=== PATIENT | female | born 2000 | race Caucasian/White ===

== ENCOUNTER → 2018-04-04 13:26 | Outpatient (CLI) | payer OTHER, SELFPAY ==
[2018-04-04 14:40] LABS: HCG,Quantitative 0 mIU/mL
== END ==
PROVIDERS: Family Provider Family Medicine; Visit Provider Obstetrics & Gynecology
DX: Z32.00 Encounter for pregnancy test, result unknown (principal)
CPT/HCPCS: 36415; 84702

== ENCOUNTER → 2018-06-04 09:20 | Outpatient (CLI) | payer OTHER, SELFPAY ==
[2018-06-04 10:01] LABS: Basophils % 0.2 % (0.1-2.0); Eosinophils # 0.1 K/mm3 (0.0-0.4); Eosinophils % 1.8 % (0.1-12.0); Hematocrit 38.8 % (37.0-47.0); Hemoglobin 13.6 g/dL (12.2-16.2); Lymphocytes # 1.8 K/mm3 (0.7-4.5); Lymphocytes % 23.4 K/mm3 (10-50); Mean Corpuscular HGB Conc 35.1 g/dL (31.8-35.4); Mean Corpuscular Hemoglobin 30.3 pg (27.0-31.2); Mean Corpuscular Volume 86.4 fl (81-99); Mean Platelet Volume 8.1 fl (7.4-10.4); Monocytes # 0.4 K/mm3 (0.1-1.0); Monocytes % 5.1 % (1.7-9.3); Neutrophils # 5.5 K/mm3 (1.8-7.8); Neutrophils % 69.5 % (37.0-80.0); Platelet Count 171 K/mm3 (142-424); Red Blood Count 4.49 M/mm3 (4.20-5.40); Red Cell Distribution Width 14.1 % (11.5-17.5); White Blood Count 7.9 K/mm3 (4.5-13.0)
[2018-06-04 10:35] LABS: Hemoglobin A1C 9.5 % (0.0-7.0)
[2018-06-04 13:37] LABS: Free Thyroxine Index 3.1 ug/dL (5.93-13.13); HCG,Quantitative 55763 mIU/mL; T4 (Thyroxine) 9.6 ug/dl (5.4-10.6); Thyroid Stimulating Hormone 3.16 uIU/ml (0.516-4.13); Triiodothryronine (T3) Uptake 32 % (31-39)
[2018-06-06 06:50] LABS: HIV Screen 4th Generation wRfx Non Reactive (Non Reactive); Hepatitis B Surface Antigen Negative (Negative); Hepatitis C Antibody <0.1 s/co ratio (0.0-0.9); Rapid Plasma Reagin Ab Titer Non Reactive (NonRea<1:1)
[2018-06-06 06:51] LABS: Rubella Antibodies, IgG 1.34 index (Immune >0.99)
[2018-06-07 15:21] LABS: Neisseria gonorrhoeae, NAA Negative (Negative)
== END ==
PROVIDERS: Family Provider Family Medicine; PCP Pediatrics; Visit Provider Nurse Practitioner Obstetrics & Gynecology
DX: Z34.90 Encounter for supervision of normal pregnancy, unspecified, unspecified trimester (principal)
CPT/HCPCS: 36415; 83036; 84436; 84443; 84479; 84702; 85025; 86592; 86703; 86762; 86850; 87340; 87380; 87491; 87591; G0432

== ENCOUNTER → 2018-06-12 14:52 | Outpatient (CLI) | payer OTHER, SELFPAY ==
--- NOTE | 2018-06-12 14:52 | US_ITS ---
US OB transvaginal HISTORY: OB- Dates ITS.REASON: US OB- Dates ORDERING PHYSICIAN: Steve Ware MD PATIENT AGE: 18 years COMPARISON: None FINDINGS: An intrauterine gestational sac is present with a pole with a crown-rump length of 1.98cm correlating to gestational age of 8w0d . heart tones are present with an FHR of 164 bpm's. Yolk sac is noted. The amnion and chorion have not yet fused. Adnexa: There is a 1.57 m left ovarian corpus luteum cyst. There is minimal cul-de-sac fluid. IMPRESSION: Live intrauterine gestation at 8 weeks 0 days as described above. Estimated due date by ultrasound is 01/22/2019.
== END ==
PROVIDERS: Family Provider Family Medicine; PCP Pediatrics; Visit Provider Nurse Practitioner Obstetrics & Gynecology
DX: O26.841 Uterine size-date discrepancy, first trimester (principal)
CPT/HCPCS: 76817; 76830

== ENCOUNTER → 2019-07-04 12:17 | Outpatient (CLI) | payer OTHER, SELFPAY ==
[2019-07-04 14:14] LABS: HCG,Quantitative 0 mIU/mL
== END ==
PROVIDERS: Visit Provider Nurse Practitioner Obstetrics & Gynecology
DX: Z32.00 Encounter for pregnancy test, result unknown (principal)
CPT/HCPCS: 36415; 84702

== ENCOUNTER → 2019-11-12 15:01 | Outpatient (CLI) | payer OTHER, SELFPAY ==
[2019-11-12 16:33] LABS: HCG,Quantitative 0 mIU/mL
== END ==
PROVIDERS: Visit Provider Nurse Practitioner Obstetrics & Gynecology
DX: Z32.00 Encounter for pregnancy test, result unknown (principal)
CPT/HCPCS: 36415; 84702

== ENCOUNTER → 2019-11-19 13:53 | Outpatient (CLI) | payer OTHER, SELFPAY ==
[2019-11-19 14:27] LABS: Basophils % 0.2 % (0.1-2.0); Eosinophils # 0.1 K/mm3 (0.0-0.4); Eosinophils % 0.9 % (0.1-12.0); Hematocrit 44.2 % (37.0-47.0); Hemoglobin 15.2 g/dL (12.2-16.2); Lymphocytes # 1.6 K/mm3 (0.7-4.5); Lymphocytes % 26.9 % (10-50); Mean Corpuscular HGB Conc 34.4 g/dL (31.8-35.4); Mean Corpuscular Hemoglobin 29.9 pg (27.0-31.2); Mean Corpuscular Volume 86.7 fl (81-99); Monocytes # 0.3 K/mm3 (0.1-1.0); Monocytes % 4.4 % (1.7-9.3); Neutrophils % 67.6 % (37.0-80.0); Platelet Count 261 K/mm3 (142-424); Red Cell Distribution Width 12.8 % (11.5-17.5); White Blood Count 5.9 K/mm3 (4.8-10.8)
[2019-11-19 15:06] LABS: Alanine Aminotransferase 14 U/L (12-78); Albumin Level 3.4 gm/dL (3.4-5.0); Albumin/Globulin Ratio 1.1 (1.1-1.8); Alkaline Phosphatase 97 U/L (46-116); Anion Gap 18.9 mEq/L (5-15); Aspartate Amino Transferase 10 U/L (15-37); Bilirubin,Total 0.2 mg/dL (0.2-1.0); Blood Urea Nitrogen 0 mg/dL (7-18); Calcium 8.7 mg/dL (8.5-10.1); Carbon Dioxide 21 mmol/L (21.0-32.0); Chloride 105 mmol/L (98-107); Chol/HDL Ratio 6.7 (1-3.5); Cholesterol 194 mg/dL (140-200); Creatinine,Serum 0.81 mg/dL (0.55-1.02); Estimated Glomerular Filt Rate 89 ml/min (>60); Free T4 (Free Thyroxine) 1.08 ng/dl (0.76-1.46); GFR (African American) 108 ML/MIN (>60); Glucose 279 mg/dL (74-106); HDL Cholesterol 29 mg/dL (29-89); LDL Cholesterol 116 mg/dL (0-130); Potassium 3.9 mmoL/L (3.5-5.1); Sodium 141 mmol/L (136-145); Thyroid Stimulating Hormone 0.86 uIU/ml (0.358-3.740); Total Protein,Serum 6.4 gm/dL (6.4-8.2); Triglycerides 245 mg/dL (30-200); VLDL Cholesterol 49 mg/dL (0-40)
[2019-11-19 15:15] LABS: Hemoglobin A1C 10.3 % (0.0-7.0)
[2019-11-20 12:34] LABS: Vitamin D 25 Hydroxy 14.9 ng/mL (30.0-100.0)
[2019-11-20 12:35] LABS: Microalbumin, Urine 4.3 ug/mL (Not Estab.)
== END ==
PROVIDERS: Visit Provider Emergency Medicine
DX: E03.9 Hypothyroidism, unspecified (principal); E11.9 Type 2 diabetes mellitus without complications; E55.9 Vitamin D deficiency, unspecified; Z79.4 Long term (current) use of insulin
CPT/HCPCS: 80053; 80061; 82043; 82652; 83036; 84439; 84443; 85025

== ENCOUNTER → 2020-05-04 14:11 | Outpatient (CLI) | payer OTHER, SELFPAY ==
[2020-05-04 15:44] LABS: HCG,Quantitative < 2 mIU/ml (0-5.42)
== END ==
PROVIDERS: Visit Provider Nurse Practitioner Obstetrics & Gynecology
DX: Z32.00 Encounter for pregnancy test, result unknown (principal)
CPT/HCPCS: 36415; 84702

== ENCOUNTER 2020-06-18 16:41 | Emergency (ER) | payer OTHER, SELFPAY ==
[2020-06-18 17:09] VITALS: BP 141/88; PULSE 101; RESP 18; TEMP 36.9; O2SAT 99; BMI 36.3
--- NOTE | 2020-06-18 17:21 | HMH.EDUTC ---
[facility] [place] [facility] [place] Clinical Impression: Viral syndrome Disposition: Home, Self-Care Condition on Discharge: Good Instructions: Diarrhea, DI for Viral Syndrome, DI for Fever (Symptom) -- Adult, Preventing the Spread of Coronavirus Discharge Instructions Additional Instructions: ? Drink extra fluids with and between meals. If you have difficulty drinking, try very small amounts of water or suck on ice chips. ? Avoid fruit juices, as these do not replace minerals and can actually increase diarrhea. ? Children and adults can use sports drinks to replenish electrolytes. Younger children and infants should use products formulated for children, like oral rehydration solutions. ? Eat food in small amounts and let your stomach recover. ? Get lots of rest. You may feel tired or weak. ? No greasy or fried foods for the next 24-48 hours BRAT diet Bananas Rice Apples and [place] ? Make sure to drink plenty of liquids ? Return if needed ? Straight to ER if any life threatening symptoms ? Zofran as prescribed ? You was given an outpatient order for diarrhea panel, please collect specimen and bring back to outpatient lab then call back to the [facility] or follow up with family doctor for results ? Follow up with family doctor in the next 48-72 hours if no improvement or any worsening of symptoms *Monitor Temp, Over the counter Motrin or Tylenol as directed/as needed Tylenol every 4 hours and Motrin every 6 hours (as long as your family doctor has told you that you can take it) for fever or pain. and straight to ER if unable to lower temp less than 101.0 after medication given *Warm salt water gargles may help to soothe the throat *Throat Lozenges *Warm fluids like tea with honey may help to soothe the throat *Sleep elevated *Humidifier/Vaporizer Follow up IMMEDIATELY for new or worsening symptoms or no Noticeable improvement over the next 48-72 hours. 911 for difficulty breathing or swallowing Call back to the [facility] in the next 48-72 hours to see if your results are back, You was given handout with instructions for Self Quarantine and Self isolation if your result was positive make sure to follow instructions Return if needed Referrals: Isak Calle [Primary Care Provider] - As needed Forms: Work/School Release Time of Disposition: 17:35 Medical Decision Making - Jasson Inquiry Pt receiving controlled substance: No Jasson was queried for this patient: No Vital Signs: 06/18/20 17:09 Temperature 98.4 F Temperature Source Oral Pulse Rate [Right Brachial] 101 H Respiratory Rate 18 Blood Pressure [Right Arm] 141/88 H Blood Pressure Mean [Right Arm] 105 Blood Pressure Source [Right Arm] Automatic Cuff Blood Pressure Position [Right Arm] Sitting 02 Sat by Pulse Oximetry 99 Oxygen Delivery Method Room Air Orders (Tests/Meds): ORDERS Category Date Time Status COVID [SARS-CoV-2, EBONI ([place])] Stat Lab 06/18/20 17:04 Ordered [facility] [place] [facility] [place] - General Stated complaint: headaches muscle aches diarrhea fatigue nausea Time Seen by Provider: 06/18/20 17:21 Mode of Arrival: Ambulatory Source of Information: Patient Limitations: No Limitations Description of Symptoms (Recalled from Triage Doc. by RN): PATIENT C/O HEADACHE, BODY ACHES, FATIGUE, LOW-GRADE FEVER, COUGH, AND DIARRHEA X 3 DAYS. HAS BEEN EXPOSED TO COVID YESTERDAY AND 1 WEEK AGO HEENT Symptoms (Recalled from RN notes): Yes Resp Symptoms (Recalled from RN notes): No Skin Symptoms (Recalled from RN notes): No MS Symptoms (Recalled from RN notes): Yes Functional Status (Recalled from RN notes): WNL - History of Present Illness Provider Complaint: Patient states that she was around a friend that tested positive for COVID19 yesterday States that she was around her about a week ago and yesterday States that also her rides to work with male that tested positive also States that for the last several days she has been having sore throat, nausea, diarrhea body aches and low grade fever. States kailey
[2020-06-18 17:49] VITALS: BP 141/88; PULSE 101; RESP 18; TEMP 36.9; O2SAT 99
[2020-06-18 17:50] LABS: UTC Pregnancy Test, Urine Negative (Negative)
[2020-06-20 09:42] LABS: Covid-19 Nasal PCR Sendout UK Not Detected
== END 2020-06-18 17:58 | disposition home or self-care (01) ==
PROVIDERS: Emergency Provider Nurse Practitioner; PCP Pediatrics
DX: B34.9 Viral infection, unspecified (principal); Z20.828 Contact with and (suspected) exposure to other viral communicable diseases; F41.9 Anxiety disorder, unspecified; Z79.899 Other long term (current) drug therapy; Z88.5 Allergy status to narcotic agent
CPT/HCPCS: 81025; 99202; U0003

== ENCOUNTER 2020-09-07 10:49 | Emergency (ER) | payer OTHER, SELFPAY ==
[2020-09-07 12:06] VITALS: BP 126/76; PULSE 75; RESP 19; TEMP 36.6; O2SAT 99; BMI 35.1
--- NOTE | 2020-09-07 12:14 | HMH.EDUTC ---
[facility] – [place] Disposition Clinical Impression: Exposure to COVID-19 virus, Viral syndrome Disposition: Home, Self-Care Condition on Discharge: Good Instructions: Preventing the Spread of Coronavirus Discharge Instructions, DI for Nausea -- Adult, Nausea and Vomiting-Adult, Sore Throat, Common Cold, DI for Viral Upper Respiratory Infection -- Adult Additional Instructions: *Monitor Temp, Over the counter Motrin or Tylenol as directed/as needed Tylenol every 4 hours and Motrin every 6 hours (as long as your family doctor has told you that you can take it) for fever or pain. and straight to ER if unable to lower temp less than 101.0 after medication given *Warm salt water gargles may help to soothe the throat *Throat Lozenges *Warm fluids like tea with honey may help to soothe the throat *Sleep elevated *Humidifier/Vaporizer Follow up IMMEDIATELY for new or worsening symptoms or no Noticeable improvement over the next 48-72 hours. 911 for difficulty breathing or swallowing You was tested for today for COVID19 your test result should be back in the next 24-48 hours, you may call to the [facility] tomorrow to see if your test results are back and the result [phone] You was given a handout with instructions for Self Quarantine and Self isolation for while you wait on test results and what to do if they are positive If you are positive the Health Dept will be contacting you also Prescriptions: Ondansetron [Zofran 4mg ODT] 4 mg PO TIDP PRN #6 tab PRN Reason: Nausea Prescription Printed Referrals: Isak Calle [Primary Care Provider] - As needed Time of Disposition: 12:21 Medical Decision Making - Jasson Inquiry Pt receiving controlled substance: No Jasson was queried for this patient: No Vital Signs: 09/07/20 12:06 Temperature 97.8 F Temperature Source Oral Pulse Rate [Left] 75 Respiratory Rate 19 Blood Pressure [Right Arm] 126/76 Blood Pressure Mean [Right Arm] 92 Blood Pressure Source [Right Arm] Automatic Cuff Blood Pressure Position [Right Arm] Sitting 02 Sat by Pulse Oximetry 99 Oxygen Delivery Method Room Air Orders (Tests/Meds): ORDERS Category Date Time Status Covid-19 Nasal PCR ([facility]) Routine Lab 09/07/20 12:04 Ordered Medical Decision Narrative: Patient states that she has taken zofran before without complications or reactions [facility] [place] HPI - General Stated complaint: covid test Time Seen by Provider: 09/07/20 12:14 Mode of Arrival: Ambulatory Source of Information: Patient Limitations: No Limitations Description of Symptoms (Recalled from Triage Doc. by RN): Cough, vomiting, SOB, migraines x 5 days HEENT Symptoms (Recalled from RN notes): No Resp Symptoms (Recalled from RN notes): Yes Skin Symptoms (Recalled from RN notes): No MS Symptoms (Recalled from RN notes): No Functional Status (Recalled from RN notes): stable - History of Present Illness Provider Complaint: Patient state that she has been exposed to COVID by who tested positive for COVID yesterday States that she has been having some nausea/Vomiting, body aches, nasal congestion and cough States that she is concerned she may have it now too - Related Data Home Medications Medication Instructions Recorded Confirmed blood-glucose meter See Rx Instructions .ROUTE 11/19/19 11/19/19 .MEDSUPPLY #1 each Previous Rx's Medication Instructions Recorded blood sugar diagnostic See Rx Instructions .ROUTE 11/19/19 .MEDSUPPLY #100 each insulin glargine 100 unit/mL (3 41 unit SQ DAILY #15 ml 11/19/19 mL) subcutaneous pen insulin syringe-needle U-100 0.3 See Dose Instructions .ROUTE 11/19/19 mL 31 gauge x 16 .MEDSUPPLY 25 Days #100 each cholecalciferol (vitamin D3) 25 1,000 unit PO DAILY #90 cap 11/24/19 mcg (1,000 unit) capsule ergocalciferol (vitamin D2) 1,250 50,000 unit PO QWEEK 90 Days #12 11/24/19 mcg (50,000 unit) capsule cap insulin lispro 100 unit/mL 40 unit SQ TID #15 ml 11/27/19 subcutaneous pen
[2020-09-07 12:28] VITALS: BP 126/76; PULSE 75; RESP 19; TEMP 36.6; O2SAT 99
[2020-09-08 21:20] LABS: Covid-19 Nasal PCR Sendout Lex Not Detected
== END 2020-09-07 12:29 | disposition home or self-care (01) ==
PROVIDERS: Emergency Provider Nurse Practitioner; PCP Pediatrics
DX: Z20.828 Contact with and (suspected) exposure to other viral communicable diseases (principal); B34.9 Viral infection, unspecified; F41.9 Anxiety disorder, unspecified; Z88.5 Allergy status to narcotic agent; Z79.899 Other long term (current) drug therapy; E11.9 Type 2 diabetes mellitus without complications
CPT/HCPCS: 99201; U0004

== ENCOUNTER 2021-01-09 20:56 | Emergency (ER) | payer OTHER, SELFPAY ==
[2021-01-09 20:57] VITALS: BMI 35.6
[2021-01-09 21:05] VITALS: BP 152/100; PULSE 110; RESP 18; TEMP 36.7; O2SAT 98; BMI 35.6
[2021-01-09 21:09] LABS: Microscopic, Urine URINE MICROSCOPIC (MICROSCOPIC)
[2021-01-09 21:23] LABS: Appearance,Urine CLEAR (Clear); Bilirubin,Urine Negative (Negative); Blood, Urine 3+ (Negative); Color,Urine YELLOW (Yellow); Glucose,Urine (UA) 3+ (Negative); Ketones,Urine Negative (Negative); Leukocyte Esterase,Urine Negative (Negative); Nitrate,Urine Negative (Negative); Protein,Urine Negative (Negative); Specific Gravity, Urine 1.015 (1.005-1.030); Urobilinogen,Urine 0.2 EU/dl (0.2)
[2021-01-09 21:24] LABS: Urine Pregnancy, HCG Qual. Negative (Negative)
[2021-01-09 21:25] LABS: RBC,Urine 50-100 #/hpf (0-3)
--- NOTE | 2021-01-09 21:25 | HMH.EDUROGF ---
ED Disposition Clinical Impression: Vaginal bleeding Disposition: Home, Self-Care Condition on Discharge: Good Instructions: DI for Vaginal Bleeding Additional Instructions: please follow up with dr ware Referrals: Isak Calle [Primary Care Provider] - Steve Ware MD [Staff Physician] - - Critical Care Critical Care Time: No Attestation: On 01/09/21, the high probability of a clinically significant, sudden or life threatening deterioration of the following system(s) required my full and direct attention, intervention and personal management. The time I documented below is in addition to time spent performing reported procedures but includes the following listed in this critical care notation. Medical Decision Making - Medical Records Medical records reviewed: Yes: I reviewed the patient's medical records. - Jasson Inquiry Pt receiving controlled substance: No Vital Signs: 01/09/21 21:05 01/09/21 21:28 Temperature 98.1 F 98.1 F Temperature Source Oral Oral Pulse Rate 99 H Pulse Rate [Right Brachial] 110 H Respiratory Rate 18 18 Blood Pressure 148/79 H Blood Pressure [Right Arm] 152/100 H Blood Pressure Mean [Right Arm] 117 Blood Pressure Source Automatic Cuff Blood Pressure Source [Right Arm] Automatic Cuff Blood Pressure Position Supine Blood Pressure Position [Right Arm] Sitting 02 Sat by Pulse Oximetry 98 Oxygen Delivery Method Room Air Room Air - Lab Data Lab results reviewed: Yes: I reviewed the patient's lab results. Lab Results 01/09/21 21:00: Urine Color Yellow, Urine Appearance Clear, Urine pH 7.0, Ur Specific [place] 1.015, Urine Protein Negative, Urine Glucose (UA) 3+, Urine Ketones Negative, Urine Blood 3+, Urine Nitrate Negative, Urine Bilirubin Negative, Urine Urobilinogen 0.2, Ur Leukocyte Esterase Negative, Urine RBC 50-100 01/09/21 21:00: Urine HCG, Qual Negative Female Urogenital HPI - General Chief complaint: Vaginal Bleeding Stated complaint: 5 wk preg bleeding Time Seen by Provider: 01/09/21 21:25 Mode of Arrival: Family Vehicle Source of Information: Patient, Medical Record Limitations: No Limitations Description of Symptoms (Recalled from ER Triage Doc. by RN): pt states she took three home preg tests and they were positive a few days ago. then she stated she started bleeding last night, enough blood that she has to wear a pad to protect her clothing. Her regular menses was due to begin two days ago and is always regular ; - History of Present Illness HPI Narrative: had home preg test but then dev vag bleeding - pt is o+ Complaint: vaginal bleeding Onset (ago): day(s) Severity: moderate : Unknown - Related Data Home Medications Medication Instructions Recorded Confirmed blood-glucose meter See Rx Instructions .ROUTE 11/19/19 11/19/19 .MEDSUPPLY #1 each Previous Rx's Medication Instructions Recorded blood sugar diagnostic See Rx Instructions .ROUTE 11/19/19 .MEDSUPPLY #100 each insulin glargine 100 unit/mL (3 41 unit SQ DAILY #15 ml 11/19/19 mL) subcutaneous pen insulin syringe-needle U-100 0.3 See Dose Instructions .ROUTE 11/19/19 mL 31 gauge x 5/16 .MEDSUPPLY 25 Days #100 each cholecalciferol (vitamin D3) 25 1,000 unit PO DAILY #90 cap 11/24/19 mcg (1,000 unit) capsule ergocalciferol (vitamin D2) 1,250 50,000 unit PO QWEEK 90 Days #12 11/24/19 mcg (50,000 unit) capsule cap insulin lispro 100 unit/mL 40 unit SQ TID #15 ml 11/27/19 subcutaneous pen prenat.vits,yue,eue-elrk-ggnuf 1 tab PO DAILY #30 tab 05/04/20 Ondansetron [Zofran 4mg ODT] 4 mg PO TIDP PRN #6 tab 09/07/20 Allergies Allergy/AdvReac Type Severity Reaction Status Date / Time codeine [CODEINE] Allergy Mild Verified 09/07/20 12:27 Influenza Virus Vaccines AdvReac Unknown Verified 09/07/20 12:27 [facility] [place] History - Hepatitis A Screen Drug use history?: No High risk sexual behaviors?: No History of sexually transmitted infec
[2021-01-09 21:28] VITALS: BP 148/79; PULSE 99; RESP 18; TEMP 36.7; O2SAT 98
== END 2021-01-09 21:38 | disposition home or self-care (01) ==
PROVIDERS: Emergency Provider Emergency Medicine; PCP Pediatrics
DX: N93.9 Abnormal uterine and vaginal bleeding, unspecified (principal); Z32.02 Encounter for pregnancy test, result negative; E10.9 Type 1 diabetes mellitus without complications; Z79.4 Long term (current) use of insulin; F41.9 Anxiety disorder, unspecified; E03.9 Hypothyroidism, unspecified
CPT/HCPCS: 81001; 81025; 99282

== ENCOUNTER 2021-07-11 17:42 | Emergency (ER) | payer OTHER, SELFPAY ==
[2021-07-11 17:43] VITALS: BP 149/89; PULSE 111; RESP 21; TEMP 36.8; O2SAT 98; BMI 41.1
--- NOTE | 2021-07-11 19:12 | US_ITS ---
PROCEDURE INFORMATION: Exam: US , Transvaginal Exam date and time: 07/11/2021 7:12 PM Age: 21 years old Clinical indication: Other: Abdomen pain and nausea; Gestational age or lmp: 6 weeks 2 days; ; Additional info: Abdominal pain nausea TECHNIQUE: Imaging protocol: Real-time transvaginal obstetrical ultrasound of the maternal pelvis with image documentation. Transvaginal imaging was used for better evaluation of the fetus, adnexa, and/or cervix. COMPARISON: OBTV US OB transvaginal 06/12/2018 3:27 PM FINDINGS: Gestation: Intrauterine gestational sac with yolk sac. heart rate: Heart rate was not definitively recorded. BIOMETRY: Gestational age (AUA): Gestational age based on crown-rump length is 5 weeks and 6 days. Estimated due date (AUA): RENATE of 03/07/2022 MATERNAL: Cervix: Cervix appears within normal limits. Right adnexa: Right ovary is normal. Left adnexa: Left ovary is normal. IMPRESSION: Single intrauterine gestation as described above. Follow-up ultrasound is recommended in 7-10 days to confirm viability.
[2021-07-11 19:15] LABS: Microscopic, Urine URINE MICROSCOPIC (MICROSCOPIC)
[2021-07-11 19:18] LABS: Appearance,Urine CLEAR (Clear); Bilirubin,Urine Negative (Negative); Blood, Urine Negative (Negative); Color,Urine YELLOW (Yellow); Glucose,Urine (UA) Negative (Negative); Ketones,Urine Negative (Negative); Leukocyte Esterase,Urine TRACE (Negative); Nitrate,Urine Negative (Negative); Protein,Urine Negative (Negative); Specific Gravity, Urine 1.025 (1.005-1.030); Urine Pregnancy, HCG Qual. Positive (Negative); Urobilinogen,Urine 0.2 EU/dl (0.2)
[2021-07-11 19:29] LABS: WBC,Urine Occasional #/hpf (0-3)
[2021-07-11 19:32] LABS: Basophils % 0.2 % (0.1-2.0); Eosinophils # 0.1 K/mm3 (0.0-0.4); Eosinophils % 0.8 % (0.1-12.0); Hematocrit 34.7 % (37.0-47.0); Hemoglobin 12.2 g/dL (12.2-16.2); Lymphocytes # 1.6 K/mm3 (0.7-4.5); Lymphocytes % 23.6 % (10-50); Mean Corpuscular HGB Conc 35.2 g/dL (31.8-35.4); Mean Corpuscular Hemoglobin 30.1 pg (27.0-31.2); Mean Corpuscular Volume 85.6 fl (81-99); Mean Platelet Volume 6.8 fl (7.4-10.4); Monocytes # 0.4 K/mm3 (0.1-1.0); Monocytes % 6.2 % (1.7-9.3); Neutrophils # 4.7 K/mm3 (1.8-7.8); Neutrophils % 69.1 % (37.0-80.0); Platelet Count 192 K/mm3 (142-424); Red Blood Count 4.05 M/mm3 (4.20-5.40); Red Cell Distribution Width 13.8 % (11.5-17.5); White Blood Count 6.8 K/mm3 (4.8-10.8)
--- NOTE | 2021-07-11 19:33 | HMH.EDGENADL ---
ED Disposition Clinical Impression: Vaginal bleeding before 22 weeks gestation Disposition: Home, Self-Care Condition on Discharge: Good Instructions: DI for Acute Abdominal Pain Additional Instructions: Follow-up waste minimization technician tomorrow morning by phone. Return to emergency department for worsening bleeding, fever, severe pain. Referrals: Isak Calle [Primary Care Provider] - 3 days Time of Disposition: 20:20 - Critical Care Critical Care Time: No Attestation: On 07/11/21, the high probability of a clinically significant, sudden or life threatening deterioration of the following system(s) required my full and direct attention, intervention and personal management. The time I documented below is in addition to time spent performing reported procedures but includes the following listed in this critical care notation. Medical Decision Making - Medical Records Medical records reviewed: Yes: I reviewed the patient's medical records. - Jasson Inquiry Pt receiving controlled substance: No Vital Signs: 07/11/21 17:43 Temperature 98.3 F Temperature Source Oral Pulse Rate [Right Radial] 111 H Respiratory Rate 21 Blood Pressure [Right Arm] 149/89 H Blood Pressure Mean [Right Arm] 109 Blood Pressure Source [Right Arm] Automatic Cuff Blood Pressure Position [Right Arm] Sitting 02 Sat by Pulse Oximetry 98 Oxygen Delivery Method Room Air - Lab Data Lab Results 07/11/21 18:56: Urine Color Yellow, Urine Appearance Clear, Urine pH 7.0, Ur Specific [place] 1.025, Urine Protein Negative, Urine Glucose (UA) Negative, Urine Ketones Negative, Urine Blood Negative, Urine Nitrate Negative, Urine Bilirubin Negative, Urine Urobilinogen 0.2, Ur Leukocyte Esterase Trace, Urine RBC None, Urine WBC Occasional, Ur Squamous Epith Cells None, Urine Bacteria None 07/11/21 18:56: Urine HCG, Qual Positive 07/11/21 19:12: HCG, Quant [id number] H 07/11/21 19:17: WBC 6.8, RBC 4.05 L, Hgb 12.2, Hct 34.7 L, MCV 85.6, MCH 30.1, MCHC 35.2, RDW 13.8, Plt Count 192, MPV 6.8 L, Neut % (Auto) 69.1, Lymph % (Auto) 23.6, [place] % (Auto) 6.2, Eos % (Auto) 0.8, Baso % (Auto) 0.2, Neut # (Auto) 4.7, Lymph # (Auto) 1.6, [place] # (Auto) 0.4, Eos # (Auto) 0.1, Baso # (Auto) 0.0, ESR 18 07/11/21 19:17: Sodium 138, Potassium 3.6, Chloride 103, Carbon Dioxide 24, Anion Gap 14.6, BUN 9, Creatinine 0.50 L, Estimated Creat Clear 282, Estimated GFR 153, Est GFR ( Amer) 185, Glucose 84, Calcium 9.0, Total Bilirubin 0.2, AST 22, ALT 21, Alkaline Phosphatase 73, C-Reactive Protein 13.4 H, Total Protein 7.3, Albumin 3.9, Globulin 3.4 H, Albumin/Globulin Ratio 1.1, Procalcitonin 0.062 07/11/21 19:37: SARS-CoV-2 (PCR) Not detected, Influenza A Untype (PCR) Not detected, Influenza Type B (PCR) Not detected Result diagrams: 07/11/21 19:17 07/11/21 19:17 Orders (Tests/Meds): ED MEDICATIONS Generic Name Dose Route Start Last Admin Trade Name Freq PRN Reason Stop Dose Admin Sodium Chloride 1,000 mls @ 999 mls/hr 07/11/21 19:30 Sod Chlor 0.9% 1000ml Bag IV 07/11/21 20:30 .Q1H1M [facility] ORDERS Category Date Time Status US OB transvaginal Stat Ultrasound 07/11/21 19:12 Ordered Medical Decision Narrative: 21oy F evaluated for uterine cramping and spotting at 6 weeks gestation. Patient in no acute distress on initial evaluation. Routine laboratory studies have been collected. Ultrasound has been called in for further evaluation. Laboratory studies are unremarkable. Patient's ultrasound shows a gestational sac in the uterus. There is no signs of ectopic . Too early to calculate heart rate off of ultrasound per tech at this time. Patient encouraged to follow-up with her waste minimization technician tomorrow via phone. General Adult HPI - General Chief complaint: Abdominal Pain Stated complaint: 6 Wks Preg. Spotting and vomiting Time Seen by Provider: 07/11/21 19:33 Mode of Arrival: Ambulatory Limitations: No Limitations Description of Symptoms (Recalled
[2021-07-11 19:43] LABS: Coronavirus 19, PCR Not Detected (NotDetected); Influenza A, PCR Not Detected (NotDetected); Influenza B, PCR Not Detected (NotDetected)
[2021-07-11 19:53] LABS: Alanine Aminotransferase 21 U/L (12-78); Albumin Level 3.9 g/dl (3.5-5.0); Albumin/Globulin Ratio 1.1 (1.1-1.8); Alkaline Phosphatase 73 U/L (38-126); Anion Gap 14.6 mEq/L (5-15); Aspartate Amino Transferase 22 U/L (14-36); Bilirubin,Total 0.2 mg/dl (0.2-1.3); Blood Urea Nitrogen 9 mg/dl (7-17); Carbon Dioxide 24 mmol/L (22.0-30.0); Chloride 103 mmol/L (98-107); Creatinine Clearance Estimated 282 mL/min (50-200); Estimated Glomerular Filt Rate 153 ml/min (>60); GFR (African American) 185 ML/MIN (>60); Globulin 3.4 g/dL (1.3-3.2); Glucose 84 mg/dl (74-100); Potassium 3.6 mmoL/L (3.5-5.1); Sodium 138 mmol/L (136-145); Total Protein,Serum 7.3 g/dl (6.3-8.2)
[2021-07-11 19:58] LABS: C-Reactive Protein 13.4 mg/L (0-4)
[2021-07-11 20:06] LABS: Erythrocyte Sedimentation Rate 18 mm/hr (0-20)
[2021-07-11 20:11] LABS: Procalcitonin 0.062 ng/mL (0.0-2.0)
[2021-07-11 20:12] LABS: HCG,Quantitative 11583 mIU/ml (0-5.42)
[2021-07-11 20:44] VITALS: BP 140/80; PULSE 100; RESP 18; TEMP 36.9; O2SAT 95
== END 2021-07-11 20:46 | disposition home or self-care (01) ==
PROVIDERS: Emergency Medicine; Emergency Provider Family Medicine; PCP Pediatrics
DX: Z20.822 Contact with and (suspected) exposure to COVID-19 (principal); O20.9 Hemorrhage in early pregnancy, unspecified; Z3A.01 Less than 8 weeks gestation of pregnancy; F41.9 Anxiety disorder, unspecified
CPT/HCPCS: 76817; 80053; 81001; 81025; 84145; 84702; 85025; 85651; 86140; 96365; 99283; C9803; U0003; U0005

== ENCOUNTER 2022-06-25 18:07 | Emergency (ER) | payer OTHER, SELFPAY ==
[2022-06-25 18:08] VITALS: BP 157/65; PULSE 108; RESP 20; TEMP 38.4; O2SAT 100; BMI 41.1
[2022-06-25 19:09] VITALS: BP 148/72; PULSE 100; RESP 18; TEMP 37.9; O2SAT 100; BMI 41.1
--- NOTE | 2022-06-25 19:39 | EXP.UTC ---
Discharge Plan Disposition Patient Disposition: Still a Patient Condition: Fair Prescriptions Prescriptions: No Action (DME) blood-glucose meter Misc See Rx Instructions .ROUTE .MEDSUPPLY Qty: 1 Label Comments: USE DIRECTED DX E 10.65 Rx Instructions: As directed Basaglar KwikPen U-100 Insulin 100 unit/mL (3 mL) insulin pen 41 unit SQ DAILY Qty: 15 2RF (DME) insulin syringe-needle U-100 0.3 mL 31 gauge x 5/16 syringe See Dose Instructions .ROUTE .MEDSUPPLY 25 Days Qty: 100 2RF Rx Instructions: As directed (DME) blood sugar diagnostic Strip See Rx Instructions .ROUTE .MEDSUPPLY Qty: 100 2RF Rx Instructions: As directed ergocalciferol (vitamin D2) 1,250 mcg (50,000 unit) capsule 50,000 unit PO QWEEK 90 Days Qty: 12 0RF cholecalciferol (vitamin D3) 25 mcg (1,000 unit) capsule 1,000 unit PO DAILY Qty: 90 1RF insulin lispro [Admelog SoloStar U-100 Insulin] 100 unit/mL insulin pen 40 unit SQ TID Qty: 15 3RF prenat.vits,yue,low-xkqk-ozqwc Tablet 1 tab PO DAILY Qty: 30 6RF ondansetron 4 MG tablet,disintegrating 4 mg PO TIDP PRN (Reason: Nausea) Qty: 6 0RF Referrals Follow up/Referrals: Isak Calle [Primary Care Provider] - See instructions Discharge ED Provider: Luis North [facility] [place] HPI General Stated complaint: exposed,Home test+,Weakness,Dizzy,Blood sugar hig Mode of Arrival: Ambulatory Source of Information: Patient Limitations: No Limitations Time Seen by Provider: 06/25/22 19:46 Description of Symptoms (Recalled from Triage Doc. by RN): pt here with c/o izziness, body aches, cough, high blood sugar, cough, vomitting, nasal drainage. pt had an at home positive covid test was positive. HEENT Symptoms (Recalled from RN notes): Yes Resp Symptoms (Recalled from RN notes): Yes Skin Symptoms (Recalled from RN notes): No MS Symptoms (Recalled from RN notes): No Functional Status (Recalled from RN notes): n/a History of Present Illness Provider Complaint: She is a type 1 diabetic that tested positive for covid-19 on a home test yesterday. She is here today because she feels very bad, having shortness of air, feeling very dizzy and her blood sugars are running in the 300's despite everything she can do to lower them. She has an insulin pump. She has been in DKA in the past. Related Data Home Medications Medication Instructions Recorded Confirmed blood-glucose meter #1 ea 11/19/19 11/19/19 Previous Rx's Medication Instructions Recorded blood sugar diagnostic #100 ea 11/19/19 insulin glargine 100 unit/mL (3 41 unit (0.41 mL) SQ DAILY 11/19/19 mL) subcutaneous pen (Basaglar Diabetes #15 mL KwikPen U-100 Insulin) insulin syringe-needle U-100 0.3 #100 ea 11/19/19 mL 31 gauge x 5/16 cholecalciferol (vitamin D3) 25 1,000 unit PO DAILY #90 caps 11/24/19 mcg (1,000 unit) capsule ergocalciferol (vitamin D2) 1,250 50,000 unit PO QWEEK 90 days #12 11/24/19 mcg (50,000 unit) capsule caps insulin lispro 100 unit/mL 40 unit (0.4 mL) SQ TID #15 mL 11/27/19 subcutaneous pen (Admelog SoloStar U-100 Insulin lispro) prenat.vits,yue,slb-acpc-svtjh 1 tab PO DAILY #30 tabs 05/04/20 ondansetron 4 mg disintegrating 4 mg PO TIDP PRN Nausea #6 tabs 09/07/20 tablet Allergies Allergy/AdvReac Type Severity Reaction Status Date / Time codeine [CODEINE] Allergy Mild Verified 06/25/22 19:15 Influenza Virus Vaccines AdvReac Unknown Verified 06/25/22 19:15 Worker's Comp Is this a Worker's Comp case?: No PFSH PFSH Medical History Diabetes mellitus Type 1 diabetes mellitus Type 1 diabetes mellitus affecting in first trimester, antepartum Family History Other Diabetes Type 1 diabetes mellitus Social History Smoking Status: Never smoker second hand exposure: No alcohol i
--- NOTE | 2022-06-25 19:52 | XR_ITS ---
PROCEDURE INFORMATION: Exam: XR Chest Exam date and time: 06/25/2022 8:10 PM Age: 22 years old Clinical indication: Fever TECHNIQUE: Imaging protocol: Radiologic exam of the chest. Views: 2 views. COMPARISON: No relevant prior studies available. FINDINGS: Lungs: Asymmetric density left lung base. Otherwise clear. Pleural spaces: Unremarkable. No pleural effusion. No pneumothorax. Heart/Mediastinum: Unremarkable. No cardiomegaly. Bones/joints: Unremarkable. IMPRESSION: Asymmetric density left lung base may reflect developing infiltrate or atelectasis. Follow-up recommended.
[2022-06-25 19:55] LABS: POC Glucose,Bedside 224 (70-110)
[2022-06-25 19:56] LABS: Influenza A, PCR Not Detected (NotDetected); Influenza B, PCR Not Detected (NotDetected)
[2022-06-25 20:00] LABS: Microscopic, Urine URINE MICROSCOPIC (MICROSCOPIC)
[2022-06-25 20:02] LABS: Appearance,Urine CLOUDY (Clear); Bilirubin,Urine Negative (Negative); Blood, Urine 3+ (Negative); Color,Urine RED (Yellow); Glucose,Urine (UA) 2+ (Negative); Ketones,Urine 1+ (Negative); Leukocyte Esterase,Urine 1+ (Negative); Nitrate,Urine POSITIVE (Negative); PH,Urine 7.5 (5.0-8.5); Protein,Urine 3+ (Negative)
[2022-06-25 20:05] LABS: Urine Pregnancy, HCG Qual. Negative (Negative)
[2022-06-25 20:07] LABS: Basophils % 0.9 % (0.1-2.0); Hematocrit 39.9 % (37.0-47.0); Hemoglobin 13.2 g/dL (12.2-16.2); Lymphocytes # 0.5 K/mm3 (0.7-4.5); Mean Corpuscular HGB Conc 33.1 g/dL (31.8-35.4); Mean Corpuscular Hemoglobin 26.6 pg (27.0-31.2); Mean Corpuscular Volume 80.4 fl (81-99); Monocytes # 0.4 K/mm3 (0.1-1.0); Monocytes % 9.2 % (1.7-9.3); Neutrophils # 3.2 K/mm3 (1.8-7.8); Neutrophils % 77.8 % (37.0-80.0); Platelet Count 204 K/mm3 (142-424); Red Blood Count 4.97 M/mm3 (4.20-5.40); Red Cell Distribution Width 15.7 % (11.5-17.5); White Blood Count 4.2 K/mm3 (4.8-10.8)
[2022-06-25 20:15] LABS: Alanine Aminotransferase 28 U/L (12-78); Albumin Level 4.2 g/dl (3.5-5.0); Albumin/Globulin Ratio 1.3 (1.1-1.8); Alkaline Phosphatase 115 U/L (38-126); Aspartate Amino Transferase 26 U/L (14-36); Blood Urea Nitrogen 10 mg/dl (7-17); Calcium 9.1 mg/dl (8.4-10.2); Carbon Dioxide 25 mmol/L (22.0-30.0); Chloride 103 mmol/L (98-107); Creatinine Clearance Estimated 175 mL/min (50-200); Estimated Glomerular Filt Rate 88 ml/min (>60); GFR (African American) 107 ML/MIN (>60); Globulin 3.3 g/dL (1.3-3.2); Glucose 225 mg/dl (74-100); Potassium 3.8 mmoL/L (3.5-5.1); Total Protein,Serum 7.5 g/dl (6.3-8.2)
[2022-06-25 20:16] LABS: Bacteria,Urine 1+ /lpf; RBC,Urine TNTC #/hpf (0-3)
[2022-06-25 20:17] LABS: Coronavirus 19, PCR Detected (NotDetected)
[2022-06-25 20:18] LABS: Anion Gap 11.8 mEq/L (5-15); Bilirubin,Total < 0.1 mg/dl (0.2-1.3); Sodium 136 mmol/L (136-145)
[2022-06-25 20:20] LABS: C-Reactive Protein 24.9 mg/L (0-4)
[2022-06-25 20:21] LABS: Acetone, Serum (Rapid) None Detected (None Detect)
[2022-06-25 20:31] LABS: Erythrocyte Sedimentation Rate 12 mm/hr (0-20)
--- NOTE | 2022-06-25 20:44 | HMH.EDURI ---
Discharge Plan Disposition Patient Disposition: Still a Patient Condition: Fair Chief Complaint: Upper Respiratory Infection Prescriptions Prescriptions: No Action (DME) blood-glucose meter Misc See Rx Instructions .ROUTE .MEDSUPPLY Qty: 1 Label Comments: USE DIRECTED DX E 10.65 Rx Instructions: As directed Basaglar KwikPen U-100 Insulin 100 unit/mL (3 mL) insulin pen 41 unit SQ DAILY Qty: 15 2RF (DME) insulin syringe-needle U-100 0.3 mL 31 gauge x 5/16 syringe See Dose Instructions .ROUTE .MEDSUPPLY 25 Days Qty: 100 2RF Rx Instructions: As directed (DME) blood sugar diagnostic Strip See Rx Instructions .ROUTE .MEDSUPPLY Qty: 100 2RF Rx Instructions: As directed ergocalciferol (vitamin D2) 1,250 mcg (50,000 unit) capsule 50,000 unit PO QWEEK 90 Days Qty: 12 0RF cholecalciferol (vitamin D3) 25 mcg (1,000 unit) capsule 1,000 unit PO DAILY Qty: 90 1RF insulin lispro [Admelog SoloStar U-100 Insulin] 100 unit/mL insulin pen 40 unit SQ TID Qty: 15 3RF prenat.vits,yue,xza-zdtt-trsma Tablet 1 tab PO DAILY Qty: 30 6RF ondansetron 4 MG tablet,disintegrating 4 mg PO TIDP PRN (Reason: Nausea) Qty: 6 0RF Referrals Follow up/Referrals: Isak Calle [Primary Care Provider] - See instructions Clinical Impressions Clinical Impression: COVID-19, Type 1 diabetes mellitus Instructions Patient Instructions: DI for COVID-19 (Suspected or Confirmed ) Discharge ED Provider: Samson Bueno URI/Sore Throat HPI General Chief Complaint: Upper Respiratory Infection Stated Complaint: exposed,Home test+,Weakness,Dizzy,Blood sugar hig Time Seen by Provider: 06/25/22 19:46 Mode of Arrival: Ambulatory Source of Information: Patient Limitations: No Limitations Description of Symptoms (Recalled from ER Triage Doc. by RN): pt here with c/o izziness, body aches, cough, high blood sugar, cough, vomitting, nasal drainage. pt had an at home positive covid test was positive. History of Present Illness HPI Narrative: has positive exposure to covid-19 abd has uri sx - is diabetic and is bottle feeding 4 month old - roger fluids and meds Complaint: fever, cough and nasal congestion Onset (ago): day(s) Duration: intermittent Severity: moderate Relieving factors: OTC cold medicine Able to tolerate fluids by mouth: Yes Context: sick contacts Associated symptoms: denies other symptoms Related Data Home Medications Medication Instructions Recorded Confirmed blood-glucose meter #1 ea 11/19/19 11/19/19 Previous Rx's Medication Instructions Recorded blood sugar diagnostic #100 ea 11/19/19 insulin glargine 100 unit/mL (3 41 unit (0.41 mL) SQ DAILY 11/19/19 mL) subcutaneous pen (Basaglar Diabetes #15 mL KwikPen U-100 Insulin) insulin syringe-needle U-100 0.3 #100 ea 11/19/19 mL 31 gauge x 5/16 cholecalciferol (vitamin D3) 25 1,000 unit PO DAILY #90 caps 11/24/19 mcg (1,000 unit) capsule ergocalciferol (vitamin D2) 1,250 50,000 unit PO QWEEK 90 days #12 11/24/19 mcg (50,000 unit) capsule caps insulin lispro 100 unit/mL 40 unit (0.4 mL) SQ TID #15 mL 11/27/19 subcutaneous pen (Admelog SoloStar U-100 Insulin lispro) prenat.vits,yue,txs-vhbi-closz 1 tab PO DAILY #30 tabs 05/04/20 ondansetron 4 mg disintegrating 4 mg PO TIDP PRN Nausea #6 tabs 09/07/20 tablet Allergies Allergy/AdvReac Type Severity Reaction Status Date / Time codeine [CODEINE] Allergy Mild Verified 06/25/22 19:15 Influenza Virus Vaccines AdvReac Unknown Verified 06/25/22 19:15 [facility] Medical History Diabetes mellitus Type 1 diabetes mellitus Type 1 diabetes mellitus affecting in first trimester, antepartum Family History Other Diabetes Type 1 diabetes mellitus Social History (Updated 06/25/22 @ 19:47 by Emeterio Parisi APRN) Smoking Status: Nev
[2022-06-25 21:03] VITALS: BP 134/74; PULSE 100; RESP 18; TEMP 37.6; O2SAT 100
--- NOTE | 2022-06-25 21:05 | PC.NURSE ---
UPON DISCHARGE, PT REPORTS THAT HER DEXCOM IS NOT WORKING. PT REPORTS THAT SHE DOES HAVE BLOOD GLUCOSE METER AND INSULIN AT HOME TO MONITOR AND TREAT HER BLOOD SUGARS.
== END 2022-06-25 21:05 | disposition home or self-care (01) ==
LOC: ER 18:44 → UTC 18:44 → ER 19:40
PROVIDERS: Emergency Medicine; Emergency Provider Emergency Medicine; PCP Pediatrics
DX: U07.1 COVID-19 (principal); R06.9 Unspecified abnormalities of breathing; R42 Dizziness and giddiness; R53.1 Weakness; E10.9 Type 1 diabetes mellitus without complications; M79.10 Myalgia, unspecified site; Z79.4 Long term (current) use of insulin; Z79.899 Other long term (current) drug therapy; Z88.5 Allergy status to narcotic agent; Z88.8 Allergy status to other drugs, medicaments and biological substances; Z96.41 Presence of insulin pump (external) (internal)
CPT/HCPCS: 71046; 80053; 81001; 81025; 82009; 82962; 85025; 85651; 86140; 87086; 96361; 96374; 99284; C9803; U0003; U0005

== ENCOUNTER 2022-07-20 17:11 | Emergency (ER) | payer OTHER, SELFPAY ==
[2022-07-20 17:49] VITALS: BP 135/84; PULSE 82; RESP 16; TEMP 37.1; O2SAT 98; BMI 41.1
[2022-07-20 18:15] VITALS: BP 135/84; PULSE 82; RESP 16; TEMP 37.1; O2SAT 98; BMI 41.3
--- NOTE | 2022-07-20 18:25 | EXP.UTC ---
Discharge Plan Disposition Patient Disposition: Home, Self-Care Condition: Good Prescriptions Prescriptions: New cephalexin 500 mg capsule 500 mg PO Q8H 7 Days Qty: 21 0RF nystatin 100,000 unit/gram powder 1 applic topical TID Qty: 30 0RF Rx Instructions: apply under abdominal fold as directed No Action (DME) blood-glucose meter Misc See Rx Instructions .ROUTE .MEDSUPPLY Qty: 1 Label Comments: USE DIRECTED DX E 10.65 Rx Instructions: As directed Basaglar KwikPen U-100 Insulin 100 unit/mL (3 mL) insulin pen 41 unit SQ DAILY Qty: 15 2RF (DME) insulin syringe-needle U-100 0.3 mL 31 gauge x 5/16 syringe See Dose Instructions .ROUTE .MEDSUPPLY 25 Days Qty: 100 2RF Rx Instructions: As directed (DME) blood sugar diagnostic Strip See Rx Instructions .ROUTE .MEDSUPPLY Qty: 100 2RF Rx Instructions: As directed ergocalciferol (vitamin D2) 1,250 mcg (50,000 unit) capsule 50,000 unit PO QWEEK 90 Days Qty: 12 0RF cholecalciferol (vitamin D3) 25 mcg (1,000 unit) capsule 1,000 unit PO DAILY Qty: 90 1RF insulin lispro [Admelog SoloStar U-100 Insulin] 100 unit/mL insulin pen 40 unit SQ TID Qty: 15 3RF prenat.vits,yue,lyl-qsfk-ejzxf Tablet 1 tab PO DAILY Qty: 30 6RF ondansetron 4 MG tablet,disintegrating 4 mg PO TIDP PRN (Reason: Nausea) Qty: 6 0RF Referrals Follow up/Referrals: Isak Calle [Primary Care Provider] - See instructions Activity Restrictions/Add. Instructions Additional Instructions/Restrictions: Call OB and make appointment for follow up and re-evaluation Follow up with your Family Doctor Apply powder to area under abdomen and may apply pillow case to help keep skin from touching skin to help with sweating and yeast Return if needed Straight to ER if any drainage, fever or life threatening symptoms Keep area clean and dry Clinical Impressions Clinical Impression: Skin yeast infection Instructions Patient Instructions: DI for Yeast Infection-Skin, Nystatin Topical Discharge ED Provider: Olinda Lopez [facility] [place] HPI General Stated complaint: 5months postpartumn poss c section busted Mode of Arrival: Ambulatory Source of Information: Patient Limitations: No Limitations Time Seen by Provider: 07/20/22 18:26 Description of Symptoms (Recalled from Triage Doc. by RN): pt states she was moving 4-5 days ago when her c section incision popped open, she is 5 months post , denies fever, incision is inflammed and warm to touch, no drainage noted, pt states she doesn't have any pain, hx of DM type 1 History of Present Illness Provider Complaint: Patient states she is 5mths post that she is a type 1 diabetic States that she was moving boxes about a 4 days ago when she noticed a small opening in her csection scar State that she noticed also that she thinks she may have yeast infection under her abdominal fold States that she has been watching it and it is a little red but no drainage States that she called her OB and they told her to go to Urgent Care Related Data Home Medications Medication Instructions Recorded Confirmed blood-glucose meter #1 ea 11/19/19 11/19/19 Previous Rx's Medication Instructions Recorded blood sugar diagnostic #100 ea 11/19/19 insulin glargine 100 unit/mL (3 41 unit (0.41 mL) SQ DAILY 11/19/19 mL) subcutaneous pen (Basaglar Diabetes #15 mL KwikPen U-100 Insulin) insulin syringe-needle U-100 0.3 #100 ea 11/19/19 mL 31 gauge x 5/16 cholecalciferol (vitamin D3) 25 1,000 unit PO DAILY #90 caps 11/24/19 mcg (1,000 unit) capsule ergocalciferol (vitamin D2) 1,250 50,000 unit PO QWEEK 90 days #12 11/24/19 mcg (50,000 unit) capsule caps insulin lispro 100 unit/mL 40 unit (0.4 mL) SQ TID #15 mL 11/27/19 subcutaneous pen (Admelog SoloStar U-100 Insulin lispro) prenat.vits,yue,xnq-srjo-eyzza 1 tab PO DAILY #30 tabs 05/04/20 ondansetron 4 mg disintegrating 4 mg PO TIDP PRN Nausea
[2022-07-20 18:50] VITALS: BP 135/84; PULSE 82; RESP 16; TEMP 37.1; O2SAT 98
== END 2022-07-20 18:52 | disposition home or self-care (01) ==
PROVIDERS: Emergency Provider Nurse Practitioner; PCP Pediatrics
DX: B37.2 Candidiasis of skin and nail (principal)
CPT/HCPCS: 99212; G0463

== ENCOUNTER 2023-01-30 19:57 | Emergency (ER) | payer OTHER, SELFPAY ==
[2023-01-30 19:59] VITALS: BP 141/96; PULSE 109; RESP 16; TEMP 36.9; O2SAT 100; BMI 41.1
[2023-01-30 20:29] VITALS: BMI 41.1
[2023-01-30 20:30] VITALS: BP 140/94; PULSE 107; O2SAT 99
[2023-01-30 20:34] LABS: Microscopic, Urine URINE MICROSCOPIC (MICROSCOPIC)
--- NOTE | 2023-01-30 20:36 | HMH.EDUROGF ---
Discharge Plan Disposition Patient Disposition: Home, Self-Care Chief Complaint: Vaginal Bleeding Prescriptions Prescriptions: No Action (DME) blood-glucose meter Misc See Rx Instructions .ROUTE .MEDSUPPLY Qty: 1 Label Comments: USE DIRECTED DX E 10.65 Rx Instructions: As directed Basaglar KwikPen U-100 Insulin 100 unit/mL (3 mL) insulin pen 41 unit SQ DAILY Qty: 15 2RF (DME) insulin syringe-needle U-100 0.3 mL 31 gauge x 5/16 syringe See Dose Instructions .ROUTE .MEDSUPPLY 25 Days Qty: 100 2RF Rx Instructions: As directed (DME) blood sugar diagnostic Strip See Rx Instructions .ROUTE .MEDSUPPLY Qty: 100 2RF Rx Instructions: As directed ergocalciferol (vitamin D2) 1,250 mcg (50,000 unit) capsule 50,000 unit PO QWEEK 90 Days Qty: 12 0RF cholecalciferol (vitamin D3) 25 mcg (1,000 unit) capsule 1,000 unit PO DAILY Qty: 90 1RF insulin lispro [Admelog SoloStar U-100 Insulin] 100 unit/mL insulin pen 40 unit SQ TID Qty: 15 3RF prenat.vits,yue,ttp-jqod-ukkxy Tablet 1 tab PO DAILY Qty: 30 6RF cephalexin 500 mg capsule 500 mg PO Q8H 7 Days Qty: 21 0RF nystatin 100,000 unit/gram powder 1 applic topical TID Qty: 30 0RF Rx Instructions: apply under abdominal fold as directed ondansetron 4 MG tablet,disintegrating 4 mg PO TIDP PRN (Reason: Nausea) Qty: 6 0RF Referrals Follow up/Referrals: Isak Calle [Primary Care Provider] - See instructions Clinical Impressions Clinical Impression: Dysfunctional uterine bleeding Instructions Patient Instructions: DI for Vaginal Bleeding Discharge ED Provider: Ximena (ED)Samson Female Urogenital HPI General Chief complaint: Vaginal Bleeding Stated complaint: 5 wk Preg with bleeding Time Seen by Provider: 01/30/23 20:36 Mode of Arrival: Ambulatory Source of Information: Patient and Medical Record Limitations: No Limitations Description of Symptoms (Recalled from ER Triage Doc. by RN): Pt advbises she has been having lower abd cramping with some light bleeding that started this am. Advises she took a test at home and it came back positive. PT has had a miscarriage in Nov and has a hx of chemical pregnancies. History of Present Illness HPI Narrative: pt with lower abd pain with cramping and light vag bleedin with hx of home preg test - MD Complaint: vaginal bleeding Onset (ago): day(s) Severity: mild : Unknown Associated symptoms: denies other symptoms Related Data Home Medications Medication Instructions Recorded Confirmed blood-glucose meter #1 ea 11/19/19 11/19/19 Previous Rx's Medication Instructions Recorded blood sugar diagnostic #100 ea 11/19/19 insulin glargine 100 unit/mL (3 41 unit (0.41 mL) SQ DAILY 11/19/19 mL) subcutaneous pen (Basaglar Diabetes #15 mL KwikPen U-100 Insulin) insulin syringe-needle U-100 0.3 #100 ea 11/19/19 mL 31 gauge x 5/16 cholecalciferol (vitamin D3) 25 1,000 unit PO DAILY #90 caps 11/24/19 mcg (1,000 unit) capsule ergocalciferol (vitamin D2) 1,250 50,000 unit PO QWEEK 90 days #12 11/24/19 mcg (50,000 unit) capsule caps insulin lispro 100 unit/mL 40 unit (0.4 mL) SQ TID #15 mL 11/27/19 subcutaneous pen (Admelog SoloStar U-100 Insulin lispro) prenat.vits,yue,qqj-comw-ipccr 1 tab PO DAILY #30 tabs 05/04/20 ondansetron 4 mg disintegrating 4 mg PO TIDP PRN Nausea #6 tabs 09/07/20 tablet cephalexin 500 mg capsule 500 mg PO Q8H 7 days #21 caps 07/20/22 nystatin 100,000 unit/gram topical 1 applic topical TID #30 grams 07/20/22 powder Allergies Allergy/AdvReac Type Severity Reaction Status Date / Time codeine [CODEINE] Allergy Mild Verified 01/30/23 20:34 Influenza Virus Vaccines AdvReac Unknown Verified 01/30/23 20:34 [facility] Disclaimer: The information contained in this section may have been updated after the patient was seen, as this information can be updated by other users. Medical H
[2023-01-30 20:41] LABS: Basophils # 0.1 K/mm3 (0-0.2); Basophils % 0.7 % (0.1-2.0); Eosinophils # 0.1 K/mm3 (0.0-0.4); Hematocrit 42.2 % (37.0-47.0); Hemoglobin 14.4 g/dL (12.2-16.2); Lymphocytes % 27.3 % (10-50); Mean Corpuscular HGB Conc 34.1 g/dL (31.8-35.4); Mean Corpuscular Hemoglobin 28.6 pg (27.0-31.2); Mean Corpuscular Volume 83.8 fl (81-99); Mean Platelet Volume 8.2 fl (7.4-10.4); Monocytes # 0.4 K/mm3 (0.1-1.0); Monocytes % 5.7 % (1.7-9.3); Neutrophils # 4.6 K/mm3 (1.8-7.8); Neutrophils % 64.2 % (37.0-80.0); Platelet Count 257 K/mm3 (142-424); Red Blood Count 5.03 M/mm3 (4.20-5.40); Red Cell Distribution Width 14.8 % (11.5-17.5); White Blood Count 7.1 K/mm3 (4.8-10.8)
[2023-01-30 20:43] LABS: Appearance,Urine CLEAR (Clear); Bilirubin,Urine Negative (Negative); Blood, Urine 3+ (Negative); Color,Urine YELLOW (Yellow); Glucose,Urine (UA) 2+ (Negative); Ketones,Urine Negative (Negative); Leukocyte Esterase,Urine Negative (Negative); Nitrate,Urine Negative (Negative); Protein,Urine TRACE (Negative); Specific Gravity, Urine >= 1.030 (1.005-1.030); Urobilinogen,Urine 0.2 EU/dl (0.2)
[2023-01-30 20:45] VITALS: BP 155/100; PULSE 113; O2SAT 98
[2023-01-30 20:45] LABS: Alanine Aminotransferase 32 U/L (12-78); Albumin Level 4.3 g/dl (3.5-5.0); Albumin/Globulin Ratio 1.3 (1.1-1.8); Alkaline Phosphatase 101 U/L (38-126); Anion Gap 14.6 mEq/L (5-15); Aspartate Amino Transferase 34 U/L (14-36); Bilirubin,Total 0.3 mg/dl (0.2-1.3); Blood Urea Nitrogen 14 mg/dl (7-17); Calcium 8.7 mg/dl (8.4-10.2); Carbon Dioxide 23 mmol/L (22.0-30.0); Chloride 103 mmol/L (98-107); Creatinine Clearance Estimated 231 mL/min (50-200); Estimated Glomerular Filt Rate 122 ml/min (>60); GFR (African American) 147 ML/MIN (>60); Globulin 3.4 g/dL (1.3-3.2); Glucose 134 mg/dl (74-100); Potassium 3.6 mmoL/L (3.5-5.1); Sodium 137 mmol/L (136-145); Total Protein,Serum 7.7 g/dl (6.3-8.2)
[2023-01-30 20:54] LABS: Urine Pregnancy, HCG Qual. Negative (Negative)
[2023-01-30 20:55] LABS: WBC,Urine Occasional #/hpf (0-3)
[2023-01-30 20:56] LABS: Bacteria,Urine Trace /lpf
--- NOTE | 2023-01-30 20:57 | PC.NURSE ---
Rounded on pt at this time. No new needs, updated on POC
--- NOTE | 2023-01-30 21:22 | PC.NURSE ---
Rounded on patient, patient voiced no concerns at this time.
[2023-01-30 21:30] VITALS: BP 147/99; PULSE 100; O2SAT 99
[2023-01-30 21:45] LABS: HCG,Quantitative 4 mIU/ml (0-5.42)
[2023-01-30 21:54] VITALS: BP 130/90; PULSE 90; RESP 18; TEMP 36.9; O2SAT 98
== END 2023-01-30 22:22 | disposition home or self-care (01) ==
PROVIDERS: Emergency Provider Emergency Medicine; PCP Pediatrics
DX: O20.9 Hemorrhage in early pregnancy, unspecified (principal); Z3A.01 Less than 8 weeks gestation of pregnancy; O24.011 Pre-existing type 1 diabetes mellitus, in pregnancy, first trimester
CPT/HCPCS: 80053; 81001; 81025; 84702; 85025; 99284; 99285

== ENCOUNTER 2024-05-19 18:42 | Emergency (ER) | payer OTHER, SELFPAY ==
[2024-05-19 18:44] VITALS: BP 139/88; PULSE 112; RESP 20; TEMP 36.9; O2SAT 98; BMI 44.9
--- NOTE | 2024-05-19 19:39 | ED_ITS ---
<Statement entered by Edwin Melendez MD - 05/19/24 23:21> I was consulted by the MITZY, and we discussed the complexity of the problems being addressed. I approved the treatment and management plan for this patient's care in the emergency department, thus performing a substantive portion of the medical decision making. Edwin Melendez MD, KIMMIE, FACEP Discharge Plan Disposition Patient Disposition: Home, Self-Care Condition: Good Prescriptions Prescriptions: New jlbedqelwnmkfiy-zrrisilhr-HD [Bromfed DM] 2-30-10 mg/5 mL syrup 5 ml PO Q4H PRN (Reason: allergy symptoms) Qty: 118 0RF No Action (DME) blood-glucose meter Misc See Rx Instructions .ROUTE .MEDSUPPLY Qty: 1 Patient Comments: USE DIRECTED DX E 10.65 Rx Instructions: As directed Basaglar KwikPen U-100 Insulin 100 unit/mL (3 mL) insulin pen 41 unit SQ DAILY Qty: 15 2RF (DME) insulin syringe-needle U-100 0.3 mL 31 gauge x 5/16 syringe See Dose Instructions .ROUTE .MEDSUPPLY 25 Days Qty: 100 2RF Rx Instructions: As directed (DME) blood sugar diagnostic Strip See Rx Instructions .ROUTE .MEDSUPPLY Qty: 100 2RF Rx Instructions: As directed ergocalciferol (vitamin D2) 1,250 mcg (50,000 unit) capsule 50,000 unit PO QWEEK 90 Days Qty: 12 0RF cholecalciferol (vitamin D3) 25 mcg (1,000 unit) capsule 1,000 unit PO DAILY Qty: 90 1RF insulin lispro [Admelog SoloStar U-100 Insulin] 100 unit/mL insulin pen 40 unit SQ TID Qty: 15 3RF prenat.vits,yue,wyt-qezc-kvpef Tablet 1 tab PO DAILY Qty: 30 6RF cephalexin 500 mg capsule 500 mg PO Q8H 7 Days Qty: 21 0RF nystatin 100,000 unit/gram powder 1 applic topical TID Qty: 30 0RF Rx Instructions: apply under abdominal fold as directed ondansetron 4 MG tablet,disintegrating 4 mg PO TIDP PRN (Reason: Nausea) Qty: 6 0RF Referrals Follow up/Referrals: Isak Calle [Primary Care Provider] - See instructions Activity Restrictions/Add. Instructions Additional Instructions/Restrictions: Please take Tylenol alternating every 4 hours with Motrin as needed for symptoms. Return to the ER for worsening shortness of breath low oxygen or any other worsening symptoms Clinical Impressions Clinical Impression: Acute COVID-19 Instructions Patient Instructions: DI for COVID-19 (Suspected or Confirmed ) Discharge ED Provider: Edwin Melendez General Adult HPI General Chief complaint: Upper Respiratory Infection Stated complaint: Cough,fever,stuffy nose,body aches Time Seen by Provider: 05/19/24 19:29 History of Present Illness HPI narrative: Patient presents for evaluation of upper respiratory infection possible COVID. Patient states that they have been feeling poorly for the several days including her 2 children that accompany her. There were exposed to the grandmother who recently tested positive for COVID. Currently patient has no shortness of breath but does have subjective fever cough and congestion. Patient has no hemoptysis hematochezia melena hematemesis hematuria dysgeusia Related Data Home Medications Medication Instructions Recorded Confirmed blood-glucose meter #1 ea 11/19/19 11/19/19 Previous Rx's Medication Instructions Recorded blood sugar diagnostic #100 ea 11/19/19 insulin glargine 100 unit/mL (3 41 unit (0.41 mL) SQ DAILY 11/19/19 mL) subcutaneous pen (Basaglar Diabetes #15 mL KwikPen U-100 Insulin) insulin syringe-needle U-100 0.3 #100 ea 11/19/19 mL 31 gauge x 5/16 cholecalciferol (vitamin D3) 25 1,000 unit PO DAILY #90 caps 11/24/19 mcg (1,000 unit) capsule ergocalciferol (vitamin D2) 1,250 50,000 unit PO QWEEK 90 days #12 11/24/19 mcg (50,000 unit) capsule caps insulin lispro 100 unit/mL 40 unit (0.4 mL) SQ TID #15 mL 11/27/19 subcutaneous pen (Admelog SoloStar U-100 Insulin lispro) prenat.vits,yue,jgo-szyp-lhwzh 1 tab PO DAILY #30 tabs 05/04/20 ondansetron 4 mg disintegrating 4 mg PO TIDP PRN Nausea #6 tabs 09/07/20 tablet cephalexin 500 mg capsule 500 mg PO Q8H 7 days #21 caps 07/20/22 nystatin 100,000 unit/gram topical 1 applic topical TID #30 grams 07/20/22 powder exagsyrhvlekooj-fgopxorkfxpdumg-LZ 5 ml PO Q4H PRN allergy symptoms 05/19/24 2 mg-30 mg-10 mg/5 mL oral syrup #118 mL (Bromfed DM) Allergies Allergy/AdvReac Type Severity Reaction Status Date / Time codeine [CODEINE] Allergy Mild Verified 01/30/23 20:34 Influenza Virus Vaccines AdvReac Unknown Ver[facility] 01/30/23 20:34 [facility] Disclaimer[facility] The information contained in this section may have been updated after the patient was seen, as this information can be updated by other users. Medical History (Updated 05/19/24 @ 21:15 by ALENA Odell) Thyroid disease Type 1 diabetes mellitus Diabetes mellitus Type 1 diabetes mellitus affecting in first trimester, antepartum Surgical History (Updated 07/20/22 @ 18:33 by Carlee Bullock RN) History of section Family History Other Diabetes Type 1 diabetes mellitus Social History Smoking Status: Never smoker second hand exposure: No alcohol intake: never current occupational status: employed Travel in the last 8 weeks: None household members: family housing: house current occupational exposures/hazards: No caffeine: Yes ROS Obtained: Yes Systems reviewed as appropriate & no additional complaints except as documented Physical Exam General General appearance: alert and in no apparent distress Eye Eye exam: Present normal appearance and EOMI ENT ENT exam: Present normal exam, normal oropharynx, mucous membranes moist and other (Congested nasal mucosa) Neck Neck exam: Present normal inspection Chest Chest inspection: Present normal inspection and symmetric chest wall rise Respiratory Respiratory exam: Present normal lung sounds bilaterally Cardiovascular Cardiovascular exam: Present regular rate, normal rhythm and normal heart sounds Neurological Exam Neurological exam: Present alert, oriented X3 and CN II-XII intact Skin Skin exam: Present warm, dry and normal color Medical Decision Making Medical Records Medical records reviewed: Yes I reviewed the patient's medical records. Jasson Inquiry Pt receiving controlled substance: No Vital Signs: 05/19/24 18:44 05/19/24 21:30 Temperature 98.5 F 98.5 F Temperature Source Oral Oral Pulse Rate 100 H Pulse Rate [Right] 112 H Respiratory Rate 20 20 Blood Pressure 139/88 Blood Pressure [Right Arm] 139/88 Blood Pressure Mean [Right Arm] 105 Blood Pressure Source Automatic Cuff Blood Pressure Source [Right Arm] Automatic Cuff Blood Pressure Position Sitting 02 Sat by Pulse Oximetry 98 Oxygen Delivery Method Room Air Room Air Lab Data Lab results reviewed: Yes I reviewed the patient's lab results. Lab Results 05/19/24 19:20: SARS-CoV-2 (PCR) Detected A, Influenza A Untype (PCR) Not detected, Influenza Type B (PCR) Not detected Orders (Tests/Meds): ORDERS Category Date Time Status Rapid PCR Covid and Flu A/B Stat Lab 05/19/24 19:20 Completed Medical Decision Narrative: In summary patient is a 24-year-old female who presents to the emergency department for evaluation of upper respiratory tract symptoms and exposure to COVID. Patient is initially normotensive slightly tachycardic heart rate of 112 upon arrival, but afebrile. Physical exam is remarkable for nasal congestion but clear breath sounds with no increased work of breathing. Patient does have tachycardia on the bedside monitor with rate of 100 currently at the time my exam. Differential diagnosis includes COVID-19 versus viral upper respiratory tract infection versus bacterial respiratory tract infection. Initial workup will be conducted with COVID and flu swabs.. Initial interventions were considered but patient is afebrile nontoxic thus deferred for now. Initial workup reviewed by me and her swab is COVID-positive. Upon repeat evaluation remains afebrile and her heart rate has come down. Given this patient is appropriate for discharge with symptomatic care with a prescription of Bromfed Critical Care Critical Care Time Critical Care Time: No
[2024-05-19 20:13] LABS: Influenza A, PCR Not Detected (NotDetected); Influenza B, PCR Not Detected (NotDetected)
--- NOTE | 2024-05-19 20:42 | PC.NURSE ---
rounded on patient, updated that we are still waiting on lab results
[2024-05-19 20:52] LABS: Coronavirus 19, PCR Detected (NotDetected)
[2024-05-19 21:30] VITALS: BP 139/88; PULSE 100; RESP 20; TEMP 36.9; O2SAT 98
== END 2024-05-19 21:31 | disposition home or self-care (01) ==
PROVIDERS: Physician Assistant; Emergency Provider Student in an Organized Health Care Education/Training Program; PCP Pediatrics
DX: U07.1 COVID-19 (principal); R50.9 Fever, unspecified; R05.9 Cough, unspecified; R09.81 Nasal congestion
CPT/HCPCS: 87636; 99283

== ENCOUNTER 2024-07-24 07:37 | Outpatient (CLI) | payer OTHER, SELFPAY ==
--- NOTE | 2024-07-24 07:37 | US_ITS ---
PROCEDURE: US TRANSVAGINAL CLINICAL INDICATION: Heavy Irregular Periods/Bleeding COMPARISON: US US OB TRANSVAGINAL from 07/11/2021 FINDINGS: Transvaginal sonographic images of the pelvis were obtained. UTERUS: 10.7 x 6.8 cmx 4.9 retroflexed with a combined endometrial thickness of 12.6mm. There is a scar. There is a small amount of fluid within the cervical canal. LEFT OVARY: 2.9 cmx2.0 cmx1.7cm with a volume of 5.4ml. There are multiple small peripheral follicles. RIGHT OVARY: 5.3cmx 2.6 cmx2.4cm with a volume of 17.9ml. There are multiple small peripheral follicles. Both ovaries are seen and appear polycystic. Doppler flow to both ovaries are seen. There is no fluid in the cul-de-sac. IMPRESSION: 1. Retroflexed uterus enlarged and bulky. The endometrium is thickened at 12.6 mm. 2. Both ovaries are seen and appear polycystic. 3. No fluid in the cul-de-sac. Dictated by: Steve Ware MD 07/24/2024 11:03 Steve Ware MD in OV 07/24/2024 11:03
== END 2024-07-24 23:59 | disposition home or self-care (01) ==
LOC: RAD 07:37
PROVIDERS: PCP Pediatrics; Visit Provider Nurse Practitioner Obstetrics & Gynecology
DX: N92.0 Excessive and frequent menstruation with regular cycle (principal); N93.8 Other specified abnormal uterine and vaginal bleeding
CPT/HCPCS: 76830

== ENCOUNTER 2024-07-29 17:13 | Outpatient (CLI) | payer OTHER, SELFPAY ==
[2024-07-29 17:39] LABS: Basophils # 0.1 K/mm3 (0-0.2); Basophils % 0.9 % (0.1-2.0); Eosinophils # 0.1 K/mm3 (0.0-0.4); Hematocrit 43.5 % (37.0-47.0); Hemoglobin 14.9 g/dL (12.2-16.2); Lymphocytes # 2.2 K/mm3 (0.7-4.5); Lymphocytes % 30.8 % (10-50); Mean Corpuscular HGB Conc 34.1 g/dL (31.8-35.4); Mean Corpuscular Hemoglobin 29.7 pg (27.0-31.2); Mean Platelet Volume 7.9 fl (7.4-10.4); Monocytes # 0.4 K/mm3 (0.1-1.0); Neutrophils # 4.5 K/mm3 (1.8-7.8); Neutrophils % 62.4 % (37.0-80.0); Platelet Count 216 K/mm3 (142-424); Red Cell Distribution Width 15.3 % (11.5-17.5); White Blood Count 7.2 K/mm3 (4.8-10.8)
[2024-07-29 17:47] LABS: Chloride 102 mmol/L (98-107)
[2024-07-29 17:48] LABS: Albumin Level 4.5 g/dl (3.5-5.0); Sodium 135 mmol/L (136-145)
[2024-07-29 17:50] LABS: Alanine Aminotransferase 35 U/L (12-78); Aspartate Amino Transferase 37 U/L (14-36); Blood Urea Nitrogen 15 mg/dl (7-17); Carbon Dioxide 21 mmol/L (22.0-30.0); Estimated Glomerular Filt Rate 87 ml/min (>60); GFR (African American) 105 ML/MIN (>60)
[2024-07-29 17:51] LABS: Albumin/Globulin Ratio 1.3 (1.1-1.8); Alkaline Phosphatase 106 U/L (38-126); Bilirubin,Total 0.5 mg/dl (0.2-1.3); Calcium 9.6 mg/dl (8.4-10.2); Globulin 3.4 g/dL (1.3-3.2); Glucose 252 mg/dl (74-100); Total Protein,Serum 7.9 g/dl (6.3-8.2)
[2024-07-29 18:22] LABS: HCG,Quantitative < 2 mIU/ml (0-5.42)
== END 2024-07-29 23:59 | disposition home or self-care (01) ==
LOC: LAB 17:14
PROVIDERS: PCP Pediatrics; Visit Provider Nurse Practitioner Obstetrics & Gynecology
DX: N92.1 Excessive and frequent menstruation with irregular cycle (principal)
CPT/HCPCS: 80053; 84702; 85025

== ENCOUNTER 2024-08-04 07:09 | Day surgery (SDC) | payer OTHER, SELFPAY ==
[2024-07-31 14:42] VITALS: BMI 46.4
[2024-08-04] VITALS (11 sets, daily range): BP systolic 132–151; BP diastolic 79–95; PULSE 64–88; RESP 17–18; TEMP 36.2–36.9; O2SAT 94–100
[2024-08-04] MEDS: 0.9 % SODIUM CHLORIDE 1000ML 1,000 ML 25 ML IV (08:28)
[2024-08-04 08:31] LABS: POC Glucose,Bedside 146 (70-110)
[2024-08-04] MEDS: CEFAZOLIN SODIUM 2 GM in 0.9 % SODIUM CHLORIDE 100 ML IV (10:15)
[2024-08-04] MEDS: ROPIVACAINE 0.5% 30ML VIAL 300 MG (10:26)
--- NOTE | 2024-08-04 11:06 | P.OP_ITS ---
Date of procedure: 08/04/24 Pre-op Diagnosis:: Desire for sterilization Post-op Diagnosis:: Desire for sterilization, extensive adhesions from the uterus to the anterior wall. Endometriosis on the uterus and bladder flap Procedure performed:: Laparoscopic bilateral soft inject me Surgeon:: Steve Ware MD PRINCIPAL EXAMINER:: Emeterio Iqbal Anesthesia: GETA Estimated blood loss (mL): 25 Clinical Note:: She is a a 24-year-old lady who expressed desire for sterilization. The risks and benefits of surgery as well as its irreversibility were discussed with the patient prior to surgery. Operative findings:: She had an anteverted bulky uterus with thick adhesions from the anterior uterus to the anterior abdominal wall. There were powder huizar on the posterior uterus as well as small powder huizar all along the bladder flap. The ovaries and tubes otherwise appeared normal. The deep pelvis appeared normal. There was a Masters Peng defect on the right side above the round ligament. Operative note:: She was taken to the operating room where general anesthesia was found be adequate. She was prepped and draped in normal sterile fashion in the semilithotomy position. A weighted speculum was placed in the vagina and the anterior lip of the cervix was grasped with a tenaculum. I then inserted a Marisela uterine manipulator into the cervical os. The balloon was then insufflated. I changed gloves and injected 10 cc of 0.5% ropivacaine around her umbilicus and made a small incision within the umbilicus. I inserted a Veress needle into the abdominal cavity. The peritoneal cavity was then insufflated with carbon dioxide gas to a pressure of 20 mmHg. I then inserted a 5 millimeter trocar under direct vision. I injected through and through the pubic hairline, made a small incision here and inserted an 8 mm trocar under direct vision. I identified the inferior epigastric artery on the left side, went lateral to these and injected through and through. I then placed a 5 mm trocar here under direct vision. The pelvis and upper abdomen were then inspected and the findings were as previously dictated. I grasped the right tube at the cornua and using harmonic scalpel on coagulation mode I cut through the tube. I then grasped the distal tube and using harmonic scalpel cut along the mesosalpinx. The tube was removed through 8 mm trocar site. This was similarly performed on the patient's left side. I then injected 30 cc of 0.5% ropivacaine into the pelvis. After assuring hemostasis the gas was let out of the abdomen and hemostasis was once again assured. The abdomen was then reinsufflated. The secondary trochars were removed under direct vision. The gas was let out her abdomen. The primary trocar was then removed. The 8 mm trocar site was closed deeply with 2-0 Vicryl suture followed by subcuticular 4-0 Monocryl suture. The 5 mm trocar sites were closed with subcuticular 4-0 Monocryl. Sterile dressings were applied. The patient tolerated the procedure well and was taken to the recovery room in excellent condition. All sponge instrument and needle counts were correct. The estimated blood loss was less than 25 cc. Condition: stable Disposition: PACU Specimens:: Bilateral fallopian tubes Complications:: None
--- NOTE | 2024-08-04 11:09 | EXP.ANES.CKL ---
[facility] Disclaimer: The information contained in this section may have been updated after the patient was seen, as this information can be updated by other users. Medical History PCOS (polycystic ovarian syndrome) Seizure disorder History of anemia Thyroid disease Type 1 diabetes mellitus Surgical History History of section Family History Other Diabetes Type 1 diabetes mellitus Social History Smoking Status: Never smoker second hand exposure: No alcohol intake: never substance use type: denies use current occupational status: unemployed Travel in the last 8 weeks: None household members: family housing: house current occupational exposures/hazards: No caffeine: Yes [facility] Anesthesia Checklist Patient Identification Patient Identification: Arm Band and Family Structural Data Admitted From: Home Planned Operative Procedure/s: Bilateral Laproscopic Salpingectomy Consent for Planned Operative Procedure(s) Verified: Yes Verified Documents: Surgical Consent and History and Physical NPO Status Verified Time NPO: 00:00 Additional verifications Patient : No Anesthesia Reactions: No Hx Blood Transfusions: No Blood Transfusion Reaction: No Cephalosporin Allergy: No Previous Colonoscopy: No Airway Assessment Mallampati Score:: Class III C-Spine Mobility Assessed: Yes TMJ Mobility Assessed: Yes Dentition: Good Dentition Neurological Assessment Level of Consciousness: Awake, Alert, Appropriate and Follows Commands Hx Seizures: No Numbness or tingling in extremities: No Anesthesia Plan Anesthesia Type: General Preoperative Comments Pre-Operative Comments: IDDM GLUCOSE 145,
[2024-08-04 11:11] LABS: POC Glucose,Bedside 116 (70-110)
[2024-08-04] MEDS: KETOROLAC 30MG/ML VIAL 30 MG IV (11:30)
--- NOTE | 2024-08-04 14:30 | EXP.ANES.II ---
[facility] [place] Anesthesia Record Part II Anesthesia Record Part II Discharge Time: 11:43 Destination: Surgical Day Care (OP Surgery) PACU nurse assessment reviewed?: Yes Patient Condition:: Good Anesthesia Complications:: None Swallowing reflex intact?: Yes Airway Patency: Patent Cyanosis?: No Blood Pressure: 142/95 SaO2: 100 Respiratory Rate: 18 Pulse Rate: 79 Temperature: 97.2 F Mental Status: Alert & Oriented Pain level:: 0 Nausea and/or vomitting:: None Intake, IV Amount: 0 Hydration: Adequate
== END 2024-08-04 12:30 | disposition home or self-care (01) ==
PROVIDERS: PCP Pediatrics; Visit Provider Nurse Practitioner Obstetrics & Gynecology
PROC: (CPT 58661; principal; 2024-08-04 09:30)
DX: Z30.2 Encounter for sterilization (principal); N73.6 Female pelvic peritoneal adhesions (postinfective); N80.A0 Endometriosis of bladder, unspecified depth; N80.00 Endometriosis of the uterus, unspecified
CPT/HCPCS: 58661; 82962; 96374; J3490; J0690; J1100; J1885; J2250; J2405; J3010; J7030

== ENCOUNTER 2024-09-03 13:11 | Outpatient (CLI) | payer OTHER, SELFPAY ==
[2024-09-03 13:56] LABS: Albumin Level 4.5 g/dl (3.5-5.0); Chloride 106 mmol/L (98-107); Potassium 4.2 mmoL/L (3.5-5.1); Sodium 139 mmol/L (136-145)
[2024-09-03 13:59] LABS: Alanine Aminotransferase 27 U/L (12-78); Albumin/Globulin Ratio 1.5 (1.1-1.8); Alkaline Phosphatase 88 U/L (38-126); Anion Gap 14.2 mEq/L (5-15); Aspartate Amino Transferase 25 U/L (14-36); Bilirubin,Total 0.5 mg/dl (0.2-1.3); Blood Urea Nitrogen 8 mg/dl (7-17); Calcium 9.5 mg/dl (8.4-10.2); Carbon Dioxide 23 mmol/L (22.0-30.0); Estimated Glomerular Filt Rate 101 ml/min (>60); GFR (African American) 122 ML/MIN (>60); Glucose 123 mg/dl (74-100); Total Protein,Serum 7.5 g/dl (6.3-8.2)
[2024-09-03 14:01] LABS: Basophils % 0.4 % (0.1-2.0); Eosinophils % 0.8 % (0.1-12.0); Hematocrit 40.7 % (37.0-47.0); Hemoglobin 14.6 g/dL (12.2-16.2); Lymphocytes # 1.9 K/mm3 (0.7-4.5); Lymphocytes % 35.7 % (10-50); Mean Corpuscular HGB Conc 35.7 g/dL (31.8-35.4); Mean Corpuscular Volume 81.2 fl (81-99); Mean Platelet Volume 7.7 fl (7.4-10.4); Monocytes # 0.4 K/mm3 (0.1-1.0); Monocytes % 6.8 % (1.7-9.3); Neutrophils % 56.3 % (37.0-80.0); Platelet Count 214 K/mm3 (142-424); Red Blood Count 5.01 M/mm3 (4.20-5.40); Red Cell Distribution Width 14.4 % (11.5-17.5); White Blood Count 5.2 K/mm3 (4.8-10.8)
[2024-09-03 14:21] LABS: HCG,Quantitative < 2 mIU/ml (0-5.42)
== END 2024-09-03 23:59 | disposition home or self-care (01) ==
PROVIDERS: PCP Student in an Organized Health Care Education/Training Program; Visit Provider Nurse Practitioner Obstetrics & Gynecology
DX: N92.1 Excessive and frequent menstruation with irregular cycle (principal)
CPT/HCPCS: 36415; 80053; 84702; 85025

== ENCOUNTER 2024-09-09 07:13 | Day surgery (SDC) | payer OTHER, SELFPAY ==
[2024-09-03 13:58] VITALS: BMI 44.9
[2024-09-09] VITALS (9 sets, daily range): BP systolic 113–135; BP diastolic 56–90; PULSE 76–105; RESP 16–22; TEMP 36.1–36.7; O2SAT 92–100
[2024-09-09] MEDS: 0.9 % SODIUM CHLORIDE 1000ML 1,000 ML 25 ML IV (07:38)
--- NOTE | 2024-09-09 07:45 | EXP.ANES.CKL ---
[facility] Disclaimer: The information contained in this section may have been updated after the patient was seen, as this information can be updated by other users. Medical History HLD (hyperlipidemia) PCOS (polycystic ovarian syndrome) Seizure disorder History of anemia Thyroid disease Type 1 diabetes mellitus Surgical History Hx of bilateral salpingectomy History of section Family History Other Diabetes Type 1 diabetes mellitus Social History Smoking Status: Never smoker second hand exposure: No alcohol intake: never substance use type: denies use current occupational status: unemployed Travel in the last 8 weeks: None household members: family housing: house current occupational exposures/hazards: No caffeine: Yes [facility] Anesthesia Checklist Patient Identification Patient Identification: Arm Band and Verbal (Name & ) Structural Data Admitted From: Home Planned Operative Procedure/s: Hyst/D&C/Movasure ablation Consent for Planned Operative Procedure(s) Verified: Yes Verified Documents: Surgical Consent and History and Physical NPO Status Verified Time NPO: 20:00 Chart Verification Results Verified: CBC, BMP, Chest Xray and HCG Additional verifications Patient : No Anesthesia Reactions: No Hx Blood Transfusions: No Blood Transfusion Reaction: No Cardiovascular Assessment Heart Sounds: S1 & S2 Pulse Rhythm: Irregular Peripheral Edema: No Airway Assessment Mallampati Score:: Class II C-Spine Mobility Assessed: Yes (FROM) TMJ Mobility Assessed: Yes Dentition: Good Dentition (Nothing loose per pt.) Neurological Assessment Level of Consciousness: Awake, Alert, Appropriate and Follows Commands Hx Seizures: Yes (x1 @ 12 y/o d/t low BS. None since.) Numbness or tingling in extremities: No Anesthesia Plan Anesthesia Risk discussed: Yes Anesthesia Plan: Verified ASA Class: III Anesthesia Type: General
[2024-09-09 07:55] LABS: POC Glucose,Bedside 180 (70-110)
[2024-09-09] MEDS: CEFAZOLIN SODIUM 2 GM in 0.9 % SODIUM CHLORIDE 100 ML IV (08:40)
[2024-09-09] MEDS: ROPIVACAINE 0.5% 30ML VIAL 150 MG (09:08)
--- NOTE | 2024-09-09 09:21 | EXP.ANES.I ---
[facility] Anesthesia Record Part I Anesthesia Record I Intake, IV Amount: 200 Hydration: Adequate Estimated blood loss (mL): 5 Urine output (mL): 0 Blood Pressure: 113/56 SaO2: 92 Pulse Rate: 91 Airway Patency: Patent Respiratory Rate: 22 Temperature: 98.1 F Patient is:: Drowsy Stable to PACU at:: 09:18
[2024-09-09 09:30] LABS: POC Glucose,Bedside 143 (70-110)
[2024-09-09] MEDS: MORPHINE 2MG/ML SYRINGE 2 MG IV (09:39)
[2024-09-09 10:11] LABS: POC Glucose,Bedside 154 (70-110)
--- NOTE | 2024-09-09 11:09 | P.OP_ITS ---
Date of procedure: 09/09/24 Pre-op Diagnosis:: Menorrhagia Post-op Diagnosis:: Menorrhagia Procedure performed:: Hysteroscopy, dilation and curettage, NovaSure ablation Surgeon:: Steve Ware MD ELECTRICAL INSTALLATION INSPECTOR:: Janeth Lee Anesthesia: LMA Estimated blood loss (mL): 25 Clinical Note:: She is a 24-year-old lady who complains of very heavy periods. She has tried various forms of control have not helped with her periods. After having discussed the risks and benefits she elected to have a hysteroscopy, D&C and NovaSure ablation. Operative findings:: She had a long uterus that sounded to 11 cm. The width was 4.5 cm and the length was 6.5 cm. Operative note:: She was taken to the operating room where LMA anesthesia was found be adequate. She was prepped and draped in the normal sterile fashion in the lithotomy position. A weighted speculum was placed in the vagina and the anterior lip of the cervix was grasped with a tenaculum. The cervix was then dilated to approximately 6 mm. I then inserted a hysteroscope into the uterine cavity and the findings were as previously dictated. I then performed a gentle curettage with a medium curette. I then sounded the uterus and determine the length of the uterus. I then inserted the NovaSure device and determine the width of the endometrial cavity. The length of the cavity was 6.5 cm and the width was 4.4 cm. This was placed into the NovaSure device. I then ran the device through its program. I further inspected the endometrial cavity and was found to be completely charred on the right side but there was a small area, approximately 25% of the endometrial cavity that was not charted.. I then injected 30 cc of 0.5% ropivacaine at the 3:00, 5:00, 7:00, and 9:00 positions of the cervix. She tolerated procedure well and was taken to the recovery room in excellent condition. All sponge and instrument counts were correct. The estimated blood loss was less than 50 cc. Condition: stable Disposition: PACU Specimens:: Endometrial curettings Complications:: None
--- NOTE | 2024-09-10 09:54 | EXP.ANES.II ---
[facility] Anesthesia Record Part II Anesthesia Record Part II Discharge Time: 09:48 Destination: Surgical Day Care (OP Surgery) PACU nurse assessment reviewed?: Yes Patient Condition:: Good Anesthesia Complications:: None Swallowing reflex intact?: Yes Airway Patency: Patent Cyanosis?: No Blood Pressure: 117/66 SaO2: 100 Respiratory Rate: 22 Pulse Rate: 97 Temperature: 97 F Mental Status: Alert & Oriented Pain level:: 3 Nausea and/or vomitting:: None Intake, IV Amount: 0 Hydration: Adequate
[2024-09-10 09:55] VITALS: BP 117/66; PULSE 97; RESP 22; TEMP 36.1; O2SAT 100
== END 2024-09-09 10:36 | disposition home or self-care (01) ==
PROVIDERS: PCP Student in an Organized Health Care Education/Training Program; Visit Provider Nurse Practitioner Obstetrics & Gynecology
PROC: 0U5B8ZZ Destruction of Endometrium, Via Natural or Artificial Opening Endoscopic (ICD-10-PCS; CPT 58563; principal; 2024-09-09 08:45)
DX: N92.4 Excessive bleeding in the premenopausal period (principal)
CPT/HCPCS: 58563; 82962; 96374; J0690; J1100; J1885; J2250; J2270; J2405; J3010; J7030

== ENCOUNTER 2025-01-21 16:37 | Outpatient (CLI) | payer OTHER, SELFPAY ==
[2025-01-21 21:19] LABS: Coronavirus 19, PCR Not Detected (NotDetected); Human Rhinovirus Not Detected (NotDetected); Influenza A, PCR Not Detected (NotDetected); Influenza B, PCR Not Detected (NotDetected); Respiratory Syncytial Virus Not Detected (NotDetected)
== END 2025-01-21 23:59 | disposition home or self-care (01) ==
LOC: LAB.DROPOF 01-22 12:33
PROVIDERS: PCP Student in an Organized Health Care Education/Training Program; Visit Provider Student in an Organized Health Care Education/Training Program
DX: R52 Pain, unspecified (principal); J02.9 Acute pharyngitis, unspecified
CPT/HCPCS: 87631

== ENCOUNTER 2025-01-23 09:13 | Emergency (ER) | payer OTHER, SELFPAY ==
--- NOTE | 2025-01-23 09:15 | ECG_ITS ---
APPROVED REPORT Exam: Resting ECG HR:105 bpm ECG Measurements Heart Rate 105 AXES LA 143 P 55 QRSd 98 QRS 33 QT 333 T 30 QTc 394 Conclusion SINUS TACHYCARDIA ABNORMAL RHYTHM ECG No STEMI Electronically signed by : CANDIE FONTAINE, 01/25/2025 00:25:53
[2025-01-23 09:16] VITALS: BP 128/78; PULSE 98; RESP 18; TEMP 36.9; O2SAT 97; BMI 45.7
--- NOTE | 2025-01-23 09:22 | ED_ITS ---
Discharge Plan Disposition Patient Disposition: Home, Self-Care Condition: Fair Prescriptions Prescriptions: New ondansetron 4 mg tablet,disintegrating 4 mg PO Q8H 4 Days Qty: 12 0RF No Action (DME) blood-glucose meter Misc See Rx Instructions .ROUTE .MEDSUPPLY Qty: 1 Patient Comments: USE DIRECTED DX E 10.65 Rx Instructions: As directed (DME) insulin syringe-needle U-100 0.3 mL 31 gauge x 5/16 syringe See Dose Instructions .ROUTE .MEDSUPPLY 25 Days Qty: 100 2RF Rx Instructions: As directed (DME) blood sugar diagnostic Strip See Rx Instructions .ROUTE .MEDSUPPLY Qty: 100 2RF Rx Instructions: As directed Humalog KwikPen Insulin 200 unit/mL (3 mL) insulin pen 1 sliding scale dose SQ TID Patient Comments: USE IN INSULIN PUMP DIRECTED. DO NOT EXCEED 400 UNITS PER 24 HOURS (DME) Dexcom G7 Sensor Device See Rx Instructions .ROUTE .MEDSUPPLY Qty: 1 Patient Comments: CHANGE EVERY 10 DAYS Rx Instructions: As directed (DME) lancets [OneTouch Delica Plus Lancet] 33 gauge misc See Rx Instructions .ROUTE .MEDSUPPLY Qty: 100 Patient Comments: USE TO CHECK BLOOD GLUCOSE 4 TIMES DAILY (FASTING AND 2 HOUR POST-PRANDIAL) Rx Instructions: As directed levothyroxine 50 mcg tablet 50 mcg PO DAILY Patient Comments: TAKE 1 TABLET BY MOUTH EVERY DAY BEFORE BREAKFAST Baqsimi 3 mg/actuation spray,non-aerosol 3 mg intranasal NEEDED PRN (Reason: diabetes) Patient Comments: PLACE 1 SPRAY INTO ONE NOSTRIL ONCE DAILY NEEDED FOR SEVERE HYPOGLYCEMIA sertraline 100 mg tablet 100 mg PO DAILY Patient Comments: TAKE 1 TABLET BY MOUTH DAILY. insulin glargine [Lantus Solostar U-100 Insulin] 100 unit/mL (3 mL) insulin pen 70 unit SQ HS Patient Comments: USE UP TO 80 UNITS DAILY INSTRUCTED. *DISCARD OPEN PEN AFTER 28 DAYS* (DME) TRUEplus Ketone Strip See Rx Instructions .ROUTE .MEDSUPPLY Qty: 25 Patient Comments: USE 1 STRIP IF NEEDED FOR HIGH BLOOD SUGAR Rx Instructions: As directed (DME) Dexcom G6 Transmitter Device See Rx Instructions .ROUTE .MEDSUPPLY Qty: 1 Patient Comments: USE INSTRUCTED AND CHANGE EVERY 90 DAYS. DX E11.9 Rx Instructions: As directed atorvastatin 20 mg Tablet 20 mg PO DAILY Referrals Follow up/Referrals: Provider,Referral, MD [Referring] - See instructions Activity Restrictions/Add. Instructions Additional Instructions/Restrictions: Check urine for ketones with your home test. Return to emergency department if you develop worsening nausea vomiting inability to keep fluids down. Clinical Impressions Clinical Impression: Influenza Print Language Print Language: [place] Discharge ED Provider: Marcia Stover HPI General Chief Complaint: Chest Pain Stated Complaint: Chest Pain Time Seen by Provider: 01/23/25 09:21 History of Present Illness HPI narrative: Patient is a 24-year-old with past medical history significant for type 1 diabetes, hypothyroidism presents to the emergency department with hemoptysis chest pain cough congestion nausea vomiting. Symptoms started 2 days ago. Patient's daughter has the flu. Blood sugar has been running high over the last few days. Has been urinating 6-7 times per day. No abdominal pain. 4 episodes of vomiting in the last 24 hours. Scant blood streaks in sputum. Chest pain is constant 7 out of 10. No hormone use no recent travel no swelling of the lower extremities. Related Data Home Medications ?Medication ?Instructions ?Recorded ?Confirmed blood-glucose meter #1 ea 11/19/19 09/09/24 blood-glucose sensor (Dexcom G7 #1 ea 07/03/24 09/09/24 Sensor device) insulin lispro 200 unit/mL (3 mL) 1 sliding scale dose SQ TID 07/03/24 01/23/25 subcutaneous pen (Humalog KwikPen Diabetes U-200 Insulin) lancets 33 gauge (OneTouch Delica #100 ea 07/03/24 08/19/24 Plus Lancet) levothyroxine 50 mcg tablet 50 mcg PO DAILY thyroid 07/03/24 01/23/25 acetone (urine) test (TRUEplus #25 ea 07/22/24 09/09/24 Ketone strips) blood-glucose transmitter (Dexcom #1 ea 07/22/24 08/19/24 G6 Transmitter device) glucagon 3 mg/actuation nasal 3 mg intranasal NEEDED PRN 08/19/24 01/23/25 spray (Baqsimi) diabetes atorvastatin 20 mg tablet 20 mg PO DAILY 09/03/24 01/23/25 insulin glargine 100 unit/mL (3 70 unit SQ HS 01/21/25 01/23/25 mL) subcutaneous pen (Lantus Solostar U-100 Insulin) sertraline 100 mg tablet 100 mg PO DAILY 01/21/25 01/23/25 Previous Rx's ?Medication ?Instructions ?Recorded blood sugar diagnostic #100 ea 11/19/19 insulin syringe-needle U-100 0.3 #100 ea 11/19/19 mL 31 gauge x 5/16 ondansetron 4 mg disintegrating 4 mg PO Q8H 4 days #12 tabs 01/23/25 tablet Allergies Allergy/AdvReac Type Severity Reaction Status Date / Time codeine (CODEINE) Allergy Mild Hives Verified 01/21/25 16:44 Influenza Virus Vaccines AdvReac Unknown Other Verified 01/21/25 16:[address] [facility] Disclaimer: The information contained in this section may have been updated after the patient was seen, as this information can be updated by other users. Medical History HLD (hyperlipidemia) PCOS (polycystic ovarian syndrome) Seizure disorder History of anemia Thyroid disease Type 1 diabetes mellitus Surgical History Hx of bilateral salpingectomy History of section x2 Family History Other Diabetes Type 1 diabetes mellitus Social History Smoking Status: Never smoker second hand exposure: No alcohol intake: never substance use type: denies use current occupational status: unemployed Travel in the last 8 weeks: None household members: family housing: house current occupational exposures/hazards: No caffeine: Yes Have you lived/traveled outside [place] in past 30 days?: No Contact w/someone who lives/traveled outside US past 30 days?: No Exposure to someone with infectious disease in past 14 days?: No Do you have a fever (greater than 100.4 F or 38 C)?: No Have you tested positive for COVID-19: No Exposed to someone with COVID-19 in past 14 days?: No Do you have a sore throat?: No Do you have a cough?: No Do you have any weakness?: No Do you have any diarrhea?: No Are you experiencing any unusual bleeding?: No Do you have any muscle aches/pain?: No Do you have any abdominal pain?: No Are you experiencing loss of taste or smell?: No Other Medical History Have you received the Flu Vaccine for this season: No Have you received the Pneumonia Vaccine: No ROS Obtained: Yes All systems reviewed & no additional complaints except as documented Physical Exam General General appearance: alert and in no apparent distress ENT ENT exam: Present mucous membranes dry and other (congestion) Respiratory Respiratory exam: Present normal lung sounds bilaterally; Absent respiratory distress Cardiovascular Cardiovascular exam: Present normal rhythm and tachycardia Abdominal Exam Abdominal exam: Present soft; Absent distention or tenderness Neurological Exam Neurological exam: Present alert and oriented X3 HEART Score HEART Score HEART Score assessment performed?: Yes History (anamnesis): Slightly suspicious ECG: Normal Age: <45 years Risk factors: No known risk factors Troponin: </= normal limit HEART Score: 0 Critical Care Critical Care Time Critical Care Time: No Medical Decision Making Jasson Inquiry Pt receiving controlled substance: No Vital Signs Vital Signs: 01/23/25 09:16 01/23/25 09:31 01/23/25 09:42 Temperature 98.4 F Temperature Source Oral Pulse Rate 102 H 98 H Pulse Rate [Left Radial] 98 H Respiratory Rate 18 18 Blood Pressure 101/71 L Blood Pressure [Right Arm] 128/78 Blood Pressure Mean [Right Arm] 94 Blood Pressure Source [Right Arm] Automatic Cuff Blood Pressure Position [Right Arm] Sitting 02 Sat by Pulse Oximetry 97 95 Oxygen Delivery Method Room Air 01/23/25 10:01 01/23/25 10:31 Temperature Temperature Source Pulse Rate 92 H 73 Pulse Rate [Left Radial] Respiratory Rate 19 18 Blood Pressure 129/76 116/61 Blood Pressure [Right Arm] Blood Pressure Mean [Right Arm] Blood Pressure Source [Right Arm] Blood Pressure Position [Right Arm] 02 Sat by Pulse Oximetry 96 96 Oxygen Delivery Method Lab Data Labs: Lab Results 01/23/25 09:21: SARS-CoV-2 (PCR) Not detected, Influenza A Untype (PCR) Detected A, Influenza Type B (PCR) Not detected 01/23/25 09:23: WBC 4.7 L, RBC 4.73, Hgb 13.6, Hct 38.8, MCV 82.0, MCH 28.8, MCHC 35.1, RDW 14.1, Plt Count 138 L, MPV 9.7, Neut % (Auto) 65.6, Lymph % (Auto) 21.4, Gonzales % (Auto) 11.3 H, Eos % (Auto) 1.3, Baso % (Auto) 0.2, Neut # (Auto) 3.1, Lymph # (Auto) 1.0, Gonzales # (Auto) 0.5, Eos # (Auto) 0.1, Baso # (Auto) 0.0, D-Dimer 0.46, VBG pH 7.42 H, VBG pCO2 32.9 L, VBG pO2 87.4 H, VBG HCO3 20.9 L, VBG Total CO2 21.9 L, VBG O2 Saturation 96.2 H, VBG Base Excess - 3.6 L, VBG Lactic Acid 1.3, Sodium 133 L, Potassium 4.2, Chloride 103, Carbon Dioxide 20 L, Anion Gap 14.2, BUN 11, Creatinine 0.70, Estimated Creat Clear 96, Estimated GFR 101, Est GFR ( Amer) 122, Glucose 249 H, Calcium 9.1, Total Bilirubin 0.6, AST 30, ALT 31, Alkaline Phosphatase 75, Troponin I < 0.01, Total Protein 7.1, Albumin 4.3, Globulin 2.8, Albumin/Globulin Ratio 1.5, Lipase 21 L, Serum HCG, Qual Negative 01/23/25 09:23 01/23/25 09:23 Response Orders (Tests/Meds): ED MEDICATIONS Discontinued Medications Generic Name Dose Route Start Last Admin Trade Name Иванq PRN Reason Stop Dose Admin Acetaminophen 1,000 mg 01/23/25 09:23 01/23/25 09:33 Acetaminophen 500mg Tab PO 01/23/25 09:24 1,000 mg ONCE ONE Administration Lactated Ringer's 1,000 mls @ 999 mls/hr 01/23/25 09:23 01/23/25 09:33 Lactated Ringer's 1000 Ml Bag IV 01/23/25 10:23 999 mls/hr .Q1H1M ONE Administration Ketorolac Tromethamine 15 mg 01/23/25 09:23 01/23/25 09:34 Ketorolac 30mg/Ml Vial IV 01/23/25 09:24 15 mg ONCE ONE Administration Ondansetron HCl 4 mg 01/23/25 09:23 01/23/25 09:33 Ondansetron 4mg/2ml Vial IV 01/23/25 09:24 4 mg ONCE ONE Administration ORDERS Category Date Time Status XR chest 2V Stat Exams 01/23/25 09:23 Completed B-Hydroxybutyrate Stat Lab 01/23/25 09:23 Received Beta HCG, Qual [HCG Qualitative, Serum] Stat Lab 01/23/25 09:23 Completed CBC w/Auto Diff [Complete Blood Count Auto Diff] Stat Lab 01/23/25 09:23 Completed CMP [Comprehensive Metabolic Panel] Stat Lab 01/23/25 09:23 Completed D-Dimer Stat Lab 01/23/25 09:23 Completed Lipase Stat Lab 01/23/25 09:23 Completed Rapid PCR Covid and Flu A/B Stat Lab 01/23/25 09:21 Completed Troponin I Q3H Lab 01/23/25 12:30 Ordered Troponin I Q3H Lab 01/23/25 15:30 Ordered Troponin I Stat Lab 01/23/25 09:23 Completed Venous Blood Gas Stat RT 01/23/25 09:23 Completed MDM Narrative Medical Decision Narrative: In summary, this 24-year-old female presents to the emergency department today with chest pain cough hemoptysis. On initial evaluation patient is tachycardic normotensive saturating appropriately on room air afebrile in no acute distress. Differential diagnosis includes but is not limited to pneumonia viral syndrome myocarditis pericarditis PE ACS pancreatitis DKA. Based on these concerns, I ordered CBC CMP lipase VBG chest x-ray EKG troponin beta Hydroxybutyric acid, qualitative . ECG personally interpreted demonstrates sinus tachycardia normal axis no ST elevation ST depression or T wave inversion concerning for ischemia. Patient received lactated Ringer's Toradol Tylenol Zofran for treatment. Labs personally reviewed demonstrate mild leukopenia, hyperglycemia, bicarb of 20 anion gap of 14 normal lipase, flu A+, negative troponin, negative D-dimer, normal ph. Beta hydroxybutyrate acid ordered. Per lab this is now a send out test. As patient has normal pH low suspicion for DKA. XR personally interpreted demonstrates no focal consolidation. On reassessment patient has improvement of symptoms, able to tolerate p.o. Symptoms and workup are most consistent with viral syndrome. Patient structured to emergency department for inability to tolerate p.o. or development of ketones in her urine on her home test strips.
--- NOTE | 2025-01-23 09:23 | XR_ITS ---
FINAL REPORT TECHNIQUE: Chest PA & Lateral CLINICAL HISTORY: shortness of breath recently exposed to flu cough , soa when coughing and pt also stated chest pain in center of chest COMPARISON: none FINDINGS: 2 views of the chest were performed. The heart size is normal. The mediastinum is within normal limits. There is no acute cardiopulmonary process. There are no pleural effusions. There is no pneumothorax. The bony thorax appears intact. IMPRESSION: No acute cardiopulmonary process. Reviewed, Interpreted and Dictated by Erickson Ramírez MD Transcribed by Marilee Mustafa Authenticated and [facility]
[2025-01-23 09:31] VITALS: BP 101/71; PULSE 102; RESP 18; O2SAT 95
[2025-01-23 09:32] LABS: Coronavirus 19, PCR Not Detected (NotDetected); Influenza B, PCR Not Detected (NotDetected)
[2025-01-23 09:33] LABS: Basophils % 0.2 % (0.1-2.0); Eosinophils # 0.1 K/mm3 (0.0-0.4); Eosinophils % 1.3 % (0.1-12.0); Hematocrit 38.8 % (37.0-47.0); Hemoglobin 13.6 g/dL (12.2-16.2); Lymphocytes % 21.4 % (10-50); Mean Corpuscular HGB Conc 35.1 g/dL (31.8-35.4); Mean Corpuscular Hemoglobin 28.8 pg (27.0-31.2); Mean Platelet Volume 9.7 fl (7.4-10.4); Monocytes # 0.5 K/mm3 (0.1-1.0); Monocytes % 11.3 % (1.7-9.3); Neutrophils # 3.1 K/mm3 (1.8-7.8); Neutrophils % 65.6 % (37.0-80.0); Platelet Count 138 K/mm3 (142-424); Red Blood Count 4.73 M/mm3 (4.20-5.40); Red Cell Distribution Width 14.1 % (11.5-17.5); White Blood Count 4.7 K/mm3 (4.8-10.8)
[2025-01-23] MEDS: LACTATED RINGERS 1000ML 1,000 ML 999 ML IV (09:33)
[2025-01-23] MEDS: ACETAMINOPHEN 500MG TAB 1000 MG PO (09:33)
[2025-01-23] MEDS: ONDANSETRON 4MG/2ML VIAL 4 MG IV (09:33)
[2025-01-23 09:34] LABS: Lactate Venous 1.3 mmol/L (0.4-2.0); VBG Base Excess -3.6 mmol/L (-2.4-2.3); VBG HCO3 20.9 mmol/L (23-30); VBG Oxygen Saturation 96.2 % (50-70); VBG PCO2 32.9 mmol/L (35-51); VBG PH 7.42 mmol/L (7.31-7.41); VBG PO2 87.4 mmol/L (28-40); VBG Total CO2 21.9 mmol/L (23-27)
[2025-01-23] MEDS: KETOROLAC 30MG/ML VIAL 15 MG IV (09:34)
[2025-01-23 09:42] VITALS: PULSE 98
[2025-01-23 09:42] LABS: Alanine Aminotransferase 31 U/L (12-78); Albumin Level 4.3 g/dl (3.5-5.0); Albumin/Globulin Ratio 1.5 (1.1-1.8); Alkaline Phosphatase 75 U/L (38-126); Anion Gap 14.2 mEq/L (5-15); Aspartate Amino Transferase 30 U/L (14-36); Bilirubin,Total 0.6 mg/dl (0.2-1.3); Blood Urea Nitrogen 11 mg/dl (7-17); Calcium 9.1 mg/dl (8.4-10.2); Carbon Dioxide 20 mmol/L (22.0-30.0); Chloride 103 mmol/L (98-107); Creatinine Clearance Estimated 96 mL/min (50-200); Estimated Glomerular Filt Rate 101 ml/min (>60); GFR (African American) 122 ML/MIN (>60); Globulin 2.8 g/dL (1.3-3.2); Glucose 249 mg/dl (74-100); Lipase 21 U/L (23-300); Potassium 4.2 mmoL/L (3.5-5.1); Sodium 133 mmol/L (136-145); Total Protein,Serum 7.1 g/dl (6.3-8.2)
[2025-01-23 09:46] LABS: D-Dimer 0.46 ug/mL (0.0-0.5); HCG Qualitative, Serum Negative (Negative)
[2025-01-23 09:56] LABS: Troponin I < 0.01 ng/ml (0.00-0.034)
[2025-01-23 10:01] VITALS: BP 129/76; PULSE 92; RESP 19; O2SAT 96
[2025-01-23 10:02] LABS: Influenza A, PCR Detected (NotDetected)
[2025-01-23 10:31] VITALS: BP 116/61; PULSE 73; RESP 18; O2SAT 96
[2025-01-23 11:36] VITALS: BP 122/57; PULSE 81; RESP 20; TEMP 36.9; O2SAT 97
[2025-01-26 13:28] LABS: B-Hydroxybutyrate 6.3 mg/dL (.)
== END 2025-01-23 11:41 | disposition home or self-care (01) ==
PROVIDERS: Emergency Provider Student in an Organized Health Care Education/Training Program; PCP Student in an Organized Health Care Education/Training Program
DX: J11.1 Influenza due to unidentified influenza virus with other respiratory manifestations (principal); R04.2 Hemoptysis; R07.9 Chest pain, unspecified; R05.9 Cough, unspecified; R09.81 Nasal congestion; R11.2 Nausea with vomiting, unspecified; Z20.828 Contact with and (suspected) exposure to other viral communicable diseases
CPT/HCPCS: 71046; 80053; 82010; 82803; 83690; 84484; 84703; 85025; 85378; 87636; 93005; 96365; 96374; 96375; 99284; J1885; J2405; J7120

== ENCOUNTER 2025-06-23 19:11 | Emergency (ER) | payer OTHER, SELFPAY ==
--- OUTSIDE RECORDS SUMMARY | 2025-05-11 14:30 | XMS_ITS | Encounter Summary ---
Author Organization [place] [address] Care Team Providers Care Small Products Ii Assembler Name Role Phone SotoDot Primary Care Provider [phone] Encounter Details Date Type Department Care Team (Latest Contact Info) Description 05/11/2025 2:30 PM EDT Telemedicine [facility] [address] [place] [address] Juliet Salmon, [employer]CHO[employer]PA[employer] TE[employer]ER [address] [place] [address] Rheumatoid arthritis involving multiple sites with positive rheumatoid factor (HCC) (Primary Dx); Chronic pain of both knees; Vitamin D deficiency; Diabetic polyneuropathy associated with type 1 diabetes mellitus (HCC); Therapeutic drug monitoring; Immunosuppression Social History Tobacco Use Types Packs/Day Years Used Date Smoking Tobacco: Never Smokeless Tobacco: Never Alcohol Use Standard Drinks/Week Comments Never 0 (1 standard drink = 0.6 oz pur e alcohol) PHQ-2 Answer Date Recorded PHQ-2 Total Score 6 08/11/2024 Sexually Active Control Partners Comments Yes Surgical Male Tubal Comments No Sex and Gender Information Value Date Recorded Sex Assigned at Not on file Legal Sex Female 12:11 PM EST Gender Identity Not on file Sexual Orientation Not on file documented as of this encounter Patient Instructions * Attachments The following attachments cannot be sent through Care Everywhere. * Adalimumab (Surinamese) documented in this encounter Ordered Prescriptions Prescription Sig Dispense Quantity Refills Last Filled Start Date End Date adalimumab (HUMIRA,CF, PEN) 40 mg/0.4 mL SubQ Pen Injector KitIndications:Rhe umatoid arthritis involving multiple sites with positive rheumatoid factor (HCC) Inject 0.4 mL under the skin every 14 days. 1 Kit 2 05/14/2025 4:30 PM EDT 05/11/2025 06/05/2025 documented in this encounter Progress Notes * Juliet Salmon, [employer]IGH [employer]CHO[employer] REPA[employer] TE[employer]ER - 05/11/2025 2:30 PM EDT Images from the original note were not included. Rheumatology Assessment and Plan Sera was seen for follow up, + RF, joint pain and stiffness Diagnoses and all orders for this visit: Rheumatoid arthritis involving multiple sites with positive rheumatoid factor (HCC) (Chronic) Active 03/06/25 Mild synovitis MCP# 1 R hand, # 2 of the left hand, eqsuiste tenderness w/ palpation to the wrists, MCPs, PIPs 1-5 bilateral XR hands: 11/03/24: normal XR hands, knees, chest: 02/2025 unremarkable Discussed DMARD therapy HCQ deferred d/t retinopathy Started Methotrexate 5 tabs once weekly 03/12/25 - pt stopped after about month d/t nausea and vomiting. Start TNF marilee. Humira or biosim pending insurance: 40 mg SQ q 2 wks Risks of therapy discussed with the patient including injection site reactions, susceptibility to infections, reactivation of Tuberculosis and Histoplasmosis, bone marrow toxicity, possible risk of cancers, mainly skin cancers including melanoma and lymphomas. Written information provided. TB gold negative. Hepatitis panel negative.02/2025 Patient should hold therapy while being treated for infections. Patient should not receive live vaccines while on therapy. CxR obtained prior to initiation of therapy. - adalimumab (HUMIRA,CF, PEN) 40 mg/0.4 mL SubQ Pen Injector Kit; Inject 0.4 mL under the skin every 14 days. Dispense: 1 Kit; Refill: 2 Chronic pain of both knees Intermittent Topical gel, brace, regular low impact, quadricept strengthing exercises. Return demo- home knee exercises provided last visit. Consider possible joint injection if no improvement Mobic 7.5 mg daily prn Vitamin D deficiency 50,000 IU once weekly- continue Diabetic polyneuropathy associated with type 1 diabetes mellitus (HCC) (Chronic) Avoiding steroids Therapeutic drug monitoring CBC, CMP, ESR, CRP q 6 mos Immunosuppression (Chronic) Hold TNFi if treated for infx, avoid live vax (-) hep panel, TB gold (02/2025) [facility] Chief Complaint No chief complaint on file. F/u HPI Patient presented today for routine care follow-up through a video visit. Patient has reviewed the terms and conditions of service as part of the registration for today's visit. Patient is aware thata video visit does not replace a [id number] exam and further services may be necessary. I advisedthe patient that we are conducting his video visit through our office in a private space on our secure network and this video visit is being conducted in accordance with [facility] telehealth/video visit regulations. Patient had no questions prior to initiation of the visit. The patient presents today for follow up regarding joint pain PMHx: DM type 1 dx age 4 w/ neuropathy, glaucoma, HLD, hypothyroid, sz, tic disorder, tubal ligation fall 2023 Review of data: RF 33 (-) CCP 08/11/24 CRP 13.58 11/12/24 (-) SSA/B 02/2025 XR feet: Normal 02/2025 XR knees: normal 02/2025 XR hands 10/2024: unremarkable Hx of symptoms: Ms. Sera Dietrich is a pleasant 25 y.o following for RA Presented to [facility] 02/2025 -pt c/o knuckle pain b/l hands, wrists b/l. - progressively worsening2 yrs -Swelling of the hands and tenderness to the MCPs, PIPs on initial exam, mildly elevated CRP 9.66, positive RF. XR Feet, knees - unremarkable (02/2025) - Knee pain b/l - generalized diffuse body pain as well. - tylenol - ineffective Today: 06/19/25 - missed 8 wk f/u. 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 Eyes: Negative for pain. Respiratory: Negative for shortness of breath. Gastrointestinal: Negative for blood in stool. Genitourinary: Negative for hematuria. Musculoskeletal: Positive for joint pain and myalgias. Skin: Negative for rash. Neurological: Negative for weakness. Psychiatric/Behavioral: PMHx: Past Medical History: Diagnosis Date ADHD (attention deficit hyperactivity disorder) Anxiety Diabetes mellitus type 1 (HCC) Diabetic neuropathy (HCC) Diabetic retinopathy (HCC) Glaucoma High cholesterol Hyperemesis gravidarum 08/11/2024 Hyperopia 04/03/2008 Hypothyroid IDDM (insulin dependent diabetes mellitus) Injury, lower leg Irregular menses Other emotional disturbance of childhood or adolescence Seizure (HCC) 10/29/2010 due to hypoglycemia Tic disorder since seizure Patient Active Problem List Diagnosis Acquired hypothyroidism Diabetic polyneuropathy associated with type 1 diabetes mellitus (HCC) Tic disorder Vitamin B deficiency Type 1 diabetes mellitus with hyperglycemia (HCC) Vitamin D deficiency Iron deficiency Mixed hyperlipidemia Anxiety and depression At high risk for breast cancer H/O abnormal cervical Papanicolaou smear Insulin pump in place PCOS (polycystic ovarian syndrome) Regular astigmatism Uterine hypertrophy Class 3 severe obesity due to excess calories with serious comorbidity and body mass index (BMI) of40.0 to 44.9 in adult Past Surgical History: Procedure Laterality Date SECTION SECTION DENTAL SURGERY ENDOMETRIAL ABLATION 08/2024 TUBAL LIGATION 08/04/2024 Current Outpatient Medications on File Prior to Visit Medication Sig Dispense Refill Acetone, Urine, Test (KETONE URINE TEST) Misc Strip Test if blood sugar >250 and/or ill. E10.65 50 Each 3 Alcohol Swabs (ALCOHOL PADS) Top Pads, Medicated Apply 1 Each topically 4 times daily. 100 Each 11 Alcohol Swabs (ALCOHOL PREP SWABS) Top Pads, Medicated Use to check blood sugar once daily Dx 250 100 Each 11 atorvastatin (LIPITOR) 40 mg Oral Tablet Take 1 Tablet by mouth daily for 360 days. 90 Tablet 3 BAQSIMI 3 mg/actuation [place]l [place], Non-Aerosol 3 mg by INTRANASAL route as needed (for severe hypoglycemia). 1 Each 11 Blood Sugar Diagnostic (ONETOUCH ULTRA TEST) [facility] Strip USE TO TEST BLOOD SUGAR 8 TIMES DAILY DIRECTED 300 Strip 4 Blood-Glucose Meter (ONETOUCH ULTRAMINI) [facility] Kit Use to check blood sugars 8 times daily as directed 1 Kit 0 DEXCOM G7 SENSOR [facility] Device CHANGE EVERY 10 DAYS dextromethorphan-guaiFENesin (ROBITUSSIN DM) 10-100 mg/5 mL Oral Syrup Take 5 mL by mouth 3 times daily as needed for Cough. 118 mL 0 ergocalciferol (VITAMIN D) 1,250 mcg (50,000 unit) Oral Capsule Take 1 Capsule by mouth once a week. 12 Capsule 0 folic acid (FOLVITE) 1 mg Oral Tablet Take 1 Tablet by mouth daily. 90 Tablet 1 insulin lispro (HUMALOG) 100 unit/mL SubQ Insulin Pen Use up to 100 units daily in divided doses asinstructed. 99 mL 0 insulin lispro (HUMALOG) 100 unit/mL SubQ Solution Inject as instructed, up to a maximum total daily dose of 200 units 60 mL 2 Insulin Nisula, Disposable, (JOSUÉ PEN NEEDLE) 32 gauge x 5/32 Misc Needle Subcutaneous (Inject under the skin) 1 Each 4 times daily (before meals and nightly). 100 Each 11 Insulin Syringe-Needle U-100 (BD INSULIN SYRINGE ULTRA-FINE) 1 mL 30 gauge x 1/2 Misc Syringe Subcutaneous (Inject under the skin) 1 Each 4 times daily (before meals and nightly). 200 Each 7 Insulin Syringe-Needle U-100 (BD INSULIN SYRINGE ULTRA-FINE) 1/2 mL 30 x 1/2 Misc Syringe 1 Stick by [facility].(Non-Drug; Combo Route) route 5 times dialy as needed. 150 Syringe 1 Lancets [facility] Use to check blood sugars up to 8 times daily 200 Each 11 LANTUS SOLOSTAR U-100 INSULIN 100 unit/mL (3 mL) SubQ Insulin Pen Use up to 80 units daily as instructed. *DISCARD OPEN PEN AFTER 28 DAYS* 78 mL 0 leucovorin (WELLCOVORIN) 5 mg Oral Tablet One tablet ONCE weekly 24 hours after methotrexate dose 32 Tablet 1 levothyroxine (SYNTHROID) 50 mcg Oral Tablet TAKE 1 TAB BY MOUTH DAILY. 30 Tab 3 meloxicam (MOBIC) 7.5 mg Oral Tablet Take 1 Tablet by mouth daily. 30 Tablet 2 methotrexate 2.5 mg Oral Tablet Take 5 tablets on the same day ONCE per week. 20 Tablet 1 ondansetron (ZOFRAN-ODT) 4 mg Oral Tablet, Rapid Dissolve as needed. sertraline (ZOLOFT) 100 mg Oral Tablet Take 1 Tablet by mouth daily. 30 Tablet 3 No current facility-administered medications on file prior to visit. All: Allergies Allergen Reactions Codeine Hives Influenza Virus Vaccines Other (See Comments) Really sick when younger Family History Problem Relation Age of Onset High Blood Pressure Mother Thyroid Disease Mother Rheum Arthritis Mother High Blood Pressure Father Diabetes Father Anxiety Disorder Father Bipolar Disorder Father Depression Father Other Brother bladder issues High Blood Pressure Maternal Grandmother High Blood Pressure Paternal Grandfather High Cholesterol Paternal Grandfather Social History Tobacco Use Smoking status: Never Smokeless tobacco: Never Substance Use Topics Alcohol use: Never Physical Examination There were no vitals filed for this visit. Physical Exam Vitals reviewed. Constitutional: Appearance: Normal appearance. HENT: Head: Normocephalic. Pulmonary: Effort: Pulmonary effort is normal. Musculoskeletal: General: Tenderness present. Comments: Exam per video Previous in office exam revealed: Mild synovitis MCP# 1 R hand, # 2 of the left hand, eqsuiste tenderness w/ palpation to the wrists,MCPs, PIPs 1-5 bilaterally. Knees: no effusion or swelling No tenderness in cervical, thoracic, or lumbar spine MTPs: Positive squeeze test b/l Lymphadenopathy: Cervical: No cervical adenopathy. Skin: Findings: No rash. Neurological: Mental Status: She is alert and oriented to person, place, and time. Motor: No weakness. Psychiatric: Mood and Affect: Mood normal. Labs: Lab Results Component Value Date WBC 5.3 03/06/2025 HGB 13.8 03/06/2025 HCT 38.9 03/06/2025 MCV 82.4 03/06/2025 PLT 176 03/06/2025 Lab Results Component Value Date GLU 245 (H) 01/14/2025 CALCIUM 9.1 01/14/2025 ALBUMIN 4.1 03/06/2025 PROT 7.2 03/06/2025 NA 139 01/14/2025 K 3.9 01/14/2025 CO2 21 (L) 01/14/2025 CL 102 01/14/2025 BUN 7 01/14/2025 CREATININE 0.57 01/14/2025 ALKPHOS 93 03/06/2025 ALT 21 03/06/2025 AST 16 03/06/2025 LABBILI 0.3 03/06/2025 Lab Results Component Value Date CRP 9.66 (H) 03/06/2025 Lab Results Component Value Date SEDRATE 4 03/06/2025 documented in this encounter Miscellaneous Notes * Patient Instructions - Juliet Salmon APRN - 05/11/2025 2:30 PM EDT Methotrexate and folic acid have been discontinued due to reported side effects Plan to start Humira injection every 14 days - hold if sick or for surgery - contact office for assistance w/ holding parameters documented in this encounter Plan of Treatment Upcoming Encounters Date Type Department Care Team (Late st Contact Info) Description 08/18/2025 10:30 AM EDT Office Visit [facility] [address] [place] [address] Juliet Salmon APRN [address] [place] [address] documented as of this encounter Goals Goal Patient Goal Type Associated Problems Recent Progress Patient-Stated? Author Blood Pressure < 140/90 Blood Pressure 129/79(2024 11:17 AM EDT) No Dot Soto, DO BMI (Calculated) < 30 General 45.1(03/06/20 11:17 AM EDT) No Dot Soto DO Maintain a healthy diet, exercise regularly and maintain an ideal body weight General No Dot Soto DO HEMOGLOBIN A1C < 7.0 Result Component 7.3( 1:16 PM EDT) No Dot Soto DO documented as of this encounter Visit Diagnoses Diagnosis Rheumatoid arthritis involving multiple sites with positive rheumatoid factor (HCC)- Primary Chronic pain of both knees Vitamin D deficiency Unspecified vitamin D deficiency Diabetic polyneuropathy associated with type 1 diabetes mellitus (HCC) Therapeutic drug monitoring Encounter for therapeutic drug monitoring Immunosuppression Unspecified disorder of immune mechanism documented in this encounter Discontinued Medications Medication Sig Discontinue Reason Start Date End Da te folic acid (FOLVITE) 1 mg Oral TabletIndications:Rheu matoid arthritis involving multiple sites with positive rheumatoid factor (HCC) Take 1 Tablet by mouth daily. DELETE-Therapy completed 03/12/2025 05/11/2025 methotrexate 2.5 mg Oral TabletIndications:Rheu matoid arthritis involving multiple sites with positive rheumatoid factor (HCC) Take 5 tablets on the same day ONCE per week. Side effects 03/12/2025 05/11/2025 documented as of this encounter Additional Health Concerns Assessment Noted Time PHQ-9 Depression Total Score: 11 024 2:18 PM EDT PHQ-2 Depression Total Score: 6 08/11/20 24 2:18 PM EDT documented as of this encounter Care Teams Small Products Ii Assembler Relationship Specialty Start Date End Date Dot Soto DO [place] [id number] PCP - General Family Medicine 08/11/24 documented as of this encounter
--- OUTSIDE RECORDS SUMMARY | 2025-05-15 08:04 | XMS_ITS | Encounter Summary ---
Author Organization [facility] ([place], [place], [place], [place]) Address [address] [place] [address] Care Team Providers Care Industrial Relations Manager Name Role Phone Unavailable Primary Care Provider Unavailabl e Encounter Details Date Type Department Care Team (Latest Contact Info) Description 05/15/2025 8:04 AM EDT - 05/15/2025 11:59 PM EDT Hospital Encounter [facility] Preadmission Testing [address] [facility] [address] [place] [phone] Preop examination (Primary Dx); Mood disorder (HCC) Discharge Disposition: Home or Self Care Social History Tobacco Use Types Packs/Day Years Used Date Smoking Tobacco: Never Smokeless Tobacco: Never Tobacco Cessation:Counseling Given: Not Answered Alcohol Use Standard Drinks/Week Comments Never 0 (1 standard drink = 0.6 oz pur e alcohol) Comments Unknown Sex and Gender Information Value Date Recorded Sex Assigned at Not on file Legal Sex Female 1:51 PM CDT Gender Identity Not on file Sexual Orientation Not on file documented as of this encounter Last Filed Vital Signs Vital Sign Reading Time Taken Comments Blood Pressure 133/85 05/15/2025 8:24 AM EDT Pulse 81 05/15/2025 8:24 AM EDT Temperature 37.2 C (98.9 F) 05/15/2025 8:24 AM EDT Respiratory Rate 20 05/15/2025 8:24 AM EDT Oxygen Saturation 96% 05/15/2025 8:24 AM EDT Inhaled Oxygen Concentration - - Weight 112 kg (247 lb) 05/15/2025 8:24 AM EDT Height 157.5 cm (5' 2 ) 05/15/2025 8:24 AM EDT Body Mass Index 45.18 05/15/2025 8:24 AM EDT documented in this encounter Medications at Time of Discharge adalimumab (HUMIRA) 40 mg/0.4 mL pnkt Inject 0.4 mLs (40 mg total) under the skin every 14 (fourteen) days. 05/11/2025 atorvastatin (LIPITOR) 40 MG tablet Take 1 tablet (40 mg total) by mouth daily. ergocalciferol (DRISDOL) 1,250 mcg (50,000 unit) capsule Take 1 capsule (50,000 Units total) by mouth once a week. folic acid (FOLVITE) 1 MG tablet Take 1 tablet (1,000 mcg total) by mouth daily. 04/27/2025 insulin lispro (HumaLOG) 100 unit/mL inpn USE UP TO 100 UNITS DAILY IN DIVIDED DOSES INSTRUCTED. Lantus Solostar U-100 Insulin 100 unit/mL (3 mL) inpn Use up to 80 units daily as instructed. *DISCARD OPEN PEN AFTER 28 DAYS* 05/06/2025 levothyroxine (SYNTHROID) 50 MCG tablet Take 1 tablet (50 mcg total) by mouth Daily (0600). Linzess 72 mcg cap Take 1 capsule (72 mcg total) by mouth daily. 04/24/2025 meloxicam (MOBIC) 7.5 MG tablet Take 1 tablet (7.5 mg total) by mouth daily. sertraline (ZOLOFT) 100 MG tablet Take 1 tablet (100 mg total) by mouth daily. oxyCODONE-acetami nophen (PERCOCET) 5-325 mg per tablet Take 1 tablet by mouth every 4 (four) hours as needed for up to 3 days . Max Daily Amount: 6 tablets 18 tablet 05/22/2025 05/25/2025 documented as of this encounter H&P Notes * Brianna Mas PA-C - 05/15/2025 8:30 AM EDT History & Physical Name: Sera Dietrich : 2000 Age: 25 y.o. SUBJECTIVE: Chief Complaint / Reason for Visit: preop exam HPI: Sera Dietrich is a 25 y.o. female who presents prior to Procedure Laterality Anesthesia LAPAROSCOPY WITH ROBOTIC ASSISTANCE SUPRACERIVAL HYSTERECTOMY N/A General Due to Diagnosis Hypertrophy of uterus Endometriosis of myometrium Deep dyspareunia Secondary dysmenorrhea Metrorrhagia Per surgeon Pt states she has had heavy, irregular and painful bleeding for years. She had ablation which failed ROS +pelvic pain +heavy menses +irregular bleeding HISTORY: Patient Active Problem List Diagnosis Date Noted Preop examination 05/15/2025 DM (diabetes mellitus), type 1 (HCC) 05/15/2025 Mood disorder (HCC) 05/15/2025 RA (rheumatoid arthritis) (HCC) 05/15/2025 Hyperlipidemia 05/15/2025 Hypothyroid 05/15/2025 IBS (irritable bowel syndrome) 05/15/2025 Past Surgical History: Procedure Laterality Date LASER ABLATION uterus SALPINGECTOMY Bilateral WISDOM TOOTH EXTRACTION ALLERGIES: Codeine and Influenza Virus Vaccines Social History Tobacco Use Smoking status: Never Smokeless tobacco: Never Substance Use Topics Alcohol use: Never FH Mom alive with RA Dad alive, multiple comorbidities, recently diagnosed with schizophrenia Current Outpatient Medications on File Prior to Encounter Medication Sig Dispense Refill adalimumab (HUMIRA) 40 mg/0.4 mL pnkt Inject 0.4 mLs (40 mg total) under the skin every 14 (fourteen) days. atorvastatin (LIPITOR) 40 MG tablet Take 1 tablet (40 mg total) by mouth daily. ergocalciferol (DRISDOL) 1,250 mcg (50,000 unit) capsule Take 1 capsule (50,000 Units total) by mouth once a week. folic acid (FOLVITE) 1 MG tablet Take 1 tablet (1,000 mcg total) by mouth daily. insulin lispro (HumaLOG) 100 unit/mL inpn USE UP TO 100 UNITS DAILY IN DIVIDED DOSES INSTRUCTED. Lantus Solostar U-100 Insulin 100 unit/mL (3 mL) inpn Use up to 80 units daily as instructed. *DISCARD OPEN PEN AFTER 28 DAYS* levothyroxine (SYNTHROID) 50 MCG tablet Take 1 tablet (50 mcg total) by mouth Daily (0600). Linzess 72 mcg cap Take 1 capsule (72 mcg total) by mouth daily. meloxicam (MOBIC) 7.5 MG tablet Take 1 tablet (7.5 mg total) by mouth daily. sertraline (ZOLOFT) 100 MG tablet Take 1 tablet (100 mg total) by mouth daily. No current facility-administered medications on file prior to encounter. OBJECTIVE: Blood pressure 133/85, pulse 81, temperature 98.9 ??F (37.2 ??C), temperature source Temporal Artery, resp. rate 20, height 1.575 m (5' 2 ), weight 112 kg (247 lb), SpO2 96%. Physical Exam Vitals and nursing note reviewed. Constitutional: Appearance: Normal appearance. She is obese. HENT: Head: Normocephalic. Nose: Nose normal. Mouth/Throat: Mouth: Mucous membranes are moist. Eyes: Conjunctiva/sclera: Conjunctivae normal. Cardiovascular: Rate and Rhythm: Normal rate and regular rhythm. Heart sounds: No murmur heard. Pulmonary: Effort: Pulmonary effort is normal. Breath sounds: Normal breath sounds. Musculoskeletal: General: Normal range of motion. Neurological: General: No focal deficit present. Mental Status: She is alert and oriented to person, place, and time. Psychiatric: Mood and Affect: Mood normal. LABORATORY Results for orders placed or performed during the hospital encounter of 05/15/25 Hemoglobin A1c Result Value Ref Range Hemoglobin A1C 6.6 (H) 4.2 - 6.3 % eAVG Glucose 142.72 mg/dL Basic Metabolic Panel Result Value Ref Range Sodium 141 136 - 146 meq/L Potassium 3.9 3.5 - 5.1 meq/L Chloride 108 102 - 112 meq/L CO2 26 21 - 32 meq/L Anion Gap 11 9 - 20 BUN 10 7 - 22 mg/dL Creatinine 0.78 0.55 - 1.02 mg/dL BUN/Creatinine 13 8 - 20 Glucose 153 (H) 74 - 100 mg/dL Calcium 8.8 8.5 - 10.1 mg/dL Osmolality Calc 283.3 mOsm/kg eGFR (mL/min/1.73m2) >60 >=60 mL/min/1.73m2 CBC - Hemogram (SJ-BKR) Result Value Ref Range WBC 6.6 3.9 - 10.0 K/??L RBC 4.54 3.93 - 6.08 M/??L Hemoglobin 13.4 11.2 - 15.7 GM/DL Hematocrit 38.3 34.1 - 44.9 % MCV 84 79 - 95 fL MCH 29.5 25.6 - 32.2 pg MCHC 35.0 32.2 - 36.5 GM/DL RDW 14.0 11.6 - 14.4 % Platelets 156 (L) 163 - 369 K/CU MM MPV 9.8 9.4 - 12.4 fL nRBC 0 (L) 1 - 5 /100 WBC ECG 12 lead Result Value Ref Range VENTRICULAR RATE EKG/MIN 75 BPM ATRIAL RATE (MCT) 75 BPM DC Interval 144 ms QRS-INTERVAL (MSEC) 94 ms QT Interval 374 ms QTC Interval 417 ms P [place] 58 degrees R AXIS (MCT) 44 degrees T Wave [place] 29 degrees Salters Diagnosis Normal sinus rhythm with sinus arrhythmia Cannot rule out Anterior infarct , age undetermined Abnormal ECG Echo 01/12/22 Narrative Left Ventricle: The left ventricle is normal size. The left ventricular systolic function is normal.The LVEF is visually estimated at 60 - 65%. Right Ventricle: Right ventricle size is normal. The right ventricular systolic function is normal. Pericardium: No pericardial effusion. Doppler velocities / gradients are elevated throughout the chambers, suggesting increased cardiac output. All cardiac valves were reasonably well visualized with 2D and/or color flow Doppler and there was no significant valve regurgitation or stenosis seen. Compared to the most recently available prior echocardiogram, and allowing for differences in image quality and technique, there is no significant interval change noted. Left Ventricle The left ventricle is not well visualized.The left ventricle is normal size. There is normal left ventricular myocardial thickness and mass. The left ventricular systolic function is normal.The LVEF is visually estimated at 60 - 65%. No regional wall motion abnormalities are seen. Unable to assess diastolic function due to tachycardia. Right Ventricle Right ventricle size is normal. The right ventricular systolic function is normal. Unable to estimate RVSP due to inadequate TR signal. Although the spectral Doppler envelope of TR was not adequate for calculating the PAP, the estimated PAP based upon other 2D and Doppler features suggests that thePAP is probably normal or at most mildly elevated. Left Atrium The left atrial size is normal. Right Atrium The right atrial size is normal. IVC/SVC The IVC was not well visualized, and an assumed pressure of 8mmHg was used for calculations. Mitral Valve The mitral valve is normal in appearance with no evidence of mitral valve prolapse. There is no mitral regurgitation. There is no mitral stenosis. Tricuspid Valve The tricuspid valve is grossly normal in appearance. There is mild tricuspid regurgitation. There is no tricuspid stenosis. Aortic Valve The aortic valve appears to be trileaflet. There is no valvular regurgitation. There is no hemodynamically significant valvular aortic stenosis. Pulmonic Valve The pulmonic valve is grossly normal. There is no pulmonic regurgitation. There is no pulmonic stenosis. Pericardium No pericardial effusion. Great Vessels The aortic root is normal in size. The main pulmonary artery is normal in size. Study Details A complete transthoracic echocardiogram using two-dimensional (2D), m-mode, color and spectral flowDoppler imaging was performed. The study was technically difficult. The study was technically difficult due to patient's body habitus. BP: 124/81 mmHg. Study Recommendation Doppler velocities / gradients are elevated throughout the chambers, suggesting increased cardiac output. All cardiac valves were reasonably well visualized with 2D and/or color flow Doppler and there was no significant valve regurgitation or stenosis seen. Compared to the most recently available prior echocardiogram, and allowing for differences in imagequality and technique, there is no significant interval change noted. ASSESSMENT & PLAN: Active Problems: Preop examination DM (diabetes mellitus), type 1 (HCC) Mood disorder (HCC) RA (rheumatoid arthritis) (HCC) Hyperlipidemia Hypothyroid IBS (irritable bowel syndrome) Preop exam Abnormal uterine bleeding Diabetes mellitus, 1 - Insulin pump intact - Check A1c History of RA - Set to start Humira post healing from hysterectomy - Hold meloxicam Hyperlipidemia - Continue Lipitor Vitamin D deficiency - On supplementation Hypothyroidism - Continue levothyroxine IBS - Continue Linzess Mood disorder - Continue sertraline Thrombocytopenia, platelets 156. Will send copy to PCP STOP-BANG 3 RCRI 2 EKG sinus rhythm, with arrhythmia. Cannot rule out anterior infarct. Patient denies chest pain shortness of breath. She had a normal echo as above in 2021. This was routine for with diabetes. Proceed Intermediate risk. Electronically signed by: Brianna Mas PA-C, 05/15/2025 at 9:04 AM Cosigned by Je Resendiz MD at 05/15/2025 3:36 PM EDT documented in this encounter Procedure Notes * Amairani Olmstead, YARITZA - 05/15/2025 8:30 AM EDT Medication List ASK your doctor about these medications adalimumab 40 mg/0.4 mL Pnkt Commonly known as: HUMIRA Medication Adjustments for Surgery: Other (Comment) Notes to patient: Patient has not started this medication yet, Per patient will start after surgery atorvastatin 40 MG tablet Commonly known as: LIPITOR Medication Adjustments for Surgery: Continue until night before surgery ergocalciferol 1,250 mcg (50,000 unit) capsule Commonly known as: DRISDOL Medication Adjustments for Surgery: Continue until night before surgery folic acid 1 MG tablet Commonly known as: FOLVITE Medication Adjustments for Surgery: Continue until night before surgery insulin lispro 100 unit/mL Inpn Commonly known as: HumaLOG Medication Adjustments for Surgery: Other (Comment) Notes to patient: Insulin pump Lantus Solostar U-100 Insulin 100 unit/mL (3 mL) Inpn Generic drug: insulin glargine Medication Adjustments for Surgery: Other (Comment) Notes to patient: Marked for removal levothyroxine 50 MCG tablet Commonly known as: SYNTHROID Medication Adjustments for Surgery: Take morning of surgery with sip of water, no other fluids Linzess 72 mcg Cap Generic drug: linaCLOtide Medication Adjustments for Surgery: Continue until night before surgery meloxicam 7.5 MG tablet Commonly known as: MOBIC Medication Adjustments for Surgery: Other (Comment) Notes to patient: Stop 05/15/25 and continue to hold until after surgery sertraline 100 MG tablet Commonly known as: ZOLOFT Medication Adjustments for Surgery: Continue until night before surgery Tylenol is okay to take if needed, unless allergic or contraindicated by your surgeon. PLEASE STOP 10 DAYS PRIOR TO SURGERY All NSAIDS such as Advil, Aleve, Bufferin, Diclofenac, Diclofenac Cream,(Voltaren, Voltaren Cream )Ibuprofen, Naproxyn, Meloxicam, Motrin, and (BC) Goody Powders All non-essential vitamins and supplements especially; Vitamin E, Multivitamins, Fish Oil, Garlic supplements PRE-OPERATIVE BATHING INSTRUCTIONS Put clean sheets on your bed the night before surgery. Wear clean pajamas the night before surgery. Follow bathing instructions given to you. If you have a medication you are in question about that has not been mentioned, please call us @ [phone] documented in this encounter Plan of Treatment Not on file documented as of this encounter Procedures Procedure Name Priority Date/Time Associated Diagnosis Comments CBC HEMOGRAM (SJ-BKR) Routine 05/15/2025 8:22 AM EDT Preop examination HEMOGLOBIN A1C Routine 05/15/2025 8:22 AM EDT Preop examination BASIC METABOLIC PANEL Routine 05/15/2025 8:22 AM EDT Preop examination [id number] 12-LEAD Routine 05/15/2025 7:23 AM EDT Preop examination documented in this encounter Results * (ABNORMAL) CBC - Hemogram (SJ-BKR) (05/15/2025 8:22 AM EDT) WBC 6.6 3.9 - 10.0 K/ L 05/15/2025 8:56 AM EDT [facility] RBC 4.54 3.93 - 6.08 M/ L 05/15/2025 8:56 AM EDT [facility] Hemoglobin 13.4 11.2 - 15.7 GM/DL 05/15/2025 8:56 AM EDT [facility] Hematocrit 38.3 34.1 - 44.9 % 05/15/2025 8:56 AM EDT [facility] MCV 84 79 - 95 fL 05/15/2025 8:56 AM EDT [facility] MCH 29.5 25.6 - 32.2 pg 05/15/2025 8:56 AM EDT [facility] MCHC 35.0 32.2 - 36.5 GM/DL 05/15/2025 8:56 AM EDT [facility] RDW 14.0 11.6 - 14.4 % 05/15/2025 8:56 AM EDT [facility] Platelets 156(L) 163 - 369 K/CU MM 05/15/2025 8:56 AM EDT [facility] MPV 9.8 9.4 - 12.4 fL 05/15/2025 8:56 AM EDT [facility] nRBC 0(L) 1 - 5 /100 WBC 05/15/2025 8:56 AM EDT [facility] Blood Venipuncture / Unknown 05/15/2025 8:22 AM EDT 05/15/2025 8:52 AM EDT us Alan Muse MD LAB BLOOD ORDERABLES [place] l Result [facility] [address] [employer] [address] [phone] * (ABNORMAL) Basic Metabolic Panel (05/15/2025 8:22 AM EDT) Sodium 141 136 - 146 meq/L 05/15/2025 9:14 AM EDT [facility] Potassium 3.9 3.5 - 5.1 meq/L 05/15/2025 9:14 AM EDT [facility] Chloride 108 102 - 112 meq/L 05/15/2025 9:14 AM EDT [facility] CO2 26 21 - 32 meq/L 05/15/2025 9:14 AM EDT [facility] Anion Gap 11 9 - 20 05/15/2025 9:14 AM EDT [facility] BUN 10 7 - 22 mg/dL 05/15/2025 9:14 AM EDT [facility] Creatinine 0.78 0.55 - 1.02 mg/dL 05/15/2025 9:14 AM EDT [facility] BUN/Creatinine 13 8 - 20 05/15/2025 9:14 AM EDT [facility] Glucose 153(H) 74 - 100 mg/dL 05/15/2025 9:14 AM EDT [facility] Calcium 8.8 8.5 - 10.1 mg/dL 05/15/2025 9:14 AM EDT [facility] Osmolality Calc 283.3 mOsm/kg 9:14 AM EDT [facility] eGFR (mL/min/1.73m2) >60 >=60 mL/min/1.7 3m2 05/15/2025 9:14 AM EDT [facility] Comment:eGFR of <60 suggests chronic kidney disease if found over a 3 month period of time. eGFR <15 indicates renal failure. Blood Venipuncture / Unknown 05/15/2025 8:22 AM EDT 05/15/2025 8:52 AM EDT Alan Muse MD LAB BLOOD ORDERABLES [place] l Result Performing Organization Address [facility] Co de Phone Number [facility] [address] [phone] * (ABNORMAL) Hemoglobin A1c (05/15/2025 8:22 AM EDT) Hemoglobin A1C 6.6(H) 4.2 - 6.3 % 05/15/2025 9:18 AM EDT [facility] Comment: Hemoglobin A1C levels are related to mean glucose during the preceding 2-3 months. Less than 7% demonstrates glycemic control in diabetic patients. Hemoglobin AlC % Suggested Diagnosis > or = 6.5 Diabetic 5.7 - 6.4 Prediabetic <5.7 Non-diabetic eAVG Glucose 142.72 mg/dL 05/15/2025 9:18 AM EDT [facility] Blood Venipuncture / Unknown 05/15/2025 8:22 AM EDT 05/15/2025 8:52 AM EDT Alan Muse MD LAB BLOOD ORDERABLES [place] l Result Performing Organization Address [facility] Co de Phone Number [facility] [address] [phone] * ECG 12 lead (05/15/2025 7:23 AM EDT) VENTRICULAR RATE EKG/MIN 75 BPM GE MUSE ATRIAL RATE (MCT) 75 BPM GE MUSE DC Interval 144 ms GE MUSE QRS-INTERVAL (MSEC) 94 ms GE MUSE QT Interval 374 ms GE MUSE QTC Interval 417 ms GE MUSE P [place] 58 degrees GE MUSE R AXIS (MCT) 44 degrees GE MUSE T Wave [place] 29 degrees GE MUSE Salters Diagnosis Normal sinus rhythm with sinus arrhythmia Normal ECG Confirmed by Lotus PERALTA SUZANNE ([id number]) on 05/18/2025 1:14:46 PM GE MUSE 05/15/2025 7:23 AM EDT 05/18/2025 1:14 PM EDT us Alan Muse MD ECG ORDERABLES Final Res ult GE MUSE documented in this encounter Visit Diagnoses Diagnosis Preop examination- Primary Unspecified pre-operative examination Preop examination Unspecified pre-operative examination Mood disorder (HCC) Unspecified episodic mood disorder DM (diabetes mellitus), type 1 (HCC) Type I (juvenile type) diabetes mellitus without mention of complication, not stated as uncontrolled Mood disorder (HCC) Unspecified episodic mood disorder RA (rheumatoid arthritis) (HCC) Rheumatoid arthritis Hyperlipidemia Other and unspecified hyperlipidemia Hypothyroid Unspecified hypothyroidism IBS (irritable bowel syndrome) Irritable bowel syndrome documented in this encounter
--- OUTSIDE RECORDS SUMMARY | 2025-05-22 10:28 | XMS_ITS | Encounter Summary ---
Author Organization [employer] ([place], [place], [place], [place]) Address [address] [place] [address] Care Team Providers Care Supervisor [employer] Name Role Phone Dot Soto DO Primary Care Provider [phone] Reason for Referral * Hospital - Inpatient (Routine) - New Request Specialty Diagnoses / Procedures Referred By Delbert maradiaga Referred To Contact Procedures Remove dressing after (specify) Jasmina Lal MD [address] [place] [address] Phone: tel: fax: Referral ID Status Reason Start Date Expiration Date V isits Requested Visits Authorized [id number] New Request 05/22/2025 05/22/2026 1 1 Reason for Visit * Auth/Cert (Routine) Specialty Diagnoses / Procedures Referred By Delbert maradiaga Referred To Contact Diagnoses Hypertrophy of uterus Endometriosis of myometrium Deep dyspareunia Secondary dysmenorrhea Metrorrhagia SEE PRIMARY DX Procedures MS LAPAROSCOPY SUPRACERVICAL HYSTERECTOMY 250 GM/< ROBOTIC LAPAROSCOPY,SUPRACERVICAL HYSTERECTOMY Jasmina Lal MD [address] [place] [address] Phone: tel: fax: Referral ID Status Reason Start Date Expiration Date Visits Re quested Visits Authorized [id number] 05/12/2025 1 1 Encounter Details Date Type Department Care Team (Latest Contact Info) Description 05/22/2025 10:28 AM EDT - 05/22/2025 4:42 PM EDT Hospital Encounter [facility] Surgery Department [address] [place] [address] Jasmina Lal MD [address] [place] [address] Hypertrophy of uterus; Endometriosis of myometrium; Deep dyspareunia; Secondary dysmenorrhea; Metrorrhagia Discharge Disposition: Home or Self Care Social History Tobacco Use Types Packs/Day Years Used Date Smoking Tobacco: Never Smokeless Tobacco: Never Alcohol Use Standard Drinks/Week Comments Never 0 (1 standard drink = 0.6 oz pur e alcohol) Comments No Sex and Gender Information Value Date Recorded Sex Assigned at Not on file Legal Sex Female 1:51 PM CDT Gender Identity Not on file Sexual Orientation Not on file documented as of this encounter Last Filed Vital Signs Vital Sign Reading Time Taken Comments Blood Pressure 108/59 05/22/2025 4:30 PM EDT Pulse 92 05/22/2025 4:30 PM EDT Temperature 36.3 C (97.4 F) 05/22/2025 3:35 PM EDT Respiratory Rate 16 05/22/2025 4:30 PM EDT Oxygen Saturation 99% 05/22/2025 4:30 PM EDT Inhaled Oxygen Concentration - - Weight 112.9 kg (249 lb) 05/22/2025 11:06 AM EDT Height - - Body Mass Index 45.54 05/15/2025 8:24 AM EDT documented in this encounter Discharge Instructions * Discharge Instructions* Nola Srinivasan RN - 05/22/2025 3:06 PM EDT Jasmina Lal MD, FACOG [address] [place], [place] [address] ?? POST-OP LAPAROSCOPY INSTRUCTIONS PHYSICIAN: JASMINA LAL MD After your outpatient robotic laparoscopy, the recovery room nurse will discharge you home and giveyou instructions, as well as, explain certain principles to either a family member or friend that is taking you home, since you will not be allowed to drive. These instructions are to remind you about some basics, since you may not clearly remember everything after anesthesia ACTIVITY: When you first get home, you should rest and sleep if you are still groggy from the anesthetic or post-op pain medications. Later that day, if you are not nauseated, you may resume eating, starting with liquids and avoiding things such as spicy foods, carbonated drinks, or dairy products,which may contribute to gassiness or abdominal distention. We do not recommend laxatives, since they may contribute to abdominal pain, however, water is recommended for hydration. The following day, we encourage you to get up and move around, though not performing strenuous activities or exercise. Excessive pressure on the abdomen should be avoided, such as very tight-fitting clothing. Moving and walking around is encouraged. You may resume driving after 24 hours if you do not feel affected by the pain medications. Most patients are able to resume their usual activities and go back to work, provided it is not physically strenuous, in 48 hours. WOUND CARE: You will usually have two incisions on the abdomen, one inside the umbilicus, and one on each side of umbilicus, which have a suture that is placed and hidden under the skin, and this will not require any removal (subcutaneous suture). Dr. Lal usually dresses her incisions with a steri-strip and a clear dressing, unless she tells you otherwise. (It is not really a band-aid.) You may shower over that dressing. After 24 hours and before 48 hours, we recommended that you gently remove the dressing and clean the area with a Q-tip and plain hydrogen peroxide. You can expect a small amount of blood collection, especially in the umbilical area, and there may be a bit of oozing or drainage from the incision. You can put dry gauze over this, which does not have to be sterile, and does not have to be taped. It can be kept in place by your undergarments. You do not have to be afraid of putting the Q-tip inside the umbilicus, and you can expect some fizzing from the hydrogen peroxide. We recommend you do this twice a day for 5-7 days. We do not, however, recommend rubbing soap in this area, but you may let soap run over this area with water. OTHER EXPECTED EVENTS: There may be light vaginal bleeding or spotting from a few days up to a weekpost-op. During this time, we do not recommend tampons, but rather wear pads. The next menses should come on schedule if you are regular, since laparoscopy should not change the schedule of your menses unless they are not regular to begin with: Straughn may generally be resumed after 2-3 days astolerated, and most of the time should be fine one-week post-op. Dr. Lal typically tries to express all of the gas that is placed during the laparoscopy. However, sometimes a gas bubble can get trapped under the diaphragm and cause secondary phantom shoulder pain. This does not mean there is anything wrong with your shoulder, it is simply referred pain from the air in the abdomen. MEDICATIONS: You will be given a prescription medication for post-operative pain control - now electronic, sent to your chosen pharmacy. Very commonly we prescribe Percocet or a generic for it, and you will generally need it during the first 24 hours, but you are recommended to use it as needed. You can also use Ibuprofen with this. Typically, the Ibuprofen will help more with menstrual type cramping and since the pain medication will make you slightly sleepy, you may transition to this after48 hours. If you do have gas pains , over the counter Mylicon or other similar products may be used as needed. Tap block by anesthesia is a nice addition to post-op pain control and minimizes other medications normally given. If you are taking other medications, you should resume the dose within 24 hours and get on the usual prescription schedule. If tubal litigation is done at time of laparoscopy and you are on control pills, you should finish your package of control pills then stop. However, keep in mind that it takes a month for the fallopian tubes to heal and the sterilization to be effective. VIDEO AND PICTURES: For diagnostic and operative laparoscopy, Dr. Lal usually likes to record a video tape and take Polaroid pictures for documentation and future reference. You may take the video home with you and view it later, and keep it for your records, since the hospital does not store thevideo tapes in Medical Records. POST-OPERATIVE OFFICE VISIT: Before you leave the hospital, an appointment will be made for you with our office. Typically, we see you in the office in one month unless otherwise instructed. If you wish to make an appointment yourself, you may call us at [phone] during office hours which are: Sunday, Sunday, 9am-5pm Wed, Sunday 9am-4pm. If you are having problems after hours and feel that you need to talk to Dr. Lal, you may call the same number and ask the [employer] ([phone]) to page her. The following problems would be of concern and we would like you to call us: 1. Fever greater than 101 (we usually give you a prophylactic antibiotic during surgery through your IV). 2. Severe abdominal pain not controlled by medications given to you. 3. Bright red bleeding which is heavier than your regular period. 4. Redness with swelling around the incisions (you may expect some bruising around the incisions, and this will resolve in 2-3 weeks). We wish you a good recovery! * Attachments The following attachments cannot be sent through Care Everywhere. * General Anesthesia Adult Care After (Yi) documented in this encounter Medications at Time [...] 05/22/2025 05/25/2025 documented as of this encounter Progress Notes * Riley Garcia - 05/22/2025 12:00 PM EDT Spiritual Care Progress Note [employer] responded to a request for SC. Firer [employer]n provided a supportive presence and space for PT toshare her medical journey. PT welcomed prayer and electrolytic de scaler provided prayer. Riley Garcia 05/22/2025 12:00 PM documented in this encounter H&P Notes * Jasmina Lal MD - 05/22/2025 4:42 PM EDT H&P reviewed. The patient was examined and there are no changes to the H&P. Source Note - Brianna Mas PA-C - 05/15/2025 8:30 AM [...] 75 BPM ATRIAL RATE (MCT) 75 BPM MS Interval 144 ms QRS-INTERVAL (MSEC) 94 ms QT Interval 374 ms QTC Interval 417 ms P [place] 58 degrees R AXIS (MCT) 44 degrees T Wave [place] 29 degrees [place] Diagnosis Normal sinus rhythm with sinus arrhythmia [...] Resendiz MD at 05/15/2025 3:36 PM EDT * Jasmina Lal MD - 05/22/2025 4:42 PM EDT H&P reviewed. The patient was examined and there are no changes to the H&P. Source Note - Jasmina Lal MD - 05/20/2025 5:54 PM EDT History of Present Illness History Of Present Illness Sera Dietrich is a 25 y.o. female presenting with severe dysmenorrhea, menorrhagia, deep dyspareunia. Patient has h Past Medical History She has a past medical history of ADHD, Anxiety, Chronic pain of both knees, Chronic rheumatic arthritis (HCC), Class 3 obesity, Depression, Diabetic polyneuropathy associated with type 1 diabetes mellitus (HCC), Diabetic retinopathy (HCC), High cholesterol, Insulin pump in place, Iron deficiency, P COS (polycystic ovarian syndrome), Seizure (HCC), Thyroid disease, Tic, Type 1 diabetes (HCC), Vitamin B deficiency, and Vitamin D deficiency. Surgical History She has a past surgical history that includes Salpingectomy (Bilateral); Laser ablation; and Wisdomtooth extraction. Social History She reports that she has never smoked. She has never used smokeless tobacco. She reports that she does not drink alcohol and does not use drugs. Family History Her family history is not on file. Allergies Codeine and Influenza Virus Vaccines Medications Current Outpatient Medications Medication Instructions adalimumab (HUMIRA) 40 mg, Every 14 days atorvastatin (LIPITOR) 40 mg, Daily ergocalciferol (DRISDOL) 1,250 mcg (50,000 unit) capsule 1 capsule, Weekly folic acid (FOLVITE) 1,000 mcg, Daily insulin lispro (HumaLOG) 100 unit/mL inpn USE UP TO 100 UNITS DAILY IN DIVIDED DOSES INSTRUCTED. Lantus Solostar U-100 Insulin 100 unit/mL (3 mL) inpn Use up to 80 units daily as instructed. *DISCARD OPEN PEN AFTER 28 DAYS* levothyroxine (SYNTHROID) 50 mcg, Daily (0600) Linzess 72 mcg, Daily meloxicam (MOBIC) 7.5 mg, Daily sertraline (ZOLOFT) 100 mg, Daily Review of Systems Review of Systems Last Recorded Vitals There were no vitals taken for this visit. Physical Exam Diagnostic Results No visits with results within 1 Day(s) from this visit. Latest known visit with results is: Hospital Outpatient Visit on 05/15/2025 Component Date Value Ref Range Status Hemoglobin A1C 05/15/2025 6.6 (H) 4.2 - 6.3 % Final eAVG Glucose 05/15/2025 142.72 mg/dL Final Sodium 05/15/2025 141 136 - 146 meq/L Final Potassium 05/15/2025 3.9 3.5 - 5.1 meq/L Final Chloride 05/15/2025 108 102 - 112 meq/L Final CO2 05/15/2025 26 21 - 32 meq/L Final Anion Gap 05/15/2025 11 9 - 20 Final BUN 05/15/2025 10 7 - 22 mg/dL Final Creatinine 05/15/2025 0.78 0.55 - 1.02 mg/dL Final BUN/Creatinine 05/15/2025 13 8 - 20 Final Glucose 05/15/2025 153 (H) 74 - 100 mg/dL Final Calcium 05/15/2025 8.8 8.5 - 10.1 mg/dL Final Osmolality Calc 05/15/2025 283.3 mOsm/kg Final eGFR (mL/min/1.73m2) 05/15/2025 >60 >=60 mL/min/1.73m2 Final WBC 05/15/2025 6.6 3.9 - 10.0 K/??L Final RBC 05/15/2025 4.54 3.93 - 6.08 M/??L Final Hemoglobin 05/15/2025 13.4 11.2 - 15.7 GM/DL Final Hematocrit 05/15/2025 38.3 34.1 - 44.9 % Final MCV 05/15/2025 84 79 - 95 fL Final MCH 05/15/2025 29.5 25.6 - 32.2 pg Final MCHC 05/15/2025 35.0 32.2 - 36.5 GM/DL Final RDW 05/15/2025 14.0 11.6 - 14.4 % Final Platelets 05/15/2025 156 (L) 163 - 369 K/CU MM Final MPV 05/15/2025 9.8 9.4 - 12.4 fL Final nRBC 05/15/2025 0 (L) 1 - 5 /100 WBC Final VENTRICULAR RATE EKG/MIN 05/15/2025 75 BPM Final ATRIAL RATE (MCT) 05/15/2025 75 BPM Final MS Interval 05/15/2025 144 ms Final QRS-INTERVAL (MSEC) 05/15/2025 94 ms Final QT Interval 05/15/2025 374 ms Final QTC Interval 05/15/2025 417 ms Final P [place] 05/15/2025 58 degrees Final R AXIS (MCT) 05/15/2025 44 degrees Final T Wave [place] 05/15/2025 29 degrees Final [place] Diagnosis 05/15/2025 Final Value:Normal sinus rhythm with sinus arrhythmia Normal ECG Confirmed by Lotus PERALTA SUZANNE ([id number]) on 05/18/2025 1:14:46 PM No image results found. Assessment & Plan Active Problems: Adenomyosis Hypertrophy of uterus Menorrhagia PLAN: Conservative measures have been tried and failed. Laparoscopy with robotic assistance, Supracervical hysterectomy and bilateral salpingectomy will beperformed. Electronically signed by: Jasmina Lal MD, 05/20/2025 at 5:54 PM * Jasmina Lal MD - 05/20/2025 5:54 PM EDT History of Present Illness History Of Present Illness Sera Dietrich is a 25 y.o. female presenting with severe dysmenorrhea, menorrhagia, deep dyspareunia. Patient has h Past Medical History She has a past medical history of ADHD, Anxiety, Chronic pain of both knees, Chronic rheumatic arthritis (HCC), Class 3 obesity, Depression, Diabetic polyneuropathy associated with type 1 diabetes mellitus (HCC), Diabetic retinopathy (HCC), High cholesterol, Insulin pump in place, Iron deficiency, P COS (polycystic ovarian syndrome), Seizure (HCC), Thyroid disease, Tic, Type 1 diabetes (HCC), Vitamin B deficiency, and Vitamin D deficiency. Surgical History She has a past surgical history that includes Salpingectomy (Bilateral); Laser ablation; and Wisdomtooth extraction. Social History She reports that she has never smoked. She has never used smokeless tobacco. She reports that she does not drink alcohol and does not use drugs. Family History Her family history is not on file. Allergies Codeine and Influenza Virus Vaccines Medications Current Outpatient Medications Medication Instructions adalimumab (HUMIRA) 40 mg, Every 14 days atorvastatin (LIPITOR) 40 mg, Daily ergocalciferol (DRISDOL) 1,250 mcg (50,000 unit) capsule 1 capsule, Weekly folic acid (FOLVITE) 1,000 mcg, Daily insulin lispro (HumaLOG) 100 unit/mL inpn USE UP TO 100 UNITS DAILY IN DIVIDED DOSES INSTRUCTED. Lantus Solostar U-100 Insulin 100 unit/mL (3 mL) inpn Use up to 80 units daily as instructed. *DISCARD OPEN PEN AFTER 28 DAYS* levothyroxine (SYNTHROID) 50 mcg, Daily (0600) Linzess 72 mcg, Daily meloxicam (MOBIC) 7.5 mg, Daily sertraline (ZOLOFT) 100 mg, Daily Review of Systems Review of Systems Last Recorded Vitals There were no vitals taken for this visit. Physical Exam Diagnostic Results No visits with results within 1 Day(s) from this visit. Latest known visit with results is: Hospital Outpatient Visit on 05/15/2025 Component Date Value Ref Range Status Hemoglobin A1C 05/15/2025 6.6 (H) 4.2 - 6.3 % Final eAVG Glucose 05/15/2025 142.72 mg/dL Final Sodium 05/15/2025 141 136 - 146 meq/L Final Potassium 05/15/2025 3.9 3.5 - 5.1 meq/L Final Chloride 05/15/2025 108 102 - 112 meq/L Final CO2 05/15/2025 26 21 - 32 meq/L Final Anion Gap 05/15/2025 11 9 - 20 Final BUN 05/15/2025 10 7 - 22 mg/dL Final Creatinine 05/15/2025 0.78 0.55 - 1.02 mg/dL Final BUN/Creatinine 05/15/2025 13 8 - 20 Final Glucose 05/15/2025 153 (H) 74 - 100 mg/dL Final Calcium 05/15/2025 8.8 8.5 - 10.1 mg/dL Final Osmolality Calc 05/15/2025 283.3 mOsm/kg Final eGFR (mL/min/1.73m2) 05/15/2025 >60 >=60 mL/min/1.73m2 Final WBC 05/15/2025 6.6 3.9 - 10.0 K/??L Final RBC 05/15/2025 4.54 3.93 - 6.08 M/??L Final Hemoglobin 05/15/2025 13.4 11.2 - 15.7 GM/DL Final Hematocrit 05/15/2025 38.3 34.1 - 44.9 % Final MCV 05/15/2025 84 79 - 95 fL Final MCH 05/15/2025 29.5 25.6 - 32.2 pg Final MCHC 05/15/2025 35.0 32.2 - 36.5 GM/DL Final RDW 05/15/2025 14.0 11.6 - 14.4 % Final Platelets 05/15/2025 156 (L) 163 - 369 K/CU MM Final MPV 05/15/2025 9.8 9.4 - 12.4 fL Final nRBC 05/15/2025 0 (L) 1 - 5 /100 WBC Final VENTRICULAR RATE EKG/MIN 05/15/2025 75 BPM Final ATRIAL RATE (MCT) 05/15/2025 75 BPM Final MS Interval 05/15/2025 144 ms Final QRS-INTERVAL (MSEC) 05/15/2025 94 ms Final QT Interval 05/15/2025 374 ms Final QTC Interval 05/15/2025 417 ms Final P [place] 05/15/2025 58 degrees Final R AXIS (MCT) 05/15/2025 44 degrees Final T Wave [place] 05/15/2025 29 degrees Final [place] Diagnosis 05/15/2025 Final Value:Normal sinus rhythm with sinus arrhythmia Normal ECG Confirmed by Lotus PERALTA SUZANNE ([id number]) on 05/18/2025 1:14:46 PM No image results found. Assessment & Plan Active Problems: Adenomyosis Hypertrophy of uterus Menorrhagia PLAN: Conservative measures have been tried and failed. Laparoscopy with robotic assistance, Supracervical hysterectomy and bilateral salpingectomy will beperformed. Electronically signed by: Jasmina Lal MD, 05/20/2025 at 5:54 PM documented in this encounter OR Notes * Op Note - Jasmina Lal MD - 05/22/2025 4:42 PM EDT DATE OF PROCEDURE: 05/22/2025 PREOPERATIVE DIAGNOSES: Adenomyosis, endometriosis of the uterus, secondary severe dysmenorrhea, deep dyspareunia, and menorrhagia. POSTOPERATIVE DIAGNOSES: Adenomyosis, endometriosis of the uterus, secondary severe dysmenorrhea, deep dyspareunia, menorrhagia, and pelvic adhesions. PROCEDURES: Laparoscopic supracervical hysterectomy uterus > 250 gm ESTIMATED BLOOD LOSS: 10 mL. FINDINGS: The patient had a boggy enlarged uterus consistent with adenomyosis. There were dense adhesions to the anterior abdominal wall in front of the uterus extending down to the bladder post previous C-sections. The tubes were surgically absent. Both ovaries were polycystic. The right ovary was showing evidence of normal ovulation and the appendix was normal. Deep implant was located in the pelvic peritoneum, which was removed. DESCRIPTION OF PROCEDURE: Under general anesthesia, patient was placed in dorsal lithotomy position. The perineum was prepped and draped in sterile manner and so was the abdomen. Carey was placed. Speculum was placed. Cervix was grasped with tenaculum, then slightly dilated. It was very stenotic, it was difficult to place intrauterine catheter. The attention was then turned towards the abdomen. A midline incision was made inside the umbilicus through which Veress needle was inserted and the abdomen was insufflated with CO2. Veress needle was removed and trocars introduced. Next, 10 cm away from the umbilicus to the left and to the right, size 8 trocars were placed and a size 12 in right lower lateral area. These were all done under direct visualization. Prior to making skin incision, local Marcaine with epinephrine was infiltrated. The patient also had a TAP block placed by Anesthesia preoperatively. Next, the robot was docked and the rest of procedure was done through the console. First, the adhesions in front of the uterus had to be . Vessel sealer was used to perform this, dissecting it down all the way to the bladder area. Bladder was filled with contrast in order to delineate the edges of it. This was successfully achieved. The pedicles on each side of the uterus were then coagulated with the vessel sealer as well down to the uterine vessels. Uterine vessels were carefully coagulated. The cervix was small and thin due to previous C-sections with some scar tissue in front. Peritoneum was dissected in front and the back of the lower uterine segment, and then the cervix was from the uterus leaving about 2 cm of cervix in place. Endocervical canal was cauterized and the uterus was placed inside the Endobag. Hemostasis was achieved around the cervix, and then the round ligaments were incorporated into the cervix on each side to provide the lateral support for the pelvic suspension. Peritoneum was closed with a quilted Monocryl suture such that now the cervix was in the retroperitoneal space. The polycystic cysts were decompressed from both ovaries. The normal ovulation site was not disturbed. Pelvis was irrigated and then the uterus was removed through the umbilical incision which was extended slightly up and down. The gas was then deflated. Incisions were closed with 4-0 Monocryl subcuticular closure. Deeper suture was placed in the umbilical fascia with 0 Vicryl. Sponge and instrument count was correct. The patient tolerated procedure well and was taken to recovery room in good condition. /[id number] MD FEDEIRCO Schmidt/AQ / FEDERICO / AQS /[id number] documented in this encounter Plan of Treatment Scheduled Orders Name Type Priority Associated Diagnoses Orde r Schedule Tissue Exam Pathology and Cytology AP Routine Hypertrophy of uterus Endometriosis of myometrium Deep dyspareunia Secondary dysmenorrhea Metrorrhagia Release Upon Ordering for 1 Occurrences starting 05/22/2025 documented as of this encounter Procedures Procedure Name Priority Date/Time Associated Diagnosis Comments NOVA GLUCOSE POC Routine 05/22/2025 2:54 PM EDT MS LAPAROSCOPY SUPRACERVICAL HYSTERECTOMY 250 GM/< 05/22/2025 12:34 PM EDT Hypertrophy of uterus Endometriosis of myometrium Deep dyspareunia Secondary dysmenorrhea Metrorrhagia FS_MODEL_IP POCT , URINE Routine 05/22/2025 11:30 AM EDT HEMOGLOBIN A1C STAT 05/22/2025 10:57 AM EDT LIPID PANEL STAT 05/22/2025 10:57 AM EDT URINE DRUG SCREEN Routine 05/22/2025 10: 52 AM EDT NOVA GLUCOSE POC Routine 05/22/2025 10:4 6 AM EDT EKG-SCANNED 05/22/2025 documented in this encounter Results * (ABNORMAL) Glucose, Nova Meter (05/22/2025 2:54 PM EDT) POC-GLUCOSE 204(H) 70 - 110 mg/dL 05/22/2025 2:56 PM EDT [facility] Comment:In the event of poor peripheral blood flow, venous or arterial blood should be used due to the potential of erroneous results. Process Chemist [id number] 05/22/2025 2:56 PM EDT [facility] Blood WHOLE BLOOD / Unknown 05/22/2025 2:54 PM EDT 05/22/2025 2:56 PM EDT Narrative [facility] - 05/22/2025 2:56 PM EDT Process Chemist ID is - [id number] us Jasmina Lal MD POINT OF CARE TEST ORDERABLES Final Result Performing Organization Address City/State/[facility] Co de Phone Number [facility] [address] [place] [address] * POCT , urine (05/22/2025 11:30 AM EDT) POC, URINE HCG Negative Negative INTERNAL QC (VALID/INVALID ) Valid Kit Lot Number [id number] 2025 Expiration Date 2025 05/22/2025 11:3 0 AM EDT us Cal Ramos MD FS_MODEL_IP_POINT OF CARE TEST ENTER/EDIT ORDERABLES Final Result * (ABNORMAL) Lipid panel (05/22/2025 10:57 AM EDT) Triglycerides 186 0 - 249 mg/dL 05/22/2025 11:38 AM EDT [facility] Cholesterol 207(H) 0 - 199 mg/dL 05/22/2025 11:38 AM EDT [facility] Comment: 200 to 239 mg/dL = Moderate (borderline) >239 mg/dL = High HDL Cholesterol 38(L) >=40 mg/dL 05/22/2025 11:38 AM EDT [facility] Comment: >=60 mg/dL = Desirable <40 mg/dL = Increased Risk All other components are listed individually or are calculations VLDL Cholesterol 37.2 5 - 40 mg/dL 05/22/2025 11:38 AM EDT [facility] Cholesterol/HDL ratio 5.4(H) 0.0 - 3.2 mg/dL 05/22/2025 11:38 AM EDT [facility] LDl/HDL Ratio 3 0 - 4 05/22/2025 11:38 AM EDT [facility] LDL Cholesterol, Calculated 132(H) 0 - 99 mg/dL 05/22/2025 11:38 AM EDT [facility] Blood Venipuncture / Unknown 05/22/2025 10:57 AM EDT 05/22/2025 11:12 AM EDT Jasmina Lal MD LAB BLOOD ORDERABLES Final Re sult [facility] [address] [phone] * (ABNORMAL) Hemoglobin A1c (05/22/2025 10:57 AM EDT) Hemoglobin A1C 6.4(H) 4.2 - 6.3 % 05/22/2025 11:38 AM EDT [facility] Comment: Hemoglobin A1C levels are related to mean glucose during the preceding 2-3 months. Less than 7% demonstrates glycemic control in diabetic patients. Hemoglobin AlC % Suggested Diagnosis > or = 6.5 Diabetic 5.7 - 6.4 Prediabetic <5.7 Non-diabetic eAVG Glucose 136.98 mg/dL 05/22/2025 11:38 AM EDT [facility] Blood Venipuncture / Unknown 05/22/2025 10:57 AM EDT 05/22/2025 11:12 AM EDT us Jasmina Lal MD LAB BLOOD ORDERABLES Final Re sult [facility] [address] [employer] [employer] [address] [phone] * Urine Drug Screen (05/22/2025 10:52 AM EDT) Amphetamine Urine Negative Negative 025 11:58 AM EDT [facility] Barbiturate Screen Negative Negative 2024 11:58 AM EDT [facility] Benzodiazepine Screen Negative Negative 11:58 AM EDT [facility] Cocaine (Metab.) Screen Negative Negative 0 05/22/2025 11:58 AM EDT [facility] Methadone Screen Negative Negative 05/22/20 11:58 AM EDT [facility] Opiate Screen Negative Negative 05/22/2025 11:58 AM EDT [facility] Phencyclidine Screen Negative Negative 04/29 11:58 AM EDT [facility] Tetrahydrocannabinol Negative Negative 04/29 11:58 AM EDT [facility] Oxycodone Screen Negative Negative 05/22/20 11:58 AM EDT [facility] Buprenorphine Ur Negative Negative 05/22/20 11:58 AM EDT [facility] Propoxyphene Ur Negative Negative 11:58 AM EDT [facility] Heroin Ur Negative Negative 05/22/2025 11:58 AM EDT [facility] Fentanyl Negative Negative 05/22/2025 11:58 AM EDT [facility] Creatinine, Ur 152.00 mg/dL 05/22/2025 11:58 AM EDT [facility] Urine 05/22/2025 10:5 2 AM EDT 05/22/2025 11:33 AM EDT [facility] - 05/22/2025 11:58 AM EDT Clinical consideration and professional judgement should be applied to any [id number] test result, particularly when preliminary positive results are used. Positive results should be confirmed if used for clinical or legal purposes. Cutoff Values: UDS PCP = 25 ng/mL UDS Heroin = 10 ng/mL UDS Fentanyl = 1000 ng/mL UDS Barbituate = 200 ng/mL UDS Benzodiazepan = 200 ng/mL UDS Cocaine = 300 ng/mL UDS Methadone = 300 ng/mL UDS THC = 50 ng/mL UDS Buprenorphine = 5 ng/mL UDS Propoxyphene = 300 ng/mL UDS Amphetamine = 1000 ng/mL UDS Opiate = 300 ng/mL UDS TCA = 1000 ng/mL UDS Oxycodone = 100 ng/mL Jasmina Lal MD URINE ORDERABLES Final Result Performing Organization Address City/State/[facility] Co de Phone Number [facility] [address] [place] [address] * (ABNORMAL) Glucose, Nova Meter (05/22/2025 10:46 AM EDT) [facility] POC-GLUCOSE 138(H) 70 - 110 mg/dL 05/22/2025 10:48 AM EDT [facility] Comment:In the event of poor peripheral blood flow, venous or arterial blood should be used due to the potential of erroneous results. Process Chemist [id number] 05/22/2025 10:48 AM EDT [facility] Blood WHOLE BLOOD / Unknown 05/22/2025 10:46 AM EDT 05/22/2025 10:48 AM EDT [facility] - 05/22/2025 10:48 AM EDT Process Chemist ID is - [id number] Jasmina Lal MD POINT OF CARE TEST ORDERABLES Final Result [facility] [address] [place] [address], [facility] [phone] * EKG-SCANNED (05/22/2025) Narrative 05/22/2025 Ordered by an unspecified provider. us Default Scanning Provider SCAN ORDERS Final Result documented in this encounter Visit Diagnoses Diagnosis Hypertrophy of uterus Endometriosis of myometrium Endometriosis of uterus Deep dyspareunia Secondary dysmenorrhea Dysmenorrhea Metrorrhagia Adenomyosis Endometriosis of uterus Menorrhagia Excessive or frequent menstruation BMI 45.0-49.9, adult ([facility]) documented in this encounter Admitting Diagnoses Diagnosis Endometriosis of myometrium Endometriosis of uterus Hypertrophy of uterus documented in this encounter Administered Medications Inactive Administered Medications - up to 3 most recent administrations Medication Order MAR Action Action Date Dose Rate Site acetaminophen (TYLENOL) tablet 1,000 mg 1,000 mg Every 6 hours PRN, oral, mild pain (1-3), and severe pain, Starting on Sun05/22/25 at 1231, Recommended maximum dose of acetaminophen is 4000 mg from all sources in 24 hours, Phase II/On Unit Given 05/22/2025 3:15 PM EDT 1,000 mg electrolyte-R (NORMOSOL-R) infusion at 100 mL/hr, intravenous, Continuous, Starting on Sun05/22/25 at 1130, Pre-op New Bag 05/22/2025 2:29 PM EDT 150 mL/hr 150 mL/hr Continued by Anesthesia 05/22/2025 12:35 PM EDT 150 mL/hr 150 mL/hr New Bag 05/22/2025 11:16 AM EDT 100 mL/hr famotidine (PEPCID) tablet 20 mg 20 mg Once, oral, On Sun05/22/25 at 1130, For 1 dose, Pharmacist to renally dose if CrCl is less than 50 mL/min or on CRRT., Pre-op Given 05/22/2025 11:16 AM EDT 20 mg fentaNYL PF (SUBLIMAZE) injection 100 mcg 100 mcg Once, intravenous, On Sun05/22/25 at 1100, For 1 dose Given 05/22/2025 11:38 AM EDT 100 mcg fentaNYL PF (SUBLIMAZE) injection 25 mcg 25 mcg Every 5 min PRN, intravenous, moderate pain (4-6), Starting on Sun05/22/25 at 1436, For 4 doses, Maximum cumulative dose 100 mcg, PACU HYDROmorphone (DILAUDID) injection 0.5 mg 0.5 mg Every 10 min PRN, intravenous, severe pain (7-10), 2nd Line agent after max dose Fentanyl given if ordered., Starting on Sun05/22/25 at 1436, For 4 doses, Maximum cumulative dose 2 mg, PACU midazolam (PF) (VERSED) injection 2 mg 2 mg Once, intravenous, On Sun05/22/25 at 1100, For 1 dose, Look-alike/Sound-alike medication Given 05/22/2025 11:38 AM EDT 2 mg ondansetron (ZOFRAN) injection 4 mg 4 mg Once as needed, intravenous, nausea, Starting on Sun05/22/25 at 1436, For 1 dose, 1st line for nausea For IV push, give over 2 - 5 minutes., PACU Given 05/22/2025 3:15 PM EDT 4 mg ondansetron (ZOFRAN) injection 4 mg 4 mg Every 8 hours PRN, intravenous, nausea, vomiting, Starting on Sun05/22/25 at 1231, Give IV if patient is unable to take orally. 1st line If inadequate response within 60 minutes, proceed to next-line agent for same PRN reason or contact provider if no further options ordered. For IV push, give over 2 - 5 minutes. ondansetron (ZOFRAN-ODT) disintegrating tablet 4 mg 4 mg Every 8 hours PRN, oral, nausea, vomiting, Starting on Sun05/22/25 at 1231, 1st line. If inadequate response within 60 minutes, proceed to next-line agent for same PRN reason or contact provider if no further options ordered. oxyCODONE (ROXICODONE) immediate release tablet 5 mg 5 mg Once as needed, oral, moderate pain (4-6), Starting on Sun05/22/25 at 1436, For 1 dose, Look-alike/Sound-alike medication, PACU Given 05/22/2025 3:15 PM EDT 5 mg oxyCODONE (ROXICODONE) immediate release tablet 5 mg 5 mg Every 4 hours PRN, oral, moderate pain (4-6), Starting on Sun05/22/25 at 1231, 2nd line analgesic. Give only if inadequate response (less than 50% reduction in pain score) 60 minutes after administration of 1st line analgesics + adjuvants (if ordered). Look-alike/Sound-alike medication, Phase II/On Unit sodium chloride flush 10 mL 10 mL As needed, intravenous, line care, Starting on Sun05/22/25 at 1052, Every 8 hours and PRN to flush, Pre-op documented in this encounter Active and Recently Administered Medications Times are shown in EDT. Scheduled Medication Order 05/20/2025 05/21/2025 05/22/2025 cefOXitin (MEFOXIN) IVPB 2 g in dextrose 5 % 50 mL (premix) (COMPLETED) 2 g Once, intravenous, at 100 mL/hr, On Sun05/22/25 at 1130, For 1 dose, Please choose an indication: Surgical Prophylaxis 1116 (Handoff - Prov ider: Driss Amaya RN)1240 (Given - Provider: Ricky Lewis CRNA) famotidine (PEPCID) tablet 20 mg (COMPLETED) 20 mg Once, oral, On Sun05/22/25 at 1130, For 1 dose, Pharmacist to renally dose if CrCl is less than 50 mL/min or on CRRT., Pre-op 1116 (Given - Provid er: Driss Amaya RN) fentaNYL PF (SUBLIMAZE) injection 100 mcg (COMPLETED) 100 mcg Once, intravenous, On Sun05/22/25 at 1100, For 1 dose 1138 (Given - Provid er: Rose Tuttle RN) ipratropium-albuteroL (DUO-NEB) 0.5 mg-3 mg(2.5 mg base)/3 mL nebulizer solution 3 mL 3 mL Once, nebulization, On Sun05/22/25 at 1500, For 1 dose, RESPIRATORY THERAPY TREATMENT Protect from Light, PACU, What is the respiratory therapy Modality? Small volume Nebulization 1500 (Due) lactated ringers (LR) bolus 1,000 mL 1,000 mL Once, intravenous, Administer over 1 Hours, On Sun05/22/25 at 1130, For 1 dose, Pre-op 1130 (Due) midazolam (PF) (VERSED) injection 2 mg (COMPLETED) 2 mg Once, intravenous, On Sun05/22/25 at 1100, For 1 dose, Look-alike/Sound-alike medication 1138 (Given - Provid er: Rose Tuttle RN) ropivacaine PF (NAROPIN) 0.5 % (5 mg/mL) injection 30 mL 30 mL Once, injection, On Sun05/22/25 at 1100, For 1 dose 1100 (Due) Continuous Medication Order 05/20/2025 05/21/2025 05/22/2025 electrolyte-R (NORMOSOL-R) infusion at 100 mL/hr, intravenous, Continuous, Starting on Sun05/22/25 at 1130, Pre-op 1116 (New Bag - Prov ider: Driss Amaya RN)1235 (Continued by Anesthesia - Provider: Ricky Lewis CRNA)1429 (New Bag - Provider: Ricky Lewis CRNA) PRN Medication Order 05/20/2025 05/21/2025 05/22/2025 acetaminophen (TYLENOL) tablet 1,000 mg 1,000 mg Every 6 hours PRN, oral, mild pain (1-3), and severe pain, Starting on Sun05/22/25 at 1231, Recommended maximum dose of acetaminophen is 4000 mg from all sources in 24 hours, Phase II/On Unit 1515 (Given - Provid er: Nola Srinivasan RN) bacitracin topical ointment 500 units/g (CANCELED) As needed, Starting on Sun05/22/25 at 1307, Intra-op 1307 (Given - Provid er: Jasmina Lal MD) bupivacaine-EPINEPHrine (PF) (MARCAINE w/EPI) 0.5%-1:200,000 injection (CANCELED) As needed, Starting on Sun05/22/25 at 1307, Intra-op 1307 (Given - Provid er: Jasmina Lal MD) fentaNYL PF (SUBLIMAZE) injection 25 mcg 25 mcg Every 5 min PRN, intravenous, moderate pain (4-6), Starting on Sun05/22/25 at 1436, For 4 doses, Maximum cumulative dose 100 mcg, PACU HYDROmorphone (DILAUDID) injection 0.5 mg 0.5 mg Every 10 min PRN, intravenous, severe pain (7-10), 2nd Line agent after max dose Fentanyl given if ordered., Starting on Sun05/22/25 at 1436, For 4 doses, Maximum cumulative dose 2 mg, PACU lidocaine (XYLOCAINE) jelly 2% (CANCELED) As needed, Starting on Sun05/22/25 at 1307, Intra-op 1307 (Given - Provid er: Jasmina Lal MD) methylene blue 1 % (10 mg/mL) injection (CANCELED) As needed, Starting on Sun05/22/25 at 1346, Intra-op 1346 (Given - Provid er: Jasmina Lal MD) ondansetron (ZOFRAN) injection 4 mg (COMPLETED) 4 mg Once as needed, intravenous, nausea, Starting on Sun05/22/25 at 1436, For 1 dose, 1st line for nausea For IV push, give over 2 - 5 minutes., PACU 1515 (Given - Provid er: Nola Srinivasan RN) ondansetron (ZOFRAN) injection 4 mg(Linked Group 1) 4 mg Every 8 hours PRN, intravenous, nausea, vomiting, Starting on Sun05/22/25 at 1231, Give IV if patient is unable to take orally. 1st line If inadequate response within 60 minutes, proceed to next-line agent for same PRN reason or contact provider if no further options ordered. For IV push, give over 2 - 5 minutes. ondansetron (ZOFRAN-ODT) disintegrating tablet 4 mg(Linked Group 1) 4 mg Every 8 hours PRN, oral, nausea, vomiting, Starting on Sun05/22/25 at 1231, 1st line. If inadequate response within 60 minutes, proceed to next-line agent for same PRN reason or contact provider if no further options ordered. oxyCODONE (ROXICODONE) immediate release tablet 5 mg (COMPLETED) 5 mg Once as needed, oral, moderate pain (4-6), Starting on Sun05/22/25 at 1436, For 1 dose, Look-alike/Sound-alike medication, PACU 1515 (Given - Provid er: Nola Srinivasan RN) oxyCODONE (ROXICODONE) immediate release tablet 5 mg 5 mg Every 4 hours PRN, oral, moderate pain (4-6), Starting on Sun05/22/25 at 1231, 2nd line analgesic. Give only if inadequate response (less than 50% reduction in pain score) 60 minutes after administration of 1st line analgesics + adjuvants (if ordered). Look-alike/Sound-alike medication, Phase II/On Unit sodium chloride (NS) 0.9 % irrigation solution (CANCELED) As needed, Starting on Sun05/22/25 at 1307, Intra-op 1307 (Given - Provid er: Jasmina Lal MD) sodium chloride flush 10 mL(Linked Group 2) 10 mL As needed, intravenous, line care, Starting on Sun05/22/25 at 1052, Every 8 hours and PRN to flush, Pre-op Linked Groups Order Group 1: ondansetron (ZOFRAN-ODT) disintegrating tablet 4 mgJump to med 4 mg Every 8 hours PRN, oral, nausea, vomiting, Starting on Sun05/22/25 at 1231, 1st line. If inadequate response within 60 minutes, proceed to next-line agent for same PRN reason or contact provider if no further options ordered. Or ondansetron (ZOFRAN) injection 4 mgJump to med 4 mg Every 8 hours PRN, intravenous, nausea, vomiting, Starting on Sun05/22/25 at 1231, Give IV if patient is unable to take orally. 1st line If inadequate response within 60 minutes, proceed to next-line agent for same PRN reason or contact provider if no further options ordered. For IV push, give over 2 - 5 minutes. 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
--- OUTSIDE RECORDS SUMMARY | 2025-05-22 12:35 | XMS_ITS | Encounter Summary ---
Author Organization [facility] [employer] ([place], [place], [place], [place]) Address [address] [place] [address] Care Team Providers Care Paint Dipper Name Role Phone Brittany Dot Elisabeth WATKINS Primary Care Provider [phone] Reason for Visit * Auth/Cert (Routine) Specialty Diagnoses / Procedures Referred By Delbert t Referred To Contact Diagnoses Hypertrophy of uterus Endometriosis of myometrium Deep dyspareunia Secondary dysmenorrhea Metrorrhagia SEE PRIMARY DX Procedures CO LAPAROSCOPY SUPRACERVICAL HYSTERECTOMY 250 GM/< ROBOTIC LAPAROSCOPY,SUPRACERVICAL HYSTERECTOMY Jasmina Lal MD [address] [facility] [address] [place] [address] Phone: tel: fax: Referral ID Status Reason Start Date Expiration Date Visits Re quested Visits Authorized [id number] 05/12/2025 1 1 Encounter Details Date Type Department Care Team (Late st Contact Info) Description 05/22/2025 12:35 PM EDT Anesthesia Event [facility] [address] [place] [address] Tiffany Carson CRNA [address] [place] [address] Cal Ramos MD [address] [place], [place] [id number] Anesthesia Record Procedure Summary Procedure Name Responsible Anesthesiologist Anesthesia Start Time Anesthesia Stop Time LAPAROSCOPY WITH ROBOTIC ASSISTANCE SUPRACERIVAL HYSTERECTOMY Tiffany Carson CRNA 05/22/25 1235 05/22/25 1456 Events Date Time Event Comment 05/22/2025 1146 1235 An Start Patient identif ied and chart reviewed. 1235 An Start Data Anesthesia mac sandra and monitors checked. 1235 Pre-Induction Eval FDA anest hesia machine pre-use checkout completed. Patient status reassessed prior to start of anesthesia care. 1240 An Induction 1243 An Intubation 1244 Anesthesia Ready 1447 An Extubation 1447 an stop data 1455 Handoff to Receiving I compl eted my handoff to the receiving clinician during which we: 1. Identified the patient. 2. Identified the responsible provider. 3. Reviewed the pertinent medical history. 4. Discussed the surgical course. 5. Reviewed intra-op anesthesia management and issues during anesthesia. 6. Set expectations for post-procedure period. 7. Allowed opportunity for questions and acknowledgement of understanding. 1456 An Stop Meds Name Total dexamethasone (DECADRON) injection 4 mg/ mL 4 mg fentaNYL (SUBLIMAZE) injection 100 mcg glycopyrrolate (ROBINUL) injection 0.6 m g lidocaine (XYLOCAINE) injection 2% 100 m g midazolam (VERSED) injection 1 mg/ mL 2 mg neostigmine (PROSTIGMINE) 1 mg/mL inject ion 4 mg ondansetron (ZOFRAN) injection vial 4 mg propofol (DIPRIVAN) injection 10 mg/mL b olus 150 mg rocuronium (ZEMURON) 100 mg/10 mL inject ion 50 mg ropivacaine PF (NAROPIN) injection 0.5 % 30 mL cefOXitin (MEFOXIN) IVPB 2 g in dextrose 5 % 50 mL (premix) 2 g electrolyte-R (NORMOSOL-R) infusion 352. 5 mL * Agents Name O2 N2O Air SEVOFLURANE * Blood No blood administrations on file. Lines, Drains, and Airways Type Details Placement Removal Wound 05/22/25; 1314; Inci kisha; Abdomen; Not applicable; incision sites x4 05/22/25 1314 by Rafael Barajas RN Peripheral IV Placement Date: 04/29 03/22; Placement Time: 1110; Size: 22 G; Orientation: Posterior, Right; Location: Wrist; Site Prep: Chlorhexidine ; Local Anesthetic: None; Insertion attempts: 1; Securement Method: Taped; Removal Date: 05/22/25; Removal Time: 1630; Removal Reason: Therapy Completed 05/22/25 1110 by Rose Tuttle RN 05/22/25 1630 by Nubia Benton RN ETT Placement Date 05/22; Placement Time 1243 (created via procedure documentation); Airway Size 7.5; Airway Cuffed Yes; Removal Date 05/22/25; Removal Time 1447 05/22/25 1243 by Ricky Lewis CRNA 05/22/25 1447 by Ricky Lewis CRNA Urethral Catheter Placement Date: 04/29 03/22; Placement Time: 1254; Inserted by: Ledy Stroud CST; Type: Non-latex; Size: 16 Fr.; Balloon Size: 10 mL; Urine Returned: Yes; Removal Date: 05/22/25; Removal Time: 1542; Removal Reason: Per protocol 05/22/25 1254 by Rafael Barajas RN 05/22/25 1542 by Nubia Benton RN documented in this encounter Social History Tobacco Use Types Packs/Day Years [...] on file documented as of this encounter OR Notes * Anesthesia Postprocedure Evaluation - Ricky Lewis CRNA - 05/22/2025 2:55 PM EDT Patient: Sera Dietrich Procedure Summary Date: 05/22/25 Room / Location: [facility] Anesthesia Start: 1235 Anesthesia Stop: Procedure: LAPAROSCOPY WITH ROBOTIC ASSISTANCE SUPRACERIVAL HYSTERECTOMY Diagnosis: Hypertrophy of uterus Endometriosis of myometrium Deep dyspareunia Secondary dysmenorrhea Metrorrhagia (SEE PRIMARY DX) Surgeons: Jasmina Lal MD Responsible Provider: Tiffany Carson CRNA Anesthesia Type: general, regional ASA Status: 3 Anesthesia Type: general, regional Vitals Value Taken Time BP 113/55 05/22/25 1453 Temp 97 05/22/25 1455 Pulse 74 05/22/25 1455 Resp 21 05/22/25 1455 SpO2 100 % 05/22/25 1455 Vitals shown include unfiled device data. Wt 112.9 kg (249 lb) BMI 45.54 kg/m?? Anesthesia Post Evaluation Patient location during evaluation: PACU Patient participation: complete - patient participated Level of consciousness: lethargic Pain management: adequate Multimodal analgesia pain management approach Airway patency: patent Cardiovascular status: acceptable Respiratory status: acceptable Hydration status: acceptable No notable events documented. Ricky Lewis CRNA 05/22/2025 2:55 PM EDT * Anesthesia Procedure Notes - Ricky Lewis CRNA - 05/22/2025 12:52 PM EDT Associated Order(s): Intubation Intubation Authorized by: Ricky Lewis CRNA Performed by: Ricky Lewis CRNA Date/Time: 05/22/2025 12:43 PM Urgency: elective Indications and Patient Condition Indications for airway management: anesthesia and airway protection Spontaneous Ventilation: absent Sedation level: general anesthesia Preoxygenated: yes Patient position: sniffing no Mask difficulty assessment: 2 - vent by mask + OA or adjuvant +/- NMBA no Final Airway Details Final airway type: endotracheal airway Endotracheal tube type: ETT Cuffed: yes Successful intubation technique: direct laryngoscopy Endotracheal tube insertion site: oral Blade: Watts Blade size: #2 ETT size (mm): 7.5 Cormack-Lehane Classification: grade IIa - partial view of glottis Placement verified by: chest auscultation and capnometry Measured from: lips ETT to lips (cm): 21 Number of attempts at approach: 1 Ventilation between attempts: none Number of other approaches attempted: 0 * Anesthesia Procedure Notes - Cal Paulino MD - 05/22/2025 11:46 AM EDT Associated Order(s): Peripheral Nerve Block Peripheral Nerve Block Authorized by: Cla Paulino MD Performed by: Cal Paulino MD Patient location during procedure: pre-op Start time: 05/22/2025 11:42 AM End time: 05/22/2025 11:45 AM Reason for block: at surgeon's request and post-op pain management Preanesthetic Checklist Completed: patient identified, IV checked, site marked, risks and benefits discussed, surgical consent, monitors and equipment checked, pre-op evaluation and timeout performed Peripheral Block Patient position: supine Prep: ChloraPrep Patient monitoring: heart rate, director of cardiac cath lab and continuous pulse ox Block type: TAP Laterality: bilateral Injection technique: single-shot Guidance: ultrasound guided Needle Needle type: short-bevel Needle gauge: 20 G Needle length: 10 cm Needle localization: ultrasound guidance Test dose: negative Medications Administered ropivacaine PF (NAROPIN) injection 0.5 % - perineural 30 mL - 05/22/2025 11:42:00 AM Assessment Injection assessment: negative aspiration for heme, no paresthesia on injection, incremental injection and local visualized surrounding nerve on ultrasound Paresthesia pain: none Heart rate change: no Slow fractionated injection: yes Additional Notes Mixed with 20cc sterile saline, 25cc injectate per side * Anesthesia Preprocedure Evaluation - Cal Paulino MD - 05/22/2025 11:25 AM EDT Anesthesia Pre Evaluation Ms. Sera Dietrich is a 25 y.o. female being evaluated for the following: Date/Time: 05/22/25 1308 Procedure: LAPAROSCOPY WITH ROBOTIC ASSISTANCE SUPRACERIVAL HYSTERECTOMY Location: [facility] Surgeons: Jasmina Lal MD Relevant Problems ENDOCRINE (+) DM (diabetes mellitus), type 1 (HCC) (+) Hypothyroid Other (+) BMI 45.0-49.9, adult (HCC) (+) Hyperlipidemia (+) Mood disorder (HCC) (+) RA (rheumatoid arthritis) (HCC) Allergies Allergen Reactions Codeine Hives Influenza Virus Vaccines Other (See Comments) Made really sick when younger Clinical information reviewed: Latest Reference Range & Units 05/15/25 08:22 WBC 3.9 - 10.0 K/??L 6.6 RBC 3.93 - 6.08 M/??L 4.54 nRBC 1 - 5 /100 WBC 0 (L) Hemoglobin 11.2 - 15.7 GM/DL 13.4 Hematocrit 34.1 - 44.9 % 38.3 MCV 79 - 95 fL 84 MCH 25.6 - 32.2 pg 29.5 MCHC 32.2 - 36.5 GM/DL 35.0 RDW 11.6 - 14.4 % 14.0 Platelets 163 - 369 K/CU MM 156 (L) (L): Data is abnormally low Latest Reference Range & Units 05/15/25 08:22 Sodium 136 - 146 meq/L 141 Potassium 3.5 - 5.1 meq/L 3.9 Chloride 102 - 112 meq/L 108 CO2 21 - 32 meq/L 26 Anion Gap 9 - 20 11 BUN 7 - 22 mg/dL 10 Creatinine 0.55 - 1.02 mg/dL 0.78 EGFR >=60 mL/min/1.73m2 >60 Glucose 74 - 100 mg/dL 153 (H) Calcium 8.5 - 10.1 mg/dL 8.8 (H): Data is abnormally high Latest Reference Range & Units 05/22/25 10:46 Glucose 70 - 110 mg/dL 138 (H) (H): Data is abnormally high EKG- NSR, rate 75 NPO Status Date of last liquid: 05/22/25 Time of last liquid: 629 Date of last solid: 05/21/25 Time of last solid: 1999 Physical Exam Airway Mallampati: II TM distance: >3 FB Cardiovascular - normal exam Dental - normal exam Pulmonary - normal exam Abdominal (+) obese Anesthesia Plan ASA 3 Planned anesthetic: general and regional Induction: intravenous Postoperative Plan- Postoperative administration of opioids is intended. Trial extubation is planned. Informed Consent- Anesthetic plan and risks discussed with patient. Plan discussed with SYSTEM ARCHIVE ANALYST. documented in this encounter Plan of Treatment Not on file documented as of this encounter Procedures Procedure Name Priority Date/Time Associated Diagnosis Comments ANESTHESIA INTUBATION Routine 05/22/2025 12:43 PM EDT HC TAP BLOCK BILATERAL (BLK RM) Routine 05/22/2025 11:42 AM EDT documented in this encounter Results * AN SINGLE LUMEN INTUBATION (05/22/2025 12:43 PM EDT) Ricky Dan CRNA - 05/22/2025 12:43 PM EDT Ricky Lewis CRNA 05/22/2025 12:52 PM Intubation Authorized by: Ricky Lewis CRNA Performed by: Ricky Lewis CRNA Date/Time: 05/22/2025 12:43 PM Urgency: elective Indications and Patient Condition Indications for airway management: anesthesia and airway protection Spontaneous Ventilation: absent Sedation level: general anesthesia Preoxygenated: yes Patient position: sniffing no Mask difficulty assessment: 2 - vent by mask + OA or adjuvant +/- NMBA no Final Airway Details Final airway type: endotracheal airway Endotracheal tube type: ETT Cuffed: yes Successful intubation technique: direct laryngoscopy Endotracheal tube insertion site: oral Blade: Watts Blade size: #2 ETT size (mm): 7.5 Cormack-Lehane Classification: grade IIa - partial view of glottis Placement verified by: chest auscultation and capnometry Measured from: lips ETT to lips (cm): 21 Number of attempts at approach: 1 Ventilation between attempts: none Number of other approaches attempted: 0 us Ricky Lewis CRNA ANESTHESIA ORDERABLES Fin al Result * HC TAP BLOCK BILATERAL (BLK RM) (05/22/2025 11:42 AM EDT) Cal Olguin MD - 05/22/2025 11:42 AM EDT Cal Paulino MD 05/22/2025 11:47 AM Peripheral Nerve Block Authorized by: Cal Paulino MD Performed by: Cal Paulino MD Patient location during procedure: pre-op Start time: 05/22/2025 11:42 AM End time: 05/22/2025 11:45 AM Reason for block: at surgeon's request and post-op pain management Preanesthetic Checklist Completed: patient identified, IV checked, site marked, risks and benefits discussed, surgical consent, monitors and equipment checked, pre-op evaluation and timeout performed Peripheral Block Patient position: supine Prep: ChloraPrep Patient monitoring: heart rate, director of cardiac cath lab and continuous pulse ox Block type: TAP Laterality: bilateral Injection technique: single-shot Guidance: ultrasound guided Needle Needle type: short-bevel Needle gauge: 20 G Needle length: 10 cm Needle localization: ultrasound guidance Test dose: negative Medications Administered ropivacaine PF (NAROPIN) injection 0.5 % - perineural 30 mL - 05/22/2025 11:42:00 AM Assessment Injection assessment: negative aspiration for heme, no paresthesia on injection, incremental injection and local visualized surrounding nerve on ultrasound Paresthesia pain: none Heart rate change: no Slow fractionated injection: yes Additional Notes Mixed with 20cc sterile saline, 25cc injectate per side us Cal Paulino MD ANESTHESIA ORDERABLES Fin al Result documented in this encounter Visit Diagnoses Not on filedocumented in this encounter Administered Medications Inactive Administered Medications - up to 3 most recent administrations Medication Order MAR Action Action Date Dose Rate Site cefOXitin (MEFOXIN) IVPB 2 g in dextrose 5 % 50 mL (premix) 2 g Once, intravenous, at 100 mL/hr, On Sun05/22/25 at 1130, For 1 dose, Please choose an indication: Surgical Prophylaxis Given 05/22/2025 12:40 PM EDT 2 g dexAMETHasone (DECADRON) injection As needed, intravenous, Starting on Sun05/22/25 at 1235, Anesthesia Intra-op Given 05/22/2025 12:35 PM EDT 4 mg electrolyte-R (NORMOSOL-R) infusion at 100 mL/hr, intravenous, Continuous, Starting on Sun05/22/25 at 1130, Pre-op New Bag 05/22/2025 2:29 PM EDT 150 mL/hr 150 mL/ hr Continued by Anesthesia 05/22/2025 12:35 PM EDT 150 mL/hr 150 mL/hr New Bag 05/22/2025 11:16 AM EDT 100 mL/hr fentaNYL PF (SUBLIMAZE) injection As needed, intravenous, Starting on Sun05/22/25 at 1235, Anesthesia Intra-op Given 05/22/2025 1:06 PM EDT 50 mcg Given 05/22/2025 12:35 PM EDT 50 mcg glycopyrrolate (ROBINUL) injection As needed, intravenous, Starting on Sun05/22/25 at 1415, Anesthesia Intra-op Given 05/22/2025 2:15 PM EDT 0.6 mg lidocaine (XYLOCAINE) injection 2% As needed, intravenous, Starting on Sun05/22/25 at 1240, Anesthesia Intra-op Given 05/22/2025 12:40 PM EDT 100 mg midazolam (VERSED) injection As needed, intravenous, Starting on Sun05/22/25 at 1235, Anesthesia Intra-op Given 05/22/2025 12:35 PM EDT 2 mg neostigmine methylsulfate (PROSTIGMINE) injection As needed, intravenous, Starting on Sun05/22/25 at 1415, Anesthesia Intra-op Given 05/22/2025 2:15 PM EDT 4 mg ondansetron (ZOFRAN) injection As needed, intravenous, Starting on Sun05/22/25 at 1414, Anesthesia Intra-op Given 05/22/2025 2:14 PM EDT 4 mg propofol (DIPRIVAN) injection 10 mg/mL bolus As needed, intravenous, Starting on Sun05/22/25 at 1240, Anesthesia Intra-op Given 05/22/2025 12:40 PM EDT 150 mg rocuronium (ZEMURON) injection As needed, intravenous, Starting on Sun05/22/25 at 1240, Anesthesia Intra-op Given 05/22/2025 1:20 PM EDT 10 mg Given 05/22/2025 12:40 PM EDT 40 mg ropivacaine PF (NAROPIN) 0.5 % (5 mg/mL) injection perineural, Starting on Sun05/22/25 at 1142, Anesthesia Intra-op Given 05/22/2025 11:42 AM EDT 30 mLs documented in this encounter Care Teams Paint Dipper Relationship Specialty Start Date End Date Dot Soto, DO [address] [place] [address] PCP - General Family Medicine 05/22/25 documented as of this encounter
--- OUTSIDE RECORDS SUMMARY | 2025-05-22 13:08 | XMS_ITS | Encounter Summary ---
Author Organization [employer] ([place], [place], [place], [place]) Address [address] [place] [address] Care Team Providers Care Web Software Engineer Name Role Phone Brittany Dot Elisabeth WATKINS Primary Care Provider [phone] Reason for Visit * Auth/Cert (Routine) Specialty Diagnoses / Procedures Referred By Delbert t Referred To Contact Diagnoses Hypertrophy of uterus Endometriosis of myometrium Deep dyspareunia Secondary dysmenorrhea Metrorrhagia SEE PRIMARY DX Procedures MO LAPAROSCOPY SUPRACERVICAL HYSTERECTOMY 250 GM/< ROBOTIC LAPAROSCOPY,SUPRACERVICAL HYSTERECTOMY Jasmina Lal MD [address] [place] [address] Phone: tel: fax: Referral ID Status Reason Start Date Expiration Date Visits Re quested Visits Authorized [id number] 05/12/2025 1 1 Encounter Details Date Type Department Care Team (Late st Contact Info) Description 05/22/2025 1:08 PM EDT - 05/22/2025 4:24 PM EDT Surgery [facility] Surgery Department [address] [place] [address] Jasmina Lal MD [address] [place] [address] LAPAROSCOPY WITH ROBOTIC ASSISTANCE SUPRACERIVAL HYSTERECTOMY Social History Tobacco Use Types Packs/Day Years [...] Sign Reading Time Taken Comments Blood Pressure 112/61 05/22/2025 3:35 PM EDT Pulse 99 05/22/2025 3:35 PM EDT Temperature 36.3 C (97.4 F) 05/22/2025 3:35 PM EDT Respiratory Rate 16 05/22/2025 3:35 PM EDT Oxygen Saturation 100% 05/22/2025 3:35 PM EDT Inhaled Oxygen Concentration - - Weight 112.9 kg (249 lb) 05/22/2025 11:06 AM EDT Height - - Body Mass Index 45.54 05/15/2025 8:24 AM EDT documented in this encounter Discharge Instructions * Discharge Instructions* Nola Srinivasan RN - 05/22/2025 3:06 PM EDT Jasmina Lal MD, FACOG [address] [place], [place] [address] ?? POST-OP LAPAROSCOPY INSTRUCTIONS PHYSICIAN: JASMINA LAL [...] they are not regular to begin with: [place] may generally be resumed after 2-3 days [...] appointment yourself, you may call us at [phone] during office hours which are: Sunday, Sunday, 9am-5pm Sunday, Sunday 9am-4pm. If you are having problems after hours and feel that you need to talk to Dr. Lal, you may call the same number and ask the [employer] ([phone]) to page her. The following problems would [...] Everywhere. * General Anesthesia Adult Care After (French) documented in this encounter Medications at Time [...] 12:00 PM EDT Spiritual Care Progress Note Esthetics Instructor responded to a request for SC. provided a supportive presence and space for PT toshare her medical journey. PT welcomed prayer and provided prayer. Riley Garcia 05/22/2025 12:00 PM [...] (mL/min/1.73m2) >60 >=60 mL/min/1.73m2 CBC - Hemogram (-BKR) Result Value Ref Range WBC 6.6 3.9 [...] 75 BPM ATRIAL RATE (MCT) 75 BPM MO Interval 144 ms QRS-INTERVAL (MSEC) 94 ms QT Interval 374 ms QTC Interval 417 ms P [place] 58 degrees R AXIS (MCT) 44 degrees T Wave [place] 29 degrees [place] Diagnosis Normal sinus rhythm with sinus arrhythmia [...] ATRIAL RATE (MCT) 05/15/2025 75 BPM Final MO Interval 05/15/2025 144 ms Final QRS-INTERVAL (MSEC) 05/15/2025 94 ms Final QT Interval 05/15/2025 374 ms Final QTC Interval 05/15/2025 417 ms Final P [place] 05/15/2025 58 degrees Final R AXIS (MCT) 05/15/2025 44 degrees Final T Wave [place] 05/15/2025 29 degrees Final [place] Diagnosis 05/15/2025 Final Value:Normal sinus rhythm with [...] ATRIAL RATE (MCT) 05/15/2025 75 BPM Final MO Interval 05/15/2025 144 ms Final QRS-INTERVAL (MSEC) 05/15/2025 94 ms Final QT Interval 05/15/2025 374 ms Final QTC Interval 05/15/2025 417 ms Final P [place] 05/15/2025 58 degrees Final R AXIS (MCT) 05/15/2025 44 degrees Final T Wave [place] 05/15/2025 29 degrees Final [place] Diagnosis 05/15/2025 Final Value:Normal sinus rhythm with [...] taken to recovery room in good condition. /[id number] MD FEDERICO Schmidt/AQ / MBGhassan / AQS /[id number] documented in this encounter Plan of Treatment [...] GLUCOSE POC Routine 05/22/2025 2:54 PM EDT MO LAPAROSCOPY SUPRACERVICAL HYSTERECTOMY 250 GM/< 05/22/2025 12:34 [...] Glucose, Nova Meter (05/22/2025 2:54 PM EDT) [facility] POC-GLUCOSE 204(H) 70 - 110 mg/dL 05/22/2025 2:56 PM EDT [facility] Comment:In the event of poor peripheral blood flow, venous or arterial blood should be used due to the potential of erroneous results. Vacuum Drum Drier Operator [id number] 05/22/2025 2:56 PM EDT [facility] Blood WHOLE BLOOD / Unknown 05/22/2025 2:54 PM EDT 05/22/2025 2:56 PM EDT Narrative [facility] - 05/22/2025 2:56 PM EDT Vacuum Drum Drier Operator ID is - [id number] us Jasmina Lal MD POINT OF CARE TEST ORDERABLES Final Result [facility] [address] [place] [address] * POCT , urine (05/22/2025 11:30 AM EDT) [facility] POC, URINE HCG Negative Negative INTERNAL QC (VALID/INVALID ) Valid Kit Lot Number [id number] 2025 Expiration Date 2025 05/22/2025 11:3 0 AM EDT us Cal Ramos MD FS_MODEL_IP_POINT OF CARE TEST ENTER/EDIT ORDERABLES Final Result * (ABNORMAL) Lipid panel (05/22/2025 10:57 AM EDT) [facility] Triglycerides 186 0 - 249 mg/dL 05/22/2025 11:38 AM EDT [facility] Cholesterol 207(H) 0 - 199 mg/dL 05/22/2025 11:38 AM EDT [facility] Comment: 200 to 239 mg/dL = Moderate (borderline) >239 mg/dL = High HDL Cholesterol 38(L) >=40 mg/dL 05/22/2025 11:38 AM EDT [facility] Comment: >=60 mg/dL = Desirable <40 mg/dL = Increased Risk All other components are listed individually or are calculations VLDL Cholesterol 37.2 5 - 40 mg/dL 05/22/2025 11:38 AM EDT [facility] Cholesterol/HDL ratio 5.4(H) 0.0 - 3.2 mg/dL 05/22/2025 11:38 AM EDT [facility] LDl/HDL Ratio 3 0 - 4 05/22/2025 11:38 AM EDT [facility] LDL Cholesterol, Calculated 132(H) 0 - 99 mg/dL 05/22/2025 11:38 AM EDT [facility] Blood Venipuncture / Unknown 05/22/2025 10:57 AM EDT 05/22/2025 11:12 AM EDT Jasmina Lal MD LAB BLOOD ORDERABLES Final Re sult Performing Organization Address [facility]/ZIP Co de Phone Number [facility] [address] [phone] * (ABNORMAL) Hemoglobin A1c (05/22/2025 10:57 AM EDT) Hemoglobin A1C 6.4(H) 4.2 - 6.3 % 05/22/2025 11:38 AM EDT [facility] Comment: Hemoglobin A1C levels are related to mean glucose during the preceding 2-3 months. Less than 7% demonstrates glycemic control in diabetic patients. Hemoglobin AlC % Suggested Diagnosis > or = 6.5 Diabetic 5.7 - 6.4 Prediabetic <5.7 Non-diabetic eAVG Glucose 136.98 mg/dL 05/22/2025 11:38 AM EDT [facility] Blood Venipuncture / Unknown 05/22/2025 10:57 AM EDT 05/22/2025 11:12 AM EDT Jasmina Lal MD LAB BLOOD ORDERABLES Final Re sult [facility] [address] [phone] * Urine Drug Screen (05/22/2025 10:52 AM EDT) Amphetamine Urine Negative Negative 025 11:58 AM EDT [facility] Barbiturate Screen Negative Negative 2024 11:58 AM EDT [facility] Benzodiazepine Screen Negative Negative 11:58 AM EDT [facility] Cocaine (Metab.) Screen Negative Negative 0 05/22/2025 11:58 AM EDT [facility] Methadone Screen Negative Negative 05/22/20 11:58 AM EDT [facility] Opiate Screen Negative Negative 05/22/2025 11:58 AM EDT [facility] Phencyclidine Screen Negative Negative 04/29 11:58 AM EDT [facility] Tetrahydrocannabinol Negative Negative 04/29 11:58 AM EDT [facility] Oxycodone Screen Negative Negative 05/22/20 11:58 AM EDT [facility] Buprenorphine Ur Negative Negative 05/22/20 11:58 AM EDT [facility] Propoxyphene Ur Negative Negative 11:58 AM EDT [facility] Heroin Ur Negative Negative 05/22/2025 11:58 AM EDT [facility] Fentanyl Negative Negative 05/22/2025 11:58 AM EDT [facility] Creatinine, Ur 152.00 mg/dL 05/22/2025 11:58 AM EDT [facility] Urine 05/22/2025 10:5 2 AM EDT 05/22/2025 11:33 AM EDT Narrative [facility] - 05/22/2025 11:58 AM EDT Clinical consideration and professional judgement should be applied to any gcel-yb-urvtj test result, particularly when preliminary positive results [...] 1000 ng/mL UDS Oxycodone = 100 ng/mL us Jasmina Lal MD URINE ORDERABLES Final Result Performing Organization Address [facility] Co de Phone Number [facility] [address] [phone] * (ABNORMAL) Glucose, Nova Meter (05/22/2025 10:46 AM EDT) POC-GLUCOSE 138(H) 70 - 110 mg/dL 05/22/2025 10:48 AM EDT [facility] Comment:In the event of poor peripheral blood flow, venous or arterial blood should be used due to the potential of erroneous results. Vacuum Drum Drier Operator [id number] 05/22/2025 10:48 AM EDT [facility] Blood WHOLE BLOOD / Unknown 05/22/2025 10:46 AM EDT 05/22/2025 10:48 AM EDT Narrative [facility] - 05/22/2025 10:48 AM EDT Vacuum Drum Drier Operator ID is - [id number] us Jasmina Lal MD POINT OF CARE TEST ORDERABLES Final Result Performing Organization Address [facility] Co de Phone Number [facility] [address] [phone] * EKG-SCANNED (05/22/2025) Narrative 05/22/2025 Ordered by an unspecified provider. us Default Scanning Provider SCAN ORDERS Final Result documented in this encounter Visit Diagnoses Diagnosis Hypertrophy of uterus Endometriosis of myometrium Endometriosis of uterus Deep dyspareunia Secondary dysmenorrhea Dysmenorrhea Metrorrhagia Adenomyosis Endometriosis of uterus Menorrhagia Excessive or frequent menstruation BMI 45.0-49.9, adult (HCC) Hypertrophy of uterus Endometriosis of myometrium Endometriosis of uterus Deep dyspareunia Secondary dysmenorrhea Dysmenorrhea Metrorrhagia documented in this encounter Admitting Diagnoses Diagnosis [...] Given 05/22/2025 3:15 PM EDT 1,000 mg bacitracin topical ointment 500 units/g As needed, Starting on Sun05/22/25 at 1307, Intra-op Given 05/22/2025 1:07 PM EDT 1 application. bupivacaine-EPINEPHri ne (PF) (MARCAINE w/EPI) 0.5%-1:200,000 injection As needed, Starting on Sun05/22/25 at 1307, Intra-op Given 05/22/2025 1:07 PM EDT 10 mLs Abdominal Tissue electrolyte-R (NORMOSOL-R) infusion at 100 mL/hr, intravenous, [...] 2 mg, PACU lidocaine (XYLOCAINE) jelly 2% As needed, Starting on Sun05/22/25 at 1307, Intra-op Given 05/22/2025 1:07 PM EDT 1 Application methylene blue 1 % (10 mg/mL) injection As needed, Starting on Sun05/22/25 at 1346, Intra-op Given 05/22/2025 1:46 PM EDT 10 mLs midazolam (PF) (VERSED) injection 2 mg 2 [...] sodium chloride (NS) 0.9 % irrigation solution As needed, Starting on Sun05/22/25 at 1307, Intra-op Given 05/22/2025 1:07 PM EDT 2,000 mLs sodium chloride flush 10 mL 10 mL [...] Pre-op documented in this encounter Care Teams Web Software Engineer Relationship Specialty Start Date End Date Dot Soto, DO [address] [place] [id number] PCP - General Family Medicine 05/22/25 documented as of this encounter
--- OUTSIDE RECORDS SUMMARY | 2025-05-26 09:40 | XMS_ITS | Encounter Summary ---
Author Organization [place] [address] Care Team Providers Care Fermenter Wine Name Role Phone Dot Soto DO Primary Care Provider [phone] Reason for Referral * Medication Prior Authorization - Denied Specialty Diagnoses / Procedures Referred By Delbert t Referred To Contact Diagnoses Obesity, Class III, BMI 40-49.9 (morbid obesity) Eloina [facility] MD [address] [place] [address] Phone: tel: fax: Referral ID Status Reason Start Date Expiration Date Visits Re quested Visits Authorized [id number] Denied 1 1 Reason for Visit * Reason Comments Diabetes Encounter Details Date Type Department Care Team (Latest Contact Info) Description 05/26/2025 9:40 AM EDT Telemedicine [facility] [address] [place] [id number] Eloina [facility] MD [address] [place] [id number] Type 1 diabetes mellitus with hyperglycemia (HCC) (Primary Dx); Obesity, Class III, BMI 40-49.9 (morbid obesity) Social History Tobacco Use Types Packs/Day Years [...] Sign Reading Time Taken Comments Blood Pressure - - Pulse - - Temperature - - Respiratory Rate - - Oxygen Saturation - - Inhaled Oxygen Concentration - - Weight 111.1 kg (245 lb) 05/26/2025 9:31 AM EDT per patient Height - - Body Mass Index 44.45 03/06/2025 11:17 AM EDT documented in this encounter Ordered Prescriptions Prescription Sig Dispense Quantity Refills Last Filled Start Date End Date tirzepatide, weight loss, (ZEPBOUND) 2.5 mg/0.5 mL SubQ Pen InjectorIndications :Obesity, Class III, BMI 40-49.9 (morbid obesity) Inject 2.5 mg under the skin once a week. 2 mL 2 05/26/2025 documented in this encounter Progress Notes * Eloina [facility] MD - 05/26/2025 9:40 AM EDTAssociated Problem(s): Type 1 diabetes mellitus with hyperglycemia (HCC) Diagnosed at 4 years old. Reports being diagnosed at [facility] but unable to view documents from that time. Currently controlled. Hgb A1c of 6.4 on 05/22/2025. Last eye exam 03/2025 pt with diabetic retinopathy bilaterally right is undergoing laser treatment. Last foot exam unknown. Last microalbumin on 01/14/25 wnl. Last lipid panel on unknown patient reports obtaining it at an outside facility will try and obtain those labs atorvastatin 40mg. Blood pressure today video visit not obtained. Patient with a BMI of 44.81 weight 245lbs 05/26/25. Patient actively drinking 64 ounces of water a day walking 45 minutes to an hour daily living reaching a target of morning when 150 minutes of moderate activity weekly. Patient reports actively tracking calories not interested in referral tomedical nutrition therapy at this time. Patient reports noting improvement in blood sugars when sheis not overriding the pump and allowing for bolusing prior to eating. - Will order Zepbound 2.5 mg weekly discussed side effects such as nausea, vomiting, constipation, diarrhea and risk of pancreatitis - Continue pump settings as below - Continue atorvastatin to 40 mg patient reports not consistently taking medicine for last lipid panel we will recheck lipid panel before next visit patient with a hysterectomy no concern for - Check lipid panel and A1c prior to next visit 05/26/2025 9:45 AM Insulin Pump Time Blocks Insulin Pump Type Tandem Model Number t:slim X2 with CIQ Month/Year restarted 01/2025; has had 4 years Sensor Dexcom G7 Infusion Set AutoSoft XC, 6 mm Duration of Insulin (Hrs) 3 Insulin Type Humalog Time 1 0000 Basal Rate 3 Correction Factor Sensitivity 1u:30 Bolus: Carb Ratio 1:4U Target Glucose 110 Time 2 0800 Basal Rate 3 Correction Factor Sensitivity 1u:30 Bolus: Carb Ratio 1u:4g Target Glucose 110 Time 3 2100 Basal Rate 3 Correction Factor Sensitivity 1u:30 Bolus: Carb Ratio 1u:4g Target Glucose 110 Orders: RI CONTINUOUS GLUCOSE MONITORING ANALYSIS I&R tirzepatide, weight loss, (ZEPBOUND) 2.5 mg/0.5 mL SubQ Pen Injector; Inject 2.5 mg under the skin once a week. LIPID PANEL REFLEX; Future HEMOGLOBIN A1C; Future * Eloina [facility] MD - 05/26/2025 9:40 AM EDT Images from the original note were not included. [facility] Patient presented today for routine care follow-up through a video visit. Patient has reviewed the terms and conditions of service as part of the registration for today's visit. A video visit does not replace a canm-sg-yqry exam and further services may be necessary. We are conducting her video visit in a private space and this video visit is being conducted in accordance with state telehealth/video visit regulations Subjective: Chief Complaint Patient presents with Diabetes HPI Patient ID: Sera Dietrich is a 25 y.o. female PCOS, Vit d deficiency, anxiety, presenting as a follow up patient for type 1 diabetes. Patient underwent hysterectomy for which she is recovering from. Reports that she has been better about bolusing in the last week and not overriding her insulin pump and that she has noted improved blood sugars. Patient reports she had not been consistently taking atorvastatin prior to her blood work. States that Wegovy was denied. Still interested in medical management for weight. Water intake: Reports drinking 64 to 86 ounces of water daily Exercise: Patient active on a farm and walks daily 45 minutes to 1 hour Diet: Patient currently not seeing medical nutrition therapy but reports tracking her calories CGM Interpretation Dates:05/13/25-05/26/25 CGM average: 191 Standard deviation: 73 Hyperglycemia: total high51% (very high 23%) In target (80-180):48% Hypoglycemia: <1% Trends: Hyperglycemia when patient not bolusing Initial HPI 11/13/24 Patient currently on a tandem pump she is very frustrated with her pump and would like to switch back to basal bolus regimen as she felt that she had better glucose control when she was on a basal bolus regimen. Her pump settings compared to the insulin she was getting are incongruence patient alsoreporting that she is not inputting carbs for bolus as she reported that it would not accurately cover her carbohydrates. Discussed possibly using other pump options and making adjustments to pump settings currently however patient would like to go back to basal bolus regimen at least for now. Pump programmed for approximately 30 units daily however the patient was receiving 58 units of basal daily and over 100 units of bolus with a 1:8 carb ratio listed. She states she is giving herself 25 units of bolus for meals for around 65-70 carbs. We also had a discussion regarding initiation of GLP-1 for assistance with weight management which I think is a reasonable option but I would like to get better blood glucose control with a better ratio between basal and bolus insulin prior to initiating to make appropriate adjustments. Diagnosis Date: ~4 y/o , reports being diagnosed at [facility] Glucose Meter: One Touch Diabetes Tech (CGM or pump): tandem tslim started 3 years ago Eye Exam: 07/2024 Foot Exam: unknown Hx of pancreatitis: No Hx of medullary thyroid cancer: No Retinopathy: No Nephropathy: No Neuropathy: Yes Last episode of DKA or hyperosmolar coma: Social History Tobacco Use Smoking status: Never Smokeless tobacco: Never Vaping Use Vaping status: Never Used Substance Use Topics Alcohol use: Never Drug use: Never Family History Problem Relation Age of Onset High Blood Pressure Mother Thyroid Disease Mother Rheum Arthritis Mother Arthritis Mother 40 - 49 High Blood Pressure Father Diabetes Father Anxiety Disorder Father Bipolar Disorder Father Depression Father Other Brother bladder issues High Blood Pressure Maternal Grandmother Celiac Disease Paternal Grandmother 60 - 69 High Blood Pressure Paternal Grandfather High Cholesterol Paternal Grandfather Review of Systems Gastrointestinal: Negative for nausea and vomiting. Endocrine: Negative for polydipsia and polyuria. Objective: Vitals: 05/26/25 0931 Weight: 245 lb (111.1 kg) Body mass index is 44.45 kg/m??. Video visit physical exam Physical Exam Constitutional: Appearance: Normal appearance. Pulmonary: Effort: Pulmonary effort is normal. Comments: Completing full sentences without difficulty breathing Neurological: General: No focal deficit present. Mental Status: She is alert and oriented to person, place, and time. Comments: Moving extremities spontaneously Psychiatric: Mood and Affect: Mood normal. Behavior: Behavior normal. Laboratory Results: Lab Results Component Value Date HGBA1C 7.3 (H) 01/14/2025 Lab Results Component Value Date CHOLESTEROL 220 (H) 01/14/2025 HDL 33 (L) 01/14/2025 LDLCALC 142 (H) 01/14/2025 TRIG 247 (H) 01/14/2025 Lab Results Component Value Date URINEMICROAL <12.0 01/14/2025 Lab Results Component Value Date MICROALBCR 01/14/2025 Comment: Because the albumin level is below the level of detection in this urine specimen, the laboratory isunable to calculate a reliable albumin/creatinine ratio. Microalbuminuria is unlikely if the urine albumin concentration is less than 20- 30 mg/L in a randomspecimen. Triglycerides 0 - 249 mg/dL 186 Cholesterol 0 - 199 mg/dL 207 High Comment: 200 to 239 mg/dL = Moderate (borderline) >239 mg/dL = High HDL Cholesterol >=40 mg/dL 38 Low Comment: >=60 mg/dL = Desirable <40 mg/dL = Increased Risk All other components are listed individually or are calculations VLDL Cholesterol 5 - 40 mg/dL 37.2 Cholesterol/HDL ratio 0.0 - 3.2 mg/dL 5.4 High LDl/HDL Ratio 0 - 4 3 LDL Cholesterol, Calculated 0 - 99 mg/dL 132 High Resulting Agency [facility] Specimen Collected: 05/22/25 10:57 Performed by: [facility] Last Resulted: 05/22/25 11:38 Hemoglobin A1C 4.2 - 6.3 % 6.4 High Comment: Hemoglobin A1C levels are related to mean glucose during the preceding 2-3 months. Less than 7% demonstrates glycemic control in diabetic patients. Hemoglobin AlC % Suggested Diagnosis > or = 6.5 Diabetic 5.7 - 6.4 Prediabetic <5.7 Non-diabetic eAVG Glucose mg/dL 136.98 Resulting Agency [facility] Specimen Collected: 05/22/25 10:57 Performed by: [facility] Last Resulted: 05/22/25 11:38 Imaging: Assessment and Plan: Assessment & Plan Type 1 diabetes mellitus with hyperglycemia (HCC) Obesity, Class III, BMI 40-49.9 (morbid obesity) Diagnosed at 4 years old. Reports being diagnosed at [facility] but unable to view documents from that time. Currently controlled. Hgb A1c of 6.4 on 05/22/2025. Last eye exam 03/2025 pt with diabetic retinopathy bilaterally right is undergoing laser treatment. Last foot exam unknown. Last microalbumin on 01/14/25 wnl. Last lipid panel on unknown patient reports obtaining it at an outside facility will try and obtain those labs atorvastatin 40mg. Blood pressure today video visit not obtained. Patient with a BMI of 44.81 weight 245lbs 05/26/25. Patient actively drinking 64 ounces of water a day walking 45 minutes to an hour daily living reaching a target of morning when 150 minutes of moderate activity weekly. Patient reports actively tracking calories not interested in referral tomedical nutrition therapy at this time. Patient reports noting improvement in blood sugars when sheis not overriding the pump and allowing for bolusing prior to eating. - Will order Zepbound 2.5 mg weekly discussed side effects such as nausea, vomiting, constipation, diarrhea and risk of pancreatitis - Continue pump settings as below - Continue atorvastatin to 40 mg patient reports not consistently taking medicine for last lipid panel we will recheck lipid panel before next visit patient with a hysterectomy no concern for - Check lipid panel and A1c prior to next visit 05/26/2025 9:45 AM Insulin Pump Time Blocks Insulin Pump Type Tandem Model Number t:slim X2 with CIQ Month/Year restarted 01/2025; has had 4 years Sensor Dexcom G7 Infusion Set AutoSoft XC, 6 mm Duration of Insulin (Hrs) 3 Insulin Type Humalog Time 1 0000 Basal Rate 3 Correction Factor Sensitivity 1u:30 Bolus: Carb Ratio 1:4U Target Glucose 110 Time 2 0800 Basal Rate 3 Correction Factor Sensitivity 1u:30 Bolus: Carb Ratio 1u:4g Target Glucose 110 Time 3 2100 Basal Rate 3 Correction Factor Sensitivity 1u:30 Bolus: Carb Ratio 1u:4g Target Glucose 110 Orders: RI CONTINUOUS GLUCOSE MONITORING ANALYSIS I&R tirzepatide, weight loss, (ZEPBOUND) 2.5 mg/0.5 mL SubQ Pen Injector; Inject 2.5 mg under the skin once a week. LIPID PANEL REFLEX; Future HEMOGLOBIN A1C; Future Return in about 3 months (around 08/26/2025) for Follow UP, Type 1 Diabetes. Eloina [facility] MD 05/26/25 * Divya Cassidy MA - 05/26/2025 9:40 AM EDT Pt checks BS using Dexcom. documented in this encounter Miscellaneous Notes * Patient Instructions - Eloina [facility] MD - 05/26/2025 9:40 AM EDT Continue current setting in pump documented in this encounter Plan of Treatment Upcoming Encounters Date Type Department Care Team (Late st Contact Info) Description 08/18/2025 10:30 AM EDT Office Visit [facility] [address] [place] [id number] Juliet Salmon, PERSONAL TRAINER [address] [place] [place] [address] Scheduled Orders Name Type Priority Associated Diagnoses Orde r Schedule RI CONTINUOUS GLUCOSE MONITORING ANALYSIS I&R RI Charge Routine Type 1 diabetes mellitus with hyperglycemia (HCC) Ordered: 05/26/2025 LIPID PANEL REFLEX Lab Routine Type 1 diabetes mellitus with hyperglycemia (HCC) 1 Occurrences starting 05/26/2025 until 05/26/2026 HEMOGLOBIN A1C Lab Routine Type 1 diabetes mellitus with hyperglycemia (HCC) 1 Occurrences starting 05/26/2025 until 05/26/2026 documented as of this encounter Goals Goal Patient Goal Type Associated Problems Recent Progress Patient-Stated? Author Blood Pressure < 140/90 Blood Pressure 129/79(2024 11:17 AM EDT) No Dot Soto DO BMI (Calculated) < 30 General 45.1(03/06/20 11:17 AM EDT) No Dot Soto DO Maintain a healthy diet, exercise regularly and maintain an ideal body weight General No Dot Soto DO HEMOGLOBIN A1C < 7.0 Result Component 7.3( 1:16 PM EDT) No Dot Soto DO documented as of this encounter Visit Diagnoses Diagnosis Type 1 diabetes mellitus with hyperglycemia (HCC)- Primary Type I (juvenile type) diabetes mellitus without mention of complication, not stated as uncontrolled Obesity, Class III, BMI 40-49.9 (morbid obesity) Morbid obesity documented in this encounter Discontinued Medications Medication Sig Discontinue Reason Start Date End Da te ondansetron (ZOFRAN-ODT) 4 mg Oral Tablet, Rapid Dissolve as needed. 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 Patient Reported not taking medication 03/06/2025 05/26/2025 leucovorin (WELLCOVORIN) 5 mg Oral TabletIndications:Metho trexate, prison, current use One tablet ONCE weekly 24 hours after methotrexate dose Patient Reported not taking medication 04/28/2025 05/26/2025 insulin lispro (HUMALOG) 100 unit/mL SubQ Insulin PenIndications:Type 1 diabetes mellitus with diabetic polyneuropathy (HCC) Use up to 100 units daily in divided doses as instructed. Cancelled by MD 03/03/2025 05/26/2025 dextromethorphan-guaiFE Nesin (ROBITUSSIN DM) 10-100 mg/5 mL Oral SyrupIndications:Acute bacterial sinusitis Take 5 mL by mouth 3 times daily as needed for Cough. Patient Reported not taking medication 03/10/2025 05/26/2025 Alcohol Swabs (ALCOHOL PREP SWABS) Top Pads, MedicatedIndications:Di abetes mellitus type 1 with manifestations (HCC),Diabetes mellitus type 1 with neurological manifestations (HCC) Use to check blood sugar once daily Dx 250 Patient Reported not taking medication 10/13/2014 05/26/2025 documented as of this encounter Historical Medications * This list may reflect changes made after this encounter. oxyCODONE-acetamin ophen (PERCOCET) 5-325 mg Oral Tablet 05/22/2025 LINZESS 72 mcg Oral Capsule Take 72 mcg by mouth daily. 04/24/2025 folic acid (FOLVITE) 1 mg Oral Tablet Take 1,000 mcg by mouth daily. 04/27/2025 added in this encounter Additional Health Concerns Assessment Noted Time PHQ-9 Depression Total Score: 11 024 2:18 PM EDT PHQ-2 Depression Total Score: 6 08/11/20 24 2:18 PM EDT documented as of this encounter Care Teams Fermenter Wine Relationship Specialty Start Date End Date Dot Soto [place] [address] PCP - General Family Medicine 08/11/24 documented as of this encounter
--- NOTE | 2025-06-23 19:20 | HMH.EDGENADL ---
Discharge Plan Disposition Patient Disposition: Home, Self-Care Condition: Good Prescriptions Prescriptions: No Action (DME) blood-glucose meter Misc See Rx Instructions .ROUTE .MEDSUPPLY Qty: 1 Patient Comments: USE DIRECTED DX E 10.65 Rx Instructions: As directed (DME) insulin syringe-needle U-100 0.3 mL 31 gauge x 5/16 syringe See Dose Instructions .ROUTE .MEDSUPPLY 25 Days Qty: 100 2RF Rx Instructions: As directed (DME) blood sugar diagnostic Strip See Rx Instructions .ROUTE .MEDSUPPLY Qty: 100 2RF Rx Instructions: As directed Humalog KwikPen Insulin 200 unit/mL (3 mL) insulin pen 1 sliding scale dose SQ TID Patient Comments: USE IN INSULIN PUMP DIRECTED. DO NOT EXCEED 400 UNITS PER 24 HOURS (DME) Dexcom G7 Sensor Device See Rx Instructions .ROUTE .MEDSUPPLY Qty: 1 Patient Comments: CHANGE EVERY 10 DAYS Rx Instructions: As directed (DME) lancets [OneTouch Delica Plus Lancet] 33 gauge misc See Rx Instructions .ROUTE .MEDSUPPLY Qty: 100 Patient Comments: USE TO CHECK BLOOD GLUCOSE 4 TIMES DAILY (FASTING AND 2 HOUR POST-PRANDIAL) Rx Instructions: As directed levothyroxine 50 mcg tablet 50 mcg PO DAILY Patient Comments: TAKE 1 TABLET BY MOUTH EVERY DAY BEFORE BREAKFAST Baqsimi 3 mg/actuation spray,non-aerosol 3 mg intranasal NEEDED PRN (Reason: diabetes) Patient Comments: PLACE 1 SPRAY INTO ONE NOSTRIL ONCE DAILY NEEDED FOR SEVERE HYPOGLYCEMIA sertraline 100 mg tablet 100 mg PO DAILY Patient Comments: TAKE 1 TABLET BY MOUTH DAILY. (DME) TRUEplus Ketone Strip See Rx Instructions .ROUTE .MEDSUPPLY Qty: 25 Patient Comments: USE 1 STRIP IF NEEDED FOR HIGH BLOOD SUGAR Rx Instructions: As directed (DME) Dexcom G6 Transmitter Device See Rx Instructions .ROUTE .MEDSUPPLY Qty: 1 Patient Comments: USE INSTRUCTED AND CHANGE EVERY 90 DAYS. DX E11.9 Rx Instructions: As directed atorvastatin 40 mg tablet 40 mg PO DAILY Patient Comments: TAKE 1 TABLET BY MOUTH ONCE DAILY. (DME) pen needle, diabetic 32 gauge x 5/32 needle See Rx Instructions .ROUTE .MEDSUPPLY Qty: 1200 Patient Comments: USE TO INJECT INSULIN PENS 4 TIMES DAILY BEFORE MEALS AND NIGHTLY. Rx Instructions: As directed ibuprofen 600 mg tablet 600 mg PO PRN Patient Comments: TAKE 1 TABLET BY MOUTH EVERY 8 HOURS. (DME) insulin syringe-needle U-100 1 mL 30 gauge x 1/2 syringe See Rx Instructions .ROUTE .MEDSUPPLY Qty: 10 Patient Comments: USE TO INJECT INSULIN 4 TIMES DAILY BEFORE MEALS AND NIGHTLY. Rx Instructions: As directed insulin lispro 100 unit/mL solution SQ Patient Comments: PT USES UP TO 200 UNITS DAILY terconazole 0.4 % cream 1 appful vaginal HS 7 Days Qty: 45 0RF amoxicillin-pot clavulanate 875-125 mg tablet 1 tab PO BID 10 Days Qty: 20 0RF fluticasone propionate [Flonase Allergy Relief] 50 mcg/actuation spray,suspension 2 spray intranasal DAILY Qty: 16 2RF Rx Instructions: administer into each nostril daily Referrals Follow up/Referrals: Dot Soto DO [Primary Care Provider, Family Practice] - See instructions Activity Restrictions/Add. Instructions Additional Instructions/Restrictions: Your workup was negative here in the emergency department. Call your's surgeons to follow-up as needed. Return to the emergency department for any acute or worsening symptoms. Clinical Impressions Clinical Impression: Abdominal pain Instructions Patient Instructions: DI for Acute Abdominal Pain Print Language Print Language: Greek Discharge ED Provider: Chanelle Andrade Adult HPI General Chief complaint: Abdominal Pain Stated complaint: lower abdominal pain , vaginal pain Time Seen by Provider: 06/23/25 19:20 History of Present Illness HPI narrative: Patient is a 25-year-old female who presented to the emergency department with abdominal pain. Patient reports lower abdominal pain. Patient reports some nausea no vomiting. Patient denies any diarrhea. Patient denies any upper respiratory symptoms. Patient denies any chest pain or shortness of breath. No neurologic symptoms. Related Data Home Medications ?Medication ?Instructions ?Recorded ?Confirmed blood-glucose meter #1 ea 11/19/19 02/04/25 blood-glucose sensor (Dexcom G7 #1 ea 07/03/24 02/04/25 Sensor device) insulin lispro 200 unit/mL (3 mL) 1 sliding scale dose SQ TID 07/03/24 03/08/25 subcutaneous pen (Humalog KwikPen Diabetes U-200 Insulin) lancets 33 gauge (OneTouch Delica #100 ea 07/03/24 02/04/25 Plus Lancet) levothyroxine 50 mcg tablet 50 mcg PO DAILY thyroid 07/03/24 03/08/25 acetone (urine) test (TRUEplus #25 ea 07/22/24 02/04/25 Ketone strips) blood-glucose transmitter (Dexcom #1 ea 07/22/24 02/04/25 G6 Transmitter device) glucagon 3 mg/actuation nasal 3 mg intranasal NEEDED PRN 08/19/24 03/08/25 spray (Baqsimi) diabetes sertraline 100 mg tablet 100 mg PO DAILY 01/21/25 03/08/25 atorvastatin 40 mg tablet 40 mg PO DAILY 02/04/25 03/08/25 ibuprofen 600 mg tablet 600 mg PO PRN 02/04/25 03/08/25 insulin lispro 100 unit/mL SQ 02/04/25 03/08/25 subcutaneous solution insulin syringe-needle U-100 1 mL #10 ea 02/04/25 02/04/25 30 gauge x 1/2 pen needle, diabetic 32 gauge x #1,200 ea 02/04/25 02/04/25 Previous Rx's ?Medication ?Instructions ?Recorded blood sugar diagnostic #100 ea 11/19/19 insulin syringe-needle U-100 0.3 #100 ea 11/19/19 mL 31 gauge x 03/13 terconazole 0.4 % vaginal cream 1 appful vaginal HS 7 days #45 02/04/25 grams amoxicillin 875 mg-potassium 1 tab PO BID 10 days #20 tabs 03/08/25 clavulanate 125 mg tablet fluticasone propionate 50 2 spray intranasal DAILY #16 grams 03/08/25 mcg/actuation nasal spray,suspension (Flonase Allergy Relief) Allergies Allergy/AdvReac Type Severity Reaction Status Date / Time codeine (CODEINE) Allergy Mild Hives Verified 03/08/25 10:17 Influenza Virus Vaccines AdvReac Unknown Other Verified 03/08/25 10:17 [facility] Disclaimer: The information contained in this section may have been updated after the patient was seen, as this information can be updated by other users. Medical History (Updated 06/23/25 @ 21:24 by Chanelle Andrade DO) Sinusitis HLD (hyperlipidemia) PCOS (polycystic ovarian syndrome) Seizure disorder History of anemia Thyroid disease Type 1 diabetes mellitus Surgical History Hx of bilateral salpingectomy History of section Family History Other Diabetes Type 1 diabetes mellitus Social History Smoking Status: Never smoker second hand exposure: No alcohol intake: never substance use type: denies use current occupational status: unemployed Travel in the last 8 weeks?: None household members: family housing: house current occupational exposures/hazards: No caffeine: Yes Have you lived/traveled outside US in past 30 days?: No Contact w/someone who lives/traveled outside US past 30 days?: No Exposure to someone with infectious disease in past 14 days?: No Do you have a fever (greater than 100.4 F or 38 C)?: No Have you tested positive for COVID-19?: No Exposed to someone with COVID-19 in past 14 days?: No Do you have a sore throat?: No Do you have a cough?: No Do you have any weakness?: No Do you have any diarrhea?: No Are you experiencing any unusual bleeding?: No Do you have any muscle aches/pain?: No Do you have any abdominal pain?: No Are you experiencing loss of taste or smell?: No Other Medical History Have you received the Flu Vaccine for this season: No Have you received the Pneumonia Vaccine: No ROS Obtained: Yes All systems reviewed & no additional complaints except as documented and Yes Systems reviewed as appropriate & no additional complaints except as documented Physical Exam General General appearance: alert and in no apparent distress Head Head exam: atraumatic, normocephalic and normal inspection Eye Eye exam: Present normal appearance, PERRL and EOMI; Absent scleral icterus ENT ENT exam: Present normal exam and normal external ear exam Neck Neck exam: Present normal inspection and full ROM Chest Chest inspection: Present normal inspection and symmetric chest wall rise Respiratory Respiratory exam: Present normal lung sounds bilaterally; Absent respiratory distress or wheezes Cardiovascular Cardiovascular exam: Present regular rate, normal rhythm and normal heart sounds Abdominal Exam Abdominal exam: Present soft, distention and tenderness; Absent guarding or rebound Extremities Exam Extremities exam: Present normal inspection and full ROM Back Exam Back exam: Present normal inspection and full ROM Neurological Exam Neurological exam: Present alert and oriented X3 Psychiatric Psychiatric exam: Present normal affect and normal mood Skin Skin exam: Present warm and dry Medical Decision Making Medical Records Medical records reviewed: Yes I reviewed the patient's medical records. Screening: Per USPSTF and CDC recommendations, given the prevalence of disease in our region, it is our hospital?s policy to screen for HIV and viral Hepatitis for all patients aged 18 and over and those with ongoing risk factors. Jasson Inquiry Pt receiving controlled substance: No Vital Signs: 06/23/25 19:21 06/23/25 20:00 06/23/25 21:30 Temperature 98.1 F 98.4 F Temperature Source Oral Pulse Rate 78 73 Pulse Rate [Radial] 84 Respiratory Rate 16 14 Blood Pressure 132/83 127/81 Blood Pressure [Right Arm] 132/91 H Blood Pressure Mean [Right Arm] 104 Blood Pressure Source Automatic Cuff Blood Pressure Position Sitting Blood Pressure Position [Right Arm] Sitting 02 Sat by Pulse Oximetry 100 98 Oxygen Delivery Method Room Air Room Air Lab Data Lab results reviewed: Yes I reviewed the patient's lab results. Lab Results 06/23/25 19:37: WBC 5.7, RBC 4.62, Hgb 13.7, Hct 38.8, MCV 84.0, MCH 29.7, MCHC 35.3, RDW 13.4, Plt Count 183, MPV 9.6, Neut % (Auto) 53.4, Lymph % (Auto) 37.9, H[place] % (Auto) 7.2, Eos % (Auto) 0.9, Baso % (Auto) 0.2, Neut # (Auto) 3.0, Lymph # (Auto) 2.2, Houghton # (Auto) 0.4, Eos # (Auto) 0.1, Baso # (Auto) 0.0, Sodium 137, Potassium 4.1, Chloride 105, Carbon Dioxide 23, Anion Gap 13.1, BUN 13, Creatinine 0.70, Estimated Creat Clear 95, Estimated GFR 100, Est GFR ( Amer) 121, Glucose 204 H, Calcium 9.2, Total Bilirubin 0.6, AST 28, ALT 22, Alkaline Phosphatase 71, Total Protein 7.8, Albumin 4.5, Globulin 3.3 H, Albumin/Globulin Ratio 1.4 06/23/25 20:10: Urine Color Yellow, Urine Appearance Clear, Urine pH 6.0, Ur Specific Durant 1.025, Urine Protein Negative, Urine Glucose (UA) 3+, Urine Ketones Negative, Urine Blood Negative, Urine Nitrate Negative, Urine Bilirubin Negative, Urine Urobilinogen 1.0, Ur Leukocyte Esterase Negative, Urine RBC None, Urine WBC 3-5, Ur Squamous Epith Cells 5-10, Urine Bacteria 1+ 06/23/25 19:37 06/23/25 19:37 Orders (Tests/Meds): ED MEDICATIONS Discontinued Medications Generic Name Dose Route Start Last Admin Trade Name Jennifer PRN Reason Stop Dose Admin Acetaminophen 1,000 mg 06/23/25 19:40 06/23/25 19:45 Acetaminophen 500mg Tab PO 06/23/25 19:41 1,000 mg ONCE ONE Administration Iopamidol 75 ml 06/23/25 20:22 06/23/25 20:23 Iopamidol-370 (76%);100ml Bottle IV 06/23/25 20:23 75 ml ONCE ONE Administration Ketorolac Tromethamine 30 mg 06/23/25 19:40 06/23/25 19:45 Ketorolac 30mg/Ml Vial IV 06/23/25 19:41 30 mg ONCE ONE Administration Sodium Chloride 10 ml 06/23/25 20:22 06/23/25 20:23 Sodium Chloride 0.9% 10ml Syr (Rad Only) IV 07/23/25 20:21 10 ml NEEDED PRN Administration Maintain IV Site ORDERS Category Date Time Status CT abdomen pelvis w con Stat Cat Scan 06/23/25 19:40 Completed CBC w/Auto Diff [Complete Blood Count Auto Diff] Stat Lab 06/23/25 19:37 Completed CMP [Comprehensive Metabolic Panel] Stat Lab 06/23/25 19:37 Completed UA [Urinalysis and Microscopic] Stat Lab 06/23/25 20:10 Completed Urine Culture Stat Micro 06/23/25 20:09 Completed Medical Decision Narrative: Patient is a 25-year-old female who presented to the emergency department with abdominal pain. On arrival, patient was hemodynamically stable, vital signs were unremarkable. Differential includes but not limited to: Intra-abdominal process, urinary tract infection, appendicitis, pancreatitis, pyelonephritis, nephrolithiasis, amongst others. Patient's labs were reviewed and interpreted by myself, CBC showed no leukocytosis, CMP unremarkable. Lipase normal. CTA showed no evidence of infection. CT scan was reviewed and interpreted by myself and showed no acute abdominal pathology. At this time I felt the patient was appropriate for discharge home. Return precautions were discussed. Critical Care Critical Care Time Critical Care Time: No
[2025-06-23 19:21] VITALS: BP 132/91; PULSE 84; RESP 16; TEMP 36.7; O2SAT 100; BMI 45.7
--- OUTSIDE RECORDS SUMMARY | 2025-06-23 19:22 | XMS_ITS | Encounter Summary ---
Author Organization [place] [address] Care Team Providers Care Knife Grinder Name Role Phone BrittanyDot Elisabeth WATKINS Primary Care Provider [phone] Reason for Visit * Reason Comments Pharmacy Rheumatology Management Humira / Hadlima Encounter Details Date Type Department Care Team (Latest Contact Info) Description 06/05/2025 Specialty Pharmacy [facility] [address] [phone] Emma Waite CPhT Pharmacy Rheumatology Management (Humira / Hadlima) Social History Tobacco Use Types Packs/Day Years [...] on file documented as of this encounter Progress Notes * Emma Waite CPhT - 06/05/2025 12:35 PM EDT [facility] Refill Request Prescription for Humira is out of refills. Will send a request to the provider and contact patient to coordinate refill once response is received. Needs to be switched to biosim, Hadlima will go through for $0.00 copay, and no PA required. Requesting Hadlima from provider. * Clementine Wolf [facility] - 06/05/2025 12:35 PM EDT Received script for Humira. Routed message to provider to reorder as Hadlima. * Constanza Carter CPhT - 06/05/2025 12:35 PM EDT Specialty Pharmacy Refill Coordination Note Contacted Sera Dietrich today regarding refills of Hadlima. Copay amount: $0 No answer, unable to leave voicemail. * Fawad Arellano [facility] - 06/05/2025 12:35 PM EDT [facility] Prescription received for Hadlima (40mg). Prescription does not require a prior authorization. Patient copay is $0. IA has been completed, will contact patient to coordinate fill. * Vickie Pastrana CPhT - 06/05/2025 12:35 PM EDT Specialty Pharmacy Refill Coordination Note Contacted Sera Dietrich today regarding refills of Hadlima. Copay amount: $0 Spoke with patient. had surgery and put on hold until cleared to take it again. she has appt 06/23 for f/u from surgery. Biosimilar Switch pt aware documented in this encounter Plan of Treatment Upcoming Encounters Date Type Department Care Team (Late st Contact Info) Description 08/18/2025 10:30 AM EDT Office Visit [facility] [address] [place] [address] Juliet Salmon, OVEN LOADER [address] [place] [address] documented as of this encounter Goals Goal [...] documented as of this encounter Visit Diagnoses Not on filedocumented in this encounter Additional Health Concerns Assessment Noted Time PHQ-9 Depression Total Score: 11 024 2:18 PM EDT PHQ-2 Depression Total Score: 6 08/11/20 24 2:18 PM EDT documented as of this encounter Care Teams Knife Grinder Relationship Specialty Start Date End Date Dot Soto DO [address] [place] [address] PCP - General Family Medicine 08/11/24 documented as of this encounter
--- OUTSIDE RECORDS SUMMARY | 2025-06-23 19:22 | XMS_ITS | Encounter Summary ---
Author Organization [place] [address] Care Team Providers Care Microsoft Office Instructor Name Role Phone SotoDot Elisabeth WATKINS Primary Care Provider Reason for Visit * Reason Onset Date Comments Other 05/15/2025 Encounter Details Date Type Department Care Team (Late st Contact Info) Description 05/15/2025 Telephone [facility] [place] [address] [facility] [address] [place], [place] [id number] Eloina Donaldson MD [address] [phone] Other Social History Tobacco Use Types Packs/Day Years [...] on file documented as of this encounter Miscellaneous Notes * Telephone Encounter - Lurdes Francois RN - 05/21/2025 3:29 PM EDT Noted. This is what was initially verbalized to patient. * Telephone Encounter - Eloina Donaldson MD - 05/21/2025 12:33 PM EDT Can start exercise mode prior to initiation of surgery that morning and not adjust the night beforedosing. Keep in exercise mode until able to eat full meals without issue. * Telephone Encounter - Lurdes Francois RN - 05/21/2025 12:28 PM EDT Spoke to patient and gave recommendations per Dr. Donaldson: use exercise mode during surgery . Patient is asking if she should adjust the night prior to surgery until she starts eating again or just during surgery as noted. Routed to Dr. Donaldson for clarification. * Telephone Encounter - Marjorie Obrien - 05/21/2025 12:20 PM EDT Pt having surgery tomorrow and needs someone to call her back about her pump setting. * Telephone Encounter - Eloina Donaldson MD - 05/20/2025 9:42 AM EDT Please have patient run in exercise mode during surgery. Thank you! * Telephone Encounter - Kandi Hathaway RN,CDE - 05/20/2025 9:25 AM EDT Patient returned call and I informed her that I will need to clarify the orders from Dr. Donaldson. Patient verbalized understanding Dr. Donaldson, Patient cannot be in Control IQ and run a temp basal at the same time as she has software version 7.8. If you want to keep Control IQ on during surgery you can run it in exercise mode during surgery-which raises the target to 140-160 . Please advise on new orders * Telephone Encounter - Elena Engel RN - 05/19/2025 5:07 PM EDT LMTRC * Telephone Encounter - Eloina Donaldson MD - 05/19/2025 6:59 AM EDT Have the patient set the temp basal on the tandem to 80% starting when she goes to bed the night before surgery with a length of time to get through when she starts eating the next day then can return to normal settings. Have her continue control IQ through this process and during surgery. Patient is not bolusing appropriately she is overriding boluses so we will not be able to tell if her carb ratio is appropriate. Please re-educate patient on bolusing behavior so we can appropriately adjust setting at next appointment. * Telephone Encounter - Elena Engel RN - 05/18/2025 11:51 AM EDT Insulin Management for Upcoming Surgery/Procedure Last office visit was on 03/04/[address] Donaldson Next office visit is on 05/26/[address] Donaldson Surgery/Procedure Information Patient is scheduled to have hysterectomy (surgery/procedure) on 05/22/25. Patient will be NPO beginning at 05/21/25. She is allowed to wear her pump during the procedure. Insulin Information 04/29/2025 1:00 PM Insulin Pump Time Blocks Insulin Pump Type Tandem Model Number t:slim X2 with CIQ Month/Year restarted 01/2025; has had 4 years Sensor Dexcom G7 Infusion Set AutoSoft XC, 6 mm Duration of Insulin (Hrs) 5 hours Insulin Type Humalog Time 1 0000 Basal Rate 3 Correction Factor Sensitivity 1u:30 Bolus: Carb Ratio 1:4U Target Glucose 110 Time 2 0800 Basal Rate 3 Correction Factor Sensitivity 1u:30 Bolus: Carb Ratio 1u:4g Target Glucose 110 Time 3 2100 Basal Rate 3 Correction Factor Sensitivity 1u:30 Bolus: Carb Ratio 1u:4g Target Glucose 110 Follow-Up Notified patient that we will obtain orders if needed from provider and contact them: Yes Routed to Dr. Donaldson to provide orders/recommendations. * Telephone Encounter - Elena Engel RN - 05/18/2025 11:49 AM EDT Images from the original note were not included. Patient reports having connected with [employer]. Confirmed via [employer] source last data upload * Telephone Encounter - Elena Engel RN - 05/18/2025 8:43 AM EDT [employer] Source portal review reveals last data upload 05/16/2025. Narvii message to patient. * Telephone Encounter - Valeria Jaimes RD, LD - 05/15/2025 4:37 PM EDT Data cont to slowly come over in [employer] Education to check 05/18 to make sure data up to date and send to Dr. Donaldson. * Telephone Encounter - Valeria Jaimes RD, LD - 05/15/2025 12:10 PM EDT *Awaiting tandem source data* Insulin Management for Upcoming Surgery/Procedure Last office visit was on 03/04/[address] Donaldson Next office visit is on 05/26/[address] Donaldson Surgery/Procedure Information Patient is scheduled to have hysterectomy (surgery/procedure) on 05/22/25. Patient will be NPO beginning at 05/21/25. She is allowed to wear her pump during the procedure. Insulin Information Awaiting Tandem Source data. Pt was able to refresh her benoit but waiting for data to update. 04/29/2025 1:00 PM Insulin Pump Time Blocks Insulin Pump Type Tandem Model Number t:slim X2 with CIQ Month/Year restarted 01/2025; has had 4 years Sensor Dexcom G7 Infusion Set AutoSoft XC, 6 mm Duration of Insulin (Hrs) 5 hours Insulin Type Humalog Time 1 0000 Basal Rate 3 Correction Factor Sensitivity 1u:30 Bolus: Carb Ratio 1:4U Target Glucose 110 Time 2 0800 Basal Rate 3 Correction Factor Sensitivity 1u:30 Bolus: Carb Ratio 1u:4g Target Glucose 110 Time 3 2100 Basal Rate 3 Correction Factor Sensitivity 1u:30 Bolus: Carb Ratio 1u:4g Target Glucose 110 Follow-Up Notified patient that we will obtain orders if needed from provider and contact them: Yes Routed to Dr. Donaldson to provide orders/recommendations. * Telephone Encounter - Salma Redd - 05/15/2025 12:04 PM EDT Pt states that she is having a hysterectomy on 05/22/25 and she would like to know how she should adjust her insulin? Pt is type 1 documented in this encounter Plan of Treatment Upcoming Encounters Date Type Department Care Team (Late st Contact Info) Description 08/18/2025 10:30 AM EDT Office Visit [facility] [address] [place] [address] Juliet Salmon, STOCK PATCHER [address] [place] [address] documented as of this encounter Goals Goal [...] documented as of this encounter Care Teams Microsoft Office Instructor Relationship Specialty Start Date End Date [place] [address] PCP - General Family Medicine 08/11/24 documented as of this encounter
--- OUTSIDE RECORDS SUMMARY | 2025-06-23 19:22 | XMS_ITS | Encounter Summary ---
Author Organization [place] [address] Care Team Providers Care Generation Technologist Name Role Phone Dot Soto Primary Care Provider [phone] Reason for Visit * Reason Comments Pharmacy Rheumatology Management Pharmacy Initial Assessment Humira Encounter Details Date Type Department Care Team (Latest Contact Info) Description 05/13/2025 Specialty Pharmacy [facility] [address] [place], [place] [id number] Emeterio Curiel, PharmD Pharmacy Rheumatology Management; Pharmacy Initial Assessment (Humira/) Social History Tobacco Use Types Packs/Day Years [...] as of this encounter Progress Notes * Emeterio Curiel, PharmD - 05/13/2025 9:43 AM EDT Specialty Pharmacy - Rheumatology Initial Assessment Subjective Sera Dietrich is a 25 y.o. female, who is initiating specialty pharmacy service with adalimumab(Humira) for Rheumatoid arthritis. Therapy has been evaluated by a pharmacist and determined to be clinically appropriate. Other current Rheumatology medications: utilizing meloxicam. Not using csDMARDs at present. Not ideal candidate for Leflunomide d/t childbearing age, not using hydroxychloroquine due to retinopathy. Previous medications utilized: methotrexate (Trexall) - stopped due to GI ADEs Extended Emergency Contact Information Primary Emergency Contact: Tracy Singh Address: [address] Relation: Mother Secondary Emergency Contact: Chelsey Ngo Address: [address] Relation: Grandparent Objective RAPID-3: 20.5 per visit on 05/11/2025 Risk/ Status: Tubal Ligation Test: No results found for: PREGTESTUR QOL During the past week on a scale from zero to ten, has your condition affected your ability to perform your normal daily activities such as shopping, cooking, cleaning, walking up a flight of stairs, working?: 8 During the past week on a scale from zero to ten, to what extent has your condition interfered withyour normal social activities with family, friends, neighbors, or groups?: 8 During the past week on a scale from zero to ten, how much pain have you had because of your condition?: 8 Lab Results Component Value Date QUANTIFERON Negative 03/06/2025 HEPBSAG Non-Reactive 03/06/2025 HEPBSAB <3.50 03/06/2025 HEPBIGM Non-Reactive 03/06/2025 HEPCAB Non-Reactive 03/06/2025 Lab Results Component Value Date WBC 5.3 03/06/2025 RBC 4.72 03/06/2025 HGB 13.8 03/06/2025 HCT 38.9 03/06/2025 MCV 82.4 03/06/2025 MCH 29.2 03/06/2025 MCHC 35.5 03/06/2025 RDW 13.2 03/06/2025 PLT 176 03/06/2025 MPV 10.0 03/06/2025 IMMGRAN 0.2 03/06/2025 LYMPHOPCT 21.7 03/06/2025 MONOPCT 9.5 03/06/2025 EOSPCT 0.9 03/06/2025 NEUTROABS 3.6 03/06/2025 IMMGRANABS 0.0 03/06/2025 MONOSABS 0.5 03/06/2025 EOSABS 0.1 03/06/2025 BASOABS 0.0 03/06/2025 Lab Results Component Value Date CREATININE 0.57 01/14/2025 BUN 7 01/14/2025 AST 16 03/06/2025 ALT 21 03/06/2025 Current Outpatient Medications - WARNING: List may be incomplete due to filtering Medication Sig Ketone Urine Test Test if blood sugar >250 and/or ill. E10.65 adalimumab Inject 0.4 mL under the skin every 14 days. Alcohol Swabs Apply 1 Each topically 4 times daily. Alcohol Swabs Use to check blood sugar once daily Dx 250 atorvastatin Take 1 Tablet by mouth daily for 360 days. Baqsimi 3 mg by INTRANASAL route as needed (for severe hypoglycemia). Blood Sugar Diagnostic USE TO TEST BLOOD SUGAR 8 TIMES DAILY DIRECTED Blood-Glucose Meter Use to check blood sugars 8 times daily as directed Dexcom G7 Sensor CHANGE EVERY 10 DAYS dextromethorphan-guaiFENesin Take 5 mL by mouth 3 times daily as needed for Cough. ergocalciferol Take 1 Capsule by mouth once a week. insulin lispro Use up to 100 units daily in divided doses as instructed. insulin lispro Inject as instructed, up to a maximum total daily dose of 200 units Insulin Melcher [place] (Disposable) Subcutaneous (Inject under the skin) 1 Each 4 times daily (before meals and nightly). Insulin Syringe-Needle U-100 Subcutaneous (Inject under the skin) 1 Each 4 times daily (before meals and nightly). Insulin Syringe-Needle U-100 1 Stick by [facility].(Non-Drug; Combo Route) route 5 times dialy as needed. Lancets Use to check blood sugars up to 8 times daily Lantus Solostar U-100 Insulin Use up to 80 units daily as instructed. *DISCARD OPEN PEN AFTER 28 DAYS* leucovorin One tablet ONCE weekly 24 hours after methotrexate dose LEVOthyroxine TAKE 1 TAB BY MOUTH DAILY. meloxicam Take 1 Tablet by mouth daily. ondansetron as needed. sertraline Take 1 Tablet by mouth daily. Assessment Rheumatology: Patient was prescribed adalimumab (Humira) 40 mg SUBQ every 14 day(s). Goals of therapy: Stop inflammation to prevent joint and organ damage and reduce long-term complications Relieve symptoms to improve physical function and overall well-being Indication, effectiveness, safety and convenience of her specialty medication(s) were reviewed today. Patient aware of cost and verified current address. Environmental concerns noted: none Mental capacity concerns noted: none Functional/Dietary limitations noted: none Plan: Patient to have medication delivered by [facility] on 05/15. Welcome packet has been sent electronically via [employer]. Goals of therapy Stop inflammation to prevent joint and organ damage and reduce long-term complications Relieve symptoms to improve physical function and overall well-being Clinical Assessment Follow-up: 12 month(s) Reviewed plan of care, expected outcomes, and goals of therapy with patient who verbalized understanding and is agreeable with plan. Emeterio Curiel, PharmD Specialty Pharmacist documented in this encounter Plan of Treatment Upcoming Encounters Date Type Department Care Team (Late st Contact Info) Description 08/18/2025 10:30 AM EDT Office Visit [facility] [address] [place] [address] Juliet Salmon, PROBE OPERATOR [address] [place] [address] documented as of this encounter Goals Goal Patient Goal Type Associated Problems Recent Progress Patient-Stated? Author Blood Pressure < 140/90 Blood Pressure 129/79(2024 11:17 AM EDT) No Dot Soto DO BMI (Calculated) < 30 General 45.1(03/06/20 25 11:17 AM EDT) No Dot Soto DO Maintain a healthy diet, exercise regularly and maintain an ideal body weight General No Dot Soto DO HEMOGLOBIN A1C < 7.0 Result Component 7.3( 5 1:16 PM EDT) No Dot Soto DO documented as of this encounter Visit Diagnoses Not on filedocumented in this encounter Additional Health Concerns Assessment Noted Time PHQ-9 Depression Total Score: 11 024 2:18 PM EDT PHQ-2 Depression Total Score: 6 08/11/20 2:18 PM EDT documented as of this encounter Care Teams Generation Technologist Relationship Specialty Start Date End Date Dot Soto DO [address] [place] [address] PCP - General Family Medicine 08/11/24 documented as of this encounter
--- OUTSIDE RECORDS SUMMARY | 2025-06-23 19:22 | XMS_ITS | Encounter Summary ---
Author Organization [facility] [place] [address] Care Team Providers Care National Flatbed Truck Driver Name Role Phone Dot Soto DO Primary Care Provider [phone] Encounter Details Date Type Department Care Team (Latest Contact Info) Description 05/26/2025 Travel Social History Tobacco Use Types Packs/Day Years [...] on file documented as of this encounter Plan of Treatment Upcoming Encounters Date Type Department Care Team (Late st Contact Info) Description 08/18/2025 10:30 AM EDT Office Visit [facility] [address] [place] [address] Juliet Salmon, NEWSPAPER PHOTOJOURNALIST [address] [place] [address] documented as of this encounter [...] documented as of this encounter Care Teams National Flatbed Truck Driver Relationship Specialty Start Date End Date Dot Soto [place] [address] PCP - General Family Medicine 08/11/24 documented as of this encounter
--- OUTSIDE RECORDS SUMMARY | 2025-06-23 19:22 | XMS_ITS | Encounter Summary ---
Author Organization [place] [address] Care Team Providers Care Casino Host Name Role Phone Dot Soto Primary Care Provider Encounter Details Date Type Department Care Team (Latest Contact Info) Description 03/07/2025 Results Follow-Up [facility] [address] [place] [address] Juliet Salmon, ROLL ON WORKER [address] [place] [address] XR KNEE BILATERAL AP LATERAL AND SUNRISE STANDING, XR FOOT BILATERAL AP LATERAL AND OBLIQUE, XR CHEST PA AND LATERAL, Additional followed-up results: 12 Social History Tobacco Use Types Packs/Day Years [...] as of this encounter Progress Notes * Juliet Salmon, ROLL ON WORKER - 03/07/2025 11:22 AM EDT Unremarkable XR of the knees documented in this encounter Plan of Treatment Upcoming Encounters Date Type Department Care Team (Late st Contact Info) Description 08/18/2025 10:30 AM EDT Office Visit [facility] [address] [place] [address] Juliet Salmon APRN [address] [place], [place] [id number] documented as of this encounter Goals Goal [...] documented as of this encounter Care Teams Casino Host Relationship Specialty Start Date End Date Dot Soto DO [address] [place] [address] PCP - General Family Medicine 08/11/24 documented as of this encounter
--- OUTSIDE RECORDS SUMMARY | 2025-06-23 19:22 | XMS_ITS | Encounter Summary ---
Author Organization [facility] Address [address] [place] [address] Care Team Providers Care Lay Out And Detail Drafter Name Role Phone Dot Soto DO Primary Care Provider [phone] Reason for Visit * Reason Onset Date Comments Refill 06/01/2025 Med refill Encounter Details Date Type Department Care Team (Late st Contact Info) Description 06/01/2025 Telephone [facility] [address] [place] [address] Dot Soto DO [address] [place] [phone] Refill (Med refill ) Social History Tobacco Use Types Packs/Day Years [...] encounter Miscellaneous Notes * Telephone Encounter - Rosita Mcnair MA - 06/01/2025 11:07 AM EDT Message sent * Telephone Encounter - Dot Soto DO - 06/01/2025 9:59 AM EDT Has she been out of the medication? If so, for how long? She will need an appointment for blood work for us to check the levels to ensure she is on the correct dose. This can just be lab appointment though, does not have to be office visit * Telephone Encounter - Edith Ramos CCMA - 06/01/2025 9:21 AM EDT Please advise. I don't see where this has been sent since 2016 * Telephone Encounter - Edita Joseph - 06/01/2025 9:16 AM EDT Select the most appropriate reason for this telephone message: Medication Refill Who is requesting the refill: Patient Medication(s)Name/Dosage/Frequency: levothyroxine (SYNTHROID) 50 mcg Oral Tablet 30 Tab 3 04/21/2016 -- Sig: TAKE 1 TAB BY MOUTH DAILY. Did patient contact the pharmacy first: Yes pharmacy had been filling this under an old script theyhad through [facility] and pt wasn't aware that it wasn't a script we were sending in for her. Shecalled them for a refill and they told her she needed to reach out to the provider for more refillsand this is when she realized where the meds were coming from. How many days left on hand: 0 Future appt date w/ prescribing provider: n/a Pharmacy & Location: [facility] [place] [address] [address] [facility] [phone] Return Method of Communication: Phone Call Additional Information: med not pended- previously filled with Dr. Muriel Engel documented in this encounter Plan of Treatment Upcoming Encounters Date Type Department Care Team (Late st Contact Info) Description 08/18/2025 10:30 AM EDT Office Visit [facility] [address] [place] [address] Juliet Salmon, PULPWOOD DEALER [address] [place] [address] documented as of this encounter Goals Goal [...] documented as of this encounter Care Teams Lay Out And Detail Drafter Relationship Specialty Start Date End Date Dot Soto DO [employer] [place], [place] [id number] PCP - General Family Medicine 08/11/24 documented as of this encounter
--- OUTSIDE RECORDS SUMMARY | 2025-06-23 19:22 | XMS_ITS | Encounter Summary ---
Author Organization [place] [address] Care Team Providers Care Long Distance Billing Operator Name Role Phone Dot Soto Primary Care Provider Reason for Visit * Reason Onset Date Comments Prior Authorization 05/27/2025 Zepbound 2.5 mg/ Denied Encounter Details Date Type Department Care Team (Late st Contact Info) Description 05/27/2025 Telephone [facility] [place] [address] [facility] [address] [place] [address] Eloina Donaldson MD [address] [phone] Prior Authorization (Zepbound 2.5 mg/ Denied) Social History Tobacco Use Types Packs/Day Years [...] encounter Miscellaneous Notes * Telephone Encounter - Divya Cassidy MA - 05/28/2025 12:43 PM EDT Pt informed of denial via [employer] message. * Telephone Encounter - Eloina Donaldson MD - 05/28/2025 8:08 AM EDT Please inform patient zepbound denied as medicaid excludes coverage of weight management medications. * Telephone Encounter - Liv Baez RMA - 05/28/2025 7:57 AM EDT PA for Zepbound 2.5 mg Pen was denied. Medicaid excludes medications used for weight loss. * Telephone Encounter - Jenise Marcus MA - 05/27/2025 1:29 PM EDT PA determination received, flowsheet updated, routed to IPG, and placed in her bin. (Denial) * Telephone Encounter - Jenise Marcus MA - 05/27/2025 12:54 PM EDT PA received, flowsheet updated, routed to Liv, and placed in her bin. documented in this encounter Plan of Treatment Upcoming Encounters Date Type Department Care Team (Late st Contact Info) Description 08/18/2025 10:30 AM EDT Office Visit [facility] [address] [place] [address] Juliet Salmon, ELECTRIC REPAIR SUPERVISOR [address] [place] [address] documented as of this encounter Goals Goal Patient Goal Type Associated Problems Recent Progress Patient-Stated? Author Blood Pressure < 140/90 Blood Pressure 129/79(2024 11:17 AM EDT) No Dot Soto DO BMI (Calculated) < 30 General 45.1(03/06/20 11:17 AM EDT) Dot Connor DO Maintain a healthy diet, exercise regularly [...] documented as of this encounter Care Teams Long Distance Billing Operator Relationship Specialty Start Date End Date Dot Soto DO [address] [place] [phone] PCP - General Family Medicine 08/11/24 documented as of this encounter
--- OUTSIDE RECORDS SUMMARY | 2025-06-23 19:22 | XMS_ITS | Encounter Summary ---
Author Organization [facility] Address [address] [place] [address] Care Team Providers Care Avionics Test Technician Name Role Phone Isak Calle MD Primary Care Provider Rosita Hayward SPECIAL EVENTS PLANNER Unavailable [phone] Reason for Visit * Reason Comments Med Refill Encounter Details Date Type Department Care Team (Late st Contact Info) Description 08/06/2024 Refill [facility] [address] [place] [address] Marjorie Locke, SPECIAL EVENTS PLANNER [address] [place] [address] Type 1 diabetes mellitus without complications ([facility]/HCC) Social History Tobacco Use Types Packs/Day Years Used Date Smoking Tobacco: Never Passive Smoke Exposure: Never Smokeless Tobacco: Never Alcohol Use Standard Drinks/Week Comments Never 0 (1 standard drink = 0.6 oz pur e alcohol) [place] Depression Scale Answer Date Recorded [place] Depression Scale Total 4 03/06/2024 The thought of harming myself has occurred to me . Never 03/06/2024 CAGE ASSESSMENT Answer Date Recorded Cage unable to access Not on file 02/18/2024 Cage max number of drinks Not on file 2023 Cage Beverages a week Not on file 02/18/2024 Have you ever felt you should CUT down on your d rinking? 0 02/18/2024 Have you been ANNOYED by people criticizing your drinking? 0 02/18/2024 Have you felt GUILTY about your drinking? 0 02/18/2024 Have you had a drink first t seamus in the morning (EYE-BUSINESS INTELLIGENCE DEVELOPER) to steady your nerves or to get rid of a hangover? 0 02/18/2024 CAGE Questionnaire Score 0 024 Education Answer Date Recorded What is the highest level of school you have completed or the highest degree you have received? High school graduate 2022 Comments Unknown Sex and Gender Information Value Date Recorded Sex Assigned at Female 2022 9:59 PM EDT Legal Sex Female 6:01 PM EDT Gender Identity Female 2022 9:59 PM EDT Sexual Orientation Straight 06/14/2023 3: 40 PM EDT documented as of this encounter Functional Status * Are you deaf or do you have serious difficulty hearing? Answer Date of Assessment Author No 02/21/2024 10:35 AM Viky Mccarty RN * Are you blind or do you have serious difficulty seeing, even when wearing glasses? Answer Date of Assessment Author No 02/21/2024 10:35 AM Viky Mccarty RN * Do you have serious difficulty walking or climbing stairs? Answer Date of Assessment Author No 02/21/2024 10:35 AM Viky Mccarty RN * Do you have serious difficulty dressing or bathing? Answer Date of Assessment Author No 02/21/2024 10:35 AM Viky Mccarty RN * Because of a physical, mental, or emotional condition, do you have serious difficulty doing errandsalone such as visiting the doctor? Answer Date of Assessment Author No 02/21/2024 10:35 AM Viky Mccarty RN documented as of this encounter Mental Status * Because of a physical, mental, or emotional condition, do you have serious difficulty concentrating, remembering, or making decisions? (5 years old or older) Answer Entry Date Author No 02/21/2024 10:35 AM Viky Mccarty RN documented in this encounter Plan of Treatment Upcoming Encounters Date Type Department Care Team (Late st Contact Info) Description 07/23/2025 9:15 AM EDT Office Visit [facility] [address] [place] [phone] Ashley Gomez MD [address] [place] [address] 10/15/2025 3:45 PM EST Office Visit [facility] [address] [place] [address] Reena Mack, OD [address] [place] [address] documented as of this encounter Goals Goal Patient Goal Type Associated Problems Recent Progress Patient-Stated? Author Delayed Delivery Care Plan CPM S20 PP LABOR (OBSTETRICS) No Open Scheduling, Background documented as of this encounter Visit Diagnoses Diagnosis Type 1 diabetes mellitus without complications documented in this encounter Additional Health Concerns Active Problems Noted Date Diagnosed Date CPM S20 PP LABOR (OBSTETRICS) 02/05/2022 Assessment Noted Time A fall risk assessment has been complete d for the patient 06/12/2023 1:14 PM EDT A Body Mass Index follow-up plan has been documented for the patient 07/04/2024 11:52 AM EDT documented as of this encounter Care Teams Avionics Test Technician Relationship Specialty Start Date End Date Isak Calle MD [address] [place] [address] [place] [address] PCP - General 03/11/21 Rosita Hayward APRN [address] [facility] [address] [place] [address] Nurse Practitioner Obstetrics and Gynecology 12/15/21 documented as of this encounter
--- OUTSIDE RECORDS SUMMARY | 2025-06-23 19:22 | XMS_ITS | Clinical Summary ---
Author Organization [facility] [place] Address [address] [place] [address] Phone Care Team Providers Care Workforce Development Vice President Name Role Phone Dot Soto DO Primary Care Provider [phone] Allergies Active Allergy Reactions Criticality Noted Date Comments Cynthia Hunter High 01/20/2014 Influenza Virus Vaccines Other (See Comments) 08/04/2024 Really sick when younger Medications Insulin Syringe-Needle U-100 (BD INSULIN SYRINGE ULTRA-FINE) 1/2 mL 30 x 1/2 [facility] SyringeIndication s:Type 1 diabetes mellitus with diabetic neuropathy (HCC) 1 Stick by [facility]Non-Drug; Combo Route) route 5 times dialy as needed. 150 Syringe 1 06/01/20 15 Active Blood Sugar Diagnostic (ONETOUCH ULTRA TEST) [facility] StripIndications: Type 1 diabetes mellitus with diabetic polyneuropathy (HCC) USE TO TEST BLOOD SUGAR 8 TIMES DAILY DIRECTED 300 Strip 4 11/16/19 16 Active Blood-Glucose Meter (ONETOUCH ULTRAMINI) [facility] KitIndications:Ty pe 1 diabetes mellitus with diabetic polyneuropathy (HCC) Use to check blood sugars 8 times daily as directed 1 Kit 0 11/16/19 16 Active Lancets [facility] MiscIndications:T ype 1 diabetes mellitus with diabetic polyneuropathy (HCC) Use to check blood sugars up to 8 times daily 200 Each 11 11/16/19 16 Active levothyroxine (SYNTHROID) 50 mcg Oral Tablet TAKE 1 TAB BY MOUTH DAILY. 30 Tab 3 04/21/20 16 Active DEXCOM G7 SENSOR Misc Device CHANGE EVERY 10 DAYS 10/20/20 24 Active Alcohol Swabs (ALCOHOL PADS) Top Pads, MedicatedIndicati ons:Type 1 diabetes mellitus with diabetic polyneuropathy (HCC) Apply 1 Each topically 4 times daily. 100 Each 11/13/19 25 Active Insulin [place]well, Disposable, (JOSUÉ PEN NEEDLE) 32 gauge x 5/32 Misc NeedleIndications :Type 1 diabetes mellitus with diabetic polyneuropathy (HCC) Subcutaneous (Inject under the skin) 1 Each 4 times daily (before meals and nightly). 100 Each 11/13/19 25 Active Insulin Syringe-Needle U-100 (BD INSULIN SYRINGE ULTRA-FINE) 1 mL 30 gauge x 1/2 Misc SyringeIndication s:Type 1 diabetes mellitus with diabetic polyneuropathy (HCC) Subcutaneous (Inject under the skin) 1 Each 4 times daily (before meals and nightly). 200 Each 11/13/19 25 Active Acetone, Urine, Test (KETONE URINE TEST) Misc StripIndications: Type 1 diabetes mellitus with diabetic polyneuropathy (HCC) Test if blood sugar >250 and/or ill. E10.65 50 Each 3 01/15/20 25 Active sertraline (ZOLOFT) 100 mg Oral TabletIndications :Anxiety and depression Take 1 Tablet by mouth daily. 30 Tablet 3 01/17/20 25 Active BAQSIMI 3 mg/actuation Nasl [place], Non-AerosolIndica tions:Type 1 diabetes mellitus with diabetic polyneuropathy (HCC) 3 mg by INTRANASAL route as needed (for severe hypoglycemia). 1 Each 01/30/20 25 Active atorvastatin (LIPITOR) 40 mg Oral TabletIndications :Hyperlipidemia due to type 1 diabetes mellitus (HCC) Take 1 Tablet by mouth daily for 360 days. 90 Tablet 3 01/30/20 25 026 Active ergocalciferol (VITAMIN D) 1,250 mcg (50,000 unit) Oral CapsuleIndication s:Vitamin D deficiency Take 1 Capsule by mouth once a week. 12 Capsule 03/12/20 25 Active insulin lispro (HUMALOG) 100 unit/mL SubQ SolutionIndicatio ns:Type 1 diabetes mellitus with hyperglycemia (HCC) Inject as instructed, up to a maximum total daily dose of 200 units 60 mL 2 03/26/20 25 Active LANTUS SOLOSTAR U-100 INSULIN 100 unit/mL (3 mL) SubQ Insulin PenIndications:Ty pe 1 diabetes mellitus with diabetic polyneuropathy (HCC) Use up to 80 units daily as instructed. *DISCARD OPEN PEN AFTER 28 DAYS* 78 mL 05/06/20 25 Active folic acid (FOLVITE) 1 mg Oral Tablet Take 1,000 mcg by mouth daily. 04/27/20 25 Active LINZESS 72 mcg Oral Capsule Take 72 mcg by mouth daily. 04/24/20 25 Active oxyCODONE-acetami nophen (PERCOCET) 5-325 mg Oral Tablet 05/22/20 25 Active tirzepatide, weight loss, (ZEPBOUND) 2.5 mg/0.5 mL SubQ Pen InjectorIndicatio ns:Obesity, Class III, BMI 40-49.9 (morbid obesity) Inject 2.5 mg under the skin once a week. 2 mL 2 05/26/20 25 Active adalimumab-bwwd (HADLIMA,CF, PUSHTOUCH) 40 mg/0.4 mL SubQ Auto-InjectorIndi cations:Rheumatoi d arthritis involving multiple sites with positive rheumatoid factor (HCC) Inject 40 mg under the skin every 14 days. 0.8 mL 2 06/10/20 25 Active Alcohol Swabs (ALCOHOL PREP SWABS) Top Pads, MedicatedIndicati ons:Diabetes mellitus type 1 with manifestations (HCC),Diabetes mellitus type 1 with neurological manifestations (HCC) Use to check blood sugar once daily Dx 250 100 Each 11 10/13/20 14 025 Discontinu ed(Patient Reported not taking medication ) ondansetron (ZOFRAN-ODT) 4 mg Oral Tablet, Rapid Dissolve as needed. 01/24/20 25 025 Discontinu ed(Patient Reported not taking medication ) meloxicam (MOBIC) 7.5 mg Oral TabletIndications :Rheumatoid arthritis involving multiple sites with positive rheumatoid factor (HCC),Chronic pain of both knees Take 1 Tablet by mouth daily. 30 Tablet 2 03/06/20 25 025 Discontinu ed(Patient Reported not taking medication ) dextromethorphan- guaiFENesin (ROBITUSSIN DM) 10-100 mg/5 mL Oral SyrupIndications: Acute bacterial sinusitis Take 5 mL by mouth 3 times daily as needed for Cough. 118 mL 03/10/20 25 025 Discontinu ed(Patient Reported not taking medication ) leucovorin (WELLCOVORIN) 5 mg Oral TabletIndications :Methotrexate, jail, current use One tablet ONCE weekly 24 hours after methotrexate dose 32 Tablet 1 04/28/20 25 025 Discontinu ed(Patient Reported not taking medication ) Active Problems Patient Care Coordination No te Formatting of this note migh t be different from the original. Lantus 42 units nightly For every 11 grams of carbs, take one unit of insulin To correct blood sugar, take one unit of insulin for every 60mg/dL for blood sugars above 120 Problem Noted Date Diagnosed Date Class 3 severe obesity due t o excess calories with serious comorbidity and body mass index (BMI) of 40.0 to 44.9 in adult 03/04/2025 Uterine hypertrophy 11/12/2024 At high risk for breast cancer 05/24/[address] 07/26/2022 Anxiety and depression 07/25/2022 Assessment & Plan (01/16/2025 10:08 AM EDT): Increase Zoloft from 75 mg to 100 mg and follow-up in a few weeks PCOS (polycystic ovarian syndrome) 07/25/2022 H/O abnormal cervical Papanicolaou smear 021 Overview (08/11/2024): Last Assessment & Plan: ASCUS/HPV- on 03/13/2019. Will need repeat in 02/2022 Mixed hyperlipidemia 06/05/2014 Type 1 diabetes mellitus with hyperglycemia 10/2013 Assessment & Plan (05/26/2025 10:14 AM EDT): Diagnosed at 4 years old. Reports being diagnosed at [facility] but unable to view documents from [...] actively tracking calories not interested in referral to medical nutrition therapy at this time. Patient reports noting improvement in blood sugars when she is not overriding the pump and allowing for [...] Carb Ratio 1u:4g Target Glucose 110 Orders: HI CONTINUOUS GLUCOSE MONITORING ANALYSIS I&R tirzepatide, weight loss, (ZEPBOUND) 2.5 mg/0.5 mL SubQ Pen Injector; Inject 2.5 mg under the skin once a week. LIPID PANEL REFLEX; Future HEMOGLOBIN A1C; Future Assessment & Plan (03/04/2025 11:58 AM EDT): Diagnosed at 4 years old. Reports being diagnosed at [facility] but unable to view documents from that time. Currently uncontrolled. Hgb A1c of 7.3 on 01/14/2025. Last eye exam 01/2025 screening concern for retinopathy scheduled to see eye doctor April 09, 2025. Last foot exam unknown. Last microalbumin on 07/2024. Last lipid panel on 01/14/2025 LDL above goal. Blood pressure today video visit not obtained. Patient with a BMI of 44.81 previously tolerated Ozempic and is interested in weight management medications discussed side effects such as nausea, vomiting, constipation, diarrhea and risk of pancreatitis. -Patient recently restarted tandem pump - Increase basal to 2.5 units/h - Increase carb ratio intensity to 1 unit for every 5 carbs - Continue atorvastatin to 40 mg - Order Wegovy 0.25 mg weekly - Patient had a tubal ligation no concerns regarding medication with future Orders: HI CONTINUOUS GLUCOSE MONITORING ANALYSIS I&R Assessment & Plan (01/29/2025 2:01 PM EDT): Diagnosed at 4 years old. Reports being diagnosed at [facility] but unable to view documents from that time. Currently uncontrolled. Hgb A1c of 7.3 on 01/14/2025. Last eye exam 07/2024. Last foot exam unknown. Last microalbumin on 07/2024. Last lipid panel on 01/14/2025 LDL above goal. Blood pressure today video visit not obtained. - Decrease Lantus 68 units daily instructions given for titration if fasting a.m. blood sugar >150 for 3 days in a row to increase by 2 units, if fasting a.m. blood sugar <100 for 3 days in a row decrease by 2 units - Will continue carb ratio intensity to 1:5.5 carb ratio with a 1: 30 greater than 110 correction - Increase atorvastatin to 40 mg, - Patient had a tubal ligation no concerns regarding medication with future -Patient scheduled to restart tandem okay to use these settings for initiation with protocol based reduction in basal insulin Orders: BAQSIMI 3 mg/actuation Nasl [place], Non-Aerosol; 3 mg by INTRANASAL route as needed (for severe hypoglycemia). HI CONTINUOUS GLUCOSE MONITORING ANALYSIS I&R Assessment & Plan (11/27/2024 11:11 AM EST): Diagnosed at 4 years old. Reports being diagnosed at [facility] but unable to view documents from that time. Currently uncontrolled. Hgb A1c of 7.6 on 11/13/2024. Last eye exam 07/2024. Last foot exam unknown. Last microalbumin on 07/2024. Last lipid panel on 07/2024. Blood pressure today video visit not obtained. - Continue Lantus 65 units daily instructions given for titration if fasting a.m. blood sugar >150 for 3 days in a row to increase by 2 units, if fasting a.m. blood sugar <100 for 3 days in a row decrease by 2 units - Will increase carb ratio intensity to 1:5.5 carb ratio with a 1: 30 greater than 110 correction -On atorvastatin 20 mg, will recheck lipid panel with yearly diabetes labs prior to next visit patient had a tubal ligation no concerns regarding medication with future Orders: MICROALBUMIN/CREATININE RATIO URINE; Future RENAL FUNCTION PANEL; Future LIPID PANEL REFLEX; Future HEMOGLOBIN A1C; Future Assessment & Plan (11/13/2024 1:15 PM EST): Diagnosed at 4 years old. Reports being diagnosed at [facility] but unable to view documents from that time. Currently uncontrolled. Hgb A1c of 7.6 on 11/13/2024. Last eye exam 07/2024. Last foot exam unknown. Last microalbumin on 07/2024. Last lipid panel on 07/2024. Blood pressure today 130/86 at goal. Patient extremely frustrated with her tandem pump both from a blood glucose management standpoint as well as the pump gets ripped out throughout the night. Discussed that we could make adjustments to her pump settings for better control however patient is not interested and would prefer to go back on a basal bolus regimen. Patient receiving approximately 60 units of basal through pump even though it was programmed for approximately 30. - Start Lantus 60 units daily instructions given for titration if fasting a.m. blood sugar >150 for 3 days in a row to increase by 5 units, if fasting a.m. blood sugar <100 for 3 days in a row decrease by 5 units - Will start with a 1: 6 carb ratio with a 1: 30 greater than 110 correction - Referral to diabetes education for carb counting assessment as well as discussion of other pump options that may suit the patient better -On atorvastatin 20 mg, will recheck lipid panel with yearly diabetes labs Orders: Alcohol Swabs (ALCOHOL PADS) Top Pads, Medicated; Apply 1 Each topically 4 times daily. POCT GLYCATED HEMOGLOBIN, TOTAL insulin glargine (LANTUS SOLOSTAR U-100 INSULIN) 100 unit/mL (3 mL) SubQ Insulin Pen; Use Up to 80 units daily as instructed. insulin lispro (HUMALOG KWIKPEN INSULIN) 100 unit/mL SubQ Insulin Pen; Use up to 100units a day in divided doses as instructed. Insulin [place], Disposable, (JOSUÉ PEN NEEDLE) 32 gauge x 5/32 Misc Needle; Subcutaneous (Inject under the skin) 1 Each 4 times daily (before meals and nightly). Insulin Syringe-Needle U-100 (BD INSULIN SYRINGE ULTRA-FINE) 1 mL 30 gauge x 1/2 Misc Syringe; Subcutaneous (Inject under the skin) 1 Each 4 times daily (before meals and nightly). AMB REFERRAL TO DIABETIC EDUCATION PROGRAM [place] CONTINUOUS GLUCOSE MONITORING ANALYSIS I&R Assessment & Plan (08/13/2024 7:50 AM EDT): Patient would like to transition from insulin pump to self-administered insulin Vitamin D deficiency 05/29/2014 Iron deficiency 05/29/2014 Vitamin B deficiency 02/04/2014 Regular astigmatism 04/03/2008 Acquired hypothyroidism Assessment & Plan (08/13/2024 7:50 AM EDT): Will check labs adjust as needed Diabetic polyneuropathy asso ciated with type 1 diabetes mellitus Assessment & Plan (08/13/2024 7:51 AM EDT): Plan for tight glucose control Tic disorder Overview (01/20/2014): since seizure Resolved Problems Problem Noted Date Diagnosed Date Resolved Date Hyperemesis gravidarum 08/11/202408/11 Leg laceration 03/08/2016 08/11/2024 Insulin dependent type 1 diabetes mellitus 08/13/2015 08/13/2024 Assessment & Plan (08/13/2024 7:51 AM EDT): Patient would like to transition from insulin pump to self-administered insulin Diabetes mellitus type 1 with manifestations 4 08/11/2024 Hyperopia 04/03/2008 08/11/2024 Irregular menses 08/11/2024 Anxiety 08/11/2024 ADHD (attention deficit hype ractivity disorder) 08/11/2024 Encounters Date Type Department Care Team Description 06/05/2025 Refill [facility] [address] [facility] [address] [place] [address] Juliet Salmon APRN Medication Refill 06/05/2025 Specialty Pharmacy [facility] [address] [place] [address] Emma Waite CPhT Pharmacy Rheumatology Management (Humira / Hadlima) 06/01/2025 Telephone [facility] [address] [place] [address] Dot Soto, DO Refill (Med refill ) 05/27/2025 Telephone [facility] [place] [address] [facility] [address] [place] [phone] Eloina Donaldson MD Prior Authorization (Zepbound 2.5 mg/ Denied) 05/26/2025 9:40 AM EDT Telemedicine [facility] [address] [place] [phone] Eloina Donaldson MD Type 1 diabetes mellitus with hyperglycemia (HCC) (Primary Dx); Obesity, Class III, BMI 40-49.9 (morbid obesity) 05/26/2025 Travel 05/15/2025 Telephone [facility] [address] [address] Eloina Donaldson MD Medication Management 05/15/2025 Telephone [facility] [address] [facility] [address] [place] [phone] Eloina Donaldson MD Other 05/13/2025 Specialty Pharmacy [facility] [address] [place] [address] Emeterio Curiel, PharmJoao Pharmacy Rheumatology Management; Pharmacy Initial Assessment (Humira/) 05/12/2025 Specialty Pharmacy [facility] [address] [place] [address] Fawad Arellano [facility] Pharmacy Rheumatology Management (Humira) 05/11/2025 2:30 PM EDT Telemedicine [facility] [address] [place] [address] Juliet Salmon, MAIA Rheumatoid arthritis involving multiple sites with positive rheumatoid factor (HCC) (Primary Dx); Chronic pain of both knees; Vitamin D deficiency; Diabetic polyneuropathy associated with type 1 diabetes mellitus (HCC); Therapeutic drug monitoring; Immunosuppression 04/30/2025 Patient Outreach [facility] [place] [address] [place] [phone] Ophelia King, YARITZA CM- Telephonic Outreach; Care Transition; CM-Resource Coordination 04/30/2025 Telephone [facility] [place] [address] [place] [phone] Dot Soto, DO Samples ( Disp Refills Start End /DEXCOM G7 SENSOR Misc Device - - 10/20/2024 - /Sig: CHANGE EVERY 10 DAYS /) 04/28/2025 Orders Only [facility] [address] [place] [address] Juliet Salmon APRN Methotrexate, longitudinal float operator, current use (Primary Dx) 04/27/2025 Telephone [facility] [address] [facility] [address] [place] [phone] Eloina Donaldson MD Blood Sugar Problem 04/27/2025 Refill [facility] [address] [facility] [address] [place] [address] Eloina Donaldson MD Medication Refill 04/27/2025 Telephone [facility] [address] [place] [address] Juliet Salmon APRN Other 04/01/2025 Telephone [place] [address] [place] [phone] oDt Soto, Samples (DEXCOM G7 SENSOR) 03/26/2025 Orders Only [facility] [place] [address] [facility] [address] [place] [address] Divya Cassidy MA Type 1 diabetes mellitus with hyperglycemia (HCC) (Primary Dx) 03/26/2025 Telephone [facility] [address] [facility] [address] [place] [address] Eloina Donaldson MD Medication Refill from Last 3 Months Immunizations Immunization Administration Dates Next Due DTaP 02/20/2002, 9,1998,1997,1998 Flucelvax 09/18/2012 HPV Quadrivalent 06/01/2015,01/29/2007 Hepatitis A, Ped/Adol, 2 Dose 03/18/2019 Hepatitis A, Unspecified Formulation 06/01/2015 Hepatitis B, Unspecified Formulation 1998, 1998,1998 HiB, Unspecified Formulation 03/21/1999, 1998,1998,1997 IPV 03/21/1999, 8,1998,1997 MMR 02/19/2024,09/03/2002,03/21/1999 Meningococcal Conjugate 06/01/2015 PPD Test 03/14/2017 Tdap 12/27/2023, 2,10/24/2018,2010 Varicella 06/01/2015,03/21/1999 Surgical History Surgery Date Site/Laterality Comments DENTAL SURGERY TUBAL LIGATION 08/04/2024 ENDOMETRIAL ABLATION 08/29/2024 - 09/27/2024 SECTION SECTION PARTIAL HYSTERECTOMY 05/22/2025 Medical History Medical History Date Comments ADHD (attention deficit hyperactivity disorder) IDDM (insulin dependent diabetes mellitus) Hypothyroid Tic disorder since seizure Other emotional disturbance of childhood or adolescence Diabetic neuropathy (HCC) Diabetes mellitus type 1 (HCC) Seizure (HCC) 10/29/2010 due to hypoglyce julissa Anxiety Irregular menses Injury, lower leg Hyperemesis gravidarum 08/11/2024 Hyperopia 04/03/2008 High cholesterol Diabetic retinopathy (HCC) Glaucoma Family History Medical History Relation Name Comments Other Brother 4 bladder issues Anxiety Disorder Father [place] Bipolar Disorder Father [place] Depression Father [place] Diabetes Father [place] High Blood Pressure Father [place] High Blood Pressure Maternal Grandmother Chelsey baez Arthritis Mother Tracy Singh High Blood Pressure Mother Tracy Singh Rheum Arthritis Mother Tracy [place] Thyroid Disease Mother Tracy [place] High Blood Pressure Paternal Grandfather [place] High Cholesterol Paternal Grandfather [place] Celiac Disease Paternal Grandmother Carla Jackson Relation Name Status Comments Brother 1 Alive Brother 2 Alive Brother 3 Alive Brother 4 Father [place] Alive Maternal Grandfather Maternal Grandmother Chelsey [place] Alive Mother Tracy Singh Alive Paternal Grandfather [place] Alive Paternal Grandmother Carla Jackson Alive Social History Tobacco Use Types Packs/Day Years [...] on file Sexual Orientation Not on file Obstetrics History Para Term AB IAB SAB Ectopic Multiple Livin g Live Births 5 3 3 2 2 3 3 Date Outcome GA Total Labor Labor/2nd/3rd Weight Sex Type Anes PTL Alyssa A1 A5 Name Clin 2018 Term 37w 0d 6 lb 15 oz (3.147 kg) F Vag-S pont Livin g 2021 Term 37w 3d 0h 01m 0h 01m 8 lb 3.2 oz (3.72 kg) M CS-LT ranv Spina l,Epi dural N Livin g 8 9 [facility],ISHAAN Y ZULEIMA Chapman MD Delivery Location:[facility] are ([facility]) 2022 SAB 6w0 d 2022 SAB 5w0 d 2023 Term 37w 2d 0h 01m 0h 01m 8 lb 12 oz (3.969 kg) M CS-LT ranv Spina l,Epi dural N Livin g 5 9 [facility],ISHAAN YBETHA [place] Valerie Lyons MD Complications:None Delivery Location:[facility] ([facility] DELIVERY) Last Filed Vital Signs Vital Sign Reading Time Taken Comments Blood Pressure 129/79 03/06/2025 11:17 AM EDT Pulse 106 03/06/2025 11:17 AM EDT Temperature 36.9 C (98.4 F) 11/12/2024 9:46 AM EST Respiratory Rate 17 03/06/2025 11:17 AM EDT Oxygen Saturation 97% 11/12/2024 9:46 AM EST Inhaled Oxygen Concentration - - Weight 111.1 kg (245 lb) 05/26/2025 9:31 AM EDT per patient Height 158.1 cm (5' 2.25 ) 03/06/2025 11:17 AM E DT Body Mass Index 44.45 03/06/2025 11:17 AM EDT Plan of Treatment Upcoming Encounters Date Type Department Care Team (Late st Contact Info) Description 08/18/2025 10:30 AM EDT Office Visit [facility] [address] [place] [address] Juliet Salmon, CODING QUALITY ANALYST [address] [place] [address] Health Maintenance Due Date Last Done Comments COVID-19 Vaccine (#1) 2003 Pneumococcal Vaccine 0-49 (1 of 2 - PCV) 2017 Cervical Cancer Screening 03/21/2025 Pap Smear 03/21/2025 03/21/2022, 03/21/2022 Influenza Vaccine (#1) 2025 5 (Declined), 01/12/2015 (Postponed), 09/18/2012 Annual Wellness Exam 08/11/2025 08/11/2024 Hemoglobin A1c 11/22/2025 05/22/2025, 04/28, 01/14/2025, Additional history exists Kidney Health: eGFR 01/14/2026 01/14/2025, 08/11/2024, 03/17/2016, Additional history exists Kidney Health: uACR 01/14/2026 01/14/2025, 08/11/2024, 08/11/2024, Additional history exists Lipids 05/22/2026 05/22/2025, 12/27, 08/11/2024, Additional history exists Diabetic Eye Exam 08/11/2026 08/11/2024 DTaP/TDaP/Td (10 - Td or Tdap) 12/26/2033 12/27/2023, 12/20/2021, 10/24/2018, Additional history exists Hepatitis B Vaccine Completed 1998, 1998, 1998 Meningococcal B Vaccine Aged Out No l onger eligible based on patient's age to complete this topic Goals Goal Patient Goal Type Associated Problems [...] 1:16 PM EDT) No Dot Soto DO Procedures Procedure Name Priority Date/Time Associated Diagnosis Comments MICROALBUMIN/CREATI NINE RATIO URINE Routine 01/14/2025 2:58 PM EDT Type 1 diabetes mellitus with diabetic polyneuropathy (HCC) RENAL FUNCTION PANEL Routine 01/14/2025 1:16 PM EDT Type 1 diabetes mellitus with diabetic polyneuropathy (HCC) LIPID PANEL REFLEX Routine 01/14/2025 1: 16 PM EDT Type 1 diabetes mellitus with diabetic polyneuropathy (HCC) HEMOGLOBIN A1C Routine 01/14/2025 1:16 PM EDT Type 1 diabetes mellitus with diabetic polyneuropathy (HCC) from Last 3 Months or Most Recently Relevant to Health Maintenance Results * MICROALBUMIN/CREATININE RATIO URINE (01/14/2025 2:58 PM EDT) Urine Microalb <12.0 mg/L 01/14/2025 6:36 PM EDT [facility] [employer], [facility] Urine Creatinine 44.0 mg/dL 01/15/20 25 6:36 PM EDT [facility] [employer], [facility] Ur Microalb/Creat 025 6:36 PM EDT [facility] [employer], [facility] Comment: Because the albumin level is below the level of detection in this urine specimen, the laboratory is unable to calculate a reliable albumin/creatinine ratio. Microalbuminuria is unlikely if the urine albumin concentration is less than 20- 30 mg/L in a random specimen. Urine STRUCTURE OF URINARY TRACT PROPER / Unknown 01/14/2025 2:58 PM EDT 01/14/2025 2:58 PM EDT us Eloina Donaldson MD URINE ORDERABLES Final Resul t PREFERRED [employer], [facility] [address] [facility] , [place] [address] * (ABNORMAL) LIPID PANEL REFLEX (01/14/2025 1:16 PM EDT) Cholesterol 220(H) <200 mg/dL 01/14/2025 5:29 PM EDT [facility] [employer], [facility] Comment: < 200 Desirable 200 - 239 Borderline High >= 240 High Triglyceride 247(H) <150 mg/dL 01/14/2025 5:29 PM EDT [facility] [employer], [facility] Comment: < 150 Normal 150 - 199 Borderline High 200 - 499 High >= 500 Very High HDL 33(L) >=40 mg/dL 01/14/2025 5:29 PM EDT [facility] [employer], [facility] Comment: > 60 Optimal 40 - 60 Acceptable < 40 Low LDL Calculated 142(H) <100 mg/dL 01/14/2025 5:29 PM EDT [facility] [employer], [facility] Comment: < 100 Optimal 100 - 129 Near or above optimal 130 - 159 Borderline High 160 - 189 High >= 190 Very High The National Institutes of Health (NIH) equation is used for all lipid panels that report calculated LDL (LDL-C). Non-HDL-C Calculated 187(H) <=129 mg/dL 01/14/2025 5:29 PM EDT [employer] Comment: <130 Desirable 130-159 Above Desirable 160-189 Borderline High 190-219 High >= 220 Very High Fasting Specimen? No None 025 5:29 PM EDT [facility] Blood VENOUS BLOOD / Unknown Venipuncture / Unknown 01/14/2025 1:16 PM EDT 01/14/2025 1:16 PM EDT Eloina Donaldson MD CHEMISTRY ORDERABLES Final R esult Performing Organization Address [facility] Co de Phone Number [employer] [address] [place] [address], [address] [place] [phone] [facility] [address] [place], [place] [phone] * (ABNORMAL) HEMOGLOBIN A1C (01/14/2025 1:16 PM EDT) Hgb A1C 7.3(H) 4.2 - 5.6 % 01/14/2025 5:00 PM EDT [employer] Est. Avg Glucose 163 mg/dL 01/14/2025 5:00 PM EDT [facility] Blood VENOUS BLOOD / Unknown Venipuncture / Unknown 01/14/2025 1:16 PM EDT 01/14/2025 1:16 PM EDT Narrative [employer] - 01/14/2025 5:00 PM EDT REFERENCE RANGE: Normal: 4.0-5.6% Pre-diabetes: 5.7-6.4% Provisional diagnosis of diabetes: >6.4% Hgb F>10% and anything which shortens red cell survival, such as hemolytic anemia, or unstable hemoglobin variants such as HbSS, HbSC, or HbCC, will lower the HbA1c value associated with a given level of glycemic control. Eloina Donaldson MD CHEMISTRY ORDERABLES Final R esult Performing Organization Address City/[facility]/ZIP Co de Phone Number [facility] [address] [facility] , [place] [address] [facility] [address] [place] [address] * (ABNORMAL) RENAL FUNCTION PANEL (01/14/2025 1:16 PM EDT) Sodium 139 136 - 145 mmol/L 01/14/2025 5:29 PM EDT [facility] Potassium 3.9 3.5 - 5.0 mmol/L 01/14/2025 5:29 PM EDT [facility] Chloride 102 98 - 107 mmol/L 01/14/2025 5:29 PM EDT [facility] Total CO2 21(L) 22 - 29 mmol/L 01/14/2025 5:29 PM EDT [facility] Anion Gap 16 7 - 16 mmol/L 01/14/2025 5:29 PM EDT [facility] Calcium 9.1 8.6 - 10.4 mg/dL 01/14/2025 5:29 PM EDT [facility] Glucose Lvl 245(H) 70 - 99 mg/dL 01/14/2025 5:29 PM EDT [facility] BUN 7 6 - 20 mg/dL 01/14/2025 5:29 PM EDT [facility] Creatinine 0.57 0.51 - 1.30 mg/dL 01/14/2025 5:29 PM EDT [facility] Albumin 4.2 3.5 - 5.2 gm/dL 01/14/2025 5:29 PM EDT [facility] Phosphorus 2.4(L) 2.5 - 4.5 mg/dL 01/14/2025 5:29 PM EDT [facility] eGFR (CKD-EPIcr 2020) 128 >=60 mL/min/1.7 3 m2 01/14/2025 5:29 PM EDT [facility] Comment:Estimated GFR was ca lculated using the CKD-EPIcr (2020) equation refit without race. The equation is recommended by the National Kidney Foundation - [place] [employer] of Nephrology Task Force. Blood VENOUS BLOOD / Unknown Venipuncture / Unknown 01/14/2025 1:16 PM EDT 01/14/2025 1:16 PM EDT Eloina Donaldson MD CHEMISTRY ORDERABLES Final R esult [facility] [address] [facility] , [place] [address] from Last 3 Months or Most Recently Relevant to Health Maintenance Insurance [facility] [address] [facility] [address] Care Teams Workforce Development Vice President Relationship Specialty Start Date End Date Dot Soto DO [address] [place] [address] PCP - General Family Medicine 08/11/24
--- OUTSIDE RECORDS SUMMARY | 2025-06-23 19:22 | XMS_ITS | Encounter Summary ---
Author Organization [place] [address] Care Team Providers Care Train Control Technician Name Role Phone SotoDot Primary Care Provider Reason for Visit * Reason Comments Medication Refill Encounter Details Date Type Department Care Team (Late st Contact Info) Description 06/05/2025 Refill [facility] [address] [place] [address] Juliet Salmon, MONOTYPE SETTER [address] [place] [address] Medication Refill Social History Tobacco Use Types Packs/Day Years [...] on file documented as of this encounter Ordered Prescriptions Prescription Sig Dispense Quantity Refills Last Filled Start Date End Date adalimumab-bwwd (HADLIMA,CF, PUSHTOUCH) 40 mg/0.4 mL SubQ Auto-InjectorIndic ations:Rheumatoid arthritis involving multiple sites with positive rheumatoid factor (HCC) Inject 40 mg under the skin every 14 days. 0.8 mL 2 06/10/2025 adalimumab (HUMIRA,CF, PEN) 40 mg/0.4 mL SubQ Pen Injector KitIndications:Rhe umatoid arthritis involving multiple sites with positive rheumatoid factor (HCC) Inject 0.4 mL under the skin every 14 days. 1 Kit 2 06/08/2025 06/10/2025 documented in this encounter Miscellaneous Notes * Addendum Note - Dai GuadalupeKRYSTYNA - 06/10/2025 10:04 AM EDTAddended by: DAI GUADALUPE on: 06/10/2025 10:04 AM Modules accepted: Orders * Telephone Encounter - Juliet Salmon APRN - 06/09/2025 4:58 PM EDT Yes, ok to send biosim. Rheum providers informed auto changes to biosim may occur for Humira, and that pharm will auto send order- ok to proceed * Telephone Encounter - Dai GuadalupeKRYSTYNA - 06/09/2025 9:25 AM EDT Please advise if okay to send as Hadlima instead of Humira. * Telephone Encounter - Juliet Salmon APRN - 06/08/2025 4:52 PM EDT Please sched f/u 07/2025 Ok to send refill * Telephone Encounter - Guadalupe DaiKRYSTYNA - 06/05/2025 12:51 PM EDT [facility]- 05/11/2025 Labs- 03/06/2025 NEXT Follow up- Visit date not found Chart reviewed. Per last OV, adalimumab (HUMIRA,CF, PEN) 40 mg/0.4 mL SubQ Pen Injector Kit; Inject 0.4 mL under the skin every 14 days TB gold: 03/06/2025 Please advise if okay to switch to Hadlima. documented in this encounter Plan of Treatment Upcoming Encounters Date Type Department Care Team (Late st Contact Info) Description 08/18/2025 10:30 AM EDT Office Visit [facility] [address] [place] [address] Juliet Salmon, MONOTYPE SETTER [address] [place] [address] documented as of this encounter [...] multiple sites with positive rheumatoid factor (HCC) documented in this encounter Discontinued Medications Medication Sig Discontinue Reason Start Date End Da te adalimumab (HUMIRA,CF, PEN) 40 mg/0.4 mL SubQ Pen Injector KitIndications:Rheumatoi d arthritis involving multiple sites with positive rheumatoid factor (HCC) Inject 0.4 mL under the skin every 14 days. Reorder 05/11/2025 06/05/2025 documented as of this encounter Additional Health Concerns Assessment Noted Time PHQ-9 Depression Total Score: 11 024 2:18 PM EDT PHQ-2 Depression Total Score: 6 08/11/20 24 2:18 PM EDT documented as of this encounter Care Teams Train Control Technician Relationship Specialty Start Date End Date Dot Soto DO [address] [place] [address] PCP - General Family Medicine 08/11/24 documented as of this encounter
--- OUTSIDE RECORDS SUMMARY | 2025-06-23 19:22 | XMS_ITS | Encounter Summary ---
Author Organization [place] [address] Care Team Providers Care Etcher Electrolytic Name Role Phone [employer] Elisabeth WATKINS Primary Care Provider [phone] Reason for Visit * Reason Onset Date Comments Medication Management 05/15/2025 Encounter Details Date Type Department Care Team (Late st Contact Info) Description 05/15/2025 Telephone [facility] [address] [facility] [address] [place] [phone] Eloina Donaldson MD [address] [phone] Medication Management Social History Tobacco Use Types Packs/Day Years [...] encounter Miscellaneous Notes * Telephone Encounter - Awilda Coley LPN - 05/19/2025 11:52 AM EDT Letter faxed to number provided. patient notified .Voiced understanding. * Telephone Encounter - Valeria Jaimes RD, LD - 05/15/2025 3:44 PM EDT Will route to YARITZA awan. Please fax letter to [phone] Jasmina Lal per pt request. * Telephone Encounter - Eloina Donaldson MD - 05/15/2025 2:25 PM EDT Per providers discretion if they would like to initiate spironolactone as long as patient is aware of the possibility of teratogenicity with it. I do not see any direct contraindication for this patient. You can send a letter to provider with the prior information if needed. * Telephone Encounter - Valeria Jaimes RD, LD - 05/15/2025 1:31 PM EDT While speaking to pt about her upcoming hysterectomy procedure, pt mentions that Dr. Jasmina Lal, parcel post order clerk in [place], would like to start pt on Spironolactone d/t pts high testosterone. Ptwas told that she needs an ok letter from her supervisor roller printing that she is ok to start this medication. Routing to Dr. Donaldson. Pt provided fax number: [phone]. documented in this encounter Plan of Treatment Upcoming Encounters Date Type Department Care Team (Late st Contact Info) Description 08/18/2025 10:30 AM EDT Office Visit [facility] [address] [place] [address] Juliet Salmon, CAR PUSHER [address] [place] [address] documented as of this encounter Goals Goal [...] documented as of this encounter Care Teams Etcher Electrolytic Relationship Specialty Start Date End [place] [address] PCP - General Family Medicine 08/11/24 documented as of this encounter
--- OUTSIDE RECORDS SUMMARY | 2025-06-23 19:23 | XMS_ITS | Encounter Summary ---
Author [place] [address] Care Team Providers Care Optical Element Coater Name Role Phone SotoDot Primary Care Provider [phone] Reason for Visit * Reason Onset Date Comments CM- Telephonic Outreach 04/30/2025 Care Transition 04/30/2025 CM-Resource Coordination 04/30/2025 Encounter Details Date Type Department Care Team (Latest Contact Info) Description 04/30/2025 Patient Outreach [facility] [address] [place] [address] Ophelia King, YARITZA CM- Telephonic Outreach; Care Transition; CM-Resource Coordination Social History Tobacco Use Types Packs/Day Years [...] as of this encounter Progress Notes * Ophelia King, YARITZA - 04/30/2025 9:24 AM EDT Patient presents for follow up visit with Office Integration Solution Architect (OCC) Reason for visit: Durable Medical Equipment Visit Type: Telephonic Assessment: special education coordinator spoke with patient to discuss Dexcom sensor sample. Spoke with: Patient Symptoms: Patient denies any symptoms or concerns at this time Advance Care Planning (ACP): not discussed Tobacco use: not discussed Health Maintenance: not discussed Medications: not discussed Education/handouts: Education: Reinforced previous education with patient on: Continuous Glucose Monitor Handouts: No Handouts provided Goals: One-time assessment Next Steps: Integration Solution Architect will not follow at this time. Notes: During current or previous SDOH assessment, the following SDOH concern(s) were identified: Durable Medical Equipment Cost documented in this encounter Plan of Treatment Upcoming Encounters Date Type Department Care Team (Late st Contact Info) Description 08/18/2025 10:30 AM EDT Office Visit [facility] [address] [place] [address] Juliet Salmon, PERFORMANCE TEST CONSULTANT [address] [place] [address] documented as of this encounter [...] as of this encounter Visit Diagnoses Diagnosis Encounter for support and coordination of transition of care- Primary documented in this encounter Additional Health Concerns Assessment Noted Time PHQ-9 Depression Total Score: 11 024 2:18 PM EDT PHQ-2 Depression Total Score: 6 08/11/20 24 2:18 PM EDT documented as of this encounter Care Teams Optical Element Coater Relationship Specialty Start Date End Date [place] [address] PCP - General Family Medicine 08/11/24 documented as of this encounter
--- OUTSIDE RECORDS SUMMARY | 2025-06-23 19:23 | XMS_ITS | Encounter Summary ---
Author Organization [place] [address] Care Team Providers Care Yeast Fermentation Attendant Name Role Phone Dot Soto Primary Care Provider [phone] Reason for Visit * Reason Comments Pharmacy Rheumatology Management Humira Encounter Details Date Type Department Care Team (Latest Contact Info) Description 05/12/2025 Specialty Pharmacy [facility] [address] [phone] Fawad Arellano RPH Pharmacy Rheumatology Management (Humira) Social History Tobacco Use Types Packs/Day Years [...] as of this encounter Progress Notes * Fawad Arellano RPH - 05/12/2025 10:09 AM EDT [facility] Prescription received for Humira (40mg). Prescription requires prior authorization. Will complete clinical review. Patient will need IA if able to fill here. * Fawad Arellano, [facility] - 05/12/2025 10:09 AM EDT Specialty Pharmacy - Rheumatology Clinical Review Sera Dietrich is a 25 y.o. female. Rheumatology: Patient was prescribed adalimumab (Humira) 40mg SUBQ every 14 day(s) for initiation of therapy for Rheumatoid arthritis (M05.79). Medication needs loading dose: No Allergies Allergen Reactions Codeine Hives Influenza Virus Vaccines Other (See Comments) Really sick when younger Risk/ Status: Tubal Ligation Test: No results found for: PREGTESTUR Lab Results Component Value Date QUANTIFERON Negative [...] total daily dose of 200 units Insulin [place] (Disposable) Subcutaneous (Inject under the skin) 1 Each 4 times daily (before meals and nightly). Insulin Syringe-Needle U-100 Subcutaneous (Inject under the skin) 1 Each 4 times daily (before meals and nightly). Insulin Syringe-Needle U-100 1 Stick by Misc.(Non-Drug; Combo Route) route 5 times dialy as [...] sertraline Take 1 Tablet by mouth daily. Previous medications utilized: methotrexate (Trexall) Avoiding hydroxychloroquine due to retinopathy Medication being used with prescribed meds: none RAPID-3 score: 20.5 on 05/11/25 Will medication be used with another biologic or targeted synthetic DMARD? No Clinical Impression: Clinically appropriate per current guidelines. Fawad Arellano RPH Specialty Pharmacist * Marcela Talavera CPhT - 05/12/2025 10:09 AM EDT [facility] Prior Authorization Submitted PA for Quynh to [employer] insurance via [employer] ([place] [id number]). Will follow up on 05/14. * Edita Wylie CPhT - 05/12/2025 10:09 AM EDT [facility] Prior Authorization Determination Received notice of PA approval for Humira. PA approved from 05/12/25 to 05/12/26. Patient is able to fill at [facility]. Copay is $0. Will route to pharmacist to complete initial assessment prior to therapy initiation. Medication is able to be delivered via [employer]. 43 miles. documented in this encounter Plan of Treatment Upcoming Encounters Date Type Department Care Team (Late st Contact Info) Description 08/18/2025 10:30 AM EDT Office Visit [facility] [address] [place] [address] Juliet Salmon, ELECTRIC SOLDERER [address] [place], [place] [phone] documented as of this encounter Goals Goal [...] documented as of this encounter Care Teams Yeast Fermentation Attendant Relationship Specialty Start Date End Date Dot Soto DO [employer] [place] [address] PCP - General Family Medicine 08/11/24 documented as of this encounter
--- OUTSIDE RECORDS SUMMARY | 2025-06-23 19:23 | XMS_ITS | Encounter Summary ---
Author Organization [place] [address] Care Team Providers Care Packing Attendant Name Role Phone [employer] Elisabeth WATKINS Primary Care Provider [phone] Reason for Visit * Reason Onset Date Comments Other 04/27/2025 Encounter Details Date Type Department Care Team (Late Contact Info) Description 04/27/2025 Telephone [facility] [address] [facility] [address] [place], [place] [phone] Juliet Salmon, DIAMOND DRILLER HELPER [address] [place] [address] Other Social History Tobacco Use Types Packs/Day [...] encounter Miscellaneous Notes * Telephone Encounter - Melly Gill MA - 04/28/2025 1:45 PM EDT Pt requested that I MyChart message them with the response. MyChart message has been sent with Juliet Salmon's recommendations. * Telephone Encounter - Juliet Salmon APRN - 04/28/2025 1:26 PM EDT Please advise pt we can try adding a vitamin to help: one is Rx the B6 is OtC--- Rx sent to pharm- take as follows: Leucovorin 5 mg tab: once weekly, take day after methotrexate administration Try adding B6 for nausea If no improvement, stop MTX * Telephone Encounter - Gill, Melly MT - 04/28/2025 9:32 AM EDT Pt has been scheduled for VV appointment. Pt would like to know if they should discontinue MTX until then or continue? * Telephone Encounter - Juliet Salmon APRN - 04/27/2025 6:00 PM EDT Please schedule VV for Sun05/11/25 at 2:30 (block time for this pt to avoid double booking) * Telephone Encounter - Dyllan Lopez, Clerical Staff - 04/27/2025 11:04 AM EDT Pt calling, wanted to schedule VV to discuss reactions to Methotrexate. pt states she is having headaches, nausea, vomiting, and feeling pressure in her head. Pt has taken what was prescribed for themonth hoping that the symptoms would go away but has not. Pt wanted to know if she can be prescribed something else. Please advise - no appts avail until Oct documented in this encounter Plan of Treatment Upcoming Encounters Date Type Department Care Team (Late st Contact Info) Description 08/18/2025 10:30 AM EDT Office Visit [facility] [address] [place] [address] Juliet Salmon, DIAMOND DRILLER HELPER [address] [place] [address] documented as of this encounter Goals Goal [...] documented as of this encounter Care Teams Packing Attendant Relationship Specialty Start Date [place] [address] PCP - General Family Medicine 08/11/24 documented as of this encounter
--- OUTSIDE RECORDS SUMMARY | 2025-06-23 19:23 | XMS_ITS | Clinical Summary ---
Author Organization [employer] ([place], [place], [place], [place]) Address [address] [place] [address] Care Team Providers Care Applications Sales Representative Name Role Phone Dot Soto DO Primary Care Provider [phone] Allergies Active Allergy Reactions Criticality Noted Date Comments Codeine Hives High 05/14/2025 Influenza Virus Vaccines Other (See Comments) 05/14/2025 Made really sick when younger Medications ergocalciferol (DRISDOL) 1,250 mcg (50,000 unit) capsule Take 1 capsule (50,000 Units total) by mouth once a week. Active folic acid (FOLVITE) 1 MG tablet Take 1 tablet (1,000 mcg total) by mouth daily. 04/27/2025 Active insulin lispro (HumaLOG) 100 unit/mL inpn USE UP TO 100 UNITS DAILY IN DIVIDED DOSES INSTRUCTED. Active Lantus Solostar U-100 Insulin 100 unit/mL (3 mL) inpn Use up to 80 units daily as instructed. *DISCARD OPEN PEN AFTER 28 DAYS* 05/06/2025 Active meloxicam (MOBIC) 7.5 MG tablet Take 1 tablet (7.5 mg total) by mouth daily. Active levothyroxine (SYNTHROID) 50 MCG tablet Take 1 tablet (50 mcg total) by mouth Daily (0600). Active adalimumab (HUMIRA) 40 mg/0.4 mL pnkt Inject 0.4 mLs (40 mg total) under the skin every 14 (fourteen) days. 05/11/2025 Active atorvastatin (LIPITOR) 40 MG tablet Take 1 tablet (40 mg total) by mouth daily. Active Linzess 72 mcg cap Take 1 capsule (72 mcg total) by mouth daily. 04/24/2025 Active sertraline (ZOLOFT) 100 MG tablet Take 1 tablet (100 mg total) by mouth daily. Active oxyCODONE-aceta minophen (PERCOCET) 5-325 mg per tablet Take 1 tablet by mouth every 4 (four) hours as needed for up to 3 days . Max Daily Amount: 6 tablets 18 tablet 05/22/2025 05/25/20 Active Problems Problem Noted Date Diagnosed Date BMI 45.0-49.9, adult 05/22/2025 Preop examination 05/15/2025 DM (diabetes mellitus), type 1 05/15/2025 Mood disorder 05/15/2025 RA (rheumatoid arthritis) 05/15/2025 Hyperlipidemia 05/15/2025 Hypothyroid 05/15/2025 IBS (irritable bowel syndrome) 05/15/2025 Resolved Problems Problem Noted Date Diagnosed Date Resolved Date Adenomyosis 05/20/2025 05/22/2025 Hypertrophy of uterus 05/20/20252024 Menorrhagia 05/20/2025 05/22/2025 Encounters Date Type Department Care Team Description 05/22/2025 1:08 PM EDT - 05/22/2025 4:24 PM EDT Surgery [facility] [address] [place] [phone] Jasmina Lal MD LAPAROSCOPY WITH ROBOTIC ASSISTANCE SUPRACERIVAL HYSTERECTOMY 05/22/2025 12:35 PM EDT Anesthesia Event [facility] [address] [place] [phone] Tiffany Carson CRNA Wilson, Matthew L, MD 05/22/2025 10:28 AM EDT - 05/22/2025 4:42 PM EDT Hospital Encounter [facility] [address] [place] [phone] Jasmina Lal MD Hypertrophy of uterus; Endometriosis of myometrium; Deep dyspareunia; Secondary dysmenorrhea; Metrorrhagia Discharge Disposition: Home or Self Care 05/22/2025 Travel 05/15/2025 8:04 AM EDT - 05/15/2025 11:59 PM EDT Hospital Encounter [facility] Preadmission Testing [address] [facility] [address] [place] [phone] Preop examination (Primary Dx); Mood disorder (HCC) Discharge Disposition: Home or Self Care 05/15/2025 Travel from Last 3 Months Social History Tobacco Use Types Packs/Day Years [...] on file Sexual Orientation Not on file Last Filed Vital Signs Vital Sign Reading Time Taken Comments Blood Pressure 108/59 05/22/2025 4:30 PM EDT Pulse 92 05/22/2025 4:30 PM EDT Temperature 36.3 C (97.4 F) 05/22/2025 3:35 PM EDT Respiratory Rate 16 05/22/2025 4:30 PM EDT Oxygen Saturation 99% 05/22/2025 4:30 PM EDT Inhaled Oxygen Concentration - - Weight 112.9 kg (249 lb) 05/22/2025 11:06 AM EDT Height 157.5 cm (5' 2 ) 05/15/2025 8:24 AM EDT Body Mass Index 45.54 05/15/2025 8:24 AM EDT Plan of Treatment Health Maintenance Due Date Last Done Comments Diabetic Kidney Health Evalu ation (KED) 1998 Diabetic Eye Exam 01/27/2008 Depression Screening (12+) 2010 HIV Screening 2013 Hepatitis C Screening 01/27/2016 Pneumococcal Vaccine: 0-49 Y ears (1 of 2 - PCV) 2017 COVID-19 VACCINE ( - 2023-2 5 season) 2024 Pap Smear 03/21/2025 03/21/2022 Influenza Vaccine (#1) 2025 09/18/2012 Hemoglobin A1C 11/22/2025 05/22/2025, 05/15/2025 Tobacco Cessation Counseling and Screening (12+) 05/22/2026 05/22/2025 Lipid Panel 05/22/2028 05/22/2025, 01/14/2025 DTAP/TDAP/TD VACCINES (10 - Td or Tdap) 12/26/2033 12/27/2023, 12/20/2021, 10/24/2018, Additional history exists Procedures Procedure Name Priority Date/Time Associated Diagnosis Comments NOVA GLUCOSE POC Routine 05/22/2025 2:54 PM EDT ANESTHESIA INTUBATION Routine 05/22/2025 12:43 PM EDT TN LAPAROSCOPY SUPRACERVICAL HYSTERECTOMY 250 GM/< 05/22/2025 12:34 PM EDT Hypertrophy of uterus Endometriosis of myometrium Deep dyspareunia Secondary dysmenorrhea Metrorrhagia HC TAP BLOCK BILATERAL (BLK RM) Routine 05/22/2025 11:42 AM EDT FS_MODEL_IP POCT , URINE Routine 05/22/2025 11:30 AM EDT LIPID PANEL STAT 05/22/2025 10:57 AM EDT HEMOGLOBIN A1C STAT 05/22/2025 10:57 AM EDT URINE DRUG SCREEN Routine 05/22/2025 10: 52 AM EDT NOVA GLUCOSE POC Routine 05/22/2025 10:4 6 AM EDT EKG-SCANNED 05/22/2025 CBC HEMOGRAM (SJ-BKR) Routine 05/15/2025 8:22 AM EDT Preop examination BASIC METABOLIC PANEL Routine 05/15/2025 8:22 AM EDT Preop examination HEMOGLOBIN A1C Routine 05/15/2025 8:22 AM EDT Preop examination FS_MODEL_IP_ECG 12-LEAD Routine 05/15/2025 7:23 AM EDT Preop examination from Last 3 Months Results * (ABNORMAL) Glucose, Nova Meter (05/22/2025 2:54 PM EDT) Only the most recent of2 resultswithin the time period is included. POC-GLUCOSE 204(H) 70 - 110 mg/dL 05/22/2025 2:56 PM EDT [facility] Comment:In the event of poor peripheral blood flow, venous or arterial blood should be used due to the potential of erroneous results. Customer Care Agent [phone] 05/22/2025 2:56 PM EDT [facility] Blood WHOLE BLOOD / Unknown 05/22/2025 2:54 PM EDT 05/22/2025 2:56 PM EDT Narrative [facility] - 05/22/2025 2:56 PM EDT Customer Care Agent ID is - [id number] us Jasmina Lal MD POINT OF CARE TEST ORDERABLES Final Result [facility] [address] [phone] * AN SINGLE LUMEN INTUBATION (05/22/2025 12:43 PM EDT) Narrative Ricky Lewis CRNA - 05/22/2025 12:43 PM EDT Ricky [...] none Number of other approaches attempted: 0 Ricky Lewis CRNA ANESTHESIA ORDERABLES Fin al [...] supine Prep: ChloraPrep Patient monitoring: heart rate, monitor technician and continuous pulse ox Block type: TAP [...] 20cc sterile saline, 25cc injectate per side Cal Paulino MD ANESTHESIA ORDERABLES Fin al Result * POCT , urine (05/22/2025 11:30 AM EDT) POC, URINE HCG Negative Negative INTERNAL QC (VALID/INVALID ) Valid Kit Lot Number [id number] 2025 Expiration Date 2025 05/22/2025 11:3 0 AM EDT us Cal Ramos MD FS_MODEL_IP_POINT OF CARE TEST ENTER/EDIT ORDERABLES Final Result * (ABNORMAL) Hemoglobin A1c (05/22/2025 10:57 AM EDT) Only the most recent of2 resultswithin the time period is included. Hemoglobin A1C 6.4(H) 4.2 - 6.3 % 05/22/2025 11:38 AM EDT [facility] Comment: Hemoglobin A1C levels are related to mean glucose during the preceding 2-3 months. Less than 7% demonstrates glycemic control in diabetic patients. Hemoglobin AlC % Suggested Diagnosis > or = 6.5 Diabetic 5.7 - 6.4 Prediabetic <5.7 Non-diabetic eAVG Glucose 136.98 mg/dL 05/22/2025 11:38 AM EDT [facility] Blood Venipuncture / Unknown 05/22/2025 10:57 AM EDT 05/22/2025 11:12 AM EDT us Jasmina Lal MD LAB BLOOD ORDERABLES Final Re sult [facility] [address] [phone] * (ABNORMAL) Lipid panel (05/22/2025 10:57 AM EDT) Triglycerides 186 0 - 249 mg/dL 05/22/2025 11:38 AM EDT [facility] Cholesterol 207(H) 0 - 199 mg/dL 05/22/2025 11:38 AM EDT [facility] Comment: 200 to 239 mg/dL = Moderate (borderline) >239 mg/dL = High HDL Cholesterol 38(L) >=40 mg/dL 05/22/2025 11:38 AM EDT [facility] Comment: >=60 mg/dL = Desirable <40 mg/dL = Increased Risk All other components are listed individually or are calculations VLDL Cholesterol 37.2 5 - 40 mg/dL 05/22/2025 11:38 AM EDT [facility] Cholesterol/HDL ratio 5.4(H) 0.0 - 3.2 mg/dL 05/22/2025 11:38 AM EDT [facility] LDl/HDL Ratio 3 0 - 4 05/22/2025 11:38 AM EDT [facility] LDL Cholesterol, Calculated 132(H) 0 - 99 mg/dL 05/22/2025 11:38 AM EDT [facility] Blood Venipuncture / Unknown 05/22/2025 10:57 AM EDT 05/22/2025 11:12 AM EDT us Jasmina Lal MD LAB BLOOD ORDERABLES Final Re sult [facility] [address] [place] [address], [facility] [phone] * Urine Drug Screen (05/22/2025 10:52 AM EDT) Amphetamine Urine Negative Negative 025 11:58 AM EDT [facility] Barbiturate Screen Negative Negative 2024 11:58 AM EDT [facility] Benzodiazepine Screen Negative Negative 11:58 AM EDT [facility] Cocaine (Metab.) Screen Negative Negative 0 05/22/2025 11:58 AM EDT [facility] Methadone Screen Negative Negative 05/22/20 11:58 AM EDT [facility] Opiate Screen Negative Negative 05/22/2025 11:58 AM EDT [facility] Phencyclidine Screen Negative Negative 04/29 11:58 AM EDT [facility] Tetrahydrocannabinol Negative Negative 04/29 11:58 AM EDT [facility] Oxycodone Screen Negative Negative 05/22/20 11:58 AM EDT [facility] Buprenorphine Ur Negative Negative 05/22/20 11:58 AM EDT [facility] Propoxyphene Ur Negative Negative 11:58 AM EDT [facility] Heroin Ur Negative Negative 05/22/2025 11:58 AM EDT [facility] Fentanyl Negative Negative 05/22/2025 11:58 AM EDT [facility] Creatinine, Ur 152.00 mg/dL 05/22/2025 11:58 AM EDT [facility] Urine 05/22/2025 10:5 2 AM EDT 05/22/2025 11:33 AM EDT Narrative [facility] - 05/22/2025 11:58 AM EDT Clinical consideration and professional judgement should be applied to any [id number] test result, particularly when preliminary positive results [...] Jasmina Lal MD URINE ORDERABLES Final Result [facility] [address] [phone] * EKG-SCANNED (05/22/2025) Narrative 05/22/2025 Ordered by an unspecified provider. us Default Scanning Provider SCAN ORDERS Final Result * (ABNORMAL) CBC - Hemogram (SJ-BKR) (05/15/2025 8:22 AM EDT) WBC 6.6 3.9 - 10.0 K/ L 05/15/2025 8:56 AM EDT [facility] RBC 4.54 3.93 - 6.08 M/ L 05/15/2025 8:56 AM EDT [facility] Hemoglobin 13.4 11.2 - 15.7 GM/DL 05/15/2025 8:56 AM EDT [facility] Hematocrit 38.3 34.1 - 44.9 % 05/15/2025 8:56 AM EDT [facility] MCV 84 79 - 95 fL 05/15/2025 8:56 AM EDT [facility] MCH 29.5 25.6 - 32.2 pg 05/15/2025 8:56 AM EDT [facility] MCHC 35.0 32.2 - 36.5 GM/DL 05/15/2025 8:56 AM EDT [facility] RDW 14.0 11.6 - 14.4 % 05/15/2025 8:56 AM EDT [facility] Platelets 156(L) 163 - 369 K/CU MM 05/15/2025 8:56 AM EDT [facility] MPV 9.8 9.4 - 12.4 fL 05/15/2025 8:56 AM EDT [facility] nRBC 0(L) 1 - 5 /100 WBC 05/15/2025 8:56 AM EDT [facility] Blood Venipuncture / Unknown 05/15/2025 8:22 AM EDT 05/15/2025 8:52 AM EDT us Alan Muse MD LAB BLOOD ORDERABLES India l Result [facility] [address] [phone] * (ABNORMAL) Basic Metabolic Panel (05/15/2025 8:22 AM EDT) Sodium 141 136 - 146 meq/L 05/15/2025 9:14 AM EDT [facility] Potassium 3.9 3.5 - 5.1 meq/L 05/15/2025 9:14 AM EDT [facility] Chloride 108 102 - 112 meq/L 05/15/2025 9:14 AM EDT [facility] CO2 26 21 - 32 meq/L 05/15/2025 9:14 AM EDT [facility] Anion Gap 11 9 - 20 05/15/2025 9:14 AM EDT [facility] BUN 10 7 - 22 mg/dL 05/15/2025 9:14 AM EDT [facility] Creatinine 0.78 0.55 - 1.02 mg/dL 05/15/2025 9:14 AM EDT [facility] BUN/Creatinine 13 8 - 20 05/15/2025 9:14 AM EDT [facility] Glucose 153(H) 74 - 100 mg/dL 05/15/2025 9:14 AM EDT [facility] Calcium 8.8 8.5 - 10.1 mg/dL 05/15/2025 9:14 AM EDT [facility] Osmolality Calc 283.3 mOsm/kg 9:14 AM EDT [facility] eGFR (mL/min/1.73m2) >60 >=60 mL/min/1.7 3m2 05/15/2025 9:14 AM EDT [facility] Comment:eGFR of <60 suggests chronic kidney disease if found over a 3 month period of time. eGFR <15 indicates renal failure. Blood Venipuncture / Unknown 05/15/2025 8:22 AM EDT 05/15/2025 8:52 AM EDT us Alan Muse MD LAB BLOOD ORDERABLES India l Result [facility] [address] [phone] * ECG 12 lead (05/15/2025 7:23 AM EDT) VENTRICULAR RATE EKG/MIN 75 BPM GE MUSE ATRIAL RATE (MCT) 75 BPM GE MUSE TN Interval 144 ms GE MUSE QRS-INTERVAL (MSEC) 94 ms GE MUSE QT Interval 374 ms GE MUSE QTC Interval 417 ms GE MUSE P [place] 58 degrees GE MUSE R AXIS (MCT) 44 degrees GE MUSE T Wave [place] 29 degrees GE MUSE [place] Diagnosis Normal sinus rhythm with sinus arrhythmia Normal ECG Confirmed by Lotus PERALTA SUZANNE ([id number]) on 05/18/2025 1:14:46 PM GE MUSE 05/15/2025 7:23 AM EDT 05/18/2025 1:14 PM EDT us Alan Muse MD ECG ORDERABLES Final Res ult GE MUSE from Last 3 Months Insurance [employer] [facility] Advance Directives For more information, please contact: [phone] * Full Code (Latest Code Status on File) Date Activated Date Inactivated Comments 05/22/2025 11:31 AM 05/22/2025 5:42 PM * Full Code Date Activated Date Inactivated Comments 05/22/2025 9:52 AM 05/22/2025 11:31 AM Care Teams Applications Sales Representative Relationship Specialty Start Date End Date Dot Soto, DO [address] [place] [address] PCP - General Family Medicine 05/22/25
--- OUTSIDE RECORDS SUMMARY | 2025-06-23 19:23 | XMS_ITS | Encounter Summary ---
Author Organization [employer] ([place], [place], [place], [place]) Address [address] [place] [address] Care Team Providers Care Electrolytic De Scaler Name Role Phone Unavailable Primary Care Provider Unavailabl e Encounter Details Date Type Department Care Team (Latest Contact Info) Description 05/15/2025 Travel Social History Tobacco Use Types Packs/Day [...] as of this encounter Plan of Treatment Not on file documented as of this encounter Visit Diagnoses Not on filedocumented in this encounter
--- OUTSIDE RECORDS SUMMARY | 2025-06-23 19:23 | XMS_ITS | Encounter Summary ---
Author Organization [place] [address] Care Team Providers Care Chain Carrier Name Role Phone SotoDot Elisabeth WATKINS Primary Care Provider Reason for Visit * Reason Onset Date Comments Medication Refill 03/26/2025 Encounter Details Date Type Department Care Team (Late st Contact Info) Description 03/26/2025 Telephone [facility] Physicians [facility] Diabetes [address] [place], [place] [phone] Eloina Donaldson MD [address] [id number] Medication Refill Social History Tobacco Use Types [...] Telephone Encounter - Divya Cassidy MA - 03/26/2025 4:37 PM EDT Humalog vials sent to pharmacy. * Telephone Encounter - Joel Rivera, Clerical Staff - 03/26/2025 4:13 PM EDT Patient made follow up appointment for the insulin refill for Humalog needing vials please Humalog vials [facility] - [place] [id number] - [address] - [phone] [[id number]] documented in this encounter Plan of Treatment Upcoming Encounters Date Type Department Care Team (Late st Contact Info) Description 08/18/2025 10:30 AM EDT Office Visit [facility] [address] [place] [address] Juliet Salmon, EDGE SANDER [address] [place] [address] documented as of this encounter [...] documented as of this encounter Care Teams Chain Carrier Relationship Specialty Start Date End Date Dot Soto DO [address] [place] [address] PCP - General Family Medicine 08/11/24 documented as of this encounter
--- OUTSIDE RECORDS SUMMARY | 2025-06-23 19:23 | XMS_ITS | Encounter Summary ---
Author Organization Healthcare Address [address] [place] [address] Care Team Providers Care Flight Data Technician Name Role Phone Isak Calle MD Primary Care Provider [phone] Madina Mosqueda RN Unavailable [phone] Rosita Hayward UI UX ENGINEER Unavailable [phone] Reason for Visit * Reason Comments Med Refill Encounter Details Date Type Department Care Team ([facility] st Contact Info) Description 02/09/2023 Refill Medical Office Building Obstetrics and Gynecology [address] [facility], [address] [place] [address] Madina Mclean, UI UX ENGINEER [address] [facility] [address] [place] [address] Type 1 diabetes mellitus without complications ([facility]) Social History Tobacco Use Types Packs/Day Years Used Date Smoking Tobacco: Never Smokeless Tobacco: Never Alcohol Use Standard Drinks/Week Comments No 0 (1 standard drink = 0.6 oz pur e alcohol) [place] Depression Scale Answer Date Recorded [place] Depression Scale Total 8 12/21/2022 The thought of harming myself has occurred to me . Never 12/21/2022 Education Answer Date Recorded What is the highest level of school you have completed or the highest degree you have received? High school graduate 2022 Comments No Sex and Gender Information Value Date Recorded Sex Assigned at Female 2022 9:59 PM EDT Legal Sex Female 6:01 PM EDT Gender Identity Female 2022 9:59 PM EDT Sexual Orientation Straight 06/14/2023 3: 40 PM EDT documented as of this encounter Plan of Treatment Upcoming Encounters Date Type Department Care Team (Late st Contact Info) Description 07/23/2025 9:15 AM EDT Office Visit [facility] [address] [place] [address] Ashley Gomez MD [address] [facility] [address] [place] [address] 10/15/2025 3:45 PM EST Office Visit [facility] Ophthalmology [address] [place] [address] Reena Mack, WILLOW [address] [facility] [address] [place] [address] documented as of this encounter [...] has been complete d for the patient 02/21/2022 1:36 PM EDT documented as of this encounter Care Teams Flight Data Technician Relationship Specialty Start Date End Date Isak Calle MD [address] [place] [address] [place] [address] PCP - General 03/11/21 Madina Mosqueda, RN [address] [facility] [address] [place] [address] Personnel Quality Assurance Auditor Internal Medicine 09/01/21 07/08/24 Rosita Hayward APRN [address] [facility] [address] [place] [address] Nurse Practitioner Obstetrics and Gynecology 12/15/21 documented as of this encounter
--- OUTSIDE RECORDS SUMMARY | 2025-06-23 19:23 | XMS_ITS | Encounter Summary ---
Author Organization [place] [address] Care Team Providers Care Pile Trimmer Name Role Phone Dot Soto DO Primary Care Provider Reason for Visit * Reason Onset Date Comments Samples 04/30/2025 [address]ills [address] End DEXCOM G7 SENSOR Misc Device - - 10/20/2024 - Sig: CHANGE EVERY 10 DAYS Encounter Details Date Type Department Care Team (Late st Contact Info) Description 04/30/2025 Telephone [facility] [address] [place] [address] Dot Soto, DO [address] [place] [address] Samples ( Disp Refills Start End /DEXCOM G7 SENSOR Misc Device - - 10/20/2024 - /Sig: CHANGE EVERY 10 DAYS /) Social History Tobacco Use Types Packs/Day Years [...] Telephone Encounter - Rosita Mcnair MA - 04/30/2025 9:08 AM EDT Do we have samples? * Telephone Encounter - Madina Harrison MA - 04/30/2025 8:59 AM EDT Select the most appropriate reason for this telephone message: Samples Medication(s): Disp Refills Start End DEXCOM G7 SENSOR Misc Device - - 10/20/2024 - Sig: CHANGE EVERY 10 DAYS Prescribing Provider: Dr. Donaldson Is this medication on the current medication list? Yes Why do you need samples? Other Patient states yesterday her dexcom G7 sensor ripped off, and notes insurance is not willing to cover another sensor until 05/02. Patient is asking if the office has any samples to help assist her until insurance is willing to approve another sensor as she is unable to pay out of pocket and is concerned about monitoring levels through the night. Last appointment date: 01/16/25 Return Method of Communication: Phone Call Additional notes: N/A documented in this encounter Plan of Treatment Upcoming Encounters Date Type Department Care Team (Late st Contact Info) Description 08/18/2025 10:30 AM EDT Office Visit [facility] [address] [place] [address] Juliet Salmon, HEAT TREAT WORKER [address] [place], [place] [id number] documented as of this encounter Goals Goal [...] documented as of this encounter Care Teams Pile Trimmer Relationship Specialty Start Date End Date Dot Soto DO [employer] [facility] [place] [id number] PCP - General Family Medicine 08/11/24 documented as of this encounter
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
--- OUTSIDE RECORDS SUMMARY | 2025-06-23 19:23 | XMS_ITS | Clinical Summary ---
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 Active levothyroxine (SYNTHROID, LEVOTHROID) 50 MCG tablet Take 1 tablet by mouth. Active Lancets (freestyle) lancets 1 Active Blood Glucose Monitoring Suppl (FreeStyle Precision Jose System) w/Device kit 1 kit by Other route Daily As Needed (use as directed to check blood sugars). 1 kit 1 Active FreeStyle Precision Jose Test test strip Use as directed to check blood sugar 2-3 times daily 100 each 3 1 Active HumaLOG KwikPen 100 UNIT/ML solution pen-injector FOR USE AT MEALTIMES AND PER CORRECTIONAL SCALE UP TO A MAXIMUM OF 120 UNITS DAILY (APPOINTMENT NEEDED FOR ADDITIONAL REFILLS) 36 mL 2 1 Active Additional Information Patient taking differently: 200 mL, FOR USE AT MEALTIMES AND PER CORRECTIONAL SCALE UP TO A MAXIMUM OF 120 UNITS DAILY (APPOINTMENT NEEDED FOR ADDITIONAL REFILLS), Reported on 08/07/2023 Continuous Blood Gluc Sensor (Dexcom G6 Sensor) USE ONE SENSOR CONTINUOUSLY AND CHANGE EVERY 10 DAYS. 2 Active Continuous Blood Gluc Transmit (Dexcom G6 Transmitter) misc See Admin Instructions. 3 Active GlucaGen HypoKit 1 MG injection 3 Active guaiFENesin (Mucinex) 600 MG 12 hr tabletIndicatio ns:Viral syndrome Take 2 tablets by mouth 2 (Two) Times a Day. 20 tablet 3 Active cetirizine (zyrTEC) 10 MG tabletIndicatio ns:Seasonal allergic rhinitis due to pollen Take 1 tablet by mouth Daily. 30 tablet 3 3 Active Active Problems Problem Noted Date Diagnosed Date Seasonal allergic rhinitis due to pollen 023 Assessment & Plan (08/07/2023 2:48 PM EDT): Modest pattern of allergies on and off for last few weeks, with comorbid viral URI type symptoms, initiate Zyrtec which is class B in , use for the next week or so then as needed. Viral syndrome 08/07/2023 Assessment & Plan (08/07/2023 2:49 PM EDT): COVID-19 testing negative, flu screen negative for influenza A and influenza B. Consistent another viral illness which is common in community. No lower respiratory signs or symptoms of concern. Good hydration. Patient is currently 9 weeks , as such I discussed that while sinusitis can occur, this will typically be within the next week or 10 days if there is worsening or persistence of her congestion symptoms. If that occurs advise him we would consider pros and cons of initiating antibiotic therapy. I have provided guaifenesin tablets twice daily for benefit of congestive symptoms, Zyrtec will also give some benefit of nasal congestion symptoms as for comorbid benefit of allergies. Advised if not improving. 9 weeks gestation of 08/07/2023 Assessment & Plan (08/07/2023 2:46 PM EDT): Patient is currently 9 weeks, 3 days , and is following with her OB already of regularity. She has recently stopped her anxiety and depression medicines as I do have some potential risk in although fairly low risk as discussed per that assessment plan. Continue vitamin as is recommended for and otherwise follow-up with OB. At high risk for breast cancer 05/24/2023 Assessment & Plan (05/24/2023 2:18 PM EDT): Significant family risk factor for cancer including her mother who was BRCA positive, her grandmother also BRCA positive and a great grandmother who had breast cancer in her early 40s. There is also multiple other family members with early cancer including 2 cousins with ovarian issues, questionable cancer, with total abdominal hysterectomy is in the early 20s. As such she would be an appropriate candidate for genetic counseling, and I will refer in that regard with high likelihood of genetic testing as per that discussion. Depression 07/25/2022 Acquired hypothyroidism 07/25/2022 Assessment & Plan (07/25/2022 3:12 PM EDT): Reported as diagnosed in her mid teenage years. Current levothyroxine 50 g daily, with no recent labs to verify details. Last I can obtain our 08/05/2017 TSH normal at 1.92, free T4 at 1.33. In context of some subtle achy puffy sensation in the joints of the hands and feet, this can sometimes be atypical presentation of undertreated thyroid, we will check a TSH and free T4 with pending blood work. Management per results. PCOS (polycystic ovarian syndrome) 07/25/2022 Anxiety and depression 07/25/2022 Assessment & Plan (08/07/2023 2:48 PM EDT): Historically more anxiety in the depressive symptoms for which she had been doing better off of fluoxetine and buspirone until some breakthrough symptoms, as such we had resumed 05/24/2023 the fluoxetine 20 mg daily and buspirone 7.5 mg twice daily with benefit but with her recent she has discontinued reasonably. She feels she is still doing fairly well but is just stopped recently, but has no SI/HI. She will obviously follow-up with OB/gynecology related to her , but I did discuss that there still recommendations that if she ultimately feels she is having significant breakthrough anxiety and depressive symptoms during the risk-benefit ratio sometimes is in favor of restarting these medicines. She is aware and will advise if she has those concerns. Continue lifestyle modifications to benefit mood. Assessment & Plan (05/24/2023 2:18 PM EDT): Historically more anxiety than depressive type symptoms, for which she had been previously on fluoxetine 20 mg daily buspirone 7.5 mg daily. Over the last 6 months or so she had weaned off the medicine and thought she is doing better but with some recent stressors, she has had a little bit of breakthrough anxiety and depressive symptoms, but no SI/HI. She would be interested resuming medication. Prescription provided fluoxetine 20 mg and buspirone 7.5 mg twice daily. Recommend additional lifestyle modifications to benefit mood. Plan to follow-up in a couple months time to reassess. Assessment & Plan (07/25/2022 3:11 PM EDT): Anxiety more so than depressive symptoms historically, chronic pattern, with previously modest benefit from fluoxetine 20 mg daily and buspirone 7.5 mg twice daily, which she tolerated without side effects. She had done well off medicine but with the of her child in the last year, increase stressors, she feels she would benefit from resumption. Restart fluoxetine and buspirone. I continue to recommend lifestyle modification benefit needed including pursuit of activities and joint, socialization, et cetera. Advise new-onset SI/HI. Arthralgia of both hands 07/25/2022 Assessment & Plan (07/25/2022 3:14 PM EDT): Arthralgias of the joints of the hands, most prominently the PIP joints, but less prominently the MCPs and DIPs, diffusely on the hand, little bit less on the thumbs. Possibly little bit of puffiness, though not appreciated on exam today. Never erythema. More prominent over the last months. Cold weather and weather change in general seems to aggravate. Very strong family history of autoimmune, including in the patient who has type 1 diabetes mellitus and hypothyroidism, additionally a father, mother, maternal grandmother and paternal grandmother all with rheumatoid arthritis in the paternal grandmother with additional lupus. I will check standard blood work excluding urinalysis and lipid as she is nonfasting we will do those at her follow-up, when she is fasting, otherwise obtain CBC, CMP, TSH, free T4, rheumatoid factor, MAYI, CRP and ESR, in addition to uric acid which can sometimes be an atypical presentation of arthralgia pattern. Management per results. Other fatigue 07/25/2022 Assessment & Plan (07/25/2022 3:14 PM EDT): Nonspecific pattern, could be her thyroid related, with blood work to be obtained to assess for thyroid, anemia for a contributing factor. More likely this is mood related. Morbid obesity 07/25/2022 Assessment & Plan (05/24/2023 2:20 PM EDT): Ongoing difficulties maintaining her weight, and healthy diet and activity level. She would not be a good candidate for phentermine therapy with ongoing anxiety pattern and can exacerbate that of note. While she is type I diabetic, GLP-1 agonist can be used in a type I diabetic but just or not specifically indicated for that treatment. As such I will initiate trial of Wegovy 0.25 mg weekly, although I have discussed with the patient to advise her direct mail marketer that she would be using this medicine if she uses it. Caution stomach upset, crampiness, we could adjust upwards further as tolerated. Follow-up in 2 months time to reassess. Assessment & Plan (07/25/2022 3:40 PM EDT): Ongoing difficulty maintaining healthy diet and activity level, especially in context of her known type I diabetic pattern. She does not feel her weight has specifically increased or decreased, in context of potential thyroid contribution. She understands importance of improving dietary intake, activity level, and will make efforts but it has been challenging for her. Clinical diagnosis of COVID-19 06/27/2022 Assessment & Plan (06/27/2022 1:50 PM EDT): Onset of symptoms 3 days ago on Sunday, with COVID test positive that day as well, tested as her daughter was positive within the day prior. No lower respiratory signs or symptoms of concern, comfortable breathing. Good hydration. At this time, based on her type I diabetic diagnosis she qualifies for Paxlovid and I reviewed parameters and she has good renal function, with 07/12/2021 creatinine 0.50, GFR 153, and she has no medication contraindications, she is notably only taking her insulin now, no longer taking previous buspirone which would have been recommended to been held. Take medicine as prescribed, caution rebound after completing course of medicine. Additional Zofran provided for nausea. Advised concerns. Type 1 diabetes mellitus without complication Assessment & Plan (08/07/2023 3:02 PM EDT): Type I diabetic patient, and based on new over the last 9 weeks, she has appropriately discontinued the semaglutide as it has risk. Continue follow-up with endocrinology and OB for monitoring of diabetes through . Assessment & Plan (05/24/2023 2:21 PM EDT): Diagnosis estimated at approximate age of 4, with very inconsistent follow-up for many years, some poor control historically. Now managed on a regimen of insulin glargine and insulin lispro with meals. Notable for transitioning to insulin pump as of 2020, managed by [facility]ocrinology at [facility]. Recent hemoglobin A1c of 7.3% on 04/10/2023 at endocrinology, keep regular follow-up. Of note, I am initiating Wegovy for weight loss and I discussed the potential effects on glucose control, and recommending her to advise her direct mail marketer she will be potentially starting this medicine. Advise concerns. Assessment & Plan (07/25/2022 3:16 PM EDT): Diagnosis estimated at approximate age of 4, with very inconsistent follow-up for many years, some poor control historically. Now managed on a regimen of insulin glargine and insulin lispro with meals. Notable for transitioning to insulin pump as of 2020, managed by endocrinology, with current regimen of 2.2 basal units, and 35 units with meals with correction factor. Recent hemoglobin A1c reported during of 5.8% which is excellent. At this time. She had transition to be endocrinology [facility], with previous care through endocrinology in the past. Keep regular follow-up. Continue healthy diet. Assessment & Plan (06/27/2022 1:49 PM EDT): Managed by endocrinology, but in context of current COVID-19 infection I have reinforced the importance to keep her glucose control in reasonable range, although it is understandable they will bounce around a little bit with the stress of illness. Continue taking her insulin as prescribed, advise concerns. Cellulitis of skin 02/16/2021 Resolved Problems Problem Noted Date Diagnosed Date Resolved Date Anxiety 07/25/2022 07/25/2022 Immunizations Immunization Administration Dates Next Due DTaP 02/20/2002, 9,1998,1998,0 1998 HPV Quadrivalent 06/01/2015,01/29/2007 Hep A, Unspecified 06/01/2015 Hep B, Unspecified 1998,1998, 998 HiB 03/21/1999,1998,1998 ,1998 IPV 03/21/1999,1998,1998 ,1998 MMR 09/03/2002,03/21/1999 Meningococcal MCV4P (Menactra) 06/01/2015 PPD Test 03/14/2017 Tdap 12/20/2021,10/24/2018,12/02/2010 Varicella 06/01/2015,03/21/1999 Family History Medical History Relation Name Comments Diabetes Father Heart disease Father Vision loss Father Cancer Maternal Grandmother Arthritis Mother Fibromyalgia Mother Relation Name Status Comments Father Alive Maternal Grandmother Alive Mother Alive Other Other 2 x cousins Social History Tobacco Use Types Packs/Day Years Used Date Smoking Tobacco: Never Smokeless Tobacco: Never Alcohol Use Standard Drinks/Week Comments Never 0 (1 standard drink = 0.6 oz pur e alcohol) AUDIT-C Answer Date Recorded Q1: How often do you have a drink containing alc ohol? Never 02/16/2021 Average Number of Drinks Not on file 021 Frequency of Binge Drinking Not on file 01/28 PHQ-2 Answer Date Recorded Retired PHQ-9: Brief Depression Severity Measure Score 0 07/25/2022 Abuse Screen Answer Date Recorded Unsafe at Home or Work/School Not on file Feels Threatened by Someone? Not on file 07/2023 Does Anyone Keep You from Co ntacting Others or Doint Things Outside the Home? Not on file 08/07/2023 Physical Sign of Abuse Present Not on file 1 Housing Stability Answer Date Recorded Current Living Arrangements Not on file 07/29 Potentially Unsafe Housing Conditions Not on jannet e 08/07/2023 Family and Community Support Answer Anshu e Recorded Help with Day-to-Day Activities Not on file 08/07/2023 Lonely or Isolated Not on file 08/07/2023 Employment Answer Date Recorded Do you want help finding or keeping work or a sammy b? Not on file 08/07/2023 Disabilities Answer Date Recorded Concentrating, Remembering, or Making Decisions Difficulty Not on file 08/07/2023 Doing Errands Independently Difficulty Not on fi le 08/07/2023 Education Answer Date Recorded Help with school or training? 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 Not on file Not on file Not on file Last Filed Vital Signs Vital Sign Reading Time Taken Comments Blood Pressure 140/80 08/07/2023 2:25 PM EDT Pulse 81 05/24/2023 12:56 PM EDT Temperature 36.7 C (98 F) 08/07/2023 2:25 PM EDT Respiratory Rate 18 05/24/2023 12:56 PM EDT Oxygen Saturation 99% 05/24/2023 12:56 PM EDT Inhaled Oxygen Concentration - - Weight 114 kg (250 lb 4 oz) 08/07/2023 2:25 PM E DT Height 157.5 cm (5' 2 ) 08/07/2023 2:25 PM EDT Body Mass Index 45.77 08/07/2023 2:25 PM EDT Plan of Treatment Health Maintenance Due Date Last Done Comments Annual Gynecologic Pelvic an d Breast Exam 1998 DIABETIC FOOT EXAM 01/27/2008 URINE MICROALBUMIN-CREATININ E RATIO (uACR) 01/27/2008 Pneumococcal Vaccine 0-49 (1 of 2 - PCV) 2017 ANNUAL PHYSICAL 02/16/2022 02/16/2021 DIABETIC EYE EXAM 10/31/2023 10/31/2022 HEMOGLOBIN A1C 01/10/2024 07/12/2023, 06/29, 04/10/2023, Additional history exists PAP SMEAR 02/24/2024 02/23/2021 COVID-19 Vaccine (1 - 2023-2 5 season) 2024 TDAP/TD VACCINES (5 - Td or Tdap) 12/26/2033 12/27/2023, 12/20/2021, 10/24/2018, Additional history exists Hepatitis B Completed 1998, 10/1997, 1998 CHLAMYDIA SCREENING Discontinued 07/12/2023, HEPATITIS C SCREENING Completed 07/12/2023 , 07/12/2023, 07/21/2021 Procedures Procedure Name Priority Date/Time Associated Diagnosis Comments SCANNED - EYE EXAM 10/31/2022 HEMOGLOBIN A1C Routine 04/25/2021 4:33 PM EDT Type 1 diabetes mellitus without complication Anovulatory cycle PAP IG, CT-NG TV RFX HPV ASCU ([facility]) Routine 02/23/2021 Annual physical exam from Last 3 Months or Most Recently Relevant to Health Maintenance Results * SCANNED - EYE EXAM (10/31/2022) Anatomical Region Laterality Modality Other Isak Calle MD CHART REVIEW TABS Final Resul t * (ABNORMAL) Hemoglobin A1c (04/25/2021 4:33 PM EDT) Hemoglobin A1C 6.1(H) 4.8 - 5.6 % [facility] Comment: Prediabetes: 5.7 - 6.4 Diabetes: >6.4 Glycemic control for adults with diabetes: <7.0 Blood 04/25/2021 4:33 PM EDT 04/25/2021 Narrative [facility] ([facility]) - 04/26/2021 6:08 AM EDT Performed at: [facility] [id number] Enrollment Management Manager: Kevin Maxwell PhD, Phone: [phone] Patient Fasting: N Charlie Fischer MD LAB BLOOD ORDERABLES Fin al Result [facility] ([facility]) [address] [place] [address], [place] [phone] [facility] [address] [place] [address], [place] [phone] * Pap IG, Ct-Ng TV Rfx HPV ASCU (02/23/2021) ThinPrep Vial Charlie Fischer MD PATHOLOGY/CYTOLOGY ORDER RADHAMES Final Result [facility]
[address] [place] [address], from Last 3 Months or Most Recently Relevant to Health Maintenance Insurance [facility]
--- OUTSIDE RECORDS SUMMARY | 2025-06-23 19:23 | XMS_ITS | Encounter Summary ---
Author Organization [facility] [employer] ([place], [place], [place], [place]) Address [address] [place] [address] Care Team Providers Care Rags Laborer Name Role Phone Dot Soto DO Primary Care Provider [phone] Encounter Details Date Type Department Care Team (Latest Contact Info) Description 05/22/2025 Travel Social History Tobacco Use Types Packs/Day [...] Diagnoses Not on filedocumented in this encounter Care Teams Rags Laborer Relationship Specialty Start Date End Date Dot Soto DO [address] [place] [id number] PCP - General Family Medicine 05/22/25 documented as of this encounter
--- OUTSIDE RECORDS SUMMARY | 2025-06-23 19:23 | XMS_ITS | Referral Summary ---
Author Organization [email or web address] ([place] Address [address] [place] [address] Care Team Providers Care Recycling Worker Name Role Phone Brittany Dot Barber DO Primary Care Provider [phone] Encounters Date Type Department Care Team Description 05/22/2025 Travel 05/22/2025 1:08 PM EDT - 05/22/2025 4:24 PM EDT Surgery [facility] Surgery Department [address] [place] [address] Jasmina Lal MD LAPAROSCOPY WITH ROBOTIC ASSISTANCE SUPRACERIVAL HYSTERECTOMY 05/22/2025 12:35 PM EDT Anesthesia Event [facility] Surgery Department [address] [place] [address] Tiffany Carson CRNA Wilson, Matthew L, MD 05/22/2025 10:28 AM EDT - 05/22/2025 4:42 PM EDT Hospital Encounter [facility] Surgery Department [address] [place] [address] Jasmina Lal MD Hypertrophy of uterus; Endometriosis of myometrium; Deep dyspareunia; Secondary dysmenorrhea; Metrorrhagia Discharge Disposition: Home or Self Care 05/15/2025 Travel 05/15/2025 8:04 AM EDT - 05/15/2025 11:59 PM EDT Hospital Encounter [facility] Preadmission Testing [address] [place] [address] Preop examination (Primary Dx); Mood disorder (HCC) Discharge Disposition: Home or Self Care from Last 3 Months Allergies Active Allergy Reactions Criticality Noted Date [...] Hypertrophy of uterus 05/20/20252024 Menorrhagia 05/20/2025 05/22/2025 Social History Tobacco Use Types Packs/Day Years [...] 05/15/2025 8:24 AM EDT Plan of Treatment Not on file Procedures Procedure Name Priority Date/Time Associated Diagnosis Comments NOVA GLUCOSE POC Routine 05/22/2025 2:54 PM EDT ANESTHESIA INTUBATION Routine 05/22/2025 12:43 PM EDT ND LAPAROSCOPY SUPRACERVICAL HYSTERECTOMY 250 GM/< 05/22/2025 12:34 [...] of2 resultswithin the time period is included. [facility] POC-GLUCOSE 204(H) 70 - 110 mg/dL 05/22/2025 2:56 PM EDT [facility] Comment:In the event of poor peripheral blood flow, venous or arterial blood should be used due to the potential of erroneous results. Camera Engineer [id number] 05/22/2025 2:56 PM EDT [facility] Blood WHOLE BLOOD / Unknown 05/22/2025 2:54 PM EDT 05/22/2025 2:56 PM EDT Narrative [facility] - 05/22/2025 2:56 PM EDT Camera Engineer ID is - [id number] us Jasmina Lal MD POINT OF CARE TEST ORDERABLES Final Result [facility] [address] [place] [address], [facility] [phone] * AN SINGLE LUMEN INTUBATION (05/22/2025 12:43 [...] supine Prep: ChloraPrep Patient monitoring: heart rate, cardiac care nurse and continuous pulse ox Block type: TAP [...] POCT , urine (05/22/2025 11:30 AM EDT) Pathologist [facility] POC, URINE HCG Negative Negative INTERNAL QC (VALID/INVALID ) Valid Kit Lot Number [id number] 2025 Expiration Date 2025 05/22/2025 11:3 0 AM EDT Cal Ramos MD FS_MODEL_IP_POINT OF CARE TEST ENTER/EDIT ORDERABLES Final Result * (ABNORMAL) Hemoglobin A1c (05/22/2025 10:57 AM EDT) Only the most recent of2 resultswithin the time period is included. Pathologist [facility] Hemoglobin A1C 6.4(H) 4.2 - 6.3 % 05/22/2025 11:38 AM EDT [facility] Comment: Hemoglobin A1C levels are related to mean glucose during the preceding 2-3 months. Less than 7% demonstrates glycemic control in diabetic patients. Hemoglobin AlC % Suggested Diagnosis > or = 6.5 Diabetic 5.7 - 6.4 Prediabetic <5.7 Non-diabetic eAVG Glucose 136.98 mg/dL 05/22/2025 11:38 AM EDT [facility] Blood Venipuncture / Unknown 05/22/2025 10:57 AM EDT 05/22/2025 11:12 AM EDT us Jasmina Lal MD LAB BLOOD ORDERABLES Final Re sult [facility] [address] [phone] * (ABNORMAL) Lipid panel (05/22/2025 10:57 AM EDT) Triglycerides 186 0 - 249 mg/dL 05/22/2025 11:38 AM EDT [facility] Cholesterol 207(H) 0 - 199 mg/dL 05/22/2025 11:38 AM EDT [facility] Comment: 200 to 239 mg/dL = Moderate (borderline) >239 mg/dL = High HDL Cholesterol 38(L) >=40 mg/dL 05/22/2025 11:38 AM EDT [facility] Comment: >=60 mg/dL = Desirable <40 mg/dL = Increased Risk All other components are listed individually or are calculations VLDL Cholesterol 37.2 5 - 40 mg/dL 05/22/2025 11:38 AM EDT [facility] Cholesterol/HDL ratio 5.4(H) 0.0 - 3.2 mg/dL 05/22/2025 11:38 AM EDT [facility] LDl/HDL Ratio 3 0 - 4 05/22/2025 11:38 AM EDT [facility] LDL Cholesterol, Calculated 132(H) 0 - 99 mg/dL 05/22/2025 11:38 AM EDT [facility] Blood Venipuncture / Unknown 05/22/2025 10:57 AM EDT 05/22/2025 11:12 AM EDT us Jasmina Lal MD LAB BLOOD ORDERABLES Final Re sult Performing Organization Address [facility]/ZIP Co de Phone Number [facility] [address] [phone] * Urine Drug Screen (05/22/2025 10:52 AM EDT) Amphetamine Urine Negative Negative 025 11:58 AM EDT [facility] Barbiturate Screen Negative Negative 2024 11:58 AM EDT [facility] Benzodiazepine Screen Negative Negative 11:58 AM EDT [facility] Cocaine (Metab.) Screen Negative Negative 0 05/22/2025 11:58 AM EDT [facility] Methadone Screen Negative Negative 05/22/20 11:58 AM EDT [facility] Opiate Screen Negative Negative 05/22/2025 11:58 AM EDT [facility] Phencyclidine Screen Negative Negative 04/29 11:58 AM EDT [facility] Tetrahydrocannabinol Negative Negative 04/29 11:58 AM EDT [facility] Oxycodone Screen Negative Negative 05/22/20 11:58 AM EDT [facility] Buprenorphine Ur Negative Negative 05/22/20 11:58 AM EDT [facility] Propoxyphene Ur Negative Negative 11:58 AM EDT [facility] Heroin Ur Negative Negative 05/22/2025 11:58 AM EDT [facility] Fentanyl Negative Negative 05/22/2025 11:58 AM EDT [facility] Creatinine, Ur 152.00 mg/dL 05/22/2025 11:58 AM EDT [facility] Urine 05/22/2025 10:5 2 AM EDT 05/22/2025 11:33 AM EDT Narrative [facility] - 05/22/2025 11:58 AM EDT Clinical consideration and professional judgement should be applied to any lpex-kg-qmikn test result, particularly when preliminary positive results [...] Jasmina Lal MD URINE ORDERABLES Final Result [facility] [address] [facility] [address] [phone] * EKG-SCANNED (05/22/2025) Narrative 05/22/2025 Ordered by an unspecified provider. us Default Scanning Provider SCAN ORDERS Final Result * (ABNORMAL) CBC - Hemogram (SJ-BKR) (05/15/2025 8:22 AM EDT) WBC 6.6 3.9 - 10.0 K/ L 05/15/2025 8:56 AM EDT [facility] RBC 4.54 3.93 - 6.08 M/ L 05/15/2025 8:56 AM EDT [facility] Hemoglobin 13.4 11.2 - 15.7 GM/DL 05/15/2025 8:56 AM EDT [facility] Hematocrit 38.3 34.1 - 44.9 % 05/15/2025 8:56 AM EDT [facility] MCV 84 79 - 95 fL 05/15/2025 8:56 AM EDT [facility] MCH 29.5 25.6 - 32.2 pg 05/15/2025 8:56 AM EDT [facility] MCHC 35.0 32.2 - 36.5 GM/DL 05/15/2025 8:56 AM EDT [facility] RDW 14.0 11.6 - 14.4 % 05/15/2025 8:56 AM EDT [facility] Platelets 156(L) 163 - 369 K/CU MM 05/15/2025 8:56 AM EDT [facility] MPV 9.8 9.4 - 12.4 fL 05/15/2025 8:56 AM EDT [facility] nRBC 0(L) 1 - 5 /100 WBC 05/15/2025 8:56 AM EDT [facility] Blood Venipuncture / Unknown 05/15/2025 8:22 AM EDT 05/15/2025 8:52 AM EDT Alan Muse MD LAB BLOOD ORDERABLES India l Result [facility] [address] [employer] [address] [phone] * (ABNORMAL) Basic Metabolic Panel (05/15/2025 8:22 AM EDT) Sodium 141 136 - 146 meq/L 05/15/2025 9:14 AM EDT [facility] Potassium 3.9 3.5 - 5.1 meq/L 05/15/2025 9:14 AM EDT [facility] Chloride 108 102 - 112 meq/L 05/15/2025 9:14 AM EDT [facility] CO2 26 21 - 32 meq/L 05/15/2025 9:14 AM EDT [facility] Anion Gap 11 9 - 20 05/15/2025 9:14 AM EDT [facility] BUN 10 7 - 22 mg/dL 05/15/2025 9:14 AM EDT [facility] Creatinine 0.78 0.55 - 1.02 mg/dL 05/15/2025 9:14 AM EDT [facility] BUN/Creatinine 13 8 - 20 05/15/2025 9:14 AM EDT [facility] Glucose 153(H) 74 - 100 mg/dL 05/15/2025 9:14 AM EDT [facility] Calcium 8.8 8.5 - 10.1 mg/dL 05/15/2025 9:14 AM EDT [facility] Osmolality Calc 283.3 mOsm/kg 9:14 AM EDT [facility] eGFR (mL/min/1.73m2) >60 >=60 mL/min/1.7 3m2 05/15/2025 9:14 AM EDT [facility] Comment:eGFR of <60 suggests chronic kidney disease if found over a 3 month period of time. eGFR <15 indicates renal failure. Blood Venipuncture / Unknown 05/15/2025 8:22 AM EDT 05/15/2025 8:52 AM EDT Alan Muse MD LAB BLOOD ORDERABLES India l Result Performing Organization Address City/[facility]/ZIP Co de Phone Number [facility] [address] [phone] * ECG 12 lead (05/15/2025 7:23 AM EDT) VENTRICULAR RATE EKG/MIN 75 BPM GE MUSE ATRIAL RATE (MCT) 75 BPM GE MUSE ND Interval 144 ms GE MUSE QRS-INTERVAL (MSEC) 94 ms GE MUSE QT Interval 374 ms GE MUSE QTC Interval 417 ms GE MUSE P [place] 58 degrees GE MUSE R AXIS (MCT) 44 degrees GE MUSE T Wave [place] 29 degrees GE MUSE [place] Diagnosis Normal sinus rhythm with sinus arrhythmia Normal ECG Confirmed by Lotus PERALTA SUZANNE ([id number]) on 05/18/2025 1:14:46 PM GE MUSE 05/15/2025 7:23 AM EDT 05/18/2025 1:14 PM EDT Alan Muse MD ECG ORDERABLES Final Res ult GE MUSE from Last 3 Months Insurance [employer] [facility] Advance Directives For more information, please contact: [phone] * Full Code (Latest Code Status on File) Date Activated Date Inactivated Comments 05/22/2025 11:31 AM 05/22/2025 5:42 PM * Full Code Date Activated Date Inactivated Comments 05/22/2025 9:52 AM 05/22/2025 11:31 AM Care Teams Recycling Worker Relationship Specialty Start Date End Date Dot Soto, [place] [address] PCP - General Family Medicine 05/22/25
--- OUTSIDE RECORDS SUMMARY | 2025-06-23 19:23 | XMS_ITS | Encounter Summary ---
Author Organization [place] [address] Care Team Providers Care Instructor Bus Trolley And Taxi Name Role Phone Dot Soto Primary Care Provider Reason for Visit * Reason Onset Date Comments Blood Sugar Problem 04/27/2025 Encounter Details Date Type Department Care Team (Late st Contact Info) Description 04/27/2025 Telephone [facility] Physicians [facility] Diabetes [address] [place] [phone] Eloina Donaldson MD [address] [id number] Blood Sugar Problem Social History Tobacco Use Types Packs/Day Years [...] encounter Miscellaneous Notes * Telephone Encounter - Meseret Gonzalez, KITTY,LD - 04/29/2025 1:55 PM EDT Called and spoke with pt. Reviewed Dr. Donaldson's note and recommendations. Assisted her in changing her pump settings. Pt has appt scheduled on 05/[address] Donaldson; encouraged her to reach out soonerif she continues to have blood sugar concerns. Pt voiced understanding. Flowsheet updated. * Telephone Encounter - Marilee Watts - 04/29/2025 1:35 PM EDT pt returned call. Please call back. * Telephone Encounter - Meseret Gonzalez RD, LD - 04/29/2025 12:40 PM EDT Attempted to reach pt. Pt did not answer and ringing turned to busy tone. Will attempt to reach at a later time. * Telephone Encounter - Eloina Donaldson MD - 04/29/2025 12:14 PM EDT Reviewed Tandem data pt receiving more basal than programmed dosing in addition to post-prandial hyperglycemia however pt not inputting carbs. Please increase her basal rate to 3 units/hr across the board and increase carb ratio intensity to 1 unit for every 4 carbs for all meals. Encourage patientto not override and utilize bolus with carbs so at next visit we can accurately adjust carb ratio. Henna flor ensure she has follow up with me within the next few weeks of these changes. * Telephone Encounter - Meseret Gonzalez RD, LD - 04/29/2025 10:45 AM EDT Images from the original note were not included. Pt data now available in Tandem Source. Report reviewed. Overrides account for 85% of bolus amounts. She is rarely entering carbs. High blood sugars throughout the day, blood sugars tend to go back in range overnight. Pt reports she overrides instead of entering carbs because she needs more insulin than pump gives her when entering carbs. Report shows the following: Pt may need more adjustments than education's protocol allows. Routing to Dr. Donaldson for review andreharjitdation. * Telephone Encounter - Meseret Gonzalez RD, LD - 04/27/2025 12:18 PM EDT Called and spoke with pt. Pt states that her blood sugars have been high for weeks. She denies any recent illness or steroid use. She does report increased stress d/t a in the family. Pt reports she was recently dx with rheumatoid arthritis and was started on methotrexate. Pt on a Tandem pump in control IQ. Pump data stops on 04/11/25. Instructed pt to open Tandem benoit on her phone and keep it running in the background at all times. Instructed her to drink plenty of water, give corrections as needed and test for ketones when BG is >250 mg/dL. Pt voiced understanding. Will check back on pump report this afternoon to see if more data has pulled over to Source. * Telephone Encounter - Marjorie Obrien - 04/27/2025 11:58 AM EDT Pt called and BS are running high and thinks she needs and insulin adjustment. documented in this encounter Plan of Treatment Upcoming Encounters Date Type Department Care Team (Late st Contact Info) Description 08/18/2025 10:30 AM EDT Office Visit [facility] [address] [place] [address] Juliet Salmon, GARMENT PARTS CUTTER MACHINE [address] [place] [address] documented as of this encounter Goals Goal [...] documented as of this encounter Care Teams Instructor Bus Trolley And Taxi Relationship Specialty Start Date End Date Dot Soto DO [employer] [place] [id number] PCP - General Family Medicine 08/11/24 documented as of this encounter
--- OUTSIDE RECORDS SUMMARY | 2025-06-23 19:23 | XMS_ITS | Encounter Summary ---
Author Organization Healthcare Address [address] [place] [address] Care Team Providers Care Sitecore Developer Name Role Phone Isak Calle MD Primary Care Provider [phone] Madina Mosqueda RN Unavailable [phone] Rosita Hayward UNIT AIDE Unavailable [phone] Reason for Visit * Reason Comments Med Refill Encounter Details Date Type Department Care Team (Late st Contact Info) Description 05/13/2024 Refill [facility] Endocrinology [address] [place] [address] Alton Crawford MD [address] [address] Type 1 diabetes mellitus without complications ([facility]) Social History Tobacco Use Types Packs/Day Years Used Date Smoking Tobacco: Never Passive Smoke Exposure: Never Smokeless Tobacco: Never Alcohol Use Standard Drinks/Week Comments Never 0 (1 standard drink = 0.6 oz pur e alcohol) [place]ok[place] Depression Scale Answer Date Recorded [place] Depression Scale Total 4 03/06/2024 The thought [...] drink first t seamus in the morning (EYE-CUSTOMER RELATIONS ADVISOR) to steady your nerves or to get [...] of Assessment Author No 02/21/2024 10:35 AM EDT Viky Neves RN * Are you blind or do you have serious difficulty seeing, even when wearing glasses? Answer Date of Assessment Author No 02/21/2024 10:35 AM EDT Viky Neves RN * Do you have serious difficulty walking or climbing stairs? Answer Date of Assessment Author No 02/21/2024 10:35 AM ANTONIETAT Viky Neves RN * Do you have serious difficulty dressing or bathing? Answer Date of Assessment Author No 02/21/2024 10:35 AM EDT Viky Neves RN * Because of a physical, mental, or emotional condition, do you have serious difficulty doing errandsalone such as visiting the doctor? Answer Date of Assessment Author No 02/21/2024 10:35 AM ANTONIETAT Viky Neves RN documented as of this encounter Mental Status * Because of a physical, mental, or emotional condition, do you have serious difficulty concentrating, remembering, or making decisions? (5 years old or older) Answer Entry Date Author No 02/21/2024 10:35 AM Viky Mccarty RN documented in this encounter Miscellaneous Notes * Telephone Encounter - Sacha Clifton, PharmD - 05/13/2024 10:20 AM EDT Humalog medication(s) has been denied per protocol due to: Duplicate request documented in this encounter Plan of Treatment Upcoming Encounters Date Type Department Care Team (Late st Contact Info) Description 07/23/2025 9:15 AM EDT Office Visit [facility] [address] [place] [address] Ashley Gomez MD [address] [place] [phone] 10/15/2025 3:45 PM EST Office Visit [facility] Ophthalmology [address] [place] [address] Reena Mack, OD [address] [place] [address] documented as of this encounter [...] plan has been documented for the patient 02/21/2024 11:23 AM EDT documented as of this encounter Care Teams Sitecore Developer Relationship Specialty Start Date End Date Isak Calle MD [address] [place] [address] PCP - General 03/11/21 Madina Mosqueda, RN [address] [place] [address] Cafeteria Assistant Internal Medicine 09/01/21 07/08/24 Rosita Hayward APRN [address] [address] Nurse Practitioner Obstetrics and Gynecology 12/15/21 documented as of this encounter
--- OUTSIDE RECORDS SUMMARY | 2025-06-23 19:23 | XMS_ITS | Encounter Summary ---
Author Organization Healthcare Address [address] [place] [address] Care Team Providers Care Piece Dyer Name Role Phone Isak Calle MD Primary Care Provider [phone] Madina Mosqueda RN Unavailable [phone] Rosita Hayward DIRECTOR OF PROGRAMMING Unavailable [phone] Reason for Visit * Reason Comments Med Refill Encounter Details Date Type Department Care Team ([facility] Contact Info) Description 04/03/2024 Refill Medical Office Building Obstetrics and Gynecology [address] [facility] [place] [address] Kelly Anderson MD [address] [facility] [address] [place] [address] Type 1 diabetes mellitus during , antepartum Social History Tobacco Use Types Packs/Day Years Used Date Smoking Tobacco: Never Passive Smoke Exposure: Never Smokeless Tobacco: Never Alcohol Use Standard Drinks/Week Comments Never 0 (1 standard drink = 0.6 oz pur e alcohol) Williamson Depression Scale Answer Date Recorded Williamson Depression Scale Total 4 03/06/2024 The thought [...] drink first t seamus in the morning (EYE-MOLD FORMS BUILDER) to steady your nerves or to get [...] 10:35 AM ANTONIETAT Viky Neves RN * Because of a physical, mental, or emotional condition, do you have serious difficulty doing errandsalone such as visiting the doctor? Answer Date of Assessment Author No 02/21/2024 10:35 AM EDT Viky Neves RN documented as of this [...] Description 07/23/2025 9:15 AM EDT Office Visit [facility] [address] [place] [address] Ashley Gomez MD [address] [facility] [address] [place] [address] 10/15/2025 3:45 PM EST Office Visit [facility] Ophthalmology [address] [place] [address] Reena Mack, WILLOW [address] [facility] [address] [place] [address] documented as of this encounter Goals Goal Patient Goal Type Associated Problems Recent Progress Patient-Stated? Author Delayed Delivery Care Plan CPM S20 PP LABOR (OBSTETRICS) No Open Scheduling, Background documented as of this encounter Visit Diagnoses Diagnosis Type 1 diabetes mellitus during , antepartum documented in this encounter Additional Health Concerns Active Problems Noted Date Diagnosed Date CPM S20 PP LABOR (OBSTETRICS) 02/05/2022 Assessment Noted Time A fall risk assessment has been complete d for the patient 06/12/2023 1:14 PM EDT A Body Mass Index follow-up plan has been documented for the patient 02/21/2024 11:23 AM EDT documented as of this encounter Care Teams Piece Dyer Relationship Specialty Start Date End Date Isak Calle MD [address] [place] [address] [place] [address] PCP - General 03/11/21 Maidna Mosqueda RN [address] [facility] [address] [place] [phone] Workers Compensation Examiner Internal Medicine 09/01/21 07/08/24 Rosita Hayward APRN [address] [facility] [address] [place] [address] Nurse Practitioner Obstetrics and Gynecology 12/15/21 documented as of this encounter
--- OUTSIDE RECORDS SUMMARY | 2025-06-23 19:23 | XMS_ITS | Encounter Summary ---
Author Organization [place] [address] Care Team Providers Care Rn Labor And Delivery Name Role Phone Dot Soto Primary Care Provider Reason for Visit * Reason Comments Medication Refill Encounter Details Date Type Department Care Team (Late st Contact Info) Description 04/27/20[facility] [place] [address] [facility] [address] [place] [address] Eloina Donaldson MD [address] [phone] Medication Refill Social History Tobacco Use Types [...] Refills Last Filled Start Date End Date LANTUS SOLOSTAR U-100 INSULIN 100 unit/mL (3 mL) SubQ Insulin PenIndications:Type 1 diabetes mellitus with diabetic polyneuropathy (HCC) Use up to 80 units daily as instructed. *DISCARD OPEN PEN AFTER 28 DAYS* 78 mL 05/06/2025 documented in this encounter Miscellaneous Notes * Telephone Encounter - Miriam Bullock CPhT - 04/29/2025 8:06 AM EDT Lantus Refill request deferred to the office: Medication noted as not taking documented in this encounter Plan of Treatment Upcoming Encounters Date Type Department Care Team (Late st Contact Info) Description 08/18/2025 10:30 AM EDT Office Visit [facility] [address] [place] [address] Juliet Salmon, POTTER OR CERAMIC ARTIST [address] [place] [address] documented as of this encounter [...] Diagnoses Diagnosis Type 1 diabetes mellitus with diabetic polyneuropathy (HCC) Type I (juvenile type) diabetes mellitus with neurological manifestations, not stated as uncontrolled documented in this encounter Discontinued Medications Medication Sig Discontinue Reason Start Date End Da te LANTUS SOLOSTAR U-100 INSULIN 100 unit/mL (3 mL) SubQ Insulin PenIndications:Type 1 diabetes mellitus with diabetic polyneuropathy (HCC) Use up to 80 units daily as instructed. *DISCARD OPEN PEN AFTER 28 DAYS* 02/10/2025 05/06/2025 documented as of this encounter Additional Health Concerns Assessment Noted Time PHQ-9 Depression Total Score: 11 024 2:18 PM EDT PHQ-2 Depression Total Score: 6 08/11/20 2:18 PM EDT documented as of this encounter Care Teams Rn Labor And Delivery Relationship Specialty Start Date End Date Dot Soto DO [address] [place] [address] PCP - General Family Medicine 08/11/24 documented as of this encounter
--- OUTSIDE RECORDS SUMMARY | 2025-06-23 19:23 | XMS_ITS | Encounter Summary ---
Author Organization Healthcare Address [address] [place] [address] Care Team Providers Care Derrick Follower Name Role Phone Isak Calle MD Primary Care Provider [phone] Rosita Hayward APRN Unavailable [phone] Reason for Visit * Reason Comments Med Refill Encounter Details Date Type Department Care Team (Late st Contact Info) Description 04/27/2025 Refill [facility] [address] [place] [address] Kelly Anderson MD [address] [facility] [address] [place] [address] Type 1 diabetes mellitus without complications Social History Tobacco Use Types Packs/Day Years Used Date Smoking Tobacco: Never Passive Smoke Exposure: Never Smokeless Tobacco: Never Alcohol Use Standard Drinks/Week Comments Never 0 (1 standard drink = 0.6 oz pur e alcohol) [place] Depression Scale Answer Date Recorded [place] Depression Scale Total 4 03/06/2024 The thought [...] drink first t seamus in the morning (EYE-CHEMICAL ENGINEERING TECHNOLOGIST) to steady your nerves or to get [...] Description 07/23/2025 9:15 AM EDT Office Visit [facility] [address] [place] [address] Ashley Gomez MD [address] [place] [address] 10/15/2025 3:45 PM EST Office Visit [facility] Ophthalmology [address] [place] [address] Reena Mack, OD [address] [place] [address] documented as of this encounter [...] has been complete d for the patient 02/24/2025 9:45 AM EDT A Body Mass Index follow-up plan has been documented for the patient 04/21/2025 11:07 AM EDT documented as of this encounter Care Teams Derrick Follower Relationship Specialty Start Date End Date Isak Calle MD [address] [place] [address] [place] [address] PCP - General 03/11/21 Rosita Hayward APRN [address] [facility] [address] [place] [address] Nurse Practitioner Obstetrics and Gynecology 12/15/21 documented as of this encounter
--- OUTSIDE RECORDS SUMMARY | 2025-06-23 19:23 | XMS_ITS | Encounter Summary ---
Author Organization [place] [address] Care Team Providers Care Ad Trafficker Name Role Phone SotoDot Elisabeth WATKINS Primary Care Provider Encounter Details Date Type Department Care Team (Late st Contact Info) Description 04/28/2025 Orders Only [facility] [address] [place] [address] Juliet Salmon, PRESSROOM SUPERVISOR [address] [place] [phone] Methotrexate, snf, current use (Primary Dx) Social History Tobacco Use Types Packs/Day Years [...] Refills Last Filled Start Date End Date leucovorin (WELLCOVORIN) 5 mg Oral TabletIndications :Methotrexate, snf, current use One tablet ONCE weekly 24 hours after methotrexate dose 32 Tablet 1 04/28/2025 documented in this encounter Plan of Treatment Upcoming Encounters Date Type Department Care Team (Late st Contact Info) Description 08/18/2025 10:30 AM EDT Office Visit [facility] [address] [place] [address] Juliet Salmon, PRESSROOM SUPERVISOR [address] [place] [address] documented as of this encounter Goals Goal [...] as of this encounter Visit Diagnoses Diagnosis Methotrexate, nightclub manager, current use- Primary Encounter for long-term (current) use of other medications documented in this encounter Additional Health Concerns Assessment Noted Time PHQ-9 Depression Total Score: 11 024 2:18 PM EDT PHQ-2 Depression Total Score: 6 08/11/20 24 2:18 PM EDT documented as of this encounter Care Teams Ad Trafficker Relationship Specialty Start Date End Date [place] [address] PCP - General Family Medicine 08/11/24 documented as of this encounter
--- OUTSIDE RECORDS SUMMARY | 2025-06-23 19:23 | XMS_ITS | Encounter Summary ---
Author Organization [place] Address [address] [facility] [place] [address] Care Team Providers Care Sound Engineer Name Role Phone Dot Soto DO Primary Care Provider Reason for Visit * Reason Onset Date Comments Samples 04/01/2025 DEXCOM G7 SENSOR Encounter Details Date Type Department Care Team (Late st Contact Info) Description 04/01/2025 Telephone [facility]P [facility] [address] [place] [address] Dot Soto DO [address] [place] [phone] Samples (DEXCOM G7 SENSOR) Social History Tobacco Use Types Packs/Day Years [...] encounter Miscellaneous Notes * Telephone Encounter - Sara Laird MA - 04/01/2025 4:23 PM EDT We have one sample for Pt. She is going to come pick it up. * Telephone Encounter - Jade Chapman CCMA - 04/01/2025 4:09 PM EDT Select the most appropriate reason for this telephone message: Other Who is calling (name & relationship to patient if not the patient): Patient What is needed OR why are they calling: She is calling about the same thing When is this needed by: today Where does this information need to go: Dr. Soto Return Method of Communication: Phone Call Additional information:N/A * Telephone Encounter - Sara Laird MA - 04/01/2025 3:45 PM EDT Do we have any samples? * Telephone Encounter - Marcela Jimenez - 04/01/2025 3:42 PM EDT Select the most appropriate reason for this telephone message: Samples Medication(s): DEXCOM G7 SENSOR Prescribing Provider: Brittany Is this medication on the current medication list? Yes Why do you need samples? Other unable to bean picker until Friday 04/06 Last appointment date: 01/16 Return Method of Communication: Phone Call Additional notes: na documented in this encounter Plan of Treatment Upcoming Encounters Date Type Department Care Team (Late st Contact Info) Description 08/18/2025 10:30 AM EDT Office Visit [facility] [address] [place] [address] Juliet Salmon, MANAGER FLIGHT OPERATIONS [address] [place] [address] documented as of this encounter Goals Goal [...] documented as of this encounter Care Teams Sound Engineer Relationship Specialty Start Date End Date Dot Soto DO [address] [place] [id number] PCP - General Family Medicine 08/11/24 documented as of this encounter
--- NOTE | 2025-06-23 19:40 | CT_ITS ---
PROCEDURE INFORMATION: Exam: CT Abdomen And Pelvis With Contrast Exam date and time: 06/23/2025 8:22 PM Age: 25 years old Clinical indication: Abdominal pain; Additional info: Lower abdominal pain, HX of hysterectomy TECHNIQUE: Imaging protocol: Computed tomography of the abdomen and pelvis with contrast. Radiation optimization: All CT scans at this facility use at least one of these dose optimization techniques: automated exposure control; mA and/or kV adjustment per patient size (includes targeted exams where dose is matched to clinical indication); or iterative reconstruction. Contrast material: ISOVUE; Contrast volume: 75 ml; Contrast route: IV; COMPARISON: US TRANSVAGINAL 07/24/2024 7:42 AM FINDINGS: Tubes, catheters and devices: None noted. Lungs: Lung bases appear clear. Heart: No significant coronary calcifications. No cardiomegaly. No significant pericardial effusion. Liver: Normal. No mass. Gallbladder and biliary ducts: Normal. No calcified stones. No ductal dilation. Pancreas: Normal. No ductal dilation. Spleen: Normal. No splenomegaly. Adrenal glands: Normal. No mass. Kidneys and ureters: Normal. No hydronephrosis. Stomach and bowel: Unremarkable. No obstruction. No mucosal thickening. Appendix: No evidence of appendicitis. Intraperitoneal space: Unremarkable. No free air. No significant fluid collection. Retroperitoneal space: No significant retroperitoneal inflammatory changes are noted. Vasculature: Unremarkable. No abdominal aortic aneurysm. Lymph nodes: Unremarkable. No enlarged lymph nodes. Urinary bladder: Unremarkable as visualized. Reproductive: Hysterectomy. Bones/joints: Unremarkable. No acute fracture. Soft tissues: Unremarkable. IMPRESSION: No acute findings.
[2025-06-23] MEDS: ACETAMINOPHEN 500MG TAB 1000 MG PO (19:45)
[2025-06-23] MEDS: KETOROLAC 30MG/ML VIAL 30 MG IV (19:45)
[2025-06-23 19:52] LABS: Hematocrit 38.8 % (37.0-47.0); Hemoglobin 13.7 g/dL (12.2-16.2); Immature Granulocytes % 0.4 %; Mean Corpuscular HGB Conc 35.3 g/dL (31.8-35.4); Mean Corpuscular Hemoglobin 29.7 pg (27.0-31.2); Mean Corpuscular Volume 84.0 fl (81-99); Nucleated Red Blood Cells % 0 %; Platelet Count 183 K/mm3 (142-424); Red Blood Count 4.62 M/mm3 (4.20-5.40); Red Cell Distribution Width-SD 40.6 fL; White Blood Count 5.7 K/mm3 (4.8-10.8)
[2025-06-23 19:58] LABS: Albumin Level 4.5 g/dl (3.5-5.0); Chloride 105 mmol/L (98-107); Potassium 4.1 mmoL/L (3.5-5.1); Sodium 137 mmol/L (136-145)
[2025-06-23 20:00] VITALS: BP 132/83; PULSE 78; O2SAT 98
[2025-06-23 20:01] LABS: Alanine Aminotransferase 22 U/L (12-78); Albumin/Globulin Ratio 1.4 (1.1-1.8); Alkaline Phosphatase 71 U/L (38-126); Anion Gap 13.1 mEq/L (5-15); Aspartate Amino Transferase 28 U/L (14-36); Bilirubin,Total 0.6 mg/dl (0.2-1.3); Blood Urea Nitrogen 13 mg/dl (7-17); Carbon Dioxide 23 mmol/L (22.0-30.0); Creatinine Clearance Estimated 95 mL/min (50-200); Creatinine,Serum 0.70 mg/dl (0.52-1.04); Estimated Glomerular Filt Rate 100 ml/min (>60); GFR (African American) 121 ML/MIN (>60); Globulin 3.3 g/dL (1.3-3.2); Total Protein,Serum 7.8 g/dl (6.3-8.2)
[2025-06-23 20:02] LABS: Calcium 9.2 mg/dl (8.4-10.2); Glucose 204 mg/dl (74-100)
--- NOTE | 2025-06-23 20:04 | PC.NURSE ---
pt unhooked from monitoring equipment to ambulate to restroom to attempt to provide urine for testing.
[2025-06-23 20:16] LABS: Microscopic, Urine URINE MICROSCOPIC (MICROSCOPIC)
[2025-06-23 20:18] LABS: Bilirubin,Urine Negative (Negative); Color,Urine YELLOW (Yellow); Glucose,Urine (UA) 3+ (Negative); Ketones,Urine Negative (Negative); Leukocyte Esterase,Urine Negative (Negative); PH,Urine 6.0 (5.0-8.5); Protein,Urine Negative (Negative); Specific Gravity, Urine 1.025 (1.005-1.030); Urobilinogen,Urine 1.0 EU/dl (0.2)
[2025-06-23] MEDS: IOPAMIDOL-370 (76%);100ML BOTTLE 75 ML IV (20:23)
[2025-06-23] MEDS: SODIUM CHLORIDE 0.9% 10ML SYR (RAD ONLY) 10 ML IV (20:23)
[2025-06-23 20:49] LABS: Bacteria,Urine 1+ /lpf
[2025-06-23 21:30] VITALS: BP 127/81; PULSE 73; RESP 14; TEMP 36.9; O2SAT 99
== END 2025-06-23 21:31 | disposition home or self-care (01) ==
PROVIDERS: Emergency Provider Student in an Organized Health Care Education/Training Program; PCP Student in an Organized Health Care Education/Training Program
DX: R10.9 Unspecified abdominal pain (principal); E28.2 Polycystic ovarian syndrome; E10.9 Type 1 diabetes mellitus without complications; E78.5 Hyperlipidemia, unspecified
CPT/HCPCS: 74177; 80053; 81001; 85025; 87086; 96374; 99283; 99285; J1885; Q9967

== ENCOUNTER 2025-10-01 10:00 | Outpatient (CLI) | payer OTHER, SELFPAY ==
--- OUTSIDE RECORDS SUMMARY | 2025-08-18 09:30 | XMS_ITS | Encounter Summary ---
Author Organization [place] [address] Care Team Providers Care Snake Charmer Name Role Phone Dot Soto Primary Care Provider [phone] Encounter Details Date Type Department Care Team (Latest Contact Info) Description 08/18/2025 10:30 AM EDT Telemedicine [facility] [address] [place] [address] Juliet Salmon, ADVERTISING SPACE CLERK [address] [place] [address] Rheumatoid arthritis involving multiple sites with positive [...] this encounter Progress Notes * Juliet Salmon, MAIA - 08/18/2025 10:30 AM EDT Images from the original note were not included. Rheumatology Assessment and Plan Sera was seen for follow up, + RF, joint pain and stiffness Diagnoses and all orders for this visit: Rheumatoid arthritis involving multiple sites with positive rheumatoid factor (HCC) (Chronic) C/o stiffness, swelling of the fingers - off MTX since 03/2025 for hysterectomy surgery. 03/06/25 Mild synovitis MCP# 1 R hand, # 2 of the left hand, eqsuiste tenderness w/ palpation to the wrists, MCPs, PIPs 1-5 bilateral XR hands: 11/03/24: normal XR hands, knees, chest: 02/2025 unremarkable HCQ deferred d/t retinopathy Started Methotrexate 5 tabs once weekly 03/12/25 - pt stopped after about month d/t nausea and vomiting (reported at 04/2025 f/u)- will d/c MTX d/t side effects Start TNF marilee Hadlima 40 mg SQ q 2 wks prescribed 05/11/25- pt reports did not start the medication yet d/t surgery and having questions r/t other medications. Reviewed TNFi mechanism of action, risks, benefits again today- pt reports she will start the medication Chronic pain of both knees Topical gel, brace, regular low impact, quadricept strengthing exercises recommended Mobic 7.5 mg daily prn - continue Vitamin D deficiency 50,000 IU once weekly- Continue Vit D weekly as above Diabetic polyneuropathy associated with type 1 diabetes mellitus (HCC) (Chronic) Avoiding steroids Endo managing Therapeutic drug monitoring CBC, CMP, ESR, CRP q 6 mos Labs at f/u Immunosuppression (Chronic) Hold TNFi if treated for infx, avoid live vax (-) hep panel, TB gold (02/2025) Juliet Salmon APRN [facility] Rheumatology RTC ~ 12 wks Chief Complaint No chief complaint on file. F/u HPI Patient presented today for routine care follow-up through a video visit. Patient has reviewed the terms and conditions of service as part of the registration for today's visit. Patient is aware thata video visit does not replace a [id number] exam and further services may be necessary. I advisedthe patient that we are conducting his video visit through our office in a private space on our secure network and this video visit is being conducted in accordance with [place] state telehealth/video visit regulations. Patient had no questions prior to initiation of the visit. The patient presents today for follow up regarding Rheumatoid Arthritis f/u PMHx: DM type 1 dx age 4 w/ neuropathy, glaucoma, HLD, hypothyroid, sz, tic disorder, tubal ligation fall 2023 Endometriosis- Hysterectomy 04/2025 (ovaries remain) Review of data: RF 33 (-) CCP 08/11/24 CRP 13.58 11/12/24 (-) SSA/B 02/2025 XR feet: Normal 02/2025 XR knees: normal 02/2025 XR hands 10/2024: unremarkable Hx of symptoms: Ms. Sera Dietrich is a pleasant 25 y.o following for RA Presented to [facility] rheum 02/2025 -pt c/o knuckle pain b/l hands, wrists b/l. - progressively worsening2 yrs -Swelling of the hands and tenderness to the MCPs, PIPs on initial exam, mildly elevated CRP 9.66, positive RF. XR Feet, knees - unremarkable (02/2025) - Knee pain b/l - generalized diffuse body pain as well. - tylenol - ineffective Today: Last seen for Rheumatology f/u: 05/11/25 S/p hysterectomy 05/22/25 d/t endometriosis, menorrhagia. Ovaries remain MTX held for surgery - however pt has not restarted it yet.-- reports N/V w/ use. Humira prescribed last visit - pt has not started the TNFi yet - pt deferred until appt w/ me today. Notes some swelling of the fingers- hands are stiff in AM and randomly throughout the day plans for hysterectomy (uterus only) d/t heavy, painful menstrual cycles Pain on a scale 0-10: 5 Type of pain: squeezing, stiff Swelling: fingers Stiffness: stiffness of the fingers [...] insulin, IBP Previous Therapy: Actonel MTX 02/2025: 4 wks - nausea/ vomiting Review of Systems Constitutional: Positive for malaise/fatigue. Eyes: Negative for pain. Respiratory: Negative for shortness of breath. Gastrointestinal: Negative for blood in stool. Genitourinary: Negative for hematuria. Musculoskeletal: Positive for joint pain and myalgias. Skin: Negative for rash. Neurological: Negative for weakness. Psychiatric/Behavioral: PMHx: Past Medical History: Diagnosis Date ADHD (attention deficit hyperactivity disorder) Anxiety Diabetes mellitus type 1 ([facility]) Diabetic neuropathy ([facility]) Diabetic retinopathy ([facility]) Glaucoma High cholesterol Hyperemesis gravidarum 08/11/2024 Hyperopia 04/03/2008 Hypothyroid IDDM (insulin dependent diabetes mellitus) Injury, lower leg Irregular menses Other emotional disturbance of childhood or adolescence Seizure ([facility]) 10/29/2010 due to hypoglycemia Tic disorder since seizure Patient Active Problem List Diagnosis Acquired hypothyroidism Diabetic polyneuropathy associated with type 1 diabetes mellitus ([facility]) Tic disorder Vitamin B deficiency Type 1 diabetes mellitus with hyperglycemia ([facility]) Vitamin D deficiency Iron deficiency Mixed hyperlipidemia Anxiety and depression At high risk for breast cancer H/O abnormal cervical Papanicolaou smear Insulin pump in place PCOS (polycystic ovarian syndrome) Regular astigmatism Uterine hypertrophy Class 3 severe obesity due to excess calories with serious comorbidity and body mass index (BMI) of40.0 to 44.9 in adult ([facility]) Past Surgical History: Procedure Laterality Date SECTION SECTION DENTAL SURGERY ENDOMETRIAL ABLATION 08/2024 PARTIAL HYSTERECTOMY 05/22/2025 TUBAL LIGATION 08/04/2024 Current Outpatient Medications on File Prior to Visit Medication Sig Dispense Refill Acetone, Urine, Test (KETONE URINE TEST) Misc Strip Test if blood sugar >250 and/or ill. E10.65 50 Each 3 adalimumab-bwwd (HADLIMA,CF, PUSHTOUCH) 40 mg/0.4 mL SubQ Auto-Injector Inject 40 mg under the skinevery 14 days. 0.8 mL 2 Alcohol Swabs (ALCOHOL PADS) Top Pads, Medicated Apply 1 Each topically 4 times daily. 100 Each 11 atorvastatin (LIPITOR) 40 mg Oral Tablet Take 1 Tablet by mouth daily for 360 days. 90 Tablet 3 BAQSIMI 3 mg/actuation Nasl [place], Non-Aerosol 3 mg by INTRANASAL route as needed (for severe hypoglycemia). 1 Each 11 Blood Sugar Diagnostic (ONETOUCH ULTRA TEST) Misc Strip USE TO TEST BLOOD SUGAR 8 TIMES DAILY DIRECTED 300 Strip 4 Blood-Glucose Meter (ONETOUCH ULTRAMINI) [facility] Kit Use to check blood sugars 8 times daily as directed 1 Kit 0 Blood-Glucose Sensor (DEXCOM G7 SENSOR) [facility] Device Use to monitor blood glucose, Change every 10 days. 9 Each 0 ergocalciferol (VITAMIN D) 1,250 mcg (50,000 unit) Oral Capsule Take 1 Capsule by mouth once a week. 12 Capsule 0 folic acid (FOLVITE) 1 mg Oral Tablet Take 1,000 mcg by mouth daily. insulin lispro (HUMALOG) 100 unit/mL SubQ Solution Inject as instructed, up to a maximum total daily dose of 200 units 200 mL 0 Insulin [place], Disposable, (JOSUÉ PEN NEEDLE) 32 gauge x [...] x 1/2 Misc Syringe 1 Stick by [facility].(Non-Drug; Combo Route) route 5 times dialy as needed. 150 Syringe 1 Lancets [facility] Use to check blood sugars up to 8 times daily 200 Each 11 LANTUS SOLOSTAR U-100 INSULIN 100 unit/mL (3 mL) SubQ Insulin Pen Use up to 80 units daily as instructed. *DISCARD OPEN PEN AFTER 28 DAYS* 78 mL 0 levothyroxine (SYNTHROID) 50 mcg Oral Tablet TAKE 1 TAB BY MOUTH DAILY. 30 Tab 3 LINZESS 72 mcg Oral Capsule Take 72 mcg by mouth daily. oxyCODONE-acetaminophen (PERCOCET) 5-325 mg Oral Tablet sertraline (ZOLOFT) 100 mg Oral Tablet Take 1 Tablet by mouth daily. 30 Tablet 3 tirzepatide, weight loss, (ZEPBOUND) 2.5 mg/0.5 mL SubQ Pen Injector Inject 2.5 mg under the skin once a week. 2 mL 2 No current facility-administered medications on file prior [...] No rash. Neurological: Mental Status: She is oriented to person, place, and time. Motor: No weakness. Psychiatric: Mood and Affect: Mood normal. Thought Content: Thought content normal. Labs: Lab Results Component Value Date [...] SEDRATE 4 03/06/2025 documented in this encounter Plan of Treatment Upcoming Encounters Date Type Department Care Team (Late st Contact Info) Description 11/03/2025 11:20 AM EST Office Visit [facility] [address] [facility] [address] [place] [address] Eloina Donaldson MD [address] [place] [address] 11/19/2025 2:00 PM EST Office Visit [facility] [address] [place] [address] Juliet Salmon APRN [address] [place], [place] [id number] documented as of this encounter Goals Goal [...] of immune mechanism documented in this encounter Additional Health Concerns Assessment Noted Time PHQ-9 Depression Total Score: 11 024 2:18 PM EDT PHQ-2 Depression Total Score: 6 08/11/20 24 2:18 PM EDT documented as of this encounter Care Teams Snake Charmer Relationship Specialty Start Date End Date Dot Soto DO [address] [place] [address] PCP - General Family Medicine 08/11/24 documented as of this encounter
[2025-10-01 14:41] LABS: Coronavirus 19, PCR Not Detected (NotDetected); Influenza A, PCR Not Detected (NotDetected); Influenza B, PCR Not Detected (NotDetected)
--- OUTSIDE RECORDS SUMMARY | 2025-10-04 10:02 | XMS_ITS | Encounter Summary ---
Author Organization Healthcare Address [address] [place] [address] Care Team Providers Care Jewel Setter Name Role Phone Isak Calle MD Primary Care Provider [phone] Madina Mosqueda RN Unavailable [phone] Rosita Hayward DIRECTOR OF OCCUPATIONAL HEALTH Unavailable [phone] Reason for Visit * Reason Comments Med Refill Encounter Details Date Type Department Care Team (Late st Contact Info) Description 05/13/2024 [facility]ology [address] [place] [address] Alton Crawford MD [address] [facility] [address] [place] [address] Type 1 diabetes mellitus without complications ([facility]) Social History Tobacco Use Types Packs/Day Years Used Date Smoking Tobacco: Never Passive Smoke Exposure: Never Smokeless Tobacco: Never Alcohol Use Standard Drinks/Week Comments Never 0 (1 standard drink = 0.6 oz pur e alcohol) [place] Depression Scale Answer Date Recorded [place] Depression Scale Total 4 03/06/2024 The thought [...] drink first t seamus in the morning (EYE-COMMERCIAL HORTICULTURE INSTRUCTOR) to steady your nerves or to get [...] Care Team (Late st Contact Info) Description 10/15/2025 3:45 PM EST Office Visit [facility] Ophthalmology [address] [place] [address] Reena Mack, WILLOW [address] [place] [address] 11/09/2025 10:45 AM EST Office Visit [facility] [address] [place] [address] Ashley Gomez MD [address] [place] [address] documented as of this encounter [...] documented as of this encounter Care Teams Jewel Setter Relationship Specialty Start Date End Date sIak Calle MD [address] [place] [address] [place] [address] PCP - General 03/11/21 Madina Mosqueda, RN [address] [place] [address] Chyron Operator Internal Medicine 09/01/21 07/08/24 Rosita Hayward APRN [address] [address] Nurse Practitioner Obstetrics and Gynecology 12/15/21 documented as of this encounter
--- OUTSIDE RECORDS SUMMARY | 2025-10-04 10:02 | XMS_ITS | Referral Summary ---
Author Organization [employer] ([place], [place], [place], [place], [place]) Address [address] [place] [address] Care Team Providers Care Health Information Internship Name Role Phone Dot Soto DO Primary Care Provider [phone] Allergies Active Allergy Reactions Criticality Noted Date [...] (100 mg total) by mouth daily. Active Active Problems Problem Noted Date Diagnosed [...] Procedure Name Priority Date/Time Associated Diagnosis Comments HEMOGLOBIN A1C STAT 05/22/2025 10:57 AM EDT LIPID PANEL STAT 05/22/2025 10:57 AM EDT from Last 3 Months or Most Recently Relevant to Health Maintenance Results * (ABNORMAL) Hemoglobin A1c (05/22/2025 10:57 AM EDT) Hemoglobin A1C 6.4(H) 4.2 - 6.3 % 05/22/2025 11:38 AM EDT [facility] Comment: Hemoglobin A1C levels are related to mean glucose during the preceding 2-3 months. Less than 7% demonstrates glycemic control in diabetic patients. Hemoglobin AlC % Suggested Diagnosis > or = 6.5 Diabetic 5.7 - 6.4 Prediabetic <5.7 Non-diabetic eAVG Glucose 136.98 mg/dL 05/22/2025 11:38 AM EDT [facility] Blood Venipuncture / Unknown 05/22/2025 10:57 AM EDT 05/22/2025 11:12 AM EDT Jasmina Lal MD LAB BLOOD ORDERABLES Final Re sult [facility] [address] [phone] * (ABNORMAL) Lipid panel (05/22/2025 10:57 AM EDT) Triglycerides 186 0 - 249 mg/dL 05/22/2025 11:38 AM EDT [facility] Cholesterol 207(H) 0 - 199 mg/dL 05/22/2025 11:38 AM EDT [facility] Comment: 200 to 239 mg/dL = Moderate (borderline) >239 mg/dL = High HDL Cholesterol 38(L) >=40 mg/dL 05/22/2025 11:38 AM EDT [facility] Comment: >=60 mg/dL = Desirable <40 mg/dL = Increased Risk All other components are listed individually or are calculations VLDL Cholesterol 37.2 5 - 40 mg/dL 05/22/2025 11:38 AM EDT [facility] Cholesterol/HDL ratio 5.4(H) 0.0 - 3.2 mg/dL 05/22/2025 11:38 AM EDT [facility] LDl/HDL Ratio 3 0 - 4 05/22/2025 11:38 AM EDT [facility] LDL Cholesterol, Calculated 132(H) 0 - 99 mg/dL 05/22/2025 11:38 AM EDT [facility] Blood Venipuncture / Unknown 05/22/2025 10:57 AM EDT 05/22/2025 11:12 AM EDT us Jasmina Lal MD LAB BLOOD ORDERABLES Final Re sult [facility] [address] [employer] [place] [id number], [facility] [phone] from Last 3 Months or Most Recently Relevant to Health Maintenance Insurance [employer] [facility] Advance Directives For more information, please contact: [phone] * Full Code (Latest Code Status on File) Date Activated Date Inactivated Comments 05/22/2025 11:31 AM 05/22/2025 5:42 PM * Full Code Date Activated Date Inactivated Comments 05/22/2025 9:52 AM 05/22/2025 11:31 AM Care Teams Health Information Internship Relationship Specialty Start Date End Date Dot Soto, DO [address] [place] [address] PCP - General Family Medicine 05/22/25
--- OUTSIDE RECORDS SUMMARY | 2025-10-04 10:02 | XMS_ITS | Encounter Summary ---
Author [place] [address] Care Team Providers Care Bin Tripper Operator Name Role Phone Dot Soto Primary Care Provider [phone] Reason for Visit * Reason Comments Pharmacy Rheumatology Management Hadlima Encounter Details Date Type Department Care Team (Latest Contact Info) Description 09/17/2025 Specialty Pharmacy [facility] [address] [phone] Marcela Talavera CPhT Pharmacy Rheumatology Management (Hadlima) Social History Tobacco Use Types Packs/Day Years Used Date Smoking Tobacco: Never Smokeless Tobacco: Never Alcohol Use Standard Drinks/Week Comments Never 0 (1 standard drink = 0.6 oz pur e alcohol) PHQ-2 Answer Date Recorded PHQ-2 Total Score 6 08/11/2024 Sexually Active Control Partners Comments Yes Surgical Male Partial hystere ctomy Comments No Sex and Gender Information Value Date Recorded Sex Assigned at Not on file Legal Sex Female 12:11 PM EST Gender Identity Not on file Sexual Orientation Not on file documented as of this encounter Progress Notes * Marcela Talavera CPhT - 09/17/2025 10:19 AM EST Specialty Pharmacy Refill Coordination Note Contacted Sera Dietrich today regarding refills of Hadlima. Copay amount: $0 Sent rVita message. Patient informed of copay. * Liv Melgoza CPhT - 09/17/2025 10:19 AM EST Specialty Pharmacy Refill Coordination Note Contacted Sera Dietrich today regarding refills of Hadlima. Medication to be delivered by [facility] on 09/23. Copay amount: $0 Spoke with patient. Patient informed of copay. * Rick Toure RPH - 09/17/2025 10:19 AM EST [facility] - Care Plan and Refill Review Refill questions and refill history verified. Last assessment 05/13/25. No reassessment needed at this time. Rick Toure RPH Specialty Pharmacist documented in this encounter Plan of Treatment Upcoming Encounters Date Type Department Care Team (Late st Contact Info) Description 11/03/2025 11:20 AM EST Office Visit [facility] [place] [address] [facility] [address] [place] [address] Eloina Donaldson MD [address] [place] [address] 11/19/2025 2:00 PM EST Office Visit [facility] [address] [facility] [address] [place] [address] Juliet Salmon, [facility] [address] [place] [address] documented as of this encounter Goals Goal Patient Goal Type Associated Problems Recent Progress Patient-Stated? Author Blood Pressure < 140/90 Blood Pressure 129/79(2024 11:17 AM EDT) No Dot Soto, DO BMI (Calculated) < 30 General 45.1(03/06/20 11:17 AM EDT) No Dot Soto, DO Maintain a healthy diet, exercise regularly [...] documented as of this encounter Care Teams Bin Tripper Operator Relationship Specialty Start Date End Date Dot Soto DO [employer] [place] [address] PCP - General Family Medicine 08/11/24 documented as of this encounter
--- OUTSIDE RECORDS SUMMARY | 2025-10-04 10:02 | XMS_ITS | Encounter Summary ---
Author Organization Healthcare Address [address] [place] [address] Care Team Providers Care Security Systems Integrator Name Role Phone Isak Calle MD Primary Care Provider [phone] Madina Mosqueda RN Unavailable [phone] Rosita Hayward FOIL STAMP OPERATOR Unavailable [phone] Reason for Visit * Reason Comments Med Refill Encounter Details Date Type Department Care Team ([facility] st Contact Info) Description 02/09/2023 Refill Medical Office Building Obstetrics and Gynecology [address] [place] [address] Madina Mclean, FOIL STAMP OPERATOR [address] [place] [address] Type 1 diabetes mellitus without complications ([facility]) Social History Tobacco Use Types Packs/Day Years Used Date Smoking Tobacco: Never Smokeless Tobacco: Never Alcohol Use Standard Drinks/Week Comments No 0 (1 standard drink = 0.6 oz pur e alcohol) [place] Depression Scale Answer Date Recorded [place] Depression Scale Total 8 12/21/2022 The thought [...] Description 10/15/2025 3:45 PM EST Office Visit [facility] Op[facility] [address] [place] [address] Reena Mack, OD [address] [facility] [address] [place] [address] 11/09/2025 10:45 AM EST Office Visit [facility] [address] [facility] [place] [address] Ashely Gomez MD [address] [facility] [address] [place] [address] documented as of this encounter [...] documented as of this encounter Care Teams Security Systems Integrator Relationship Specialty Start Date End Date Isak Calle MD [address] [place] [address] PCP - General 03/11/21 Madina Mosqueda, RN [address] [place] [address] Human Resources Psychologist Internal Medicine 09/01/21 07/08/24 Rosita Hayward APRN [address] [facility] [address] [place] [address] Nurse Practitioner Obstetrics and Gynecology 12/15/21 documented as of this encounter
--- OUTSIDE RECORDS SUMMARY | 2025-10-04 10:02 | XMS_ITS | Encounter Summary ---
Author Organization [place] [address] Care Team Providers Care Icu Tech Name Role Phone Dot Soto DO Primary Care Provider [phone] Reason for Referral * Medication Prior Authorization - Closed Specialty Diagnoses / Procedures Referred By Delbert maradiaga Referred To Contact Diagnoses Rheumatoid arthritis involving multiple sites with positive rheumatoid factor (HCC) Juliet Salmon APRN [address] [place] [address] Phone: tel: fax: Referral ID Status Reason Start Date Expiration Date Visits Re quested Visits Authorized [id number] Closed 1 1 Encounter Details Date Type Department Care Team (Late st Contact Info) Description 09/11/2025 Orders Only [facility] [address] [facility] [address] [place] [address] Juliet Salmon APRN [address] [place] [address] Rheumatoid arthritis involving multiple sites with positive rheumatoid factor (HCC) (Primary Dx) Social History Tobacco Use Types [...] Refills Last Filled Start Date End Date folic acid (FOLVITE) 1 mg Oral TabletIndications :Rheumatoid arthritis involving multiple sites with positive rheumatoid factor (HCC) Take 1 Tablet by mouth daily. 90 Tablet 1 5 leucovorin (WELLCOVORIN) 5 mg Oral TabletIndications :Rheumatoid arthritis involving multiple sites with positive rheumatoid factor (HCC) Take 1 Tablet by mouth once a week. The day after methotrexate administration 12 Tablet 1 5 Insulin Syringe-Needle U-100 (BD INSULIN SYRINGE ULTRA-FINE) 1 mL 31 gauge x 5/16 Misc SyringeIndication s:Rheumatoid arthritis involving multiple sites with positive rheumatoid factor (HCC) Use for weekly methotrexate administration 12 Each 1 5 methotrexate sodium 25 mg/mL Inj SolutionIndicatio ns:Rheumatoid arthritis involving multiple sites with positive rheumatoid factor (HCC) Inject 0.6 mL under the skin once a week. On the same day each week. 3 mL 1 5 documented in this encounter Plan of Treatment Upcoming Encounters Date Type Department Care Team (Late st Contact Info) Description 11/03/2025 11:20 AM EST Office Visit [facility] [address] [facility] [address] [place] [address] Eloina Donaldson MD [address] [place] [address] 11/19/2025 2:00 PM EST Office Visit [facility] [address] [facility] [address] [place] [address] Juliet Salmon, RESIDENT MEDICAL OFFICER [address] [address] documented as of this encounter [...] sites with positive rheumatoid factor (HCC)- Primary documented in this encounter Discontinued Medications Medication Sig Discontinue Reason Start Date End Da te folic acid (FOLVITE) 1 mg Oral Tablet Take 1,000 mcg by mouth daily. Formulary change 04/27/2025 09/11/2025 documented as of this encounter Additional Health Concerns Assessment Noted Time PHQ-9 Depression Total Score: 11 024 2:18 PM EDT PHQ-2 Depression Total Score: 6 08/11/20 24 2:18 PM EDT documented as of this encounter Care Teams Icu Tech Relationship Specialty Start Date End Date Dot Soto DO [address] [place] [phone] PCP - General Family Medicine 08/11/24 documented as of this encounter
--- OUTSIDE RECORDS SUMMARY | 2025-10-04 10:02 | XMS_ITS | Encounter Summary ---
Author Organization [place] [address] Care Team Providers Care Power Manager Name Role Phone SotoDot Elisabeth WATKINS Primary Care Provider [phone] Reason for Visit * Reason Comments Pharmacy Rheumatology Management Humira / Hadlima Encounter Details Date Type Department Care Team (Latest Contact Info) Description 06/05/2025 Specialty Pharmacy [facility] [address] [phone] Emma Waite CPhT Pharmacy Rheumatology Management (Humira [...] Requesting Hadlima from provider. * Clementine Wolf [facility] - 06/05/2025 12:35 PM EDT Received script for Humira. Routed message to provider to reorder as Hadlima. * Constanza Carter CPhT - 06/05/2025 12:35 PM EDT Specialty Pharmacy Refill Coordination Note Contacted Sera Dietrich today regarding refills of Hadlima. Copay amount: $0 No answer, unable to leave voicemail. * Fawad Arellano [facility] - 06/05/2025 12:35 PM EDT [facility] Prescription received for Hadlima (40mg). Prescription does not require a prior authorization. Patient copay is $0. IA has been completed, will contact patient to coordinate fill. * iVckie Pastrana CPhT - 06/05/2025 12:35 PM EDT Specialty Pharmacy Refill Coordination Note Contacted Sera Dietrich today regarding refills of Hadlima. Copay amount: $0 Spoke with patient. had surgery and put on hold until cleared to take it again. she has appt 06/23 for f/u from surgery. Biosimilar Switch pt aware * Edita Wylie CPhT - 06/05/2025 12:35 PM EDT Specialty Pharmacy Refill Coordination Note Contacted Sera Dietrich today regarding refill of Hadlima. Copay is $0 for 28 day supply. No answer, unable to leave voicemail. Mailbox not set up yet. * Lucy Alvarado CPhT - 06/05/2025 12:35 PM EDT Specialty Pharmacy Refill Coordination Note Contacted Sera Dietrich today regarding refills of Hadlima. Copay amount: $0 No answer, left voicemail to call [phone], option 4. * Chanelle Pérez CPhT - 06/05/2025 12:35 PM EDT Specialty Pharmacy Refill Coordination Note Contacted Sera Dietrich today regarding refills of Hadlima. Copay amount: $0 Sent [employer] message. Patient informed of copay. * Edita Wylie CPhT - 06/05/2025 12:35 PM EDT Specialty Pharmacy Refill Coordination Note Contacted Sera Dietrich today to see if she is ready to restart her Hadlima - put on hold due to surgery. She had to reschedule her follow up appointment and it is now 07/09/25. Will check back with patientat that time. * Edita Wylie CPhT - 06/05/2025 12:35 PM EDT Specialty Pharmacy Refill Coordination Note Contacted Sera Dietrich today to see if she is ready to restart her Hadlima - put on hold due to surgery. Appointment is now scheduled for 10/21/25. No answer. Unable to leave voicemail. Mailbox not set up. * Chanelle Pérez CPhT - 06/05/2025 12:35 PM EDT [facility] Contacted patient 4 times with no response, will route to [facility] for no contact letter * Emeterio Curiel PharmD - 06/05/2025 12:35 PM EDT [facility] Three unsuccessful attempts have been made to reach patient regarding the prescription. No contact letter will be sent. If no response from patient in one week, patient will be disenrolled from specialty pharmacy services. * Shweta Bess CPhT - 06/05/2025 12:35 PM EDT [facility] Patient has not contacted Specialty Pharmacy. Will dis-enroll from our services. * Edita Wylie CPhT - 06/05/2025 12:35 PM EDT Specialty Pharmacy Refill Coordination Note Sera Dietrich called today regarding refill of Hadlima. Copay is $0 for 28 day supply. Medication to be delivered by [facility] on 08/27/25. Spoke with patient. Patient informed of copay. Patient had follow up visit post-op and was told she can go back on her medication at this time. * Latoya Arroyo, [facility] - 06/05/2025 12:35 PM EDT [facility] - Care Plan and Refill Review Refill questions and refill history verified. Last assessment 05/13/25 No reassessment needed at this time. Provider aware of stop/re-start. Will continue to monitor via [employer] Latoya Arroyo RPH Specialty Pharmacist documented in this encounter Plan of Treatment Upcoming Encounters Date Type Department Care Team (Late st Contact Info) Description 11/03/2025 11:20 AM EST Office Visit [facility] [place] [address] [facility] [address] [place] [address] Eloina Donaldson MD [address] [place] [address] 11/19/2025 2:00 PM EST Office Visit [facility] [address] [place] [address] Juliet Salmon, SOLAR RESOURCE ASSESSOR [address] [place] [address] documented as of this encounter [...] Noted Time PHQ-9 Depression Total Score: 11 08/11/ 024 2:18 PM EDT PHQ-2 Depression Total Score: 6 08/11/20 2:18 PM EDT documented as of this encounter Care Teams Power Manager Relationship Specialty Start Date End Date Dot Soto DO [address] [place] [address] PCP - General Family Medicine 08/11/24 documented as of this encounter
--- OUTSIDE RECORDS SUMMARY | 2025-10-04 10:02 | XMS_ITS | Encounter Summary ---
Author Organization [facility] [place] [address] Care Team Providers Care Insurance Commissioner Name Role Phone Dot Soto Primary Care Provider [phone] Encounter Details Date Type Department Care Team (Latest Contact Info) Description 09/03/2025 Travel Social History Tobacco Use Types Packs/Day [...] Description 11/03/2025 11:20 AM EST Office Visit [facility] [address] [facility] [address] [place] [address] Eloina Donaldson MD [address] [place] [address] 11/19/2025 2:00 PM EST Office Visit [facility] [address] [facility] [address] [place] [address] Juliet Salmon, DOUGHNUT ICER MACHINE [address] [phone] documented as of this encounter Goals Goal [...] documented as of this encounter Care Teams Insurance Commissioner Relationship Specialty Start Date End Date Dot Soto DO [address] [place] [address] PCP - General Family Medicine 08/11/24 documented as of this encounter
--- OUTSIDE RECORDS SUMMARY | 2025-10-04 10:02 | XMS_ITS | Clinical Summary ---
Author Organization [facility] Address [address] [place] [address] Care Team Providers Care Grain Oilseed Or Pasture Farm Manager Name Role Phone Unavailable Primary Care [...] discussed with the patient to advise her hvac estimator that she would be using this medicine [...] concerns. Type 1 diabetes mellitus without complication Overview (07/29/2025): UPDATING PER 2024 REGULATORY 2024 LOAD Assessment & Plan (08/07/2023 3:02 PM EDT): [...] of 2020, managed by endocrinology at the [facility]. Recent hemoglobin A1c of 7.3% on 04/10/2023 at endocrinology, keep regular follow-up. Of note, I am initiating Wegovy for weight loss and I discussed the potential effects on glucose control, and recommending her to advise her hvac estimator she will be potentially starting this medicine. [...] time. She had transition to be endocrinology [facility], with previous care through endocrinology in [...] Additional history exists PAP SMEAR 02/24/2024 02/23/2021 TDAP/TD VACCINES (5 - Td or Tdap) [...] - 04/26/2021 6:08 AM EDT Performed at: [facility] [id number] Toe Trimmer: Kevin Maxwell PhD, Phone: [phone] Patient Fasting: N Charlie Fischer MD LAB BLOOD ORDERABLES Fin al Result [facility] (AMBULATORY) [address] [place] [address], [place] [phone] [facility] [address] [place] [address], [place] [phone] * Pap IG, Ct-Ng TV Rfx HPV ASCU (02/23/2021) ThinPrep Vial Charlie Fischer MD PATHOLOGY/CYTOLOGY ORDER RADHAMES Final Result [facility]
[address] [place] [address], from Last 3 Months or Most Recently Relevant to Health Maintenance Insurance [facility]
--- OUTSIDE RECORDS SUMMARY | 2025-10-04 10:02 | XMS_ITS | Clinical Summary ---
Author Organization [employer] ([place], [place], [place], [place], [place]) Address [address] [place] [address] Care Team Providers Care Metal Tile Setter Name Role Phone Dot Soto DO Primary Care Provider [phone] Allergies Active Allergy Reactions Criticality Noted Date [...] ears (1 of 2 - PCV) 2017 Pap Smear 03/21/2025 03/21/2022 COVID-19 VACCINE (1 - 2023-2 5 season) 2025 Influenza Vaccine (#1) 2025 09/18/2012 Hemoglobin A1C [...] - 6.3 % 05/22/2025 11:38 AM EDT [facility] Comment: Hemoglobin A1C levels are related to mean glucose during the preceding 2-3 months. Less than 7% demonstrates glycemic control in diabetic patients. Hemoglobin AlC % Suggested Diagnosis > or = 6.5 Diabetic 5.7 - 6.4 Prediabetic <5.7 Non-diabetic eAVG Glucose 136.98 mg/dL 05/22/2025 11:38 AM EDT [facility] Blood Venipuncture / Unknown 05/22/2025 10:57 AM EDT 05/22/2025 11:12 AM EDT us Jasmina Lal MD LAB BLOOD ORDERABLES Final Re sult [facility] [address] [phone] * (ABNORMAL) Lipid panel (05/22/2025 10:57 AM EDT) Triglycerides 186 0 - 249 mg/dL 05/22/2025 11:38 AM EDT [facility] Cholesterol 207(H) 0 - 199 mg/dL 05/22/2025 11:38 AM EDT [facility] Comment: 200 to 239 mg/dL = Moderate (borderline) >239 mg/dL = High HDL Cholesterol 38(L) >=40 mg/dL 05/22/2025 11:38 AM EDT [facility] Comment: >=60 mg/dL = Desirable <40 mg/dL = Increased Risk All other components are listed individually or are calculations VLDL Cholesterol 37.2 5 - 40 mg/dL 05/22/2025 11:38 AM EDT [facility] Cholesterol/HDL ratio 5.4(H) 0.0 - 3.2 mg/dL 05/22/2025 11:38 AM EDT [facility] LDl/HDL Ratio 3 0 - 4 05/22/2025 11:38 AM EDT [facility] LDL Cholesterol, Calculated 132(H) 0 - 99 mg/dL 05/22/2025 11:38 AM EDT [facility] Blood Venipuncture / Unknown 05/22/2025 10:57 AM EDT 05/22/2025 11:12 AM EDT Jasmina Lal MD LAB BLOOD ORDERABLES Final Re sult [facility] [address] [phone] from Last 3 Months or Most Recently Relevant to Health Maintenance Insurance [employer] [facility] Advance Directives For more information, please contact: [phone] * Full Code (Latest Code Status on File) Date Activated Date Inactivated Comments 05/22/2025 11:31 AM 05/22/2025 5:42 PM * Full Code Date Activated Date Inactivated Comments 05/22/2025 9:52 AM 05/22/2025 11:31 AM Care Teams Metal Tile Setter Relationship Specialty Start Date End Date Dot Soto, DO [address] [place] [address] PCP - General Family Medicine 05/22/25
--- OUTSIDE RECORDS SUMMARY | 2025-10-04 10:02 | XMS_ITS | Encounter Summary ---
Author Organization [facility] [place] [address] Care Team Providers Care Enrollment Coordinator Name Role Phone Dot Soto DO Primary Care Provider [phone] Reason for Visit * Reason Onset Date Comments Reschedule 10/02/2025 Encounter Details Date Type Department Care Team (Late st Contact Info) Description 10/02/2025 Telephone [facility] [place] [address] [facility] [address] [place], [place] [address] Eloina Donaldson MD [address] [place] [address] Reschedule Social History Tobacco Use Types Packs/Day Years [...] encounter Miscellaneous Notes * Telephone Encounter - Dot Wagner Homa - 10/02/2025 10:04 AM EST Noted no labs to review * Telephone Encounter - Carisa Ramirez - 10/02/2025 9:41 AM EST Pt called to r/s 10/06 apt due to scheduling conflict. New apt is on 10/15. documented in this encounter Plan of Treatment Upcoming Encounters Date Type Department Care Team (Late st Contact Info) Description 11/03/2025 11:20 AM EST Office Visit [facility] [place] [address] [facility] [address] [place] [address] Eloina Donaldson MD [address] [place] [address] 11/19/2025 2:00 PM EST Office Visit [facility] [address] [place] [address] Juliet Salmon, FISHING BOAT CAPTAIN [address] [place] [address] documented as of this encounter [...] documented as of this encounter Care Teams Enrollment Coordinator Relationship Specialty Start Date End Date Dot Soto DO [address] [place] [address] PCP - General Family Medicine 08/11/24 documented as of this encounter
--- OUTSIDE RECORDS SUMMARY | 2025-10-04 10:02 | XMS_ITS | Clinical Summary ---
Author Organization [facility] Address [address] [place] [address] Phone Care Team Providers Care Testing Projects Administrator Name Role Phone Dot Soto DO Primary Care Provider [phone] Allergies Active Allergy Reactions Criticality Noted Date Comments Codeandrea Hives High 01/20/2014 Influenza Virus Vaccines Other (See Comments) 08/04/2024 Really sick when younger Medications Insulin Syringe-Needle U-100 (BD INSULIN SYRINGE ULTRA-FINE) 1/2 mL 30 x 1/2 [facility] SyringeIndicatio ns:Type 1 diabetes mellitus with diabetic neuropathy (HCC) 1 Stick by [facility].(Non-Drug; Combo Route) route 5 times dialy as needed. 150 Syringe 1 015 Active Blood Sugar Diagnostic (ONETOUCH ULTRA TEST) [facility] [place] [facility] StripIndications :Type 1 diabetes mellitus with diabetic polyneuropathy (HCC) USE TO TEST BLOOD SUGAR 8 TIMES DAILY DIRECTED 300 Strip 4 016 Active Additional Information Patient not taking.Reported on 09/03/2025 Blood-Glucose Meter (ONETOUCH ULTRAMINI) [facility] [place] KitIndications:T ype 1 diabetes mellitus with diabetic polyneuropathy (HCC) Use to check blood sugars 8 times daily as directed 1 Kit 0 016 Active Additional Information Patient not taking.Reported on 09/03/2025 Lancets [facility] MiscIndications: Type 1 diabetes mellitus with diabetic polyneuropathy (HCC) Use to check blood sugars up to 8 times daily 200 Each 016 Active Additional Information Patient not taking.Reported on 09/03/2025 levothyroxine (SYNTHROID) 50 mcg Oral Tablet TAKE 1 TAB BY MOUTH DAILY. 30 Tab 3 Active Alcohol Swabs (ALCOHOL PADS) Top Pads, MedicatedIndicat ions:Type 1 diabetes mellitus with diabetic polyneuropathy (HCC) Apply 1 Each topically 4 times daily. 100 Each Active Additional Information Patient not taking.Reported on 09/03/2025 Insulin Troy, Disposable, (JOSUÉ PEN NEEDLE) 32 gauge x /32 [facility] [place] NeedleIndication s:Type 1 diabetes mellitus with diabetic polyneuropathy (HCC) Subcutaneous (Inject under the skin) 1 Each 4 times daily (before meals and nightly). 100 Each Active Additional Information Patient not taking.Reported on 09/03/2025 Insulin Syringe-Needle U-100 (BD INSULIN SYRINGE ULTRA-FINE) 1 mL 30 gauge x 1/2 [facility] [place] SyringeIndicatio ns:Type 1 diabetes mellitus with diabetic polyneuropathy (HCC) Subcutaneous (Inject under the skin) 1 Each 4 times daily (before meals and nightly). 200 Each Active Additional Information Patient not taking.Reported on 09/03/2025 Acetone, Urine, Test (KETONE URINE TEST) [facility] [place] [facility] StripIndications :Type 1 diabetes mellitus with diabetic polyneuropathy (HCC) Test if blood sugar >250 and/or ill. E10.65 50 Each Active Additional Information Patient not taking.Reported on 09/03/2025 sertraline (ZOLOFT) 100 mg Oral TabletIndication s:Anxiety and depression Take 1 Tablet by mouth daily. 30 Tablet 3 Active BAQSIMI 3 mg/actuation Nasl [place], Non-AerosolIndic ations:Type 1 diabetes mellitus with diabetic polyneuropathy (HCC) 3 mg by INTRANASAL route as needed (for severe hypoglycemia). 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 90 Tablet 3 025 2025 Active ergocalciferol (VITAMIN D) 1,250 mcg (50,000 unit) Oral CapsuleIndicatio ns:Vitamin D deficiency Take 1 Capsule by mouth once a week. 12 Capsule 025 Active LANTUS SOLOSTAR U-100 INSULIN 100 unit/mL (3 mL) SubQ Insulin PenIndications:T ype 1 diabetes mellitus with diabetic polyneuropathy (HCC) Use up to 80 units daily as instructed. *DISCARD OPEN PEN AFTER 28 DAYS* 78 mL 025 Active LINZESS 72 mcg Oral Capsule Take 72 mcg by mouth daily. 025 Active oxyCODONE-acetam inophen (PERCOCET) 5-325 mg Oral Tablet Active tirzepatide, weight loss, (ZEPBOUND) 2.5 mg/0.5 mL SubQ Pen InjectorIndicati ons:Obesity, Class III, BMI 40-49.9 (morbid obesity) (HCC) Inject 2.5 mg under the skin once a week. 2 mL 2 025 Active Additional Information Patient not taking.Reason: Other (insurance would not cover.), Reported on 09/03/2025 adalimumab-bwwd (HADLIMA,CF, PUSHTOUCH) 40 mg/0.4 mL SubQ Auto-InjectorInd ications:Rheumat oid arthritis involving multiple sites with positive rheumatoid factor (HCC) Inject 40 mg under the skin every 14 days. 0.8 mL 2 09/22/20 25 12:24 PM EST 025 Active insulin lispro (HUMALOG) 100 unit/mL SubQ SolutionIndicati ons:Type 1 diabetes mellitus with hyperglycemia (HCC) Inject as instructed, up to a maximum total daily dose of 200 units 200 mL 025 Active methotrexate sodium 25 mg/mL Inj SolutionIndicati ons:Rheumatoid arthritis involving multiple sites with positive rheumatoid factor (HCC) Inject 0.6 mL under the skin once a week. On the same day each week. 3 mL 1 025 Active Insulin Syringe-Needle U-100 (BD INSULIN SYRINGE ULTRA-FINE) 1 mL 31 gauge x 5/16 Misc SyringeIndicatio ns:Rheumatoid arthritis involving multiple sites with positive rheumatoid factor (HCC) Use for weekly methotrexate administration 12 Each 1 025 Active leucovorin (WELLCOVORIN) 5 mg Oral TabletIndication s:Rheumatoid arthritis involving multiple sites with positive rheumatoid factor (HCC) Take 1 Tablet by mouth once a week. The day after methotrexate administration 12 Tablet 1 025 Active folic acid (FOLVITE) 1 mg Oral TabletIndication s:Rheumatoid arthritis involving multiple sites with positive rheumatoid factor (HCC) Take 1 Tablet by mouth daily. 90 Tablet 1 Active Blood-Glucose Sensor (DEXCOM G7 SENSOR) Misc Device Use to monitor blood glucose, Change every 10 days. 9 Each 1 025 Active folic acid (FOLVITE) 1 mg Oral Tablet Take 1,000 mcg by mouth daily. 2024 Discontinued(F ormulary change) Blood-Glucose Sensor (DEXCOM G7 SENSOR) Misc Device Use to monitor blood glucose, Change every 10 days. 9 Each 025 2024 Discontinued Active Problems Patient Care Coordination No te [...] 4 years old. Reports being diagnosed at [facility] but unable to view documents from [...] Carb Ratio 1u:4g Target Glucose 110 Orders: [place] CONTINUOUS GLUCOSE MONITORING ANALYSIS I&R tirzepatide, weight loss, (ZEPBOUND) 2.5 mg/0.5 mL SubQ Pen Injector; Inject 2.5 mg under the skin once a week. LIPID PANEL REFLEX; Future HEMOGLOBIN A1C; Future Assessment & Plan (03/04/2025 11:58 AM EDT): Diagnosed at 4 years old. Reports being diagnosed at [facility] but unable to view documents from [...] no concerns regarding medication with future Orders: [place] CONTINUOUS GLUCOSE MONITORING ANALYSIS I&R Assessment & Plan (01/29/2025 2:01 PM EDT): Diagnosed at 4 years old. Reports being diagnosed at [facility] but unable to view documents from [...] basal insulin Orders: BAQSIMI 3 mg/actuation Nasl [place], Non-Aerosol; 3 mg by INTRANASAL route as needed (for severe hypoglycemia). TN CONTINUOUS GLUCOSE MONITORING ANALYSIS I&R Assessment & Plan (11/27/2024 11:11 AM EST): Diagnosed at 4 years old. Reports being diagnosed at [facility] but unable to view documents from [...] 4 years old. Reports being diagnosed at [facility] but unable to view documents from [...] day in divided doses as instructed. Insulin Troy, Disposable, (JOSUÉ PEN NEEDLE) 32 gauge x 5/32 Misc Needle; Subcutaneous (Inject under the skin) 1 Each 4 times daily (before meals and nightly). Insulin Syringe-Needle U-100 (BD INSULIN SYRINGE ULTRA-FINE) 1 mL 30 gauge x 1/2 Misc Syringe; Subcutaneous (Inject under the skin) 1 Each 4 times daily (before meals and nightly). AMB REFERRAL TO DIABETIC EDUCATION PROGRAM [place] CONTINUOUS GLUCOSE MONITORING ANALYSIS I&R Assessment & [...] Encounters Date Type Department Care Team Description 10/02/2025 [facility]phone [facility] [address] [facility] [address] [place] [phone] Eloina Donaldson MD Reschedule 09/22/2025 Telephone [facility] [address] [place] [address] [place] [phone] Eloina Donaldson MD Reschedule 09/17/2025 Refill [facility] [address] [facility] [address] [place] [phone] Eloina Donaldson MD Medication Refill 09/17/2025 Specialty Pharmacy [facility] [address] [place] [address] Marcela Talavera CPhT Pharmacy Rheumatology Management ([place]) 09/11/2025 Orders Only [facility] [address] [place] [phone] Juliet Salmon, MAIA Rheumatoid arthritis involving multiple sites with positive rheumatoid factor (HCC) (Primary Dx) 09/03/2025 Travel 08/18/2025 10:30 AM EDT Telemedicine [facility] [address] [facility] [address] [place] [phone] Juliet Salmon, SKULL SPLITTER Rheumatoid arthritis involving multiple sites with positive rheumatoid factor (HCC) (Primary Dx); Chronic pain of both knees; Vitamin D deficiency; Diabetic polyneuropathy associated with type 1 diabetes mellitus (HCC); Therapeutic drug monitoring; Immunosuppression 07/10/2025 Refill [facility] [place] [address] [facility] [address] [place] [address] Eloina Donaldson MD Medication Refill from Last 3 Months Immunizations Immunization Administration Dates Next Due DTaP 02/20/2002, 9,1998,1997,1998 Flucelvax 09/18/2012 HPV Quadrivalent 06/01/2015,01/29/2007 Hepatitis A, Ped/Adol, 2 Dose 03/18/2019 Hepatitis A, Unspecified Formulation 06/01/2015 Hepatitis B, Unspecified Formulation 1998, 1998,1998 HiB, Unspecified Formulation 03/21/1999, 1998,1998,1997 IPV 03/21/1999, 8,1998,1997 MMR 02/19/2024,09/03/2002,03/21/1999 Meningococcal Conjugate 06/01/2015 PPD Test 03/14/2017 Tdap 12/27/2023,,10/24/2018,2010 Varicella 06/01/2015,03/21/1999 Surgical History Surgery Date Site/Laterality [...] 04/03/2008 High cholesterol Diabetic retinopathy (HCC) Glaucoma Arthritis Family History Medical History Relation Name Comments Other Brother 4 bladder issues Anxiety Disorder Father Chaves Black Bipolar Disorder Father Chaves Black Depression Father Chaves Black Diabetes Father Chaves Black High Blood Pressure Father Chaves Black High Blood Pressure Maternal Grandmother Chelsey baez Arthritis Mother Tracy Singh High Blood Pressure Mother Tracy Singh Rheum Arthritis Mother Tracy Eatgisella Thyroid Disease Mother Tracy Singh High Blood Pressure Paternal Grandfather Chaves Black High Cholesterol Paternal Grandfather Chaves Black Celiac Disease Paternal Grandmother Carla Jackson Relation Name Status Comments Brother 1 Alive Brother 2 Alive Brother 3 Alive Brother 4 Father Chaves Black Alive Maternal Grandfather Maternal Grandmother Chelsey Ngo Alive Mother Tracy Singh Alive Paternal Grandfather Chaves Black Alive Paternal Grandmother Carla Jackson Alive [...] on file Sexual Orientation Not on file History Length Weight Head Circum Date/Time Gestation Age D/C Weight APGARs Delivery Method Feeding Method 2000 Labor Duration Days In Hospital Hospital Name Hospital Location [facility] Obstetrics History Para Term AB IAB SAB [...] l,Epi dural N Livin g 8 9 [facility] U[facility],ISHAAN Y ZULEIMA Chapman MD Delivery Location:[facility] ([facility] LAB[facility] DELIVERY) 2022 SAB 6w0 d 2022 SAB 5w0 d 2023 Term 37w 2d 0h 01m 0h 01m 8 lb 12 oz (3.969 kg) M CS-LT ranv Spina l,Epi dural N Livin g 5 9 [facility] U[facility],ISHAAN YBETHA [place] Valerie Lyons MD Complications:None Delivery Location:[facility] ([facility] LABOR DELIVERY) Last Filed Vital Signs Vital Sign Reading Time Taken Comments Blood Pressure 129/79 03/06/2025 11:17 AM EDT Pulse 106 03/06/2025 11:17 AM EDT Temperature 36.9 C (98.4 F) 11/12/2024 9:46 AM EST Respiratory Rate 17 03/06/2025 11:1 7 AM EDT Oxygen Saturation 97% 11/12/2024 9:4 6 AM EST Inhaled Oxygen Concentration - - Weight 111.1 kg (245 lb) 09/03/2025 9:4 0 AM EST patient reported Height 158.1 cm (5' 2.25 ) 03/06/2025 1 1:17 AM EDT Body Mass Index 44.45 03/06/2025 11:17 AM EDT Plan of Treatment Upcoming Encounters Date Type Department Care Team (Late st Contact Info) Description 11/03/2025 11:20 AM EST Office Visit [facility] [place] [address] [facility] [address] [place] [phone] Eloina Donaldson MD [address] [place] [phone] 11/19/2025 2:00 PM EST Office Visit [facility] [address] [place] [address] Juliet Salmon, SKULL SPLITTER [address] [place] [address] Health Maintenance Due Date Last Done Comments COVID-19 Vaccine (#1) 1998 Pneumococcal Vaccine 0-49 (1 of 2 - PCV) 2017 Cervical Cancer Screening 03/21/2025 Pap Smear 03/21/2025 03/21/2022, 03/21/2022 Influenza Vaccine (#1) 2025 5 (Declined), 01/12/2015 (Postponed), 09/18/2012 Annual Wellness Exam 08/11/2025 08/11/2024 Hemoglobin A1c 11/22/2025 05/22/2025, 04/28, 01/14/2025, Additional history exists Kidney Health: eGFR 01/14/2026 01/14/2025, 08/11/2024, 03/17/2016, Additional history exists Kidney Health: uACR 01/14/2026 01/14/2025, 08/11/2024, 03/17/2016, Additional history exists Lipids 05/22/2026 05/22/2025, 12/27, [...] Procedure Name Priority Date/Time Associated Diagnosis Comments ALBUMIN/CREATININE RATIO, RANDOM URINE Routine 01/14/2025 2:58 PM EDT Type [...] RATIO URINE (01/14/2025 2:58 PM EDT) Urine Albumin <12.0 mg/L 01/14/2025 6:36 PM EDT [facility] Urine Creatinine 44.0 mg/dL 01/15/20 25 6:36 PM EDT [facility] Ur Albumin/Creat Ratio 01/14/2025 6:36 PM EDT [facility] Comment: Because the albumin level is below [...] MD URINE ORDERABLES Final Resul t [facility] 1 [facility] , [place] [address] * (ABNORMAL) LIPID PANEL REFLEX (01/14/2025 1:16 PM EDT) Cholesterol 220(H) <200 mg/dL 01/14/2025 5:29 PM EDT [email or web address] Comment: < 200 Desirable 200 - 239 Borderline High >= 240 High Triglyceride 247(H) <150 mg/dL 01/14/2025 5:29 PM EDT [email or web address] Comment: < 150 Normal 150 - 199 Borderline High 200 - 499 High >= 500 Very High HDL 33(L) >=40 mg/dL 01/14/2025 5:29 PM EDT [facility] Comment: > 60 Optimal 40 - 60 Acceptable < 40 Low LDL Calculated 142(H) <100 mg/dL 01/14/2025 5:29 PM EDT [facility] Comment: < 100 Optimal 100 - 129 Near or above optimal 130 - 159 Borderline High 160 - 189 High >= 190 Very High The National Institutes of Health (NIH) equation is used for all lipid panels that report calculated LDL (LDL-C). Non-HDL-C Calculated 187(H) <=129 mg/dL 01/14/2025 5:29 PM EDT [facility] Comment: <130 Desirable 130-159 Above Desirable 160-189 Borderline High 190-219 High >= 220 Very High Fasting Specimen? No None 025 5:29 PM EDT [facility] Blood VENOUS BLOOD / Unknown Venipuncture / Unknown 01/14/2025 1:16 PM EDT 01/14/2025 1:16 PM EDT Eloina Donaldson MD CHEMISTRY ORDERABLES Final R esult [facility] [address] [facility], [address] [place] [phone] [facility] [address] [place], [place] [id number] * (ABNORMAL) HEMOGLOBIN A1C (01/14/2025 1:16 PM EDT) Hgb A1C 7.3(H) 4.2 - 5.6 % 01/14/2025 5:00 PM EDT [facility] Est. Avg Glucose 163 mg/dL 01/14/2025 5:00 PM EDT [facility] Blood VENOUS BLOOD / Unknown Venipuncture / Unknown 01/14/2025 1:16 PM EDT 01/14/2025 1:16 PM EDT Narrative [facility] - 01/14/2025 5:00 PM EDT REFERENCE RANGE: Normal: 4.0-5.6% Pre-diabetes: 5.7-6.4% Provisional diagnosis of diabetes: >6.4% Hgb F>10% and anything which shortens red cell survival, such as hemolytic anemia, or unstable hemoglobin variants such as HbSS, HbSC, or HbCC, will lower the HbA1c value associated with a given level of glycemic control. Eloina Donaldson MD CHEMISTRY ORDERABLES Final R esult [facility] 1 [facility], [place] [address] [facility] 1 [place] [address] * (ABNORMAL) RENAL FUNCTION PANEL (01/14/2025 [...] mL/min/1.7 3 m2 01/14/2025 5:29 PM EDT [facility] Comment:Estimated GFR was ca lculated using the CKD-EPIcr (2020) equation refit without race. The equation is recommended by the National Kidney Foundation - [place] Society of Nephrology Task Force. Blood VENOUS BLOOD / Unknown Venipuncture / Unknown 01/14/2025 1:16 PM EDT 01/14/2025 1:16 PM EDT Eloina Donaldson MD CHEMISTRY ORDERABLES Final R esult [facility] 1 [facility] , [address] [place] [phone] from Last 3 Months or Most Recently Relevant to Health Maintenance Insurance [facility] [place] [address] [facility] [place] [address] Care Teams Testing Projects Administrator Relationship Specialty Start Date End Date Dot Soto DO [address] [place] [address] PCP - General Family Medicine 08/11/24
--- OUTSIDE RECORDS SUMMARY | 2025-10-04 10:02 | XMS_ITS | Encounter Summary ---
Author Organization [facility] [place] [address] Care Team Providers Care Insurance Verification Specialist Name Role Phone Dot Soto Primary Care Provider Reason for Visit * Reason Comments Medication Refill Encounter Details Date Type Department Care Team (Late st Contact Info) Description 09/17/2025 Refill [facility] [place] [address] [facility] [address] [place] [address] Eloina Donaldson MD [address] [place] [phone] Medication Refill Social History Tobacco Use Types [...] Refills Last Filled Start Date End Date Blood-Glucose Sensor (DEXCOM G7 SENSOR) Misc Device Use to monitor blood glucose, Change every 10 days. 9 Each 1 09/18/2025 documented in this encounter Plan of Treatment Upcoming Encounters Date Type Department Care Team (Late st Contact Info) Description 11/03/2025 11:20 AM EST Office Visit [facility] [place] [address] [facility] [address] [place] [phone] Eloina Donaldson MD [address] [place], [place] [phone] 11/19/2025 2:00 PM EST Office Visit [facility] [address] [place] [address] Juliet Salmon APRN [address] [place] [place] [address] documented as of this encounter [...] Diagnoses Not on filedocumented in this encounter Discontinued Medications Medication Sig Discontinue Reason Start Date End Da te Blood-Glucose Sensor (DEXCOM G7 SENSOR) Misc Device Use to monitor blood glucose, Change every 10 days. 07/03/2025 09/18/2025 documented as of this encounter Additional Health Concerns Assessment Noted Time PHQ-9 Depression Total Score: 11 024 2:18 PM EDT PHQ-2 Depression Total Score: 6 08/11/20 24 2:18 PM EDT documented as of this encounter Care Teams Insurance Verification Specialist Relationship Specialty Start Date End Date Dot Soto DO [address] [place] [phone] PCP - General Family Medicine 08/11/24 documented as of this encounter
--- OUTSIDE RECORDS SUMMARY | 2025-10-04 10:02 | XMS_ITS | Encounter Summary ---
Author Organization [place] [address] Care Team Providers Care Truckman Name Role Phone Dot Soto DO Primary Care Provider Reason for Visit * Reason Onset Date Comments Reschedule 09/22/2025 Encounter Details Date Type Department Care Team (Late st Contact Info) Description 09/22/[address] [facility] [place] [address] [facility] [address] [place], [place] [phone] Eloina Donaldson MD [address] [place] [address] Reschedule Social History Tobacco Use Types Packs/Day [...] Notes * Telephone Encounter - Dot Wagner RMA - 09/22/2025 8:55 AM EST Noted no labs to review * Telephone Encounter - Salma Redd - 09/22/2025 8:52 AM EST Pt cancelled appointment 09/29/25 with due to strep is going thru her household. Rescheduled for 10/06/25 documented in this encounter Plan of Treatment Upcoming Encounters Date Type Department Care Team (Late st Contact Info) Description 11/03/2025 11:20 AM EST [facility] [place] [address] [facility] [address] [place] [address] Eloina Donaldson MD [address] [place] [address] 11/19/2025 2:00 PM EST Office Visit [facility] [address] [place] [address] Juliet Salmon, CLINICAL REHAB SPECIALIST [address] [place] [address] documented as of this encounter [...] documented as of this encounter Care Teams Truckman Relationship Specialty Start Date End Date Dot Soto DO [address] [place] [address] PCP - General Family Medicine 08/11/24 documented as of this encounter
--- OUTSIDE RECORDS SUMMARY | 2025-10-04 10:02 | XMS_ITS | Encounter Summary ---
Author Organization Healthcare Address [address] [place] [address] Care Team Providers Care Geologist Petroleum Name Role Phone Isak Calle MD Primary Care Provider [phone] Madina Mosqueda RN Unavailable [phone] Rosita Hayward LOSS CONTROL MANAGER Unavailable [phone] Reason for Visit * Reason Comments Med Refill Encounter Details Date Type Department Care Team ([facility] Contact Info) Description 04/03/2024 Refill Medical Office Building Obstetrics and Gynecology [address] [facility], [address] [place] [address] Kelly Anderson MD [address] [facility] [address] [place] [address] Type 1 diabetes mellitus during , antepartum Social History Tobacco Use Types Packs/Day Years Used Date Smoking Tobacco: Never Passive Smoke Exposure: Never Smokeless Tobacco: Never Alcohol Use Standard Drinks/Week Comments Never 0 (1 standard drink = 0.6 oz pur e alcohol) [place] Depression Scale Answer Date Recorded [place] Depression Scale Total 4 03/06/2024 The thought [...] drink first t seamus in the morning (EYE-PERFORMANCE IMPROVEMENT COORDINATOR) to steady your nerves or to get [...] Description 10/15/2025 3:45 PM EST Office Visit [facility] Ophthalmology [address] [place] [phone] Reena Mack, OD [address] [facility] [address] [place] [address] 11/09/2025 10:45 AM EST Office Visit [facility] [address] [place] [address] Ashley Gomez MD [address] [place] [address] documented as of this encounter [...] documented as of this encounter Care Teams Geologist Petroleum Relationship Specialty Start Date End Date Isak Calle MD [address] [place] [address] [place] [address] PCP - General 03/11/21 Madina Mosqueda, RN [address] [facility] [address] [place] [address] Paperboard Box Maker Internal Medicine 09/01/21 07/08/24 Rosita Hayward APRN [address] [facility] [address] [place] [address] Nurse Practitioner Obstetrics and Gynecology 12/15/21 documented as of this encounter
--- OUTSIDE RECORDS SUMMARY | 2025-10-04 10:02 | XMS_ITS | Encounter Summary ---
Author Organization Healthcare Address [address] [place] [address] Care Team Providers Care Kennel Hand Name Role Phone Isak Calle MD Primary Care Provider [phone] Rosita Hayward OPERATING SYSTEMS PROGRAMMER Unavailable [phone] Reason for Visit * Reason Comments Med Refill Encounter Details Date Type Department Care Team (Late st Contact Info) Description 08/06/2024 Refill [facility] [address], [address] [place] [phone] Marjorie Locke, OPERATING SYSTEMS PROGRAMMER [address] [place] [address] Type 1 diabetes mellitus without complications (CMS/HCC) Social History Tobacco Use Types Packs/Day Years Used Date Smoking Tobacco: Never Passive Smoke Exposure: Never Smokeless Tobacco: Never Alcohol Use Standard Drinks/Week Comments Never 0 (1 standard drink = 0.6 oz pur e alcohol) [place] Depression Scale Answer Date Recorded [place] Depression Scale Total 4 03/06/2024 The thought [...] drink first t seamus in the morning (EYE-ON AWAKE COUNSELOR) to steady your nerves or to get [...] Description 10/15/2025 3:45 PM EST Office Visit [facility] Ophthalmology [address] [place] [phone] Reena Mack, WILLOW [address] [facility] [address] [place] [address] 11/09/2025 10:45 AM EST Office Visit [facility] [address] [facility] [place] [address] Ashley Gomez MD [address] [facility] [address] [place] [address] documented as of this encounter [...] documented as of this encounter Care Teams Kennel Hand Relationship Specialty Start Date End Date Isak Calle MD [address] [place] [address] [place] [address] PCP - General 03/11/21 Rosita Hayward APRN [address] [facility] [address] [place] [address] Nurse Practitioner Obstetrics and Gynecology 12/15/21 documented as of this encounter
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
== END 2025-10-01 23:59 | disposition home or self-care (01) ==
LOC: LAB.DROPOF 10-04 10:00
PROVIDERS: PCP Student in an Organized Health Care Education/Training Program; Visit Provider Student in an Organized Health Care Education/Training Program
DX: J02.9 Acute pharyngitis, unspecified (principal)
CPT/HCPCS: 87631